=== PATIENT | female | born 1985 | race Caucasian/White ===

== ENCOUNTER → 2017-07-24 10:45 | Outpatient (CLI) | payer OTHER, SELFPAY ==
[2017-07-24 12:22] LABS: Absolute Lymphocyte Count 1.88 X10^3/ul (0.83-4.51); Absolute Neutrophil Count 4.5 X10^3/uL (2.0-7.7); Basophil# 0.02 X10^3/uL; Basophil% 0.3 % (0-1); Eosinophil# 0.14 X10^3/uL; Hematocrit 40.8 % (37-47); Hemoglobin 13.3 g/dl (12.0-15.0); Lymphocyte # 1.88 X10^3/ul (4.0); Lymphocyte % 27.4 % (19-41); Mean Corp Hgb Conc 32.6 g/gl (32-36); Mean Corpuscular Hgb 28.9 pg (27.0-32.0); Mean Corpuscular Volume 88.7 fL (81-99); Mean Platelet Vol. 9.5 fl (6.2-12.0); Monocyte# 0.36 X10^3/uL; Monocyte% 5.2 % (0-10); Neutrophil # 4.45 X10^3/uL (2.7-7.7); Neutrophil % 64.8 % (47-70); Platelet Count 301 K/mm3 (150-450); RBC Distribution Width CV 13.2 % (11.6-14.6); RBC Distribution Width SD 42.6 fl (35.1-43.9); White Blood Count 6.9 K/mm3 (4.4-11.0)
[2017-07-24 12:26] LABS: POSITIVE COUNT NO; POSITIVE DIFFERENTIAL NO; POSITIVE MORPHOLOGY NO
[2017-07-24 12:42] LABS: ALB/GLOB Ratio 1.1 RATIO (0.9-2.4); AST(SGOT) 12 U/L (15-37); Alanine Aminotransfer ALT/SGPT 19 U/L (13-56); Alkaline Phosphatase 84 U/L (45-117); Anion Gap 10 (5-15); BUN 11 mg/dL (7-18); BUN/Creat Ratio 11.2 RATIO (10-20); Calcium,Total 8.2 mg/dL (8.5-10.1); Chloride 106 mmol/L (98-107); Creatinine, Serum 0.98 mg/dL (0.55-1.02); EST Glomerular Filtration Rate 69 mL/min (>60); Est Glom Filt Rate - Afr Amer 84 mL/min (>60); Globulin 3.6 g/dL (2.2-4.2); Glucose 111 mg/dL (74-106); Potassium 3.9 mmol/L (3.5-5.1); Protein, Total 7.6 g/dL (6.4-8.2); Sodium Level 141 mmol/L (136-145); Thyroid Stim Hormone (TSH) 1.26 uIU/mL (0.358-3.74)
[2017-07-25 10:21] LABS: Vitamin B12 657 pg/mL (211-911); Vitamin D,25 Hydroxy 20.2 ng/mL (29.95-100.01)
== END ==
PROVIDERS: Family Provider Family Medicine; PCP Family Medicine
DX: F32.9 Major depressive disorder, single episode, unspecified (principal); R53.83 Other fatigue
CPT/HCPCS: 36415; 80053; 82306; 82607; 84443; 85025

== ENCOUNTER → 2018-07-28 15:10 | Outpatient (CLI) | payer OTHER, SELFPAY ==
[2016-09-25 19:28] VITALS: BMI 37.0
[2018-07-28 18:34] LABS: Chlamydia Trachomatis by PCR Negative (Negative); Neisserai gonorrhoeae by PCR Negative (Negative); Probe Check PASS; Sample Adequacy Control PASS; Specimen Processing Control PASS
== END ==
PROVIDERS: Visit Provider Obstetrics & Gynecology
DX: Z11.3 Encounter for screening for infections with a predominantly sexual mode of transmission (principal)
CPT/HCPCS: 87491; 87591

== ENCOUNTER → 2018-08-26 14:44 | Outpatient (CLI) | payer OTHER, SELFPAY ==
[2018-08-26 15:57] LABS: Amphetamine Urine VISTA NEGATIVE (<1000 ng/mL); Barbiturate Urine VISTA NEGATIVE (< 200 ng/mL); Benzodiazepine Urine VISTA NEGATIVE (< 200 ng/mL); Cocaine Urine VISTA NEGATIVE (< 300 ng/mL); Ecstacy Urine VISTA NEGATIVE (< 500 ng/mL); Methadone Urine VISTA NEGATIVE (< 300 ng/mL); PCP Urine VISTA NEGATIVE (< 25 ng/mL); THC Urine VISTA NEGATIVE (< 50 ng/mL); Vista UDS pH Range 6
[2018-08-26 16:40] LABS: Color, Urine Yellow (Yellow); Glucose, Dipstick Normal (Normal); Ketone-Dipstick Negative (Negative); Leukocyte Esterase-Dipstick 25 /ul (Negative); Nitrite-Dipstick Negative (Negative); Occult Blood-Urine Negative /ul (Negative); Protein-Dipstick Negative (Negative); Urine Bilirubin Dipstick Negative (Negative); Urine Clarity Clear (Clear); Urine Urobilinogen Normal (Normal)
[2018-08-26 17:39] LABS: Absolute Lymphocyte Count 2.65 X10^3/ul (0.83-4.51); Absolute Neutrophil Count 3.7 X10^3/uL (2.0-7.7); Basophil# 0.01 X10^3/uL; Basophil% 0.1 % (0-1); Eosinophil# 0.08 X10^3/uL; Eosinophils% 1.2 % (0-5); Hemoglobin 12.9 g/dl (12.0-15.0); Lymphocyte # 2.65 X10^3/ul (4.0); Lymphocyte % 38.6 % (19-41); Mean Corp Hgb Conc 33.1 g/gl (32-36); Mean Corpuscular Volume 84.8 fL (81-99); Mean Platelet Vol. 10.2 fl (6.2-12.0); Monocyte# 0.43 X10^3/uL; Monocyte% 6.3 % (0-10); Neutrophil # 3.69 X10^3/uL (2.7-7.7); Neutrophil % 53.7 % (47-70); Platelet Count 280 K/mm3 (150-450); RBC Distribution Width CV 13.5 % (11.6-14.6); White Blood Count 6.9 K/mm3 (4.4-11.0)
[2018-08-26 17:48] LABS: Thyroid Stim Hormone (TSH) 0.95 uIU/mL (0.358-3.74)
[2018-08-26 18:04] LABS: POSITIVE COUNT NO; POSITIVE DIFFERENTIAL NO; POSITIVE MORPHOLOGY NO
[2018-08-26 18:45] LABS: HIV - WCH Non-Reactive (Nonreactive); Rubella IgG > 500.0 IU/mL
[2018-08-28 01:44] LABS: Prenatal RPR NONREACTIVE (NONREACTIVE)
[2018-08-28 13:28] LABS: HEPATITIS B SURFACE AG Negative (Negative); Hep C Antibodies 0.1 s/co ratio (0.0-0.9)
== END ==
PROVIDERS: Visit Provider Obstetrics & Gynecology
DX: Z34.81 Encounter for supervision of other normal pregnancy, first trimester (principal)
CPT/HCPCS: 36415; 80307; 81002; 84443; 85025; 86703; 86762; 86803; 87340

== ENCOUNTER → 2018-10-21 16:43 | Outpatient (CLI) | payer OTHER, SELFPAY ==
[2016-09-25 19:28] VITALS: BMI 37.0
[2018-10-24 03:06] LABS: AFP MoM Value 1.61 (.); AFP Value-EIA 48.4 ng/mL (.); Comment Report (.); DIA MoM Value 0.68 (.); DIA Value-EIA 96.51 pg/mL (.); DSR (By Age) 273 (.); DSR (Second Trimester) 10000 (.); Gestat. Age Based On As provided (.); Gestational Age 16.9 WEEKS (.); Insulin Dep Diabetes No (.); Maternal Age At EDD 35.4 yr (.); hCG MoM 0.34 (.); hCG Value 9716 mIU/mL (.)
== END ==
PROVIDERS: Visit Provider Obstetrics & Gynecology
DX: Z34.82 Encounter for supervision of other normal pregnancy, second trimester (principal)
CPT/HCPCS: 36415; 82105; 82677; 84702

== ENCOUNTER 2018-12-14 22:15 | Outpatient (CLI) | payer OTHER, SELFPAY ==
[2018-11-02 14:13] VITALS: BMI 36.3
[2018-12-14 22:40] LABS: Mucous, Urine 0 SEEN /hpf (<or=2+); Red Blood Cells-Urine 0 SEEN /hpf (0-5); White Blood Cells 0 SEEN /hpf (0-5)
[2018-12-14 22:43] LABS: Color, Urine Yellow (Yellow); Glucose, Dipstick Normal (Normal); Ketone-Dipstick Negative (Negative); Leukocyte Esterase-Dipstick Negative /ul (Negative); Nitrite-Dipstick Negative (Negative); Occult Blood-Urine Negative /ul (Negative); Protein-Dipstick Negative (Negative); Specific Gravity, Urine 1.015 (1.002-1.030); Urine Bilirubin Dipstick Negative (Negative); Urine Clarity Clear (Clear); Urine Urobilinogen Normal (Normal)
[2018-12-14 22:44] VITALS: BMI 38.0
[2018-12-14 22:50] LABS: Bacteria 1+ /hpf (None Seen); Squamous Epithelial Cells - UA 0-5 SEEN /hpf (5-10)
[2018-12-14 23:02] LABS: ROM Internal Control Test YES-OK TO RESULT pt. (Internal QC); ROM Patient Test Negative (Negative)
--- NOTE | 2019-01-01 08:58 | OB.TRI.NOTE ---
History of Present Illness Date of Service: 12/14/18 Was patient seen by the physician?: No Reason For Visit: UTI Date of Service: 12/14/18 Final FRANKI: 04/01/19 Gestational age: 24 Weeks and 4 Days History of Present Illness: 24-week intrauterine presents with urinary tract infection symptoms and some vaginal discharge concerned about rupture of membranes. care has otherwise been uneventful. Allergies No Known Allergies Allergy (Verified 12/14/18 22:48) - Pertinent Past Medical History Medical History: Past Medical History (Last Updated 11/02/18 @ 14:18 by Melissa Thurston) Seasonal allergies (Chronic) Surgical History: Past Surgical History (Last Updated 11/02/18 @ 14:20 by Melissa Thurston) History of delivery (Resolved) History of D&C (Resolved) History of eyelid surgery (Resolved) Laboratory Studies: Laboratory Tests 12/14/18 12/14/18 Range/Units 22:34 22:34 Urine Color Yellow (Yellow) Urine Clarity Clear (Clear) Urine pH 6.0 (5.0 - 8.0) Ur Specific [place] 1.015 (1.002-1.030) Urine Protein Negative (Negative) mg/dl Urine Glucose (UA) Normal (Normal) mg/dl Urine Ketones Negative (Negative) mg/dl Urine Occult Blood Negative (Negative) /ul Urine Nitrite Negative (Negative) Urine Bilirubin Negative (Negative) mg/dL Urine Urobilinogen Normal (Normal) mg/dl Ur Leukocyte Esterase Negative (Negative) /ul Urine RBC 0 SEEN (0-5) /hpf Urine WBC 0 SEEN (0-5) /hpf Ur Squamous Epith Cells 0-5 SEEN (5-10) /hpf Urine Bacteria 1+ (None Seen) /hpf Urine Mucus 0 SEEN (<or=2+) /hpf Vag Amniotic Fld Detect Negative (Negative) NST - FHR Rate Baby A NST Reactive:: Yes, Appropriate for gestational age FHR Category:: Category I Uterine Activity:: No contractions noted. Impression/Plan 24-week intrauterine with some transient contractions. UA showed 1+ bacteria. Reactive heart tones. Cervix is nonthreatening and no contractions noted. Urine sent for culture and sensitivity and if positive will notify patient and begin antibiotic from the office.
== END 2018-12-14 23:26 | disposition home or self-care (01) ==
LOC: WPOUT 22:21 → WP 22:21
PROVIDERS: Family Provider Family Medicine; PCP Family Medicine; Referring Provider Obstetrics & Gynecology; Visit Provider Obstetrics & Gynecology
DX: O60.02 Preterm labor without delivery, second trimester (principal); O99.89 Other specified diseases and conditions complicating pregnancy, childbirth and the puerperium; R39.9 Unspecified symptoms and signs involving the genitourinary system; Z3A.24 24 weeks gestation of pregnancy
CPT/HCPCS: 59050; 81001; 84112; 87086; 87088; 99218; G0378

== ENCOUNTER → 2019-01-04 15:40 | Outpatient (CLI) | payer OTHER, SELFPAY ==
[2018-12-14 22:44] VITALS: BMI 38.0
[2019-01-04 17:41] LABS: Glucose Challenge Gest 1H 50g 131 mg/dL (70-140)
[2019-01-04 17:46] LABS: Hematocrit 31.1 % (37-47); Hemoglobin 9.9 g/dL (12.0-15.0); Mean Corp Hgb Conc 31.8 g/dL (32-36); Mean Corpuscular Hgb 26.5 pg (27.0-32.0); Mean Corpuscular Volume 83.2 fL (81-99); Mean Platelet Vol. 10.2 fl (6.2-12.0); Platelet Count 232 K/mm3 (150-450); RBC Distribution Width CV 13.5 % (11.6-14.6); RBC Distribution Width SD 41.1 fl (35.1-43.9); Red Blood Count 3.74 M/mm3 (4.2-5.4); White Blood Count 9.4 K/mm3 (4.4-11.0)
== END ==
PROVIDERS: Visit Provider Obstetrics & Gynecology
DX: Z34.82 Encounter for supervision of other normal pregnancy, second trimester (principal)
CPT/HCPCS: 36415; 82950; 85027

== ENCOUNTER 2019-03-25 10:21 | Inpatient (IN) | payer OTHER, SELFPAY ==
[2019-01-15 09:59] VITALS: BMI 38.0
[2019-03-25] VITALS (19 sets, daily range): BP systolic 100–138; BP diastolic 41–70; PULSE 85–120; RESP 11–20; TEMP 36.1–37.1; O2SAT 97–100; BMI 40.4
[2019-03-25] MEDS: Lactated Ringers 1,000 ML 999 ML IV (10:25)
[2019-03-25 10:53] LABS: Absolute Lymphocyte Count 2.89 X10^3/uL (0.83-4.51); Absolute Neutrophil Count 6.3 X10^3/uL (2.0-7.7); Basophil# 0.01 X10^3/uL; Basophil% 0.1 % (0-1); Eosinophil# 0.11 X10^3/uL; Eosinophils% 1.1 % (0-5); Hematocrit 40.4 % (37-47); Hemoglobin 13.3 g/dL (12.0-15.0); Lymphocyte # 2.89 X10^3/ul (4.0); Mean Corp Hgb Conc 32.9 g/dL (32-36); Mean Corpuscular Hgb 28.1 pg (27.0-32.0); Mean Corpuscular Volume 85.2 fL (81-99); Mean Platelet Vol. 10.7 fl (6.2-12.0); Monocyte# 0.64 X10^3/uL; Monocyte% 6.4 % (0-10); NRBC Flagged by Analyzer 0 % (0-5); Neutrophil # 6.26 X10^3/uL (2.7-7.7); Neutrophil % 62.7 % (47-70); Platelet Count 187 K/mm3 (150-450); RBC Distribution Width CV 15.9 % (11.6-14.6); RBC Distribution Width SD 50.1 fl (35.1-43.9); Red Blood Count 4.74 M/mm3 (4.2-5.4)
[2019-03-25] MEDS: Sodium Citrate/Citric Acid 30 ML UDC PO (11:22)
--- NOTE | 2019-03-25 11:22 | PCM.HP.OB ---
- Problem List (1) 39 weeks gestation of Status: Acute History Date of Admission: 03/25/19 Final FRANKI: 04/01/19 Final FRANKI Source: US <20 weeks Gestational age: 39 Weeks and 0 Days History of this : This is a 33 year-old, G [3], P [1011], at 39 weeks gestational age presents for scheduled repeat section. Medical History: Medical History (Last Updated 03/25/19 @ 11:25 by Esha Ryan MD) Seasonal allergies (Chronic) J30.2 Anxiety F41.9 Asthma J45.909 Lactose intolerance E73.9 Surgical History: Surgical History (Last Reviewed 01/15/19 @ 10:07 by Samira Redman NP-C) History of delivery (Resolved) Z98.891 History of D&C (Resolved) Z98.890 History of eyelid surgery (Resolved) Z98.890 Allergies No Known Allergies Allergy (Verified 01/15/19 09:52) Home Medications: Home Medications Pnv No.95/Ferrous Fum/Folic AC [ Vitamin Tablet] 1 ea PO DAILY 09/25/16 Smoking Status: Never smoker Alcohol: None Number of Fetus(es): 1 NST - FHR Rate Baby A Baseline: 147 bpm History Past Pregnancies: PAST SUMMARY: PARITY: 1. Total Pregnancies............ 3 2. Full Term Pregnancies........ 1 3. Premature.................... 0 4. Abortions - Induced.......... 0 5. Abortions - Spontaneous...... 1 6. Ectopics..................... 0 7. Multiple Births.............. 0 8. Living Children.............. 1 PAST #1: Date of :.................. 11/21/15 Gestation Weeks:................ 12 Length of labor(hours):......... 0 Sex:............................ UNKNOWN Weight-lbs:............... 0 Weight-oz:................ 0 Type of Delivery:............... Vag Type of Anesthesia:............. General Place of Delivery:.............. [place] Treatment of Labor?:.... No Comment: SAB PAST #2: Date of :.................. 09/27/16 Gestation Weeks:................ 39 Length of labor(hours):......... 55 Sex:............................ M Weight-lbs:............... 8 Weight-oz:................ 13 Type of Delivery:............... C-Sect Type of Anesthesia:............. Epidural Place of Delivery:.............. [place] Treatment of Labor?:.... No Comment: ARREST OF PROGRESS, IOL, TOMMY Labs: Mom's Labs & Results 03/25/19 03/25/19 10:25 10:25 WBC 10.0 RBC 4.74 Hgb 13.3 Hct 40.4 MCV 85.2 MCH 28.1 MCHC 32.9 RDW Std Deviation 50.1 H RDW Coeff of Tia 15.9 H Plt Count 187 MPV 10.7 Immature Gran % (Auto) 0.700 Neut % (Auto) 62.7 Lymph % (Auto) 29.0 [place] % (Auto) 6.4 Eos % (Auto) 1.1 Baso % (Auto) 0.1 Absolute Neuts (auto) 6.3 Absolute Lymphs (auto) 2.89 Nucleated RBC % 0 Blood Type Pending Antibody Screen Pending Course Did the patient receive Yes care? Labs Blood Type: O RH: POSITIVE RPR/VDRL/Syphilis Nonreactive Rubella status Immune HbSAg Negative Date Done: 08/26/18 Chlamydia Negative Gonorrhea Negative HIV/AIDS Non-Reactive Group B Strep: Not Done Current Obstetrical History Gestational Diabetes No Incompetent Cervix No Infertility No IUGR No Macrosomia No Hypertension/Pre-eclampsia No Placenta Previa/Abruption No PTL/PROM No Uterine anomaly No Oligohydramnios No Polyhydramnios No Multiple gestation No Past Medical History Asthma Yes Diabetes No Hypertension No Heart disease No Mitral valve prolapse No Neurologic/Seizure disorder/ No Migraines Kidney disease No Liver disease No Varicosities No Clotting disorders/Hx of DVT No Thyroid Dysfunction No Other medical diseases No Psychiatric disorders No Major trauma No Abnormal PAP smear No Sleep apnea No Mammogram in the last 2 years No Social History Marital Status: Alleged father Leander Hx Smoking No Smoking Status Never smoker Expected Infant Delivery Method: Scheduled Section Physical Exam Vitals: avss General: Alert, Oriented x3, Cooperative, No apparent distress HEENT: Atraumatic, Normocephalic Cardiovascular: Regular rate, Regular Rhythm, Normal S1, Normal S2 Lungs: Normal air movement Abdomen: Soft, Non Tender, Non-Distended Extremities:: No edema Neurological: Neuro grossly intact Assessment/Plan All Active Problems (Last Reviewed 01/15/19 @ 10:07 by Samira Redman NP-C) 39 weeks gestation of (Acute) History of delivery (Resolved) History of D&C (Resolved) History of eyelid surgery (Resolved) This is a 33 year-old, G [3], P [1011], at 39 weeks gestational age. Proceed with repeat section as planned.
[2019-03-25] MEDS: Lactated Ringers 1,000 ML 150 ML IV (11:31)
[2019-03-25] MEDS: Cefazolin 2 GM in 0.9% Normal Saline 100 ML IV (12:00)
--- NOTE | 2019-03-25 12:53 | PCM.OPRPT ---
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 She was suboptimal candidate for TOLAC. Consents were signed preoperatively and reviewed. Indications for : Repeat Elective Description of Procedure: The patient was taken to the operating room and spinal analgesia was administered. She is placed in a dorsal supine position with left lateral tilt. The perineum and abdomen were prepped and draped in sterile fashion. And the spinal was found to be adequate. A Pfannenstiel incision was made using a scalpel and brought down to incise the subcutaneous tissue and rectus fascia at the midline. Subcutaneous tissue was bluntly dissected off the fascia laterally. The fascial incision was dissected laterally and cephalad using curved Guevara scissors. The superior leaflet of the rectus fascia was grasped using Valentina clamps and bluntly dissected and sharply dissected from the underlying rectus muscle. In a similar fashion the inferior rectus fascia was dissected from the underlying muscle. The rectus muscles were bluntly at the midline. The peritoneum was identified and entered [sharply]. The bladder blade was placed into the abdomen and the vesicouterine peritoneal fold identified. The fold was incised and a bladder flap created. Bladder blade was then repositioned to the abdomen. A low transverse hysterotomy was made using the [Metzenbaum scissors] to level of the membranes. The hysterotomy was extended bluntly cephalad and caudad. The membranes were then ruptured revealing clear fluid. The head was elevated and brought to the level of the hysterotomy. A nuchal cord was reduced and the mouth and nares suctioned. The delivered revealing vigorous a [female] infant. The cord was doubly clamped and cut after approximately 60 seconds. The infant was passed to awaiting [nursery personnel]. The placenta was [expressed] from the uterus and appeared intact on inspection. The uterus was cleared of debris. The hysterotomy was then repaired using 0 Vicryl running lock suture with good hemostasis. The bladder blade was removed. The anterior cul-de-sac was cleared of debris. The peritoneum and rectus muscles were reapproximated using 2-0 Vicryl running suture. The rectus fascia was closed using 0 Vicryl running suture. The subcutaneous tissue was reapproximated using 2-0 Vicryl. The skin was closed using 4-0 Monocryl subcuticularly by the SUPERVISOR [employer]SEM[employer] under my supervision. A Mepilex occlusive dressing was placed over the incision. The fundus was firm. The patient was then transferred to the recovery room without complication. Sponge, instrument, and needle counts were correct ?2. I was present for the entire procedure. Amniotic Membrane Rupture Type: Artificial Amniotic Fluid Description: Clear Placenta Disposition: [facility] Drain: [place] to straight drain Fluids Replaced: 1000 ml Cord Entanglement: Around neck x 1, loose Nuchal Cord Compression: Without compression Cord Vessel Description: 3 Vessels Esitmated Blood Loss (ml): 975 Gender: Female (1 minute): 8 (5 minute): 9 Delayed cord clamping: Yes Antibiotic Given: Ancef 2 grams IV x1 Pt instructed on risks of surgery: Bleeding, Anesthesia Risks, Infection, Injury to surrounding structure(s) including bowel and bladder Complications: None - Admit VTE Documentation VTE Present on Admission: No VTE Mechan Device Prophylaxis: SCD's VTE Pharm Prophylaxis ordered?: No
[2019-03-25] MEDS: Oxytocin 30 units/NS 500 ml 30 UNITS/500 ML IV.SOLN 167 UNITS IV (13:10)
[2019-03-25] MEDS: Methylergonovine 0.2 MG/ML Ampul IM (13:35)
[2019-03-25] MEDS: Lactated Ringers 1,000 ML 100 ML IV (16:32)
--- NOTE | 2019-03-25 18:02 | CPS ---
mom is nursing baby. nurse will start
[2019-03-25] MEDS: Ketorolac 30 MG/ML Syringe IV (19:23)
[2019-03-25] MEDS: 0.9% Saline Lock 10 ML Syringe IV (23:45)
[2019-03-26] VITALS (12 sets, daily range): BP systolic 93–107; BP diastolic 37–42; PULSE 92–118; RESP 12–18; TEMP 36.6–37.2; O2SAT 97–100
[2019-03-26] MEDS: Ketorolac 30 MG/ML Syringe IV ×3 (00:33→13:12)
[2019-03-26] MEDS: 0.9% Saline Lock 10 ML Syringe IV ×3 (00:33→13:12)
[2019-03-26] MEDS: DiphenhydrAMINE 25 MG Capsule PO (01:47)
[2019-03-26] MEDS: Ondansetron ODT 4 MG Tablet PO (02:47)
[2019-03-26] MEDS: Acetaminophen 500 MG Tablet 1000 MG PO ×2 (05:12→17:33)
[2019-03-26 05:16] LABS: Hematocrit 27.1 % (37-47); Hemoglobin 8.8 g/dL (12.0-15.0); Mean Corp Hgb Conc 32.5 g/dL (32-36); Mean Corpuscular Hgb 28.2 pg (27.0-32.0); Mean Corpuscular Volume 86.9 fL (81-99); Mean Platelet Vol. 10.5 fl (6.2-12.0); Platelet Count 176 K/mm3 (150-450); RBC Distribution Width CV 16.1 % (11.6-14.6); RBC Distribution Width SD 51.1 fl (35.1-43.9); Red Blood Count 3.12 M/mm3 (4.2-5.4); White Blood Count 14.2 K/mm3 (4.4-11.0)
--- NOTE | 2019-03-26 08:54 | PN.OBGYN_ITS ---
Patient Problems: Active and Suspected Problems (Last Updated 03/25/19 @ 11:25 by Esha Seo MD) 39 weeks gestation of (Acute) Subjective: Bleeding improved from prior. No nausea or vomiting. Tolerates PO. Objective: AVSS - Physical Exam Vitals/I&O's: Vital Signs Temp Pulse Resp BP Pulse Ox 97.9 F 92 12 93/40 L 100 03/26/19 08:30 03/26/19 08:30 03/26/19 08:30 03/26/19 08:30 03/26/19 08:30 Oxygen Delivery Method Room Air Weight: 100.3 kg Body Mass Index (BMI) 40.4 Intake and Output for Last 24 Hours 03/24/19 03/25/19 03/26/19 23:59 23:59 23:59 Intake Total 7079.17 / 7079.17 1800 / 1800 Output Total 1300 / 1300 1250 / 1250 Balance 5779.17 / 5779.17 550 / 550 General: Alert, Oriented x3, Cooperative, No apparent distress HEENT: Atraumatic, Normocephalic Lungs: Clear to auscultation, Normal air movement Cardiovascular: Regular rate, Regular Rhythm, Normal S1, Normal S2 Abdomen: Soft, Non Tender, Non-Distended, - - incisional dressing c/d/i Extremities: No edema, No Calf Tenderness Neurological: Neuro grossly intact Psych/Mental Status: Normal Affect, Appropriate, Alert and oriented to time, place, person, mood and affect Laboratory Results 03/25/19 10:25: WBC 10.0, RBC 4.74, Hgb 13.3, Hct 40.4, MCV 85.2, MCH 28.1, MCHC 32.9, RDW Std Deviation 50.1 H, RDW Coeff of Tia 15.9 H, Plt Count 187, MPV 10.7, Immature Gran % (Auto) 0.700, Neut % (Auto) 62.7, Lymph % (Auto) 29.0, [place] % (Auto) 6.4, Eos % (Auto) 1.1, Baso % (Auto) 0.1, Absolute Neuts (auto) 6.3, Absolute Lymphs (auto) 2.89, Nucleated RBC % 0 03/25/19 10:25: Blood Type O POSITIVE, Antibody Screen NEGATIVE 03/26/19 05:05: WBC 14.2 H, RBC 3.12 L, Hgb 8.8 L, Hct 27.1 L, MCV 86.9, MCH 28.2, MCHC 32.5, RDW Std Deviation 51.1 H, RDW Coeff of Tia 16.1 H, Plt Count 176, MPV 10.5 Current Medications Acetaminophen (Tylenol) 1,000 mg PO Q8H PRN PRN Reason: Pain Score 1-3/10 Last Admin: 03/26/19 05:12 Dose: 1,000 mg Documented by: Bisacodyl (Dulcolax) 10 mg RECTAL UD PRN PRN Reason: If no BM Diphenhydramine HCl (Benadryl) 25 mg PO Q6H PRN PRN PRN Reason: ITCHING Stop: 03/26/19 13:35 Last Admin: 03/26/19 01:47 Dose: 25 mg Documented by: Enoxaparin Sodium (Lovenox) 40 mg SC X1 [facility] Last Admin: 03/25/19 19:23 Dose: Not Given Documented by: Hydrocortisone (Hytone) 1 applic TOPICAL TID PRN PRN; Protocol PRN Reason: Discomfort Lactated Ringer's () 1,000 mls @ 100 mls/hr IV .Q10H [facility] Last Infusion: 03/25/19 23:30 Dose: Infused Documented by: Naloxone HCl 4 mg/ Dextrose 504 mls @ 0 mls/hr IV .Q0M PRN; Protocol PRN Reason: Respiratory depression Ibuprofen (Motrin) 600 mg PO Q6H PRN PRN PRN Reason: Pain Score 1-3/10 Ketorolac Tromethamine (Toradol) 30 mg IV Q6H [facility] Stop: 03/27/19 13:01 Last Admin: 03/26/19 07:25 Dose: 30 mg Documented by: Methylergonovine Maleate (Methergine) 0.2 mg IM X1 PRN PRN Reason: Uterine Atony Last Admin: 03/25/19 13:35 Dose: 0.2 mg Documented by: Nalbuphine HCl (Nubain) 5 mg IV Q3H PRN PRN PRN Reason: ITCHING Stop: 03/26/19 13:35 Naloxone HCl (Narcan) 0.02 mg IV Q1M PRN PRN Reason: RR <10 and pt unresponsive Ondansetron HCl (Zofran) 4 mg IV Q4H PRN PRN PRN Reason: Nausea Ondansetron HCl (Zofran Odt) 4 mg PO Q4H PRN PRN PRN Reason: ITCHING Stop: 03/26/19 13:35 Last Admin: 03/26/19 02:47 Dose: 4 mg Documented by: Oxycodone HCl (Oxyir) 5 - 10 mg PO Q4H PRN PRN PRN Reason: Pain Score 4-10/10 Multivit/Folic Acid/Iron (Prenatabs Fa) 1 tablet PO DAILY@1200 VISHAL Prochlorperazine Edisylate (Compazine Iv) 10 mg IV Q6H PRN PRN PRN Reason: NAUSEA Senna/Docusate Sodium (Senokot-S, Sharmila-Colace) 0 tablet PO DAILY PRN PRN Reason: Constipation Simethicone (Mylicon) 80 mg PO PCHS PRN PRN Reason: Indigestion/stomach pain Sodium Chloride () 5 - 15 ml IV UD PRN PRN Reason: SALINE FLUSH Last Admin: 03/26/19 07:26 Dose: 10 ml Documented by: Medical Necessity - Tobacco Use Smoking Status: Never smoker Assessment/Plan All Active Problems (Last Reviewed 01/15/19 @ 10:07 by Samira Redman NP-C) 39 weeks gestation of (Acute) History of delivery (Resolved) History of D&C (Resolved) History of eyelid surgery (Resolved) This is a 33 year-old, G [3], P [2012 POD#1 s/p RLTCS with hemorrhage doing well. -Rh positive -Routine postop care
[2019-03-26] MEDS: Senna/Docusate Sodium 1 Tablet PO (09:21)
[2019-03-26] MEDS: Enoxaparin 40 MG/0.4 ML Syringe SC (09:22)
[2019-03-26] MEDS: Prenatal Vits Tablet 1 TABLET PO (13:12)
--- NOTE | 2019-03-26 18:42 | NURSING ---
IV noted to be pulled out and sticking to dressing. D/C
[2019-03-26] MEDS: Ibuprofen 600 MG Tablet PO (21:00)
[2019-03-27 01:26] VITALS: BP 100/47; PULSE 100; RESP 16; TEMP 37
[2019-03-27] MEDS: Ibuprofen 600 MG Tablet PO ×3 (02:59→18:20)
[2019-03-27] MEDS: Senna/Docusate Sodium 1 Tablet PO (04:04)
--- NOTE | 2019-03-27 04:17 | NURSING ---
0355 pt does not want oxyir states she felt it constipated her. states has not had bowel movement since the , given senna and discussed option of dulcolax later today if no results from senna.
[2019-03-27 07:25] VITALS: BP 98/50; PULSE 105; RESP 16; TEMP 36.9; O2SAT 98
[2019-03-27 08:23] LABS: Absolute Lymphocyte Count 2.68 X10^3/uL (0.83-4.51); Absolute Neutrophil Count 4.2 X10^3/uL (2.0-7.7); Basophil# 0.01 X10^3/uL; Basophil% 0.1 % (0-1); Eosinophil# 0.08 X10^3/uL; Eosinophils% 1.1 % (0-5); Hematocrit 23.4 % (37-47); Hemoglobin 7.5 g/dL (12.0-15.0); Lymphocyte # 2.68 X10^3/ul (4.0); Lymphocyte % 35.3 % (19-41); Mean Corp Hgb Conc 32.1 g/dL (32-36); Mean Corpuscular Hgb 28.2 pg (27.0-32.0); Mean Platelet Vol. 10.1 fl (6.2-12.0); Monocyte# 0.61 X10^3/uL; NRBC Flagged by Analyzer 0 % (0-5); Neutrophil # 4.16 X10^3/uL (2.7-7.7); Neutrophil % 54.8 % (47-70); Platelet Count 175 K/mm3 (150-450); RBC Distribution Width CV 16.5 % (11.6-14.6); Red Blood Count 2.66 M/mm3 (4.2-5.4); White Blood Count 7.6 K/mm3 (4.4-11.0)
--- NOTE | 2019-03-27 10:30 | DCINST_ITS ---
Discharge Diet: No Restrictions Discharge Activity: May not drive while taking narcotic pain medications., May Shower Return to work on:: 05/24/19 May resume sexual activity in: 4-6 weeks Lifting Restrictions: 20 pounds Additional Activity Instructions:: Nothing in the vagina for 4-6 weeks. You may return to work/school in 6 - 8 weeks. Change Dressing in (Days):: 7 Remove Dressing in (days):: 7 Cleanse incision/area with: Soap & Water, Keep Dressing Clean & Dry Additional Instructions: If you experience any of the following, contact your healthcare provider. * Bleeding that soaks a pad every hour for 2 hours * Fever 100.4 or higher * Unrelieved incision or abdominal pain * Swelling, redness, discharge or bleeding from your incision * Problems urinating (including inability to urinate or burning while urinating). * Visual changes * Severe headache * Flu-like symptoms * Pain or redness in one of both of your breasts * Pain, warmth, tenderness or swelling in your legs, especially the calf area * Frequent nausea and vomiting * Symptoms of depression or anxiety If you experience any of the following, call 911 or go to the nearest Emergency Room. * Chest pain * Problems breathing * Seizure activity * Partial or complete paralysis of a body part, slurred speech, weakness or drooping of the face, or a sudden inability to walk or hold your balance Allergies/Adverse Reactions: Allergies No Known Allergies Allergy (Verified 01/15/19 09:52) Medications to take at Discharge Docusate Sodium [Colace] 100 mg PO BID #30 cap 03/27/19 Ferrous Sulfate 325 mg PO BIDCM #60 tab 03/27/19 Oxycodone [Oxyir] 5 mg PO Q6H PRN PRN 3 Days #15 tab 03/27/19 Polyethylene Glycol 3350 [Miralax] 17 gm PO DAILY PRN #14 packet 03/27/19 Vits [Prenatabs FA ] 1 tablet PO DAILY@1200 tablet 03/27/19 The following prescriptions were given: Docusate Sodium [Colace] 100 mg PO BID #30 cap Transmission Status: Pending to [id number] Ferrous Sulfate 325 mg PO BIDCM #60 tab Transmission Status: Pending to [facility] Polyethylene Glycol 3350 [Miralax] 17 gm PO DAILY PRN #14 packet PRN Reason: Constipation Transmission Status: Pending to [facility] Oxycodone [Oxyir] 5 mg PO Q6H PRN PRN 3 Days #15 tab PRN Reason: Mod-Severe Pain (4-10) Prescription Printed Follow-Up: Call to make an appointment with your doctor for an incision check in 1-2 weeks. You will also need a 6 week post- follow up appointment. Test results from this visit will be discussed in further detail at your follow- up appointment, if applicable. Please Follow Up With: Esha Ryan MD - [phone] When: Call to make an appointment for an incision check in 2 weeks. Primary Care Physician: Jermaine Mayer DO [Primary Care Provider] -
--- NOTE | 2019-03-27 10:49 | PCM.PN.OB ---
Patient Problems: Active and Suspected Problems (Last Updated 03/25/19 @ 11:25 by Esha Ryan MD) 39 weeks gestation of (Acute) Subjective: POD#2 repeat C/S at 39 wks States uncomfortable abdomen. Neg stool, Neg flatus. has been drinking more, coffee tried. Fruit juice tried. Stool softener recommended. Breast feeding. Baby being checked again for bilirubin Active toddler and family members in room. Would like to stay another day. Declines dischg. - Physical Exam Vitals/I&O's: Vital Signs Temp Pulse Resp BP Pulse Ox 98.5 F 105 H 16 98/50 L 98 03/27/19 07:25 03/27/19 07:25 03/27/19 07:25 03/27/19 07:25 03/27/19 07:25 Oxygen Delivery Method Room Air Weight: 100.3 kg Body Mass Index (BMI) 40.4 Intake and Output for Last 24 Hours 03/25/19 03/26/19 03/27/19 23:59 23:59 23:59 Intake Total 7079.17 / 7079.17 1800 / 1800 Output Total 1300 / 1300 1250 / 1250 Balance 5779.17 / 5779.17 550 / 550 General: Alert, Oriented x3, Cooperative, No apparent distress HEENT: Atraumatic, EOMI Neck: Supple Abdomen: Soft - Fundus firm minimally tender c/w postop status, at approx 1-2 cm inferior to umbilicus. Skin: Incision - Mepilex dressing, CDI. Psych/Mental Status: Normal Affect Laboratory Results 03/27/19 08:15: WBC 7.6, RBC 2.66 L, Hgb 7.5 L, Hct 23.4 L, MCV 88.0, MCH 28.2, MCHC 32.1, RDW Std Deviation 52.0 H, RDW Coeff of Tia 16.5 H, Plt Count 175, MPV 10.1, Immature Gran % (Auto) 0.700, Neut % (Auto) 54.8, Lymph % (Auto) 35.3, [place] % (Auto) 8.0, Eos % (Auto) 1.1, Baso % (Auto) 0.1, Absolute Neuts (auto) 4.2, Absolute Lymphs (auto) 2.68, Nucleated RBC % 0 Current Medications Acetaminophen (Tylenol) 1,000 mg PO Q8H PRN PRN Reason: Pain Score 1-3/10 Last Admin: 03/26/19 17:33 Dose: 1,000 mg Documented by: Bisacodyl (Dulcolax) 10 mg RECTAL UD PRN PRN Reason: If no BM Enoxaparin Sodium (Lovenox) 40 mg SC X1 [facility] Last Admin: 03/26/19 09:22 Dose: 40 mg Documented by: Hydrocortisone (Hytone) 1 applic TOPICAL TID PRN PRN; Protocol PRN Reason: Discomfort Naloxone HCl 4 mg/ Dextrose 504 mls @ 0 mls/hr IV .Q0M PRN; Protocol PRN Reason: Respiratory depression Ibuprofen (Motrin) 600 mg PO Q6H PRN PRN PRN Reason: Pain Score 1-3/10 Last Admin: 03/27/19 02:59 Dose: 600 mg Documented by: Methylergonovine Maleate (Methergine) 0.2 mg IM X1 PRN PRN Reason: Uterine Atony Last Admin: 03/25/19 13:35 Dose: 0.2 mg Documented by: Naloxone HCl (Narcan) 0.02 mg IV Q1M PRN PRN Reason: RR <10 and pt unresponsive Ondansetron HCl (Zofran) 4 mg IV Q4H PRN PRN PRN Reason: Nausea Oxycodone HCl (Oxyir) 5 - 10 mg PO Q4H PRN PRN PRN Reason: Pain Score 4-10/10 Multivit/Folic Acid/Iron (Prenatabs Fa) 1 tablet PO DAILY@1200 [facility] Last Admin: 03/26/19 13:12 Dose: 1 tablet Documented by: Prochlorperazine Edisylate (Compazine Iv) 10 mg IV Q6H PRN PRN PRN Reason: NAUSEA Senna/Docusate Sodium (Senokot-S, Sharmila-Colace) 0 tablet PO DAILY PRN PRN Reason: Constipation Last Admin: 03/27/19 04:04 Dose: 2 tablet Documented by: Simethicone (Mylicon) 80 mg PO PCHS PRN PRN Reason: Indigestion/stomach pain Sodium Chloride () 5 - 15 ml IV UD PRN PRN Reason: SALINE FLUSH Last Admin: 03/26/19 13:12 Dose: 10 ml Documented by: Medical Necessity - Tobacco Use Smoking Status: Never smoker Assessment/Plan All Active Problems (Last Reviewed 01/15/19 @ 10:07 by Samira Redman NP-C) 39 weeks gestation of (Acute) History of delivery (Resolved) History of D&C (Resolved) History of eyelid surgery (Resolved) POD#2 Repeat C section Postop anemia, acute blood loss anemia -- clinically stable -- iron recommended -- repeat CBC AM POD#3 Constipation -- inc po fulids, fiber -- stool softener encourage ambulation, coffee/ caffeine Continue routine postop care.
[2019-03-27] MEDS: Prenatal Vits Tablet 1 TABLET PO (11:42)
[2019-03-27] MEDS: Polyethylene Glycol 3350 17 GM PACKET PO ×2 (11:48)
[2019-03-27 13:52] VITALS: BP 93/57; PULSE 107; RESP 16; TEMP 36.7; O2SAT 97
--- NOTE | 2019-03-27 16:18 | CASEMGMT ---
Social Work Brief Assessment - Labor and Delivery Unit Refer documentation below for further details. Date of Referral/Notification: 03/26/19 Time of Referral: 08:34 Reason for Referral: MOB WITH HISTORY OF ANXIETY AND DEPRESSION Date of Intervention: 03/27/19 Time of Intervention: 15:00 Informant: Medical record and mother of baby (MOB) Assessment: MET WITH MOB ALONE IN ROOM. 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 MOB REPORTS HAS 2 1/2 YEAR OLD SON, TOMMY AT HOME. MOB REPORTS GOOD SUPPORT FROM , CHELSEA AND FAMILY. MOB REPORTS HISTORY OF ANXIETY AND DEPRESSION THAT STARTED IN HER 20'S. MOB REPORTS WAS ON MEDICATION AT ONE TIME AND COMPLETED COUNSELING AT [facility]. MOB REPORTS IS NOT CURRENTLY ON MEDICATION. MOB DENIES ANY HISTORY OF SUBSTANCE ABUSE. DISCUSSED DEPRESSION SIGNS AND SYMPTOMS AND PROVIDED MOB WITH RESOURCE PACKET. MOB CALM AND APPROPRIATE THROUGHOUT ASSESSMENT. MOB DENIES ANY FURTHER QUESTIONS OR CONCERNS. UPDATED MOB'S NURSE, DOMINGA. ANTICIPATE D/C TOMORROW, 03/28/19. Plan: HOME WITH RESOURCES PROVIDED. No further needs requested or indicated. -Starr Marshall, YOUTH MANAGER, TRUCK LEASING MANAGER
[2019-03-27] MEDS: Enoxaparin 40 MG/0.4 ML Syringe SC (18:11)
[2019-03-27 20:04] VITALS: BP 101/43; PULSE 104; RESP 18; TEMP 37.1; O2SAT 98
[2019-03-27] MEDS: Acetaminophen 500 MG Tablet 1000 MG PO (20:20)
[2019-03-28 02:00] VITALS: BP 104/47; PULSE 94; RESP 16; TEMP 36.4
[2019-03-28 05:20] LABS: Hemoglobin 7.7 g/dL (12.0-15.0); Mean Corp Hgb Conc 32.1 g/dL (32-36); Mean Corpuscular Hgb 28.2 pg (27.0-32.0); Mean Corpuscular Volume 87.9 fL (81-99); Mean Platelet Vol. 9.8 fl (6.2-12.0); Platelet Count 184 K/mm3 (150-450); RBC Distribution Width CV 16.5 % (11.6-14.6); RBC Distribution Width SD 52.8 fl (35.1-43.9); Red Blood Count 2.73 M/mm3 (4.2-5.4); White Blood Count 7.2 K/mm3 (4.4-11.0)
[2019-03-28] MEDS: Ibuprofen 600 MG Tablet PO (07:08)
--- NOTE | 2019-03-28 07:18 | DS.PCM_ITS ---
Discharge Date and Diagnosis - Problem List Patient Problems: Active and Suspected Problems (Last Updated 03/25/19 @ 11:25 by Esha Seo MD) 39 weeks gestation of (Acute) Date of Admission: 03/25/19 Date of Discharge: 03/28/19 - Primary Discharge Diagnosis Active and Suspected Problems (Last Updated 03/25/19 @ 11:25 by Esha Seo MD) 39 weeks gestation of (Acute) - Secondary Discharge Diagnosis Chronic Problems (Last Updated 03/25/19 @ 11:25 by Esha Ryan MD) Shortness of breath (Chronic) Seasonal allergies (Chronic) Hospital Course and Treatment Operations: - - Repeat Low transverse section Summary of Care Provided: The patient is a 33 year old female with history of prior c section delivery who presents for repeat C section at 39 wk EGA Repeat C section performed on 03/25/19 Procedure uncomplicated with EBL of 975 cc. Delivered a naranjo viable female Ap 12/18. Postoperative course complicated by acute blood loss anemia. Preoperative Hgb 13.3 g/dl., decreased to 7.7 g/dl by POD#3 (stable from POD#2) Iron bid planned. Patient clinically stable, and Hgb stable at 7.7 g/dl by POD#3. No transfusion given. Patient also with c/o constipation after surgery. Stool softeners, inc fluids and fiber given with good result. Postoperative course otherwise uneventful. Breast feeding. Patient elected discharge to home on POD#3. Patient Problems: Active and Suspected Problems (Last Updated 03/25/19 @ 11:25 by Esha Seo MD) 39 weeks gestation of (Acute) - Physical Exam Vitals/I&O's: Vital Signs Temp Pulse Resp BP Pulse Ox 97.5 F L 94 16 104/47 L 98 03/28/19 02:00 03/28/19 02:00 03/28/19 02:00 03/28/19 02:00 03/27/19 20:04 Oxygen Delivery Method Room Air Weight: 100.3 kg Body Mass Index (BMI) 40.4 Intake and Output for Last 24 Hours 03/26/19 03/27/19 03/28/19 23:59 23:59 23:59 Intake Total 1800 / 1800 Output Total 1250 / 1250 Balance 550 / 550 Laboratory Results 03/27/19 08:15: WBC 7.6, RBC 2.66 L, Hgb 7.5 L, Hct 23.4 L, MCV 88.0, MCH 28.2, MCHC 32.1, RDW Std Deviation 52.0 H, RDW Coeff of Tia 16.5 H, Plt Count 175, MPV 10.1, Immature Gran % (Auto) 0.700, Neut % (Auto) 54.8, Lymph % (Auto) 35.3, Slope % (Auto) 8.0, Eos % (Auto) 1.1, Baso % (Auto) 0.1, Absolute Neuts (auto) 4.2, Absolute Lymphs (auto) 2.68, Nucleated RBC % 0 03/28/19 04:00: WBC Cancelled, Corrected WBC Cancelled, RBC Cancelled, Hgb Cancelled, Hct Cancelled, MCV Cancelled, MCH Cancelled, MCHC Cancelled, RDW Std Deviation Cancelled, RDW Coeff of Tia Cancelled, Plt Count Cancelled, MPV Cancelled, Diff Path Review Cancelled 03/28/19 05:10: WBC 7.2, RBC 2.73 L, Hgb 7.7 L, Hct 24.0 L, MCV 87.9, MCH 28.2, MCHC 32.1, RDW Std Deviation 52.8 H, RDW Coeff of Tia 16.5 H, Plt Count 184, MPV 9.8 Current Medications Acetaminophen (Tylenol) 1,000 mg PO Q8H PRN PRN Reason: Pain Score 1-310 Last Admin: 03/27/19 20:20 Dose: 1,000 mg Documented by: Bisacodyl (Dulcolax) 10 mg RECTAL UD PRN PRN Reason: If no BM Enoxaparin Sodium (Lovenox) 40 mg SC X1 [facility] Last Admin: 03/27/19 18:11 Dose: 40 mg Documented by: Hydrocortisone (Hytone) 1 applic TOPICAL TID PRN PRN; Protocol PRN Reason: Discomfort Naloxone HCl 4 mg/ Dextrose 504 mls @ 0 mls/hr IV .Q0M PRN; Protocol PRN Reason: Respiratory depression Ibuprofen (Motrin) 600 mg PO Q6H PRN PRN PRN Reason: Pain Score 1-3/10 Last Admin: 03/28/19 07:08 Dose: 600 mg Documented by: Magnesium Hydroxide (Milk Of Magnesia) 30 ml PO BID PRN PRN Reason: Constipation Methylergonovine Maleate (Methergine) 0.2 mg IM X1 PRN PRN Reason: Uterine Atony Last Admin: 03/25/19 13:35 Dose: 0.2 mg Documented by: Naloxone HCl (Narcan) 0.02 mg IV Q1M PRN PRN Reason: RR <10 and pt unresponsive Ondansetron HCl (Zofran) 4 mg IV Q4H PRN PRN PRN Reason: Nausea Oxycodone HCl (Oxyir) 5 - 10 mg PO Q4H PRN PRN PRN Reason: Pain Score 4-10/10 Polyethylene Glycol (Miralax) 17 gm PO DAILY [facility] Last Admin: 03/27/19 11:48 Dose: 17 gm Documented by: Multivit/Folic Acid/Iron (Prenatabs Fa) 1 tablet PO DAILY@1200 [facility] Last Admin: 03/27/19 11:42 Dose: 1 tablet Documented by: Prochlorperazine Edisylate (Compazine Iv) 10 mg IV Q6H PRN PRN PRN Reason: NAUSEA Senna/Docusate Sodium (Senokot-S, Sharmila-Colace) 0 tablet PO DAILY PRN PRN Reason: Constipation Last Admin: 03/27/19 04:04 Dose: 2 tablet Documented by: Simethicone (Mylicon) 80 mg PO PCHS PRN PRN Reason: Indigestion/stomach pain Last Admin: 03/27/19 18:20 Dose: 80 mg Documented by: Sodium Chloride () 5 - 15 ml IV UD PRN PRN Reason: SALINE FLUSH Last Admin: 03/26/19 13:12 Dose: 10 ml Documented by: Discharge Diet: No Restrictions Discharge Activity: May not drive while taking narcotic pain medications., May Shower Return to work on:: 05/24/19 May resume sexual activity in: 4-6 weeks Additional Activity Instructions:: Nothing in the vagina for 4-6 weeks. You may return to work/school in 6 - 8 weeks. Change Dressing in (Days):: 7 Remove Dressing in (days):: 7 Cleanse incision/area with: Soap & Water, Keep Dressing Clean & Dry Home Medications: Medications to take at Discharge Docusate Sodium [Colace] 100 mg PO BID #30 cap 03/27/19 Ferrous Sulfate 325 mg PO BIDCM #60 tab 03/27/19 Oxycodone [Oxyir] 5 mg PO Q6H PRN PRN 3 Days #15 tab 03/27/19 Polyethylene Glycol 3350 [Miralax] 17 gm PO DAILY PRN #14 packet 03/27/19 Vits [Prenatabs FA ] 1 tab PO DAILY@1200 tab 03/27/19 Following Prescrptions Were Given to Patient: Docusate Sodium [Colace] 100 mg PO BID #30 cap Transmission Status: Received by [email or web address] Ferrous Sulfate 325 mg PO BIDCM #60 tab Transmission Status: [email or web address] Polyethylene Glycol 3350 [Miralax] 17 gm PO DAILY PRN #14 packet PRN Reason: Constipation Transmission Status: [email or web address] Oxycodone [Oxyir] 5 mg PO Q6H PRN PRN 3 Days #15 tab PRN Reason: Mod-Severe Pain (4-02/18) Prescription Printed Primary Care Physician: Jermaine Mayer DO [Primary Care Provider] - Please Follow Up With: Esha Ryan MD - [phone] When: Call to make an appointment for an incision check in 2 weeks. Medical Necessity - Tobacco Use Smoking Status: Never smoker Meaningful Use Info Meaningful Use Diagnoses (Choose all that apply): None applicable
[2019-03-28 07:45] VITALS: BP 106/54; PULSE 93; RESP 16; TEMP 36.7; O2SAT 98
--- NOTE | 2019-03-28 08:21 | PCM.PN.OB ---
Patient Problems: Active and Suspected Problems (Last Updated 03/25/19 @ 11:25 by Esha Ryan MD) 39 weeks gestation of (Acute) Subjective: POD#3 Repeat C section at 39 wks. Acute blood loss anemia, stable. Doing well. + flatus and stool. Using miralax, pericolace bid. Pain control adequate. Does not plan to take narcotics. Plans Tylenol extra strength and ibuprofen or Aleve. plans to to home today. Breast feeding. - Physical Exam Vitals/I&O's: Vital Signs Temp Pulse Resp BP Pulse Ox 97.5 F L 94 16 104/47 L 98 03/28/19 02:00 03/28/19 02:00 03/28/19 02:00 03/28/19 02:00 03/27/19 20:04 Oxygen Delivery Method Room Air Weight: 100.3 kg Body Mass Index (BMI) 40.4 Intake and Output for Last 24 Hours 03/26/19 03/27/19 03/28/19 23:59 23:59 23:59 Intake Total 1800 / 1800 Output Total 1250 / 1250 Balance 550 / 550 General: Alert, Oriented x3, Cooperative, No apparent distress HEENT: Atraumatic, EOMI Neck: Supple Abdomen: Soft - Fundus firm NT at approx 3-4 cm inferior to umbilicus Skin: Incision - Mepilex removed. Incision CDI. Psych/Mental Status: Normal Affect Laboratory Results 03/27/19 08:15: WBC 7.6, RBC 2.66 L, Hgb 7.5 L, Hct 23.4 L, MCV 88.0, MCH 28.2, MCHC 32.1, RDW Std Deviation 52.0 H, RDW Coeff of Tia 16.5 H, Plt Count 175, MPV 10.1, Immature Gran % (Auto) 0.700, Neut % (Auto) 54.8, Lymph % (Auto) 35.3, [place] % (Auto) 8.0, Eos % (Auto) 1.1, Baso % (Auto) 0.1, Absolute Neuts (auto) 4.2, Absolute Lymphs (auto) 2.68, Nucleated RBC % 0 03/28/19 04:00: WBC Cancelled, Corrected WBC Cancelled, RBC Cancelled, Hgb Cancelled, Hct Cancelled, MCV Cancelled, MCH Cancelled, MCHC Cancelled, RDW Std Deviation Cancelled, RDW Coeff of Tia Cancelled, Plt Count Cancelled, MPV Cancelled, Diff Path Review Cancelled 03/28/19 05:10: WBC 7.2, RBC 2.73 L, Hgb 7.7 L, Hct 24.0 L, MCV 87.9, MCH 28.2, MCHC 32.1, RDW Std Deviation 52.8 H, RDW Coeff of Tia 16.5 H, Plt Count 184, MPV 9.8 Current Medications Acetaminophen (Tylenol) 1,000 mg PO Q8H PRN PRN Reason: Pain Score 1-3/10 Last Admin: 03/27/19 20:20 Dose: 1,000 mg Documented by: Bisacodyl (Dulcolax) 10 mg RECTAL UD PRN PRN Reason: If no BM Enoxaparin Sodium (Lovenox) 40 mg SC X1 [facility] Last Admin: 03/27/19 18:11 Dose: 40 mg Documented by: Hydrocortisone (Hytone) 1 applic TOPICAL TID PRN PRN; Protocol PRN Reason: Discomfort Naloxone HCl 4 mg/ Dextrose 504 mls @ 0 mls/hr IV .Q0M PRN; Protocol PRN Reason: Respiratory depression Ibuprofen (Motrin) 600 mg PO Q6H PRN PRN PRN Reason: Pain Score 1-3/10 Last Admin: 03/28/19 07:08 Dose: 600 mg Documented by: Magnesium Hydroxide (Milk Of Magnesia) 30 ml PO BID PRN PRN Reason: Constipation Methylergonovine Maleate (Methergine) 0.2 mg IM X1 PRN PRN Reason: Uterine Atony Last Admin: 03/25/19 13:35 Dose: 0.2 mg Documented by: Naloxone HCl (Narcan) 0.02 mg IV Q1M PRN PRN Reason: RR <10 and pt unresponsive Ondansetron HCl (Zofran) 4 mg IV Q4H PRN PRN PRN Reason: Nausea Oxycodone HCl (Oxyir) 5 - 10 mg PO Q4H PRN PRN PRN Reason: Pain Score 4-10/10 Polyethylene Glycol (Miralax) 17 gm PO DAILY [facility] Last Admin: 03/27/19 11:48 Dose: 17 gm Documented by: Multivit/Folic Acid/Iron (Prenatabs Fa) 1 tablet PO DAILY@1200 [facility] Last Admin: 03/27/19 11:42 Dose: 1 tablet Documented by: Prochlorperazine Edisylate (Compazine Iv) 10 mg IV Q6H PRN PRN PRN Reason: NAUSEA Senna/Docusate Sodium (Senokot-S, Sharmila-Colace) 0 tablet PO DAILY PRN PRN Reason: Constipation Last Admin: 03/27/19 04:04 Dose: 2 tablet Documented by: Simethicone (Mylicon) 80 mg PO PCHS PRN PRN Reason: Indigestion/stomach pain Last Admin: 03/27/19 18:20 Dose: 80 mg Documented by: Sodium Chloride () 5 - 15 ml IV UD PRN PRN Reason: SALINE FLUSH Last Admin: 03/26/19 13:12 Dose: 10 ml Documented by: Medical Necessity - Tobacco Use Smoking Status: Never smoker Assessment/Plan All Active Problems (Last Reviewed 01/15/19 @ 10:07 by Samira Redman NP-C) 39 weeks gestation of (Acute) History of delivery (Resolved) History of D&C (Resolved) History of eyelid surgery (Resolved) POD#3 Repeat C section Postop anemia, acute blood loss anemia -- clinically stable -- iron recommended -- repeat CBC AM POD#3 with slight increase Hgb to 7.7 g/dl Constipation -- improved. -- Continue inc po fluids, fiber -- Continue stool softener Dischg home today. RTO in 2 wk for postop check.
[2019-03-28 12:25] VITALS: BP 117/58; PULSE 64; RESP 16; TEMP 36.4; O2SAT 100
== END 2019-03-28 13:45 | disposition home or self-care (01) | DRG 787 ==
PROVIDERS: Advanced Practice Midwife; Admitting Provider Obstetrics & Gynecology; Family Provider Family Medicine; PCP Family Medicine; Referring Provider Obstetrics & Gynecology; Visit Provider Obstetrics & Gynecology
PROC: 10D00Z1 Extraction of Products of Conception, Low, Open Approach (ICD-10-PCS; CPT 59514; principal; 2019-03-25 11:45)
DX: O34.211 Maternal care for low transverse scar from previous cesarean delivery (principal); D62 Acute posthemorrhagic anemia; O69.81X0 Labor and delivery complicated by cord around neck, without compression, not applicable or unspecified; O43.893 Other placental disorders, third trimester; O99.02 Anemia complicating childbirth; O99.63 Diseases of the digestive system complicating the puerperium; K59.00 Constipation, unspecified; Z3A.39 39 weeks gestation of pregnancy; Z37.0 Single live birth
CPT/HCPCS: 85025; 85027; 86850; 86900; 86901; 99218; 99251; J7120; A4216; G0378; G0463; J2405

== ENCOUNTER → 2020-05-17 17:04 | Outpatient (CLI) | payer OTHER, SELFPAY ==
[2019-04-22 08:08] VITALS: BMI 36.0
--- NOTE | 2020-05-17 17:09 | RAD_ITS ---
HISTORY: left knee pain ADDITIONAL HISTORY: None provided. EXAMINATION/TECHNIQUE: XR Knee Complete 4 Views or More Left Number of images including paperwork: 4 COMPARISON: None FINDINGS: BONES: No acute fracture. JOINTS: No subluxation. SOFT TISSUES: No distinct foreign body. RAD/Knee 4 or More Views IMPRESSION: No significant abnormality. at 0553 Reported and signed by: Siri Justin MD Electronically Signed: Siri Justin MD at 5:53 EST Tel , Service support ,
== END ==
PROVIDERS: PCP Family Medicine; Referring Provider Family Medicine; Visit Provider Family Medicine
DX: M25.562 Pain in left knee (principal)
CPT/HCPCS: 73564

== ENCOUNTER → 2021-01-31 | Outpatient (CLI) | payer OTHER, SELFPAY ==
[2021-02-06 22:06] LABS: Chlamydia By Nucleic Acid AMP Negative (Negative)
[2021-02-07 09:28] LABS: HPV APTIMA, High Risk Negative (Negative)
[2021-02-07 09:31] LABS: Gonococcus By Nucleic Acid AMP Negative (Negative)
== END | disposition home or self-care (01) ==
LOC: LABSPEC 16:15
PROVIDERS: PCP Family Medicine; Visit Provider Obstetrics & Gynecology
DX: Z12.4 Encounter for screening for malignant neoplasm of cervix (principal); Z11.3 Encounter for screening for infections with a predominantly sexual mode of transmission
CPT/HCPCS: 87491; 87591; 87624; 88175; G0145

== ENCOUNTER → 2021-02-28 13:59 | Outpatient (CLI) | payer OTHER, SELFPAY ==
[2021-02-28 17:26] LABS: Absolute Neutrophil Count 6.4 X10^3/uL (2.0-7.7); Basophil# 0.02 X10^3/uL; Basophil% 0.2 % (0-1); Eosinophil# 0.08 X10^3/uL; Eosinophils% 0.8 % (0-5); Hematocrit 41.9 % (37-47); Hemoglobin 13.4 g/dL (12.0-15.0); Lymphocyte % 31.7 % (19-41); Mean Corpuscular Hgb 28.9 pg (27.0-32.0); Mean Corpuscular Volume 90.3 fL (81-99); Mean Platelet Vol. 9.8 fl (6.2-12.0); Monocyte# 0.54 X10^3/uL; Monocyte% 5.2 % (0-10); NRBC Flagged by Analyzer 0 % (0-5); Neutrophil # 6.43 X10^3/uL (2.7-7.7); Neutrophil % 61.7 % (47-70); Platelet Count 320 K/mm3 (150-450); RBC Distribution Width CV 12.3 % (11.6-14.6); RBC Distribution Width SD 40.5 fl (35.1-43.9); Red Blood Count 4.64 M/mm3 (4.2-5.4); White Blood Count 10.4 K/mm3 (4.4-11.0)
[2021-02-28 17:49] LABS: Thyroid Stim Hormone (TSH) 1.07 uIU/mL (0.358-3.74)
[2021-02-28 18:01] LABS: Glucose, Dipstick Normal (Normal); Ketone-Dipstick Negative (Negative); Leukocyte Esterase-Dipstick Negative /ul (Negative); Nitrite-Dipstick Negative (Negative); Occult Blood-Urine Negative /ul (Negative); Protein-Dipstick Negative (Negative); Urine Bilirubin Dipstick Negative (Negative); Urine Urobilinogen Normal (Normal); Urine pH 6.5 (5.0 - 8.0)
[2021-02-28 18:03] LABS: Color, Urine YELLOW (Yellow); Urine Clarity Clear (Clear)
[2021-02-28 18:04] LABS: Amphetamine Urine VISTA NEGATIVE (<1000 ng/mL); Barbiturate Urine VISTA NEGATIVE (< 200 ng/mL); Benzodiazepine Urine VISTA NEGATIVE (< 200 ng/mL); Cocaine Urine VISTA NEGATIVE (< 300 ng/mL); Ecstacy Urine VISTA NEGATIVE (< 500 ng/mL); Methadone Urine VISTA NEGATIVE (< 300 ng/mL); PCP Urine VISTA NEGATIVE (< 25 ng/mL); THC Urine VISTA NEGATIVE (< 50 ng/mL); Vista UDS pH Range 7
[2021-03-01 10:17] LABS: HIV - WCH Non-Reactive (Nonreactive); Hepatitis B Surface Antigen Non-Reactive (Nonreactive); Hepatitis C Antibody Non-Reactive (Nonreactive); Rubella IgG Reactive (Nonreactive); Syphilis Antibodies Non-reactive
== END ==
PROVIDERS: PCP Family Medicine; Visit Provider Obstetrics & Gynecology
DX: Z34.81 Encounter for supervision of other normal pregnancy, first trimester (principal)
CPT/HCPCS: 36415; 80307; 81002; 84443; 85025; 86703; 86762; 86780; 86803; 87077; 87086; 87088; 87340

== ENCOUNTER 2021-05-14 11:50 | Outpatient (CLI) | payer OTHER, SELFPAY | END 2021-05-14 23:59 | disposition home or self-care (01) | LOC: LABSPEC 11:51 | PROVIDERS: PCP Family Medicine; Referring Provider Physician Assistant; Visit Provider Physician Assistant | DX: U07.1 COVID-19 (principal) | CPT/HCPCS: 87635; U0003; U0005 ==

== ENCOUNTER 2021-06-22 09:17 | Outpatient (CLI) | payer OTHER, SELFPAY ==
[2021-06-22 10:32] LABS: Hematocrit 34.3 % (37-47); Hemoglobin 11.4 g/dL (12.0-15.0); Mean Corp Hgb Conc 33.2 g/dL (32-36); Mean Corpuscular Hgb 29.5 pg (27.0-32.0); Mean Corpuscular Volume 88.9 fL (81-99); Mean Platelet Vol. 10.1 fl (6.2-12.0); Platelet Count 218 K/mm3 (150-450); RBC Distribution Width CV 13.9 % (11.6-14.6); RBC Distribution Width SD 44.7 fl (35.1-43.9); Red Blood Count 3.86 M/mm3 (4.2-5.4); White Blood Count 7.6 K/mm3 (4.4-11.0)
[2021-06-22 10:39] LABS: Glucose Challenge Gest 1H 50g 135 mg/dL (70-140)
== END 2021-06-22 23:59 | disposition home or self-care (01) ==
LOC: WOBLAB 09:21
PROVIDERS: PCP Family Medicine; Referring Provider Obstetrics & Gynecology; Visit Provider Obstetrics & Gynecology
DX: Z34.82 Encounter for supervision of other normal pregnancy, second trimester (principal)
CPT/HCPCS: 36415; 82950; 85027

== ENCOUNTER 2021-08-20 13:39 | Outpatient (CLI) | payer OTHER, SELFPAY | END 2021-08-20 23:59 | disposition home or self-care (01) | LOC: LABSPEC 13:40 | PROVIDERS: PCP Family Medicine; Visit Provider Obstetrics & Gynecology | DX: Z34.83 Encounter for supervision of other normal pregnancy, third trimester (principal); Z36.85 Encounter for antenatal screening for Streptococcus B | CPT/HCPCS: 87081 ==

== ENCOUNTER 2021-09-12 05:15 | Inpatient (IN) | payer OTHER, SELFPAY ==
[2021-09-12] VITALS (17 sets, daily range): BP systolic 82–124; BP diastolic 33–66; PULSE 73–102; RESP 15–18; TEMP 36.2–36.8; O2SAT 98–100; BMI 38.1
[2021-09-12] MEDS: Lactated Ringers 1,000 ML 999 ML IV (05:40)
[2021-09-12 06:03] LABS: Absolute Lymphocyte Count 3.34 X10^3/uL (0.83-4.51); Absolute Neutrophil Count 4.9 X10^3/uL (2.0-7.7); Basophil# 0.01 X10^3/uL; Basophil% 0.1 % (0-1); Eosinophils% 1.1 % (0-5); Hematocrit 34.3 % (37-47); Hemoglobin 10.8 g/dL (12.0-15.0); Lymphocyte # 3.34 X10^3/ul (0.83-4.51); Lymphocyte % 37.3 % (19-41); Mean Corp Hgb Conc 31.5 g/dL (32-36); Mean Corpuscular Hgb 26.3 pg (27.0-32.0); Mean Corpuscular Volume 83.7 fL (81-99); Mean Platelet Vol. 10.8 fl (6.2-12.0); Monocyte# 0.58 X10^3/uL; Monocyte% 6.5 % (0-10); NRBC Flagged by Analyzer 0 % (0-5); Neutrophil # 4.88 X10^3/uL (2.7-7.7); Neutrophil % 54.4 % (47-70); Platelet Count 225 K/mm3 (150-450); RBC Distribution Width CV 14.9 % (11.6-14.6); RBC Distribution Width SD 45.2 fl (35.1-43.9)
[2021-09-12] MEDS: Lactated Ringers 1,000 ML 150 ML IV (06:13)
--- NOTE | 2021-09-12 06:19 | PCM.HP.OB ---
HPI - General General Date of Admission: 09/12/21 HPI Narrative INNA STEINBERG, is a 35 F who presents for scheduled repeat section at 39w3d by LMP c/w 11w US. OB PROBLEM LIST: 2 cousins with Down Syndrome AMA [id number] and Libby Gunterek drawn today. COVID positive 05/2021 Environmental allergies and exersize-induced asthma; PRN rescue inhaler GBS bactiuria H/O IBS hx 2 prior C/S - undecided TOLAC vs. repeat C/s Requests AFP and CF. Treatment for depression an danxiety in the past. EPDS = 3. Maternal Data Information FRANKI Calculator Estimated Delivery Date Method Current WG Current Estimate 09/18/21 LMP (Certain) 39w 1d PFSH PFSH Medical History (Updated 09/12/21 @ 06:[address] Esha Seo MD) Acute sinusitis, unspecified Anxiety Asthma Lactose intolerance depression hemorrhage Seasonal allergies Home Medications fluticasone propionate 50 mcg/actuation nasal spray,suspension 1 spray INTRANASAL DAILY 08/05/20 [History Last Taken 09/10/21] acetaminophen [Tylenol] 650 mg PO Q6H PRN 09/12/21 [History Last Taken 09/11/21] [id number] [] 1 tab PO DAILY 09/12/21 [History Last Taken Unknown] Allergy/AdvReac Type Severity Reaction Status Date / Time grass pollen Allergy unknown Verified 08/05/20 10:58 house dust Allergy unknown Verified 08/05/20 10:58 mold Allergy unknown Verified 08/05/20 10:58 Family History Sister Asthma Grandmother Diabetes Heart disease Cancer Grandfather A-fib Cancer Surgical History (Updated 09/12/21 @ 06:[address] Esha Seo MD) fatty tumor removed History of bladder surgery History of delivery History of colonoscopy History of D&C History of eyelid surgery Social History Smoking Status: Never smoker alcohol intake: never History 4 Elective abortions Hx Para 2 Spontaneous abortions 1 Hx # Term Pregnancies 2 Ectopic pregnancies Hx # Pregnancies Multiple births # of living children NST FHR Rate Baby A Baseline: 130 Variability:: Moderate Accelerations:: 15 x 15 Decelerations:: None NST Reactive:: Yes FHR Category:: Category I Uterine Activity:: 0/10 ROS Eyes Eyes: Denies change in vision Gastrointestinal Gastrointestinal: Reports cramping and nausea Neurologic Neurologic: Denies headache(s) Vital Signs Vital Signs Vital Signs: 09/12/21 05:58 Temperature 97.5 F L Temperature Source Temporal Pulse Rate 102 H Respiratory Rate 16 Blood Pressure 106/61 Blood Pressure Mean 76 Blood Pressure Source Monitor Blood Pressure Position Semi-Fowlers Blood Pressure Location Left Arm Oxygen Delivery Method Room Air Weight Weight: 97.692 kg Body Mass Index (BMI) 38.1 Physical Exam Const alert, oriented x3 and no apparent distress HEENT normocephalic Resp normal respiratory effort, normal air movement and clear to auscultation bilaterally Cardio regular rate and regular rhythm GI normal to inspection, nondistended, normoactive bowel sounds, soft to palpation, non-tender and non-distended Inspection: gravid Labs Labs Labs: Blood Type O POSITIVE Antibody Screen NEGATIVE Hct 34.3 % (37-47) L Hgb 10.8 g/dL (12.0-15.0) L Syphilis Total Ab Non-reactive Rubella IgG Antibody Reactive (Nonreactive) Hep Bs Antigen Non-Reactive (Nonreactive) Chlamydia DNA (JENNA) Negative (Negative) Neisseria gonorrhoeae DNA (JENNA) Negative (Negative) HIV 1&2 Antibody Non-Reactive (Nonreactive) Glucose 1 Hr 50 gm 135 mg/dL (70-140) Group B Strep DNA Negative (Negative) Rhogam given: No Miscellaneous Test Antepartum Flow Sheet Highlights: SHM September 09 39 216 110/60 - - 39 V SHM Aug 10 38 217 116/64 tr - 39 V SHM Aug 10 37 215 100/60 37 V 2 50 -3 SHM Aug 10 37 216 128/74 - - V Aug 10 36 213 126/64 - - 36 V 1 SHM Aug 11 34 214 120/70 tr - 34 V CM 15 Jul 2 32 210 122/62 - - 32 SHM Jul 11 30 208 125/65 - - 33 V SHM 11 Jun 2 27 203 130/78 tr - 28 ? SHM May 15 23 197 116/67 tr - 23 W Apr 14 19 193 108/70 tr - 20 SHM Mar 16 15 207 112/68 ne ne JMW Feb 4 11 208 102/68 - - SHORT ANTEPARTUM NOTE(S): 11 September PAT appt Aug BBP Today, Good FM, Feeling Well Aug see note 19 Aug 20 Aug 10Aug doing well 15 Mar no concerns Jul doing well Jun see note 14 May 1 hr GTT supplies given Apr Sono Today, Good FM,Fatigue Mar 31Feb Sono Today, labs drawn LONG ANTEPARTUM NOTES: 11 September Here for Pre-op for C/S. OB declines me doing Covid and will do rapid tomorrow am. Consents signed and PAT packet provided. LMT 11 September Pt plans repeat C/S this week due to possible wisdom teeth impaction and need for oral surgery evaluation. Consents signed and reviewed. Will consider TOLAC if labor occurs prior to rescheduled C/S. Aug Polyhydramnios today, MATT 30 with EFW 9lb2oz (4129g) - >90th%. Counseled on occult GDM. Will check sugar. No glucosuria today. Labor, FM precautions again reviewed. Csection scheduled for 40 weeks. Aug Susie is here for cervix ck. She relates she thinks her plan is if she goes into labor prior to 40 weeks will try . IF she does not go into labor by 40 weeks would like C/S. LMT Aug Cervix SOFT and ANTERIOR. Labor, ROM, FM precautions. Will request C/S date for 40wga. Aug Call to patient. US reviewed, AGA 14 Aug H&P taken to OB. tkg Aug Inna is 36w1d here for PNV Good FM no edema. State she thinks she is leaking fluid and having sebas zeng. GBS and LARC done today Aug 36 weeks, add-on visit for leakage of fluid. Clear fluid. Exam benign. Cervical exam closed. Nitrazine negative. Ferning negative. All reassuring. Follow-up with scheduled appointments. Discussed repeat section, discussed limited coverage with Tolak and risk with Tolak with 2 sections. Patient states understanding and is considering repeat . GBS collected today. JM Aug Inna is here for visit. Has had lots of colds/illnesses this winter. More uncomfortable. Good mvmt, mild edema. LMT Aug Counseled on office practice patterns for delivery. Pt considering scheduled repeat if no spontaneous labor. Reviewed antepartum monitoring given age for last month of , BMI 32 prepregnancy. Growth, MATT next visit. Plan NST weekly to delivery. 15 Jul Inna is here for a pnv at 32/2. Good FM. No edema present. Denies concerns/ questions at this time. MK 15 Jul 32/2w. Growth EFW 82%tile, MATT wnl. Done for size greater than dates. AMA. Plans for TOLAC with Dr. Zoya Seo, pt has had two sections. F/u 2w. CM 01 Jul Inna is 30w2d. Here for PNV. Good FM. No edema. She is doing well. She would like to know when she can find out if the baby is head down. She would also like to know if she will still be able to deliver naturally. She has no other questions/concerns at this time. MR 01 Jul PTL, ROM, FM precautions. US for S>D next visit. Discussed practice patterns for TOLA2C. Jun Labs done today for GCT, CBC. She is overall doing well. Had Covid and feeling recovered from this. Reviewed FM, PTL, PROM. LMT Jun No complaints. Discussed PPBC, optimal child spacing. Pt declines to schedule repeat section at this time. Planning TOLA2C, reviewed safety of spontaneous labor >> IOL. 14 May Inna is here for a pnv at 23/5. Good FM. No edema present. Pt mentioned her concerns regarding taking cold medicine. States last week when she took it she became tachycardic and called into the office. No further concerns expressed. Supplies and instructions given for 1 hr GTT at next visit. MK May Pt desires TOLAC. Plan additional childbearing after this . Discussed risk for uterine rupture approx 1%, catastrophic rupture with CP or approx 1/800. Vaginal delivery benefits vs. also reviewed. Pt considering further. PTL precautions. Mar Entry for 03/28/21: Reviewed NIPT results, low risk for T21/18/13. 46 XY. 17 Mar Inna is here for visit at 15.3w gest. Feeling well except for headaches re to nasal congestion. Feeling possible flutters of baby. [facility] 21 Feb TELEHEALTH NOB VISIT, 40 MINUTE DURATION. Inna is a 35 year old A1 with an FRANKI of 09/18/2021, current GA is 11 w 4 d. She resides with her , Geremias, and their son and daughter. Both of her children were delivered by . Past history updated. Delivery by repeat C/S at [facility] is planned, and she will breastfeed. Inna is an established patient with this practice and she states that she is familiar with office practice patterns, including emergencies/danger signs, how to contact the office during/after hours, and common OTC medications approved/not approved for use during . UTI s/s reviewed and she knows to call the office if a UTI is suspected. Round ligament pain reviewed. Inna states that she has been taking an OTC gummy vitamin and is tolerating this well. She reports that her fatigue remains, but is improving and she is noting that she has more energy. She feels intermittent nausea, but no emesis. Reviewed measures that may help minimize nausea, including small frequent meals with protein included, carb rich food when nauseous, adequate water hydration of at least one gallon per 24 hours, trying lemon water, and motion sickness bracelets. Inna has two cousins with Down Syndrome,. She wants AFP drawn and had MaterniT 21 and Sneak Peek drawn yesterday. She is a non-smoker and denies use of drugs or ETOH. EPDS yesterday = 3. She states a past h/o depression and anxiety, but feels that she is doing well now. She exercises regularly at the [facility], and plans to continue same. exercise guidelines and lifting restrictions discussed. dietary/caloric/water needs reviewed (she drinks about one gallon per 24 hours), including anticipated weight gain, limiting empty calories, limiting caffeine to one cup a day, and food safety. Jodi states that she understands all information provided during NOB viist, and she has no questions following same. AW New Feb Inna is here for NOB consents. Interested in Sneak Peek and [id number] today and labs drawn by [facility] lab. Genetic Screening form completed noting a cousin w Down's Syndrome. She requests AFP which will be drawn between 15-19 weeks. EPDS score is 3. Excited about the . DRC. 22 Sep Inna is here for missed menses appt. She relates LMP of 8/3, +UPT today in office, EDC 09/18/21. She is 7 weeks and 1 day. Notes mild fatigue and nausea but does not really need anything. Continues to breastfeed her daughter but feels this is mostly just for comfort. Hoping to stop soon. She is taking PNV only. Relates she did a keto diet and did really well but when she stopped it she gained a lot of weight back. Really frustrated by this. Discussed healthy carbs and exercise recommendations. Educational materials are provided and reviewed. Plans R C/S and considering 1 more after this one but not sure d/t her age and how tired she is. Reviewed AMA and options for testing. Plans cfDNA testing but declines further testing. Pap and cultures will be done today. LMT 22 Sep as above. Has mild breast tenderness and mild nausea, but it is manageable. She exercises off and on - enjoys working out at the [employer]. She had the COVID19 vaccine in August. No plans for overseas travel this . No concerns. m Assessment & Plan (1) 39 weeks gestation of : PLAN: Proceed as planned with repeat section. Cat I FHR
[2021-09-12] MEDS: Ondansetron 4 MG/2 ML Vial IV (06:40)
[2021-09-12] MEDS: Sodium Citrate/Citric Acid 30 ML UDC PO (07:00)
[2021-09-12] MEDS: Cefazolin 2 GM in 0.9% Normal Saline 100 ML IV (07:30)
--- NOTE | 2021-09-12 08:49 | OP.PCM_ITS ---
Assessment & Plan (1) delivery delivered: Maternal Data Information FRANKI Calculator Estimated Delivery Date Method Current WG Current Estimate 09/18/21 LMP (Certain) 39w 1d Details Operative Information Date of Procedure: 09/12/21 Pre-Operative Diagnosis: 1. 39 weeks 1 day 2. Prior section x 2 Post-Operative Diagnosis: 1. 39 weeks 1 day 2. Prior section x 2 Indications for : Repeat Elective Indications Narrative: 35-year-old 4 para 2-0-1-2 at 39-1/7 weeks gestational age presents for scheduled repeat section. She was counseled regarding procedural risks, benefits, indications and alternatives. She declined a trial of labor and opted to proceed. Classification: Scheduled Procedure Type: low transverse body rolling machine tender #1: Alyson Helms Type of Anesthesia: Spinal Anesthesiologist: Familia Perry Antibiotic Given: Ancef 2 grams IV x1 Drain: [place]rales to straight drain Estimated Blood Loss: 800 ml Fluids Replaced: 1300 ml Findings Description of Procedure: The patient was taken to the operating room and spinal analgesia was administered. She is placed in a dorsal supine position with left lateral tilt. The perineum and abdomen were prepped and draped in sterile fashion. And the spinal was found to be adequate. A Pfannenstiel incision was made using a scalpel and brought down to incise the subcutaneous tissue and rectus fascia at the midline. Subcutaneous tissue was bluntly dissected off the fascia laterally. The fascial incision was dissected laterally and cephalad us ing curved Guevara scissors. The superior leaflet of the rectus fascia was grasped using Valentina clamps and bluntly dissected and sharply dissected from the underlying rectus muscle. In a similar fashion the inferior rectus fascia was dissected from the underlying muscle. The rectus muscles were bluntly at the midline. The peritoneum was identified and entered [sharply]. The bladder blade was placed into the abdomen and the vesicouterine peritoneal fold identified. The fold was incised and a bladder flap created. Bladder blade was then repositioned to the abdomen. A low transverse hysterotomy was made using the [Metzenbaum scissors] to level of the membranes. The hysterotomy was extended bluntly cephalad and caudad. The membranes were then ruptured revealing clear fluid. The head was elevated and brought to the level of the hysterotomy and the delivered revealing vigorous [male] . The cord was doubly clamped and cut after 60 seconds. The infant was passed to awaiting [nursery personnel]. The placenta was [expressed] from the uterus and appeared intact on inspection. The uterus was cleared of debris. The hysterotomy was then repaired using 0 Vicryl running lock suture. A second imbricating layer was also placed for additional hemostasis. The bladder blade was removed. The anterior cul-de-sac was cleared of debris. The peritoneum and rectus muscles were reapproximated using 2-0 Vicryl running suture. The rectus fascia was closed using 0 strata fix running suture. The subcutaneous tissue was sponge irrigated and small capillary bleeding controlled using the Bovie device. The subcutaneous tissue was reapproximated using 2-0 Vicryl. The skin was closed using 4-0 Monocryl subcuticularly by the CARTON GLUING MACHINE OPERATOR under my supervision. Silver Mepilex occlusive dressing was placed over the incision. The fundus was firm. The patient was then transferred to the recovery room without complication. Sponge, instrument, and needle counts were correct ?2. 4335 g (9 pounds 9 ounces) Presentation: Positive for Vertex Amniotic Fluid Description: Clear Placental Delivery Description: Expressed Placenta Disposition: [facility] Cord Vessel Description: 3 Vessels Cord Entanglement: Around neck x 1, loose Nuchal Cord Compression: Without compression A Gender: Male (1 minute): 8 (5 minute): 9 Delayed Cord Clamping: Yes Complications Risks of Surgery Discussed w/Patient: Bleeding, Anesthesia Risks, Infection and Injury to surrounding structure(s) including bowel and bladder
[2021-09-12] MEDS: Oxytocin 30 units/NS 500 ml 30 UNITS/500 ML IV.SOLN 167 UNITS IV (09:00)
[2021-09-12] MEDS: Acetaminophen 500 MG Tablet 1000 MG PO ×3 (09:38→23:14)
[2021-09-12] MEDS: Ketorolac 30 MG/ML Syringe IV ×3 (09:39→23:13)
--- NOTE | 2021-09-12 10:15 | NURSING ---
requested kiwi. Opened. But then did not use.
[2021-09-12] MEDS: Lactated Ringers 1,000 ML 100 ML IV (12:17)
[2021-09-12] MEDS: Cefazolin 1 GM/50 ML BAG IV ×2 (15:36→19:17)
[2021-09-12] MEDS: Heparin Injection (Vial) 5,000 UNIT/ML VIAL 5000 UNIT SC (16:28)
[2021-09-12] MEDS: 0.9% Saline Lock 10 ML Syringe IV (23:12)
[2021-09-12] MEDS: DiphenhydrAMINE 25 MG Capsule PO (23:20)
[2021-09-13 00:50] VITALS: BP 98/56; PULSE 93; RESP 16; TEMP 37.1; O2SAT 100
[2021-09-13 04:55] VITALS: BP 90/44; PULSE 80; RESP 18; TEMP 36.2; O2SAT 99
[2021-09-13 05:16] LABS: Hematocrit 26.2 % (37-47); Hemoglobin 8.1 g/dL (12.0-15.0); Mean Corp Hgb Conc 30.9 g/dL (32-36); Mean Corpuscular Hgb 26.3 pg (27.0-32.0); Mean Corpuscular Volume 85.1 fL (81-99); Mean Platelet Vol. 10.4 fl (6.2-12.0); Platelet Count 204 K/mm3 (150-450); RBC Distribution Width CV 15.2 % (11.6-14.6); RBC Distribution Width SD 46.6 fl (35.1-43.9); Red Blood Count 3.08 M/mm3 (4.2-5.4); White Blood Count 10.7 K/mm3 (4.4-11.0)
[2021-09-13] MEDS: Acetaminophen 500 MG Tablet 1000 MG PO ×3 (05:16→18:27)
[2021-09-13] MEDS: Ketorolac 30 MG/ML Syringe IV (05:16)
--- NOTE | 2021-09-13 08:46 | PCM.PN.OB ---
Subjective Subjective Patient without complaints. Tolerating diet well. Pain well controlled. Positive flatus. Some issues breast-feeding. Wants to stay until tomorrow. Objective Data Objective Data Wound is clean, dry, intact. Good urine output. Hemoglobin okay. Vital Signs: Vital Signs Temp Pulse Resp BP Pulse Ox 97.1 F L 80 18 90/44 L 99 09/13/21 04:55 09/13/21 04:55 09/13/21 04:55 09/13/21 04:55 09/13/21 04:55 Oxygen Delivery Method Room Air Weight: 215 lb 6 oz Body Mass Index (BMI) 38.1 Intake & Output: Intake and Output for Last 24 Hours 09/11/21 09/12/21 09/13/21 23:59 23:59 23:59 Intake Total 3717.50 / 3717.50 0 / 0 Output Total 1100 / 1100 300 / 300 Balance 2617.50 / 2617.50 -300 / -300 Lab / Micro Data Result Diagrams: 09/13/21 05:05 Labs: Laboratory Results - last 24 hr 09/13/21 05:05: WBC 10.7, RBC 3.08 L, Hgb 8.1 L, Hct 26.2 L, MCV 85.1, MCH 26.3 L, MCHC 30.9 L, RDW Std Deviation 46.6 H, RDW Coeff of Tia 15.2 H, Plt Count 204, MPV 10.4 Micro: Microbiology 09/12/21 05:40 Nasal Secretion SARS-CoV-2 Antigen (Rapid) - Final Assessment & Plan (1) delivery delivered: PLAN: Doing well postoperative day #1 status post repeat . Continuing present care.
[2021-09-13 09:00] VITALS: BP 97/52; PULSE 96; RESP 16; TEMP 36.3; O2SAT 99
[2021-09-13] MEDS: Ibuprofen 600 MG Tablet PO ×3 (11:09→22:04)
[2021-09-13] MEDS: Fluticasone 0.05% 1 SPRAY NASAL.SRY NASAL (11:10)
[2021-09-13] MEDS: Heparin Injection (Vial) 5,000 UNIT/ML VIAL 5000 UNIT SC ×2 (11:11→22:04)
[2021-09-13] MEDS: Polyethylene Glycol 3350 17 GM PACKET PO (11:11)
[2021-09-13] MEDS: Prenatal Vits Tablet 1 TABLET PO (12:13)
[2021-09-13 14:14] VITALS: BP 112/44; PULSE 95; RESP 14; TEMP 36.5; O2SAT 97
[2021-09-13 20:55] VITALS: BP 106/58; PULSE 89; RESP 16; TEMP 36.4; O2SAT 97
[2021-09-14] MEDS: Acetaminophen 500 MG Tablet 1000 MG PO ×2 (00:10→06:35)
[2021-09-14 02:45] VITALS: BP 100/42; PULSE 86; RESP 16; TEMP 36.5; O2SAT 97
[2021-09-14] MEDS: Ibuprofen 600 MG Tablet PO (05:11)
[2021-09-14 08:20] VITALS: BP 103/44; PULSE 18; RESP 18; TEMP 37.1; O2SAT 100
--- NOTE | 2021-09-14 09:37 | PCM.PN.OB ---
Subjective Subjective Patient without complaints. Tolerating diet well. Positive flatus. Nursing going better. Wants to go home. Objective Data Objective Data Vital Signs: Vital Signs Temp Pulse Resp BP Pulse Ox 98.8 F 18 L 18 103/44 L 100 09/14/21 08:20 09/14/21 08:20 09/14/21 08:20 09/14/21 08:20 09/14/21 08:20 Oxygen Delivery Method Room Air Weight: 215 lb 6 oz Body Mass Index (BMI) 38.1 Intake & Output: Intake and Output for Last 24 Hours 09/12/21 09/13/21 09/14/21 23:59 23:59 23:59 Intake Total 3717.50 / 3717.50 0 / 0 Output Total 1100 / 1100 300 / 300 Balance 2617.50 / 2617.50 -300 / -300 Lab / Micro Data Result Diagrams: 09/13/21 05:05 Micro: Microbiology 09/12/21 05:40 Nasal Secretion SARS-CoV-2 Antigen (Rapid) - Final Assessment & Plan (1) delivery delivered: PLAN: Doing well postoperative day #2 status post repeat section. Does not tolerate narcotics well but NSAIDs working well to control pain. Will discharge to home with routine instructions.
--- NOTE | 2021-09-14 09:38 | PCM.DC ---
Discharge Instructions Diet Discharge Diet: No restrictions Activity May resume sexual activity in: 4-6 weeks Lifting Restrictions: 20 pounds Dressing / Incision Call your doctor if your incision/area has: Continuous Slow Oozing, Sudden Increased Bleeding, Increased Pain/ Swelling, Increased Redness and Foul Smelling Discharge Call your doctor if you observe: Fever of 101 or Higher, Inability to urinate, Inability to have a bowel movement and Using more than 1 pad per hour Follow Up Care Please Follow Up With: Esha Hinds MD When: Call [phone] for appointment to be seen in 2 weeks. Test Results: Test results from this visit will be discussed in further detail at your follow-up appointment, if applicable. Discharge Plan Admission Admit Date/Time: 09/12/21 05:15 Primary Reason for Your Visit: Repeat Attending Provider: Esha Hinds Primary Care Provider: Jermaine Mayer Discharge Orders/Prescriptions Prescriptions: New docusate sodium 100 mg tablet 100 mg PO BID PRN (Reason: constipation) Qty: 60 RF: 1 Continued fluticasone propionate 50 mcg/actuation spray,suspension 1 spray INTRANASAL DAILY RF: 0 lfsyzrda-nxy-Cm-FA 1 mg Tablet 1 tab PO DAILY RF: 0 acetaminophen [Tylenol] 325 mg Tablet 650 mg PO Q6H PRN (Reason: Pain (Scale Score 1-3)) RF: 0 Referrals / Follow Up: Jermaine Mayer DO [Primary Care Provider] - Disposition Disposition (needs filled in before D/C Order can be placed): Home, Self Care
[2021-09-14] MEDS: Fluticasone 0.05% 1 SPRAY NASAL.SRY NASAL (09:59)
[2021-09-14] MEDS: Polyethylene Glycol 3350 17 GM PACKET PO (10:01)
[2021-09-14] MEDS: Heparin Injection (Vial) 5,000 UNIT/ML VIAL 5000 UNIT SC (10:01)
== END 2021-09-14 11:05 | disposition home or self-care (01) | DRG 788 ==
PROVIDERS: Admitting Provider Obstetrics & Gynecology; PCP Family Medicine; Visit Provider Obstetrics & Gynecology
PROC: 10D00Z1 Extraction of Products of Conception, Low, Open Approach (ICD-10-PCS; CPT 59514; principal; 2021-09-12 07:15)
DX: O34.211 Maternal care for low transverse scar from previous cesarean delivery (principal); O69.81X0 Labor and delivery complicated by cord around neck, without compression, not applicable or unspecified; Z37.0 Single live birth; Z3A.39 39 weeks gestation of pregnancy; Z87.59 Personal history of other complications of pregnancy, childbirth and the puerperium
CPT/HCPCS: 59050; 85025; 85027; 86850; 86900; 86901; 87426; 99218; 99251; J7120; A4216; G0378; G0463; J2405

== ENCOUNTER 2021-11-16 06:07 | Day surgery (SDC) | payer OTHER, SELFPAY ==
[2021-11-16] VITALS (7 sets, daily range): BP systolic 93–104; BP diastolic 53–60; PULSE 49–73; RESP 16–18; TEMP 36.3–37; O2SAT 99–100; BMI 33.0
--- NOTE | 2021-11-16 | EMB_PTH ---
PATIENT: SUSAN STEINBERG [place] [facility] [place][id number] AGE/SX: 36/F ROOM: RE11/16/[address]: Dr. Esha Seo MD : 1985 BED: DIS: 11/16/2021 SPEC #: [id number] RECD: 11/16/21 11:57 STATUS: SIRI REPa #: [id number] JUDY: 11/16/21 00:[address]: Esha Hinds DEPT: SURGICAL PATHOLOGY RECD BY: Jose M Clinton ENTERED: 11/16/21 11:58 SP TYPE: ENDOM BX/C OTHR DR: Dr. Jermaine Mayer DO Tissues: Endometrium, NOS Procedures: Surgery Specimen Level IV HEADER OPERATION: Hysteroscopy, D & C Symphion PRE-OP DIAGNOSIS: Retained products of conception after delivery, abnormal uterine bleeding TISSUE SUBMITTED: Retained products of conception and endometrial curettings MICROSCOPIC DIAGNOSIS Endometrium, curettage: Autolyzed chorionic villi consistent with products of conception. AM:harika 11/19/2021 MICROSCOPIC DESCRIPTION Slides are reviewed. GROSS DESCRIPTION Received in fixative is one container labeled with the patient's name and designated retained products of conception and endometrial curettings. The specimen consists of multiple irregular fragments of colunga-light yellow soft tissue that in aggregate measure 7.5 x 3 x 0.3 cm. The specimen is totally submitted in three cassettes. / SJ:harika 11/16/2021 TC:5 CPT: 81217
--- NOTE | 2021-11-16 01:15 | HP.PCM.OB_ITS ---
History and Physical Date of Admission: 11/16/21 Surgical History and Physical Date: 11/14/2021 Name: INNA ACNO Age: 36 Date of : 1985 Inna Cano, a 36 year old female 3 0 1 0 3, presents for Hysteroscopy, dilation and curatteage, Symphion on 11/16/21 at 7:30. -- Inna is eight weeks s/p uncompliated repeat section on 09/12/21 with c/o persistent bleeding. A pelvic US on 11/14/21 showed retained products of conception. Denies abdominal pain, cramping, fever, chills. [facility] ULTRASOUND 11/14/21 UTERUS: 9.6 x 6.6 x 5.2cm.. ENDOMETRIAL ECHO: 8.7mm. RIGHT OVARY: 2.7 x 2.8 x 2.7cm. 5 subcentimeter follicles seen. LEFT OVARY: 2.7 x 2.8 x 2.7cm. 4 subcentimeter follicles seen. BLADDER: No bladder masses visualized. FREE FLUID: NONE. OTHER PERTINENT FINDINGS: Echogenic foci seen in endo measures 3.5mm. Missed menses which began with missed period. Inna claims it started in linda and has been present several weeks. It is located in the uterus. Inna characterizes it to be non-radiating. Severity is mild Associated signs and symptoms are nausea, fatigue. Additional comments are: + UPT in office. MEDICATIONS HISTORY: ALLERGIES: No Known Drug Allergies Infections - Chicken pox and UTIs Illnesses - IBS, environmental allergies, lactose intolerance. Accidents - None Hospitalizations - Childbirth past history anxiety/dpression. and Covid vaccine; Review of Systems: GENERAL - Denies fever, or chills SKIN - Denies skin changes EYES - Denies visual changes EARS - Denies difficulty hearing NOSE - Denies nasal congestion or bleeding MOUTH - Denies sore throat or difficulty swallowing NECK - Denies pain or swelling RESPIRATORY - Denies shortness of breath or wheezing CARDIOVASCULAR - Denies palpitations or chest pain GASTROINTESTINAL - Denies nausea, vomiting, diarrhea, constipation GENITOURINARY - Denies dysuria, frequency of urination, incontinence of urine MUSCULOSKELETAL - Denies joint or muscle pain NEUROLOGICAL - Denies localized numbness or weakness PSYCHIATRIC - Denies depression or anxiety ENDOCRINE - Denies heat or cold intolerance, weight loss or gain HEMATO-IMMUNOLOGIC - Denies excesive bleeding with cuts SOCIAL HISTORY: Alcohol Use - denies drinking Smoking - Never Diet - balanced Diet Lifestyle - low stress lifestyle and Exercise - regular and aerobics Seat Belt Use - always Employer - [employer] Illicit Drug Use - denies use of street drugs Sexual Activity - Residence - lives with Place of - [place], [place] Spouse-Sig Other Name - Geremias Black Spouse-Sig Other Occupation - Retail And Promotions Coordinator - [employer] Spouse-Sig Other Phone No - [phone] cell, work Children Name(s) - Richy '17, Mechelle '19, Dilip (22) Control - condoms FAMILY HISTORY: MENSTRUAL HISTORY: LMP Known?- DefiniteAmount/Duration - 3-7 days, Regularity - Regular, Frequency - monthly days, LMP - 12/12/20, Age Onset Menarche - 10 PAST PREGNANCIES: Total Pregnancies - 4; Full Term Pregnancies - 3; Premature - 0; Abortions, Induced - 0; Abortions, Spontaneous - 1; Ectopics - 0; Multiple Births - 0; Living Children - 3 SURGICAL HISTORY: 1. 09/12/2021 ; Esha Seo MD - 2. 03/25/2019 ; Esha Seo MD - 3. 09/27/2016 ; Antonio Meredith MD and Lorenzo Nagel M.D. - 4. 11/21/2015 [facility] ; Audrey Chaudhary M.D. - 5. 05/12/2013 L forearm - lipoma removal ; - 6. eye surgery ; - 7. T and A ; - 8. 03/12/2015 colonoscopy ; Dr Lima - 9. cystoscopy ; - PHYSICAL EXAM BP- 118/66 Sitting, Right arm, regular cuff Weight- 187.45836 lbs Height- 63.25 inch BMI:[id number] CONSTITUTIONAL - NAD, well nourished, and well developed SKIN - No rash, lesions, or ulcers HEENT - normocephalic, atraumatic, sclerae anicteric LUNGS - normal respiratory rate and rhythm NEUROLOGICAL - normal gait, normal balance, normal motor PSYCHIATRIC - A and O to time, place, person, mood and affect External Genitial Vagina - non-tender without lesions Urethra/Urethral Meatus - non-tender Bladder - non-tender Vagina - vaginal bhakta are pink and moist without loss of rugae and no evidence of atropy Cervix - without cervical motion tenderness and has normal size and features without evident lesions Uterus - uterus 6-7 cm non tender Adnexa - clear without massess or tenderness Pap - done and GC/Chlamydia cultures done ASSESSMENT/PLAN: 1. Excessive And Frequent Menstruation With Irregular Cycle and Retained Placenta Without Hemorrhage US reviewed - suspect retained POCs, polyp unlikely given exclusive Findings discussed with pt - no ongoing bleeding, however, anticipate continued irregular bleeding if no spontaneous expulsion Recommend hysteroscopy, Symphion, dilation and curettage as indicated Assessment & Plan Assessment/Plan (1) Retained products of conception after delivery without hemorrhage: (2) Abnormal uterine bleeding:
[2021-11-16 06:55] LABS: Internal QC Validated? YES +Cl - CLEAR BKGD
[2021-11-16 06:56] LABS: Pregnancy, Urine Negative Negative
[2021-11-16] MEDS: Lactated Ringers 1,000 ML 15 ML IV (07:00)
[2021-11-16] MEDS: Lidocaine 1% (20 ml mdv) 20 ML Vial (07:09)
[2021-11-16] MEDS: Doxycycline 100 MG CAPSULE 200 MG PO (07:30)
[2021-11-16 07:46] LABS: Hemoglobin 11.5 g/dL (12.0-15.0); Mean Corp Hgb Conc 31.9 g/dL (32-36); Mean Corpuscular Hgb 26.4 pg (27.0-32.0); Mean Corpuscular Volume 82.6 fL (81-99); Mean Platelet Vol. 9.2 fl (6.2-12.0); Platelet Count 251 K/mm3 (150-450); RBC Distribution Width SD 51.4 fl (35.1-43.9); Red Blood Count 4.36 M/mm3 (4.2-5.4); White Blood Count 6.4 K/mm3 (4.4-11.0)
--- NOTE | 2021-11-16 08:13 | PCM.OPRPT ---
Problems Associated Problem List Diagnoses (1) Abnormal uterine bleeding: (2) Retained products of conception after delivery without hemorrhage: Report of Operation Date of Procedure: 11/16/21 Pre-Operative Diagnosis: 1. Menorrhagia 2. Retained products of conception Post-Operative Diagnosis: 1. Menorrhagia 2. Retained products of conception Surgery/Procedure Performed:: 1. Hysteroscopy 2. Symphion endometrial resection 3. Dilation and curettage Description of Surgical Findings:: villous like intrauterine tissue Surgeon: Esha Hinds Type of Anesthesia: Local and MAC Anesthesiologist: Joel Zarate Specimen's removed: endometrial curettings Estimated Blood Loss (mL): 10 Fluids Replaced: 800 ml Description of Procedure: 36-year-old para 3 presents for hysteroscopy, D&C with Symphion for retained products of conception. She had an uncomplicated delivery on September 12, 2021. She reported persistent vaginal bleeding since the procedure without painfulness or evidence of infection. Pelvic ultrasound demonstrated calcified tissue within the endometrium. She is advised to proceed with hysteroscopy D&C. The risks, benefits, indications and alternatives were reviewed and informed consent was obtained. Procedure: The patient was brought to the operating room and sinus performed. She is placed in the dorsal supine position and induced under MAC. She was repositioned to dorsolithotomy and examination under anesthesia was performed. The perineum was prepped and draped in sterile fashion with straight catheterization of the bladder performed. The patient was placed into high lithotomy and a bivalve speculum placed vaginally the cervix was grasped grasped with a anterior cervical lip using a single-tooth tenaculum. A paracervical block was placed using a total of 20 cc of 1% lidocaine without epinephrine. The uterus sounded to 7 cm. The cervix was subsequently dilated and hysteroscopy was performed using the Symphion apparatus and scope. Hysteroscopy demonstrated villous like tissue within the endometrial cavity adhered to the posterior uterine wall. The Symphion resectoscope was introduced and the villous tissue was removed to the level of the endometrium. A single pass of sharp curettage was performed. And the procedure was complete. The tenaculum was removed from the cervix and following compression the tenaculum site was hemostatic. The speculum was removed. The patient was placed into the dorsal supine, awakened and transferred to the recovery room without complication. Sponge counts were correct x2. Complications None Admit VTE Documentation VTE Present on Admission: No VTE Mechan Device Prophylaxis: SCD's VTE Pharm Prophylaxis ordered?: No
--- NOTE | 2021-11-16 08:22 | DCINST_ITS ---
Discharge Instructions Diet Discharge Diet: No restrictions Activity Discharge Activity: Return to Normal Activity, May Not Drive (for 24-48 hours), May Shower and - (No tub bath for 1 weeks) May resume sexual activity in: - (2-4 weeks) Dressing / Incision Call your doctor if you observe: Fever of 101 or Higher, Using more than 1 pad per hour, Calf discomfort, Uncontrolled pain and - (Persistent vomiting) Follow Up Care Please Follow Up With: Esha Hinds MD When: 1-2 weeks Test Results: Test results from this visit will be discussed in further detail at your follow- up appointment, if applicable. Discharge Plan Admission Primary Reason for Your Visit: Hysteroscopy, dilation and curettage Attending Provider: Esha Hinds Primary Care Provider: Jermaine Mayer Discharge Orders/Prescriptions Prescriptions: New ibuprofen 600 mg tablet 600 mg PO TID PRN (Reason: pain) Qty: 30 0RF oxycodone 5 mg capsule 5 mg PO Q8H PRN (Reason: severe pain (scale score 7-10)) 3 Days Qty: 5 0RF Continued fluticasone propionate 50 mcg/actuation spray,suspension 1 spray INTRANASAL PRN PRN (Reason: ALLERGIES) Rx Instructions: administer into each nostril bnnirpwz-gok-Om-FA 1 mg Tablet 1 tab PO DAILY Discontinued docusate sodium 100 mg tablet 100 mg PO BID PRN (Reason: constipation) Qty: 60 1RF ferrous sulfate [iron] 325 mg (65 mg iron) Tablet 325 mg PO DAILY Referrals / Follow Up: Jermaine Mayer DO [Primary Care Provider] - Disposition Disposition (needs filled in before D/C Order can be placed): Home, Self Care
== END 2021-11-16 09:35 | disposition home or self-care (01) ==
LOC: SDC 06:08 → AC 06:10
PROVIDERS: Anesthesiology; PCP Family Medicine; Visit Provider Obstetrics & Gynecology
PROC: 0UB98ZZ Excision of Uterus, Via Natural or Artificial Opening Endoscopic (ICD-10-PCS; CPT 58558; principal; 2021-11-16 07:15)
DX: O03.1 Delayed or excessive hemorrhage following incomplete spontaneous abortion (principal); E61.1 Iron deficiency; J45.909 Unspecified asthma, uncomplicated; Z79.899 Other long term (current) drug therapy
CPT/HCPCS: 58558; 81025; 85027; 86850; 86900; 86901; 88305; J7120; J2405

== ENCOUNTER → 2022-08-19 | Outpatient (CLI) | payer OTHER, SELFPAY ==
[2022-08-19 14:43] LABS: Absolute Lymphocyte Count 2.99 X10^3/uL (0.83-4.51); Absolute Neutrophil Count 6.8 X10^3/uL (2.0-7.7); Basophil# 0.01 X10^3/uL; Basophil% 0.1 % (0-1); Eosinophil# 0.08 X10^3/uL; Eosinophils% 0.8 % (0-5); Hematocrit 38.1 % (37-47); Hemoglobin 12.9 g/dL (12.0-15.0); Lymphocyte # 2.99 X10^3/ul (0.83-4.51); Lymphocyte % 28.7 % (19-41); Mean Corp Hgb Conc 33.9 g/dL (32-36); Mean Corpuscular Hgb 29.3 pg (27.0-32.0); Mean Corpuscular Volume 86.4 fL (81-99); Mean Platelet Vol. 9.4 fl (6.2-12.0); Monocyte# 0.56 X10^3/uL; Monocyte% 5.4 % (0-10); NRBC Flagged by Analyzer 0 % (0-5); Neutrophil # 6.75 X10^3/uL (2.7-7.7); Neutrophil % 64.8 % (47-70); Platelet Count 278 K/mm3 (150-450); RBC Distribution Width CV 13.2 % (11.6-14.6); RBC Distribution Width SD 41.4 fl (35.1-43.9); Red Blood Count 4.41 M/mm3 (4.2-5.4); White Blood Count 10.4 K/mm3 (4.4-11.0)
[2022-08-19 15:35] LABS: NATERA MAILED SPECIMEN
[2022-08-19 16:58] LABS: HIV - WCH Non-Reactive (Nonreactive); Hepatitis B Surface Antigen Non-Reactive (Nonreactive); Hepatitis C Antibody Non-Reactive (Nonreactive); Rubella IgG Reactive (Nonreactive); Syphilis Antibodies Non-reactive
[2022-08-22 05:07] LABS: Chlamydia By Nucleic Acid AMP Negative (Negative)
[2022-08-22 13:05] LABS: Gonococcus By Nucleic Acid AMP Negative (Negative)
== END | disposition home or self-care (01) ==
PROVIDERS: PCP Family Medicine; Referring Provider Obstetrics & Gynecology; Visit Provider Obstetrics & Gynecology
DX: O09.521 Supervision of elderly multigravida, first trimester (principal); Z3A.00 Weeks of gestation of pregnancy not specified; Z31.430 Encounter of female for testing for genetic disease carrier status for procreative management
CPT/HCPCS: 36415; 85025; 86703; 86762; 86780; 86803; 86850; 86900; 86901; 87086; 87340; 87491; 87591

== ENCOUNTER → 2022-10-03 | Outpatient (CLI) | payer OTHER, SELFPAY ==
[2022-10-03 13:05] LABS: ALB/GLOB Ratio 0.7 RATIO (0.9-2.4); AST(SGOT) 14 U/L (15-37); Alanine Aminotransfer ALT/SGPT 16 U/L (13-56); Albumin, Serum 2.9 g/dL (3.2-5.0); Alkaline Phosphatase 65 U/L (45-117); Anion Gap 8 (5-15); BUN 7 mg/dL (7-18); BUN/Creat Ratio 10.8 RATIO (10-20); Calcium,Total 8.8 mg/dL (8.5-10.1); Chloride 108 mmol/L (98-107); Cholesterol 184 mg/dL (200); Creatinine, Serum 0.65 mg/dL (0.55-1.02); EST Glomerular Filtration Rate 108 mL/min (>60); Est Glom Filt Rate - Afr Amer 131 mL/min (>60); Globulin 4.2 g/dL (2.2-4.2); Glucose 91 mg/dL (74-106); High Density Lipoprotein 48 mg/dL; Potassium 3.7 mmol/L (3.5-5.1); Protein, Total 7.1 g/dL (6.4-8.2); Sodium Level 138 mmol/L (136-145); Triglycerides 210 mg/dL; Very Low Density Lipoprotein 42 mg/dL (5-40)
== END | disposition home or self-care (01) ==
LOC: BFHLAB 10:31
PROVIDERS: PCP Family Medicine; Referring Provider Family Medicine; Visit Provider Family Medicine
DX: Z00.00 Encounter for general adult medical examination without abnormal findings (principal)
CPT/HCPCS: 36415; 80053; 80061

== ENCOUNTER → 2022-10-22 | Outpatient (CLI) | payer OTHER, SELFPAY ==
--- NOTE | 2022-10-22 12:46 | US_ITS ---
EXAM: US SECOND OR THIRD TRIMESTER , TRANSABDOMINAL CLINICAL INDICATION: anatomy TECHNIQUE: Transabdominal obstetrical ultrasound of the maternal pelvis and a second or third trimester with image documentation. COMPARISON: No relevant prior studies available. FINDINGS: FETUS: Single intrauterine gestational sac. HEART RATE: heart rate is 155 bpm. PRESENTATION: Breech presentation. PLACENTA: Placenta is anterior and is not low-lying. No placenta previa. No abruption. AMNIOTIC FLUID: Amniotic fluid volume qualitatively appears normal. 4.3 cm maximum vertical pocket. ANATOMY: The lateral ventricles, choroid plexus, cerebellum, cisterna magna, facial structures, four-chamber heart, diaphragm, stomach, abdominal wall, cord insertion, three-vessel cord, bilateral kidneys, bladder, cervical spine, thoracic spine, lumbar spine, sacrum, and bilateral upper extremities were visualized. BIOMETRICS GESTATIONAL AGE: Composite gestational age is 19 weeks 4 days. FRANKI: 03/14/2023. EFW: Estimated weight is 307 g corresponding to the 67th percentile. BPD: 19 weeks 0 days. HC: 19 weeks 2 days. AC: 19 weeks 5 days. FL: 19 weeks 6 days. MATERNAL: UTERUS: Unremarkable. No myometrial mass. CERVIX: Cervical os is closed. Cervical length is 4.1 cm. ADNEXA: Unremarkable. No adnexal masses. FREE FLUID: None. OTHER FINDINGS: Cisterna magna measured 5 mm. IMPRESSION: Single live intrauterine at approximately 19 weeks 4 days. No specific abnormality. Electronically Signed: Antonio Palacios MD at 1:45 EDT , EXAM: US , TRANSVAGINAL CLINICAL INDICATION: anatomy TECHNIQUE: Real-time transvaginal obstetrical ultrasound of the maternal pelvis and a first trimester with image documentation. Transvaginal imaging was used for better evaluation of the cervix. COMPARISON: No relevant prior studies available. FINDINGS: CERVIX: Cervical length is 4.1 cm. Cervix is closed. US/OB Anatomy w/ Transvaginal IMPRESSION: Cervical length 4.1 cm with a closed cervix. Electronically Signed: Antonio Palacios MD at 1:47 EDT ,
== END | disposition home or self-care (01) ==
PROVIDERS: PCP Family Medicine; Visit Provider Obstetrics & Gynecology
DX: O09.90 Supervision of high risk pregnancy, unspecified, unspecified trimester (principal); Z3A.00 Weeks of gestation of pregnancy not specified
CPT/HCPCS: 76805; 76817

== ENCOUNTER → 2022-12-24 | Outpatient (CLI) | payer OTHER, SELFPAY ==
[2022-12-24 08:58] LABS: Absolute Lymphocyte Count 2.44 X10^3/uL (0.83-4.51); Absolute Neutrophil Count 5.3 X10^3/uL (2.0-7.7); Basophil# 0.03 X10^3/uL; Basophil% 0.4 % (0-1); Eosinophils% 1.2 % (0-5); Hematocrit 35.3 % (37-47); Hemoglobin 11.4 g/dL (12.0-15.0); Lymphocyte # 2.44 X10^3/ul (0.83-4.51); Lymphocyte % 28.8 % (19-41); Mean Corp Hgb Conc 32.3 g/dL (32-36); Mean Corpuscular Hgb 29.2 pg (27.0-32.0); Mean Corpuscular Volume 90.3 fL (81-99); Mean Platelet Vol. 9.8 fl (6.2-12.0); Monocyte# 0.48 X10^3/uL; Monocyte% 5.7 % (0-10); NRBC Flagged by Analyzer 0 % (0-5); Neutrophil # 5.33 X10^3/uL (2.7-7.7); Neutrophil % 62.8 % (47-70); Platelet Count 202 K/mm3 (150-450); RBC Distribution Width CV 13.7 % (11.6-14.6); RBC Distribution Width SD 44.6 fl (35.1-43.9); Red Blood Count 3.91 M/mm3 (4.2-5.4); White Blood Count 8.5 K/mm3 (4.4-11.0)
[2022-12-24 09:23] LABS: Glucose Challenge Gest 1H 50g 123 mg/dL (70-140)
[2022-12-24 09:53] LABS: HIV - WCH Non-Reactive (Nonreactive); Syphilis Antibodies Non-reactive
== END | disposition home or self-care (01) ==
LOC: LAB 08:02
PROVIDERS: PCP Family Medicine; Referring Provider Obstetrics & Gynecology; Visit Provider Obstetrics & Gynecology
DX: O09.90 Supervision of high risk pregnancy, unspecified, unspecified trimester (principal); Z3A.00 Weeks of gestation of pregnancy not specified; Z13.1 Encounter for screening for diabetes mellitus
CPT/HCPCS: 36415; 82950; 83036; 85025; 86703; 86780

== ENCOUNTER → 2023-02-18 | Outpatient (CLI) | payer OTHER, SELFPAY | END | disposition home or self-care (01) | LOC: LABSPEC 11:53 | PROVIDERS: Referring Provider Obstetrics & Gynecology; Visit Provider Obstetrics & Gynecology | DX: O09.90 Supervision of high risk pregnancy, unspecified, unspecified trimester (principal); Z3A.00 Weeks of gestation of pregnancy not specified | CPT/HCPCS: 87081 ==

== ENCOUNTER → 2023-02-26 | Outpatient (CLI) | payer OTHER, SELFPAY ==
--- NOTE | 2023-02-26 11:13 | US_ITS ---
INDICATION: wellbeing EXAMINATION: Ultrasound US Biophysical Profile W/O Nonst TECHNIQUE: Transabdominal pelvic ultrasound was performed. COMPARISON: Prior study dated: 10/22/2022. LMP: 06/09/2022. Beta-hCG: Unknown. Provided EGA: None. FINDINGS: INTRAUTERINE GESTATION(s): Single. HEART MOTION is 139 bpm. AMNIOTIC FLUID INDEX (MATT): 12.4 cm. Largest amniotic fluid pocket measures 6.5 cm. BIOPHYSICAL PROFILE (BPP): 12/17 -- Breathin/2. -- Movement: 2/2. -- Tone: 2/2. --MATT: 2/2. PRESENTATION: Cephalic PLACENTA: Anterior. There is no placenta previa or abruption. CERVIX: Not seen. MATERNAL OVARIES: No adnexal masses. FREE FLUID: None. US/Biophysical Prof W/O Non Stres IMPRESSION: Normal biophysical profile. Electronically Signed: Jose Raul Ramirez MD at 15:09 EDT ,
== END | disposition home or self-care (01) ==
PROVIDERS: PCP Family Medicine; Referring Provider Obstetrics & Gynecology; Visit Provider Obstetrics & Gynecology
DX: O09.523 Supervision of elderly multigravida, third trimester (principal); Z3A.37 37 weeks gestation of pregnancy
CPT/HCPCS: 76819

== ENCOUNTER 2023-03-08 13:48 | Outpatient (CLI) | payer OTHER, SELFPAY ==
[2023-03-08 14:05] VITALS: BMI 39.8
[2023-03-08 14:11] VITALS: TEMP 37.2
[2023-03-08 14:12] VITALS: BP 128/60; PULSE 101
--- NOTE | 2023-03-08 23:29 | OB.TRI.HP_ITS ---
HPI - General HPI Narrative SUSAN STEINBERG, is a 37 y/o @ 38 weeks 6 days who presents to L&D for decreased movement Maternal Data Information FRANKI Calculator Estimated Delivery Date Method Current WG Current Estimate 03/16/23 LMP (Certain) 39w 0d PFSH PFSH Medical History 39 weeks gestation of Abnormal uterine bleeding Acute maxillary sinusitis, unspecified Acute sinusitis, unspecified Anxiety Asthma Asthma Cellulitis of suprapubic region delivery delivered History of IBS Lactose intolerance Low iron Non-smoker Polyhydramnios depression hemorrhage Retained products of conception after delivery without hemorrhage Seasonal allergies Wears contact lenses Home Medications docosahexaenoic acid 200 mg capsule ( DHA) 2 mg PO DAILY 12/02/22 [History Last Taken 03/08/23] Allergy/AdvReac Type Severity Reaction Status Date / Time grass pollen Allergy unknown Verified 03/05/23 10:07 house dust Allergy unknown Verified 03/05/23 10:07 mold Allergy unknown Verified 03/05/23 10:07 Family History Sister Asthma Grandmother Diabetes Heart disease Cancer Grandfather A-fib Cancer Surgical History fatty tumor removed History of bladder surgery History of delivery History of colonoscopy History of D&C History of eyelid surgery Social History adopted: No household members: spouse and children number of children: 3 current occupational status: unemployed current occupation: [employer] pets and animals: No history of recent travel: No sexually active: Yes Smoking Status: Never smoker alcohol intake: current alcohol intake frequency: holidays/special occasions only substance use type: does not use caffeine: Yes Type: coffee Number of servings: 4 seatbelt use: always do you feel safe at home: Yes additional social history: [place] History 5 Elective abortions Hx Para 3 Spontaneous abortions 1 Hx # Term Pregnancies 3 Ectopic pregnancies Hx # Pregnancies Multiple births # of living children 3 Past Pregnancies Del. Date Name GA/Weeks Outcome Route Bth Weight Gen Labor Lgth Anesthesia Del Locatn Provider FOB 09/27/16 Richy 39 live - full term 8.13 Male 03/25/19 Mechelle 39 live - full term 9.2 Female 09/12/21 Sai 39 live - full term 9.4 Male Visit Details Expected Delivery Route/Plan RLTCS Plans Covid status: discussed Flu vaccine: discussed Tdap vaccine: considering Rhogam: NA LARC form signed: yes Problem list reviewed and updated with the most current plan of care details and appropriate orders placed. Relevant counseling for the gestational age provided. Continue routine care and follow up unless otherwise noted in visit notes/problem list details OB Flowsheet Initial Weight: Not Recorded Date -?-?-?-?-?-?-?-?-?-?-?-?- EGA Weight BP Urine Prot -?-?-?-?-?-?-?-?-?-?-?-?- Glucose FHR FuHt Pres Dilation -?-?-?-?-?-?-?-?-?-?-?-?- Effaced St Visit Note 08/19/22 -?-?--?-?-?-?-?-?-?-?-?-?- 10w 1d 194 lb 8 oz 91/60 -?-?-?-?-?-?-?-?-?-?-?-?- 168 -?-?-?-?-?-?-?-?-?-?-?-?- Sm- CRL cons wit h LMP Sm- CRL 2.5cm cons with LMP 09/19/22 -?-?-?-?-?-?-?-?-?-?-?-?- 14w 4d 195 lb 2 oz 103/57 Nega tive -?-?-?-?-?-?-?-?-?-?-?-?- Negative 156 -?-?-?-?-?-?-?-?-?-?--?-?- JV- CRL measurin g 14 weeks. no complaints. anatomy scan ordered. JV- CRL measuring 14 weeks. no complaints. will be traveling to [place] this month to see family. anatomy scan ordered. 10/28/22 -?-?-?-?-?-?-?-?-?-?-?-?- 20w 1d 200 lb 2 oz 128/70 Nega tive -?-?-?-?-?-?-?-?-?-?-?-?- Negative 154 20 -?-?-?-?-?-?-?-?--?-?-?-?- KW-+ Flutters. n o vb/cramping. no concerns 11/26/22 -?-?-?-?-?-?-?-?-?-?-?-?- 24w 2d 208 lb 6 oz 92/53 Nega tive -?-?-?-?-?-?-?-?-?-?-?-?- Negative 140 -?-?-?-?-?-?-?-?-?-?-?-?- SM- no vb lof go od fm no regular ctx 12/24/22 -?-?-?-?-?-?-?-?-?-?-?-?- 28w 2d 211 lb 6 oz 124/72 Nega tive -?-?-?-?-?-?-?-?-?-?-?-?- Negative 153 -?-?-?-?-?-?-?-?-?-?-?-?- MH-No VB, LOF. Marcy ocharlene FM. Larc. 28 wk labs 01/07/23 -?-?-?-?-?--?-?-?-?-?-?-?- 30w 2d 214 lb 6 oz 101/63 Nega tive -?-?-?-?-?-?-?-?-?-?-?-?- Negative 151 31 -?-?-?-?-?-?-?-?-?-?-?-?- MH-No VB, LOF. G ood FM. Denies concerns 01/23/23 -?-?-?-?-?-?-?-?-?-?-?-?- 32w 4d 217 lb 4 oz 124/62 Nega tive -?-?-?-?-?-?-?-?-?-?-?-?- Negative 146 32 -?-?-?-?-?-?-?-?-?-?-?-?- MH-No VB, LOF. G ood FM. Tdap. 02/04/23 -?-?-?-?-?-?-?-?-?-?-?-?- 34w 2d 219 lb 6 oz 102/64 -?-?-?-?-?-?-?-?-?-?-?-?- 137 34 -?-?-?-?-?-?-?-?-?-?-?-?- KW- no vb/lof. g ood fm. recommended compression hose and hydration for swelling in feet. no concerns today. KW- no vb/lof. good fm. dianna mmended compression hose and hydration for swelling in feet. no concerns today. Aware NSTs to start at 36 weeks for AMA-would like to defer NSTs 02/18/23 -?-?-?-?-?-?-?-?-?-?-?-?- 36w 2d 218 lb 102/60 Trace -?-?-?-?-?-?-?-?-?-?-?-?- Negative 140 38 -?-?-?-?-?-?-?-?-?-?-?-?- SM- no vb lof go od fm no regular ctx 02/26/23 -?-?-?-?-?-?-?-?-?-?-?-?- 37w 3d 221 lb 6 oz 107/46 -?-?-?-?-?-?-?-?-?-?-?-?- 143 39 -?-?-?-?-?-?-?-?-?-?-?-?- JV- bpp today. n o cramping, no lof, vag bleeding 03/05/23 -?-?-?-?-?-?-?-?-?-?-?-?- 38w 3d 225 lb 2 oz 91/60 Nega tive -?-?-?-?-?-?-?-?-?-?-?-?- Negative 190 39 -?-?-?-?-?-?-?-?-?-?-?-?- JV- nst today fo r tachycardia ROS Constitutional Constitutional: Reports systems reviewed and no addt'l complaints, except as documented Gastrointestinal Gastrointestinal: Denies bloating, constipation, cramping, diarrhea, nausea or vomiting Genitourinary Genitourinary: Reports other Details: Denies vaginal odor, vaginal bleeding, or vaginal discharge ; Denies difficulty urinating or flank pain NST FHR Rate Baby A Baseline: 140 Variability:: Moderate Accelerations:: 15 x 15 Decelerations:: None NST Reactive:: Yes FHR Category:: Category I Assessment & Plan (1) Decreased movement: Charges/Coding Multi Select Codes Urinary/Genital Urinary/Genital CPT Codes: 84022-10 non-stress test Interp
--- NOTE | 2023-03-08 23:29 | OB.TRI.NOTE ---
HPI - General HPI Narrative SUSAN STEINBERG, is a 37 y/o @ 38 weeks 6 days who presents to L&D for decreased movement Maternal Data Information FRANKI Calculator Estimated Delivery Date Method Current WG Current Estimate 03/16/23 LMP (Certain) 39w 0d PFSH PFSH Medical History 39 weeks gestation of Abnormal uterine bleeding Acute maxillary sinusitis, unspecified Acute sinusitis, unspecified Anxiety Asthma Asthma Cellulitis of suprapubic region delivery delivered History of IBS Lactose intolerance Low iron Non-smoker Polyhydramnios depression hemorrhage Retained products of conception after delivery without hemorrhage Seasonal allergies Wears contact lenses Home Medications docosahexaenoic acid 200 mg capsule ( DHA) 2 mg PO DAILY 12/02/22 [History Last Taken 03/08/23] Allergy/AdvReac Type Severity Reaction Status Date / Time grass pollen Allergy unknown Verified 03/05/23 10:07 house dust Allergy unknown Verified 03/05/23 10:07 mold Allergy unknown Verified 03/05/23 10:07 Family History Sister Asthma Grandmother Diabetes Heart disease Cancer Grandfather A-fib Cancer Surgical History fatty tumor removed History of bladder surgery History of delivery History of colonoscopy History of D&C History of eyelid surgery Social History adopted: No household members: spouse and children number of children: 3 current occupational status: unemployed current occupation: [employer] pets and animals: No history of recent travel: No sexually active: Yes Smoking Status: Never smoker alcohol intake: current alcohol intake frequency: holidays/special occasions only substance use type: does not use caffeine: Yes Type: coffee Number of servings: 4 seatbelt use: always do you feel safe at home: Yes additional social history: [place] History 5 Elective abortions Hx Para 3 Spontaneous abortions 1 Hx # Term Pregnancies 3 Ectopic pregnancies Hx # Pregnancies Multiple births # of living children 3 Past Pregnancies Del. Date Name GA/Weeks Outcome Route Bth Weight Gen Labor Lgth Anesthesia Del Locatn Provider FOB 09/27/16 Richy 39 live - full term 8.13 Male 03/25/19 Mechelle 39 live - full term 9.2 Female 09/12/21 Sai 39 live - full term 9.4 Male Visit Details Expected Delivery Route/Plan RLTCS Plans Covid status: discussed Flu vaccine: discussed Tdap vaccine: considering Rhogam: NA LARC form signed: yes Problem list reviewed and updated with the most current plan of care details and appropriate orders placed. Relevant counseling for the gestational age provided. Continue routine care and follow up unless otherwise noted in visit notes/problem list details OB Flowsheet Initial Weight: Not Recorded Date <del>?</del> EGA Weight BP Urine Prot <del>?</del> Glucose FHR FuHt Pres Dilation <del>?</del> Effaced St Visit Note 08/19/22 <del>?</del> 10w 1d 194 lb 8 oz 91/60 <del>?</del> 168 <del>?</del> Sm- CRL cons with LMP Sm- CRL 2.5cm cons with LMP 09/19/22 <del>?</del> 14w 4d 195 lb 2 oz 103/57 Negative <del>?</del> Negative 156 <del>?</del> JV- CRL measuring 14 weeks. no complaints. anatomy scan ordered. JV- CRL measuring 14 weeks. no complaints. will be traveling to [place] this month to see family. anatomy scan ordered. 10/28/22 <del>?</del> 20w 1d 200 lb 2 oz 128/70 Negative <del>?</del> Negative 154 20 <del>?</del> KW-+ Flutters. no vb/cramping. no concerns 11/26/22 <del>?</del> 24w 2d 208 lb 6 oz 92/53 Negative <del>?</del> Negative 140 <del>?</del> SM- no vb lof good fm no regular ctx 12/24/22 <del>?</del> 28w 2d 211 lb 6 oz 124/72 Negative <del>?</del> Negative 153 <del>?</del> MH-No VB, LOF. Good FM. Larc. 28 wk labs 01/07/23 <del>?</del> 30w 2d 214 lb 6 oz 101/63 Negative <del>?</del> Negative 151 31 <del>?</del> MH-No VB, LOF. Good FM. Denies concerns 01/23/23 <del>?</del> 32w 4d 217 lb 4 oz 124/62 Negative <del>?</del> Negative 146 32 <del>?</del> MH-No VB, LOF. Good FM. Tdap. 02/04/23 <del>?</del> 34w 2d 219 lb 6 oz 102/64 <del>?</del> 137 34 <del>?</del> KW- no vb/lof. good fm. recommended compression hose and hydration for swelling in feet. no concerns today. KW- no vb/lof. good fm. recommended compression hose and hydration for swelling in feet. no concerns today. Aware NSTs to start at 36 weeks for AMA-would like to defer NSTs 02/18/23 <del>?</del> 36w 2d 218 lb 102/60 Trace <del>?</del> Negative 140 38 <del>?</del> SM- no vb lof good fm no regular ctx 02/26/23 <del>?</del> 37w 3d 221 lb 6 oz 107/46 <del>?</del> 143 39 <del>?</del> JV- bpp today. no cramping, no lof, vag bleeding 03/05/23 <del>?</del> 38w 3d 225 lb 2 oz 91/60 Negative <del>?</del> Negative 190 39 <del>?</del> JV- nst today for tachycardia ROS Constitutional Constitutional: Reports systems reviewed and no addt'l complaints, except as documented Gastrointestinal Gastrointestinal: Denies bloating, constipation, cramping, diarrhea, nausea or vomiting Genitourinary Genitourinary: Reports other Details: Denies vaginal odor, vaginal bleeding, or vaginal discharge ; Denies difficulty urinating or flank pain NST FHR Rate Baby A Baseline: 140 Variability:: Moderate Accelerations:: 15 x 15 Decelerations:: None NST Reactive:: Yes FHR Category:: Category I Assessment & Plan (1) Decreased movement: Charges/Coding Multi Select Codes Urinary/Genital Urinary/Genital CPT Codes: 28443-88 non-stress test Interp
== END 2023-03-08 15:08 | disposition home or self-care (01) ==
LOC: WPOUT 13:53 → WP 13:54
PROVIDERS: PCP Family Medicine; Referring Provider Obstetrics & Gynecology; Visit Provider Obstetrics & Gynecology
DX: O36.8130 Decreased fetal movements, third trimester, not applicable or unspecified (principal); Z3A.38 38 weeks gestation of pregnancy
CPT/HCPCS: 59025; 59050; 99221; G0378

== ENCOUNTER 2023-03-12 05:40 | Inpatient (IN) | payer OTHER, SELFPAY ==
--- NOTE | 2023-03-11 | FALS_PTH ---
PATIENT: SUSAN STEINBERG LOC: [facility] U#:[id number] AGE/SX: 37/F ROOM: [facility] RE03/12/[address]: Dr. Cinthia Frances DO : 1985 BED: 1 DIS: 03/14/2023 SPEC #: [id number] RECD: 03/12/23 10:21 STATUS: SIRI NORAH #: [id number] JUDY: 03/11/23 00:[address]: Cinthia Frances DEPT: SURGICAL PATHOLOGY RECD BY: Jose M Clinton ENTERED: 03/12/23 10:21 SP TYPE: FALL TUBES OTHR DR: DO Dr. Marquita Azevedo MD Tissues: Fallopian tube Procedures: Surgery Specimen Level II HEADER OPERATION: Tubal ligation PRE-OP DIAGNOSIS: Sterilization TISSUE SUBMITTED: Fallopian tubes, suture in right MICROSCOPIC DIAGNOSIS Right fallopian tube, salpingectomy: Complete cross-sections of fallopian tube with no pathologic change. Left fallopian tube, salpingectomy: Complete cross-sections of fallopian tube with no pathologic change. AM:harika 03/13/2023 MICROSCOPIC DESCRIPTION Slides are reviewed. GROSS DESCRIPTION Received in fixative is one container labeled with the patient's name and designated bilateral fallopian tubes, right tube with suture. The specimen consists of bilateral fallopian tubes including fimbrial ends. The right fallopian tube measures 8.0 cm in length and 0.8 cm in diameter and the left fallopian tube measures 6.5 cm in length and 0.8 cm in diameter. Sections reveal unremarkable cut surfaces. Slug Press Operator sections are submitted in two cassettes as follows: 1 - right fallopian tube, 2 - left fallopian tube. / SJ:rg 03/12/2023 TC:4 CPT: 87625 x2
[2023-03-12] VITALS (17 sets, daily range): BP systolic 98–130; BP diastolic 44–94; PULSE 52–105; RESP 14–18; TEMP 36.2–38.2; O2SAT 94–100; BMI 39.6
[2023-03-12] MEDS: Lactated Ringers 1,000 ML 999 ML IV (06:05)
[2023-03-12 06:17] LABS: Absolute Lymphocyte Count 2.53 X10^3/uL (0.83-4.51); Absolute Neutrophil Count 5.6 X10^3/uL (2.0-7.7); Basophil# 0.02 X10^3/uL; Basophil% 0.2 % (0-1); Eosinophil# 0.08 X10^3/uL; Eosinophils% 0.9 % (0-5); Hematocrit 37.4 % (37-47); Hemoglobin 11.9 g/dL (12.0-15.0); Lymphocyte # 2.53 X10^3/ul (0.83-4.51); Mean Corp Hgb Conc 31.8 g/dL (32-36); Mean Corpuscular Hgb 27.8 pg (27.0-32.0); Mean Corpuscular Volume 87.4 fL (81-99); Mean Platelet Vol. 10.9 fl (6.2-12.0); Monocyte# 0.47 X10^3/uL; Monocyte% 5.4 % (0-10); NRBC Flagged by Analyzer 0 % (0-5); Neutrophil # 5.57 X10^3/uL (2.7-7.7); Neutrophil % 63.8 % (47-70); Platelet Count 162 K/mm3 (150-450); RBC Distribution Width CV 14.6 % (11.6-14.6); RBC Distribution Width SD 46.2 fl (35.1-43.9); Red Blood Count 4.28 M/mm3 (4.2-5.4); White Blood Count 8.7 K/mm3 (4.4-11.0)
[2023-03-12] MEDS: Acetaminophen 500 MG Tablet 1000 MG PO ×3 (07:02→19:33)
[2023-03-12] MEDS: Sodium Citrate/Citric Acid 30 ML UDC PO (07:03)
[2023-03-12] MEDS: Lactated Ringers 1,000 ML 150 ML IV (07:04)
[2023-03-12] MEDS: Cefazolin 2 GM in 0.9% Normal Saline (100mL Bag) 100 ML IV (07:30)
--- NOTE | 2023-03-12 07:37 | HP.PCM.OB_ITS ---
HPI - General General Date of Admission: 03/12/23 HPI Narrative SUSAN STEINBERG, is a 37 y/o @ 39 weeks 3 days who presents to L&D for a repeat section. She has a h/o 3 prior sections Maternal Data Information FRANKI Calculator Estimated Delivery Date Method Current WG Current Estimate 03/16/23 LMP (Certain) 39w 3d PFSH PFSH Medical History (Updated 03/12/23 @ 06:02 by Josefa Rosenthal) 39 weeks gestation of Abnormal uterine bleeding Acute maxillary sinusitis, unspecified Acute sinusitis, unspecified Anxiety Anxiety Asthma Asthma Cellulitis of suprapubic region delivery delivered Depression History of IBS Lactose intolerance Low iron Non-smoker Polyhydramnios depression hemorrhage Prolonged rupture of membranes, delivered Retained products of conception after delivery without hemorrhage Seasonal allergies Wears contact lenses Home Medications docosahexaenoic acid 200 mg capsule ( DHA) 2 mg PO DAILY 12/02/22 [History Last Taken 03/11/23 08:00 200 mg] Allergy/AdvReac Type Severity Reaction Status Date / Time grass pollen Allergy unknown Verified 03/05/23 10:07 house dust Allergy unknown Verified 03/05/23 10:07 mold Allergy unknown Verified 03/05/23 10:07 Family History Sister Asthma Grandmother Diabetes Heart disease Cancer Grandfather A-fib Cancer Surgical History fatty tumor removed History of bladder surgery History of delivery History of colonoscopy History of D&C History of eyelid surgery Social History adopted: No household members: spouse and children number of children: 3 current occupational status: unemployed current occupation: [employer] pets and animals: No history of recent travel: No sexually active: Yes Smoking Status: Never smoker alcohol intake: current alcohol intake frequency: holidays/special occasions only substance use type: does not use caffeine: Yes Type: coffee Number of servings: 4 seatbelt use: always do you feel safe at home: Yes additional social history: [place] History 5 Elective abortions Hx Para 3 Spontaneous abortions 1 Hx # Term Pregnancies 3 Ectopic pregnancies Hx # Pregnancies Multiple births # of living children 3 Past Pregnancies Del. Date Name GA/Weeks Outcome Route Bth Weight Infant Gen Labor Lgth Anesthesia Del Locatn Provider FOB 09/27/16 Richy 39 live - full term 8.13 Male 03/25/19 Mechelle 39 live - full term 9.2 Female 09/12/21 Sai 39 live - full term 9.4 Male Visit Details Expected Delivery Route/Plan RLTCS Plans Covid status: discussed Flu vaccine: discussed Tdap vaccine: considering Rhogam: NA LARC form signed: yes Problem list reviewed and updated with the most current plan of care details and appropriate orders placed. Relevant counseling for the gestational age provided. Continue routine care and follow up unless otherwise noted in visit notes/problem list details OB Flowsheet Initial Weight: Not Recorded Date -?-?-?-?-?-?-?-?-?-?-?-?- EGA Weight BP Urine Prot -?-?-?-?-?-?-?-?-?-?-?-?- Glucose FHR FuHt Pres Dilation -?-?-?-?-?-?-?-?-?-?-?-?- Effaced St Visit Note 08/19/22 -?-?-?-?-?-?-?-?-?-?-?--?- 10w 1d 194 lb 8 oz 91/60 -?-?-?-?-?-?-?-?-?-?-?-?- 168 -?-?-?-?-?-?-?-?-?-?-?-?- Sm- CRL cons wit h LMP Sm- CRL 2.5cm cons with LMP 09/19/22 -?-?-?-?-?-?-?-?-?-?-?-?- 14w 4d 195 lb 2 oz 103/57 Nega tive -?-?-?-?-?-?-?-?-?-?-?-?- Negative 156 -?-?-?-?-?-?-?-?-?-?-?-?- JV- CRL measurin g 14 weeks. no complaints. anatomy scan ordered. JV- CRL measuring 14 weeks. no complaints. will be traveling to [place] this month to see family. anatomy scan ordered. 10/28/22 -?-?-?-?-?-?-?-?-?-?-?-?- 20w 1d 200 lb 2 oz 128/70 Nega tive -?-?-?-?-?-?-?-?-?-?-?-?- Negative 154 20 -?-?-?-?-?-?-?-?-?-?-?-?- KW-+ Flutters. n o vb/cramping. no concerns 11/26/22 -?-?-?-?-?-?-?-?-?-?-?-?- 24w 2d 208 lb 6 oz 92/53 Nega tive -?-?-?-?-?-?-?-?-?-?-?-?- Negative 140 -?-?-?-?-?-?-?-?-?-?-?-?- - no vb lof go od fm no regular ctx 12/24/22 -?-?-?-?-?-?-?-?-?-?-?-?- 28w 2d 211 lb 6 oz 124/72 Nega tive -?-?-?-?-?-?-?-?-?-?-?-?- Negative 153 -?-?-?-?-?-?-?-?-?-?-?-?- -No VB, LOF. G ood FM. Larc. 28 wk labs 01/07/23 -?-?-?-?-?-?-?-?-?-?-?-?- 30w 2d 214 lb 6 oz 101/63 Nega tive -?-?-?-?-?-?-?-?-?-?-?-?- Negative 151 31 -?-?-?-?-?-?-?-?-?-?-?-?- -No VB, LOF. G ood FM. Denies concerns 01/23/23 -?-?-?-?-?-?-?-?-?-?-?-?- 32w 4d 217 lb 4 oz 124/62 Nega tive -?-?-?-?-?-?-?-?-?-?-?-?- Negative 146 32 -?-?-?-?-?-?-?-?-?--?-?-?- MH-No VB, LOF. G ood FM. Tdap. 02/04/23 -?-?-?-?-?-?-?-?-?-?-?-?- 34w 2d 219 lb 6 oz 102/64 -?-?-?-?-?-?-?-?-?-?-?-?- 137 34 -?-?-?-?-?-?-?-?-?-?-?-?- KW- no vb/lof. g ood fm. recommended compression hose and hydration for swelling in feet. no concerns today. KW- no vb/lof. good fm. dianna mmended compression hose and hydration for swelling in feet. no concerns today. Aware NSTs to start at 36 weeks for AMA-would like to defer NSTs 02/18/23 -?-?-?-?-?-?-?-?-?-?-?-?- 36w 2d 218 lb 102/60 Trace -?-?-?-?-?-?-?-?-?-?-?-?- Negative 140 38 -?-?-?-?-?-?-?-?-?-?-?-?- SM- no vb lof go od fm no regular ctx 02/26/23 -?-?-?-?-?-?-?-?-?-?-?-?- 37w 3d 221 lb 6 oz 107/46 -?-?-?-?-?-?-?-?-?-?-?-?- 143 39 -?-?-?-?-?-?-?-?-?-?-?-?- JV- bpp today. n o cramping, no lof, vag bleeding 03/05/23 -?-?-?-?-?-?-?-?-?-?-?-?- 38w 3d 225 lb 2 oz 91/60 Nega tive -?-?-?-?-?-?-?-?-?-?-?-?- Negative 190 39 -?-?-?-?-?-?-?-?-?-?-?-?- JV- nst today fo r tachycardia ROS Constitutional Constitutional: Denies change in weight, fatigue, fever(s), headache(s), poor appetite or weakness Eyes Eyes: Denies blurry vision, change in vision, seeing flashes or spots in vision ENT HEENT: Denies dizziness, headache(s), loss taste/smell or sore throat Cardiovascular Cardiovascular: Denies chest pain, dizziness, dyspnea, irregular heart rhythm, leg edema, palpitations, rapid heart rate or vomiting Respiratory/Chest Respiratory/Chest: Denies chest tightness, cough, dyspnea or breast pain Gastrointestinal Gastrointestinal: Denies abdominal pain, anorexia, constipation, cramping, diarrhea, hemorrhoids, vomiting or weight changes Genitourinary Genitourinary: Denies dysuria, flank pain, genital lesions, genital pain, urinar y frequency or urinary urgency Musculoskeletal Musculoskeletal: Denies back pain, difficulty walking, joint pain, limited range of motion, muscle cramps or numbness Integumentary Integumentary: Denies lesions or unusual bruising Neurologic Neurologic: Denies abnormal movements, abnormal speech, dizziness, numbness, seizure-like activity or syncope Psychiatric Psychiatric: Denies anxiety, behavioral changes, change in appetite, change in libido, cognitive impairment, confusion, depression, difficulty concentrating, hallucinations or suicidal thoughts Endocrine Endocrinology: Denies excessive sweating, polydipsia or polyuria Hematologic/Lymphatic Hematologic/Lymphatic: Denies easy bleeding, easy bruising or lymphadenopathy Allergic/Immunologic Allergic/Immunologic: Denies itchy eyes, lip swelling, seasonal rhinorrhea, rhinitis, throat swelling, tongue swelling, eczemia, wheezing or asthma Vital Signs Vital Signs Vital Signs: 03/12/23 06:33 Temperature 97.4 F L Temperature Source Temporal Pulse Rate 94 Respiratory Rate 16 Blood Pressure 127/68 H Blood Pressure Mean 87 Blood Pressure Source Monitor Blood Pressure Position Semi-Fowlers Blood Pressure Location Right Arm Pulse Ox 98 Oxygen Delivery Method Room Air Weight Weight: 223 lb 8.78 oz Body Mass Index (BMI) 39.6 Physical Exam Const alert, oriented x3, no apparent distress and healthy appearing General Appearance: cooperative; Negative for anxious HEENT normocephalic Face and Sinus: normal facial exam Eyes EOMs intact bilaterally and no scleral icterus General Eye: normal appearance of both eyes Neck full ROM and supple Lymph Lymphatic: no lymphadenopathy noted Chest Chest: abnormal inspection of the chest Resp normal respiratory effort Effort and Inspection: able to speak in complete sentences Cardio regular rate GI soft to palpation and non-tender Inspection: gravid Palpation: soft; Negative for tender Back/Spine no CVA tenderness Extremity normal to inspection, full ROM and no clubbing, cyanosis or edema General Extremity: Negative for calf tenderness or edema Skin Lesions: no lesions Rashes: no rashes Psych mental status grossly normal Labs Labs Labs: Blood Type O POSITIVE Antibody Screen NEGATIVE Hct 37.4 % (37-47) Hgb 11.9 g/dL (12.0-15.0) L Obstetrics Ultrasound Syphilis Total Ab Non-reactive Rubella IgG Antibody Reactive (Nonreactive) Hep Bs Antigen Non-Reactive (Nonreactive) Hepatitis C Antibody Non-Reactive (Nonreactive) Hepatitis C Ab (EIA) 0.1 s/co ratio (0.0-0.9) Chlamydia DNA (JENNA) Negative (Negative) N.gonorrhoeae DNA (JENNA) Negative (Negative) HIV 1&2 Antibody Non-Reactive (Nonreactive) Glucose 1 Hr 50 gm 123 mg/dL (70-140) Group B Strep DNA Negative (Negative) Rhogam given: No Miscellaneous Test Assessment & Plan (1) Decreased movement: (2) History of delivery affecting : COMMENT: x3, desires repeat C/S plan 03/12 with JV, RLTCS scheduled for 03/12 @ 7:30 with JV (3) Depression affecting : COMMENT: stable not on medication (4) AMA (advanced maternal age) multigravida 35+: QUALIFIERS: Trimester: second trimester Qualified Code(s): O09.522 - Supervision of elderly multigravida, second trimester COMMENT: NIPT low risk, growth us ordered 36 weeks (5) Supervision of high risk , antepartum: COMMENT: PRR FRANKI 03/16/23, girl, Radha Mechelle Rao, Sai Leander (6) : QUALIFIERS: Weeks of gestation: 38 weeks Qualified Code(s): Z3A.38 - 38 weeks gestation of COMMENT: GBS negative, NIPT low risk, carrier neg. , nl anatomy & consistent FRANKI (7) Cellulitis of suprapubic region: PLAN: Plan plan for ERAS repeat section today After discussing the patient's diagnosis and treatment plan options, patient wishes to proceed with surgical management. I have discussed with the patient the risks, benefits, and alternatives of the procedure which include but are not limited to risks of anesthesia, bleeding, infection, possible damage to bowel, bladder, or surrounding vasculature which could lead to additional surgery to evaluate any complications. Patient agrees to procedure and wishes to proceed. ACOG/uptodate references given for additional information regarding procedure.
--- NOTE | 2023-03-12 07:38 | DCINST_ITS ---
Discharge Instructions Diet Discharge Diet: No restrictions Activity Discharge Activity: May Not Drive (for 2 weeks or while taking narcotic pain medications.), May Shower and May Take a Tub Bath (in 7 days.) May resume sexual activity in: 4-6 weeks Weight Bearing Status: Full weight bearing Lifting Restrictions: 20 pounds Dressing / Incision Call your doctor if your incision/area has: Continuous Slow Oozing, Sudden Increased Bleeding, Increased Pain/ Swelling, Increased Redness and Foul Smelling Discharge Call your doctor if you observe: Fever of 101 or Higher and Using more than 1 pad per hour Suture Line Care: Avoid Pulling/Pushing and Avoid Pinching/Bending Cleanse incision/area with: Soap & Water and Keep Dressing Clean & Dry Follow Up Care Please Follow Up With: Cinthia Frances DO When: Call [phone] to make an appointment for an incision check in 1-2 weeks. Test Results: Test results from this visit will be discussed in further detail at your follow- up appointment, if applicable. Discharge Plan Admission Admit Date/Time: 03/12/23 05:40 Attending Provider: Marquita Mcclendon Primary Care Provider: Jermaine Mayer Discharge Orders/Prescriptions Prescriptions: No Action DHA 200 mg capsule 2 mg PO DAILY Referrals / Follow Up: Jermaine Mayer DO [Primary Care Provider] -
[2023-03-12] MEDS: Methylergonovine 0.2 MG/ML Ampul IM (08:05)
--- NOTE | 2023-03-12 08:29 | OP.PCM_ITS ---
Assessment & Plan (1) History of delivery affecting : COMMENT: x3, desires repeat C/S plan 03/12 with JV, RLTCS scheduled for 05/12 @ 7:30 with JV (2) Depression affecting : COMMENT: stable not on medication (3) AMA (advanced maternal age) multigravida 35+: QUALIFIERS: Trimester: second trimester Qualified Code(s): O09.522 - Supervision of elderly multigravida, second trimester COMMENT: NIPT low risk, growth us ordered 36 weeks (4) Supervision of high risk , antepartum: COMMENT: PRR FRANKI 03/16/23, girl, Radha PC Richy, Mechelle, Sai Leander (5) : QUALIFIERS: Weeks of gestation: 38 weeks Qualified Code(s): Z3A.38 - 38 weeks gestation of COMMENT: GBS negative, NIPT low risk, carrier neg. , nl anatomy & consistent FRANKI (6) Cellulitis of suprapubic region: Maternal Data Information FRANKI Calculator Estimated Delivery Date Method Current WG Current Estimate 03/16/23 LMP (Certain) 39w 3d Final FRANKI: 03/16/23 Final FRANKI Source: LMP Gestational age: 39 weeks 3 days Details Operative Information Date of Procedure: 03/12/23 Pre-Operative Diagnosis: @ 39 weeks 3 days, prior sections, desires repeat and sterilization Post-Operative Diagnosis: @ 39 weeks 3 days, prior sections, desires repeat and sterilization Indications for : Repeat Elective , Desires elective sterilization and - Classification: Scheduled Procedure Type: low transverse (with bilateral salpingectomy ) corporate legal assistant #1: Alyson Helms Antibiotic Given: Ancef 2 grams IV x1 Estimated Blood Loss: 1000cc Findings Description of Procedure: Procedure: The patient was brought to the operating room where spinal anesthesia was found to be adequate. She was prepped and draped in the normal sterile fashion and was placed in a dorsal supine position with a leftward tilt. Pfannenstiel skin incision was made with a scalpel and carried through to the underlying layers. The fascia was nicked in the midline and extended laterally using Guevara scissors. The anterior aspect of the fascia was grasped with Valentina clamps and the underlying rectus muscles dissected off using the Metzenbaum scissors. The inferior aspect the fascia was also grasped with Valentina clamps and the underlying rectus muscle dissected off with the Metzenbaum scissors. The rectus muscles were in the midline. Peritoneum was entered sharply. The uterus was identified and a bladder blade was inserted into the abdomen. Bladder flap was created off the uterus using Metzenbaum scissors. A transverse incision was made with a scalpel and extended laterally manually. The 's head was grasped with the help of my assistant front desk manager and fundal pressure the infant was delivered through the uterine incision without difficulty. The mouth and nares were bulb suctioned. After a 30 second delay the cord was clamped and cut. The was handed off to the awaiting grade foreman for routine assessment. Placenta was delivered manually without difficulty. The uterus was exteriorized and cleared of all clots and debris. The placental bed was noted to be bleeding. several figure of 8 1-0 vicryl sutures were placed. The Incision was closed with an 0 Vicryl suture in a running locked fashion. Second layer of 1-0 monocryl suture was used in imbricating manner to create excellent closure and hemostasis. The right tube was grasped with a Yareli clamp and the underlying mesosalpinx was cauterized and cut with the ligasure device removing the entire tube and fimbriated end. The same procedure was performed on the opposite side. Both fallopian tubes were passed off for pathology analysis. The uterus was returned to the abdomen. The gutters were cleared of all clots and debris. The peritoneum was closed in a pursestring pattern using a 3-0 Vicryl suture. This muscle was reapproximated with a 3-0 Vicryl. The fascia was closed with an 0 Vicryl suture. Subcutaneous tissue layer was closed using a plain gut suture. The skin was closed with a 4-0 Monocryl subcuticular stitch. The skin was also sealed with surgical glue. The patient tolerated the procedure well sponge lap and needle counts were correct at each tissue closure plane and the patient is now being brought to the recovery room in stable condition Presentation: Positive for Vertex Amniotic Fluid Description: Clear Placental Delivery Description: Manual Removal Placenta Disposition: [facility] Cord Vessel Description: 3 Vessels Cord Entanglement: None A Gender: Female (1 minute): 8 (5 minute): 10 Delayed Cord Clamping: Yes Complications Risks of Surgery Discussed w/Patient: Bleeding, Anesthesia Risks, Infection, Need for Future C-Sections, Permanency, Failure Rate of 1 to 2%, Injury to surrounding structure(s) including bowel and bladder and Availability of other non-permanent control options Multi Select Codes Urinary/Genital Urinary/Genital CPT Codes: 92772 Delivery [facility]
[2023-03-12] MEDS: miSOPROStol 200 MCG Tablet 1000 MCG RC (08:35)
[2023-03-12] MEDS: Oxytocin 15 Units/NS 250ml 15 UNITS/250 ML IV.SOLN 83 UNITS IV (08:45)
[2023-03-12] MEDS: Ketorolac 30 MG/ML Syringe IV ×3 (09:19→20:35)
[2023-03-12 09:25] LABS: Pathology Specimen OB SEE PATHOLOGY REPORT
[2023-03-12 09:50] LABS: Syphilis Antibodies Non-reactive
[2023-03-12] MEDS: Lactated Ringers 1,000 ML 500 ML IV (12:00)
--- NOTE | 2023-03-12 12:08 | NURSING ---
Called Dr. Bedolla at 1153 to give update on patient. Pt had an egg sized clot 2 times during recovery but then the bleeding was small after that. During first 1 hour recovery after PACU pt had another egg sized clot. All pads from PACU and the first 1 hour check were weighed before calling provider. Quantitative blood loss after delivery is 445 grams. Full set of VS were given- BP 126/54, P98, R16, SPO2 98, Temp 100.8 temporal. Pt's temporal temp has been slowly increasing since 1 hour into recovery but was not sure if it was related to the cytotec that was placed rectally. Dr. Bedolla stated that it could be related but will order a CBC to see what her Hgb and WBC are. Order received for IM hemabate x1 now and a 500cc fluid bolus of LR. Dr. Bedolla states that she will be on the unit shortly and will check in at that time. Reported off to Ok Naranjo RN at 1200 and is aware of new orders and POC.
[2023-03-12 12:19] LABS: Absolute Lymphocyte Count 0.97 X10^3/uL (0.83-4.51); Absolute Neutrophil Count 14.1 X10^3/uL (2.0-7.7); Basophil# 0.01 X10^3/uL; Basophil% 0.1 % (0-1); Eosinophil# 0.01 X10^3/uL; Eosinophils% 0.1 % (0-5); Hematocrit 33.5 % (37-47); Hemoglobin 10.9 g/dL (12.0-15.0); Lymphocyte # 0.97 X10^3/ul (0.83-4.51); Lymphocyte % 6.2 % (19-41); Mean Corp Hgb Conc 32.5 g/dL (32-36); Mean Corpuscular Hgb 27.9 pg (27.0-32.0); Mean Corpuscular Volume 85.9 fL (81-99); Mean Platelet Vol. 10.5 fl (6.2-12.0); Monocyte# 0.44 X10^3/uL; Monocyte% 2.8 % (0-10); NRBC Flagged by Analyzer 0 % (0-5); Neutrophil # 14.09 X10^3/uL (2.7-7.7); Neutrophil % 90.4 % (47-70); Platelet Count 159 K/mm3 (150-450); RBC Distribution Width CV 14.6 % (11.6-14.6); RBC Distribution Width SD 45.4 fl (35.1-43.9); White Blood Count 15.6 K/mm3 (4.4-11.0)
[2023-03-12] MEDS: Carboprost Tromethamine 250 MCG/ML Ampul IM (12:36)
[2023-03-12] MEDS: 0.9% Saline Lock 10 ML Syringe IV ×3 (15:02→22:21)
[2023-03-12] MEDS: Enoxaparin 40 MG/0.4 ML Syringe SC (20:36)
[2023-03-12] MEDS: Nalbuphine 10 MG/ML Ampul 5 MG IV (22:20)
[2023-03-13] VITALS (12 sets, daily range): BP systolic 91–112; BP diastolic 32–62; PULSE 77–96; RESP 16–18; TEMP 36.2–37; O2SAT 97–98
[2023-03-13] MEDS: Acetaminophen 500 MG Tablet 1000 MG PO ×4 (01:25→19:59)
[2023-03-13] MEDS: DiphenhydrAMINE 25 MG Capsule PO (02:50)
[2023-03-13] MEDS: Naproxen 500 MG Tablet PO ×3 (02:50→18:48)
[2023-03-13 04:49] LABS: Hematocrit 26.8 % (37-47); Hemoglobin 8.4 g/dL (12.0-15.0); Mean Corp Hgb Conc 31.3 g/dL (32-36); Mean Corpuscular Hgb 27.5 pg (27.0-32.0); Mean Corpuscular Volume 87.6 fL (81-99); Mean Platelet Vol. 10.5 fl (6.2-12.0); Platelet Count 141 K/mm3 (150-450); RBC Distribution Width CV 14.7 % (11.6-14.6); RBC Distribution Width SD 46.6 fl (35.1-43.9); Red Blood Count 3.06 M/mm3 (4.2-5.4); White Blood Count 10.3 K/mm3 (4.4-11.0)
[2023-03-13] MEDS: Senna/Docusate Sodium 1 Tablet PO ×2 (09:53→14:07)
[2023-03-13] MEDS: Enoxaparin 40 MG/0.4 ML Syringe SC (09:53)
--- NOTE | 2023-03-13 13:13 | CASEMGMT ---
Social Work Assessment Labor and Delivery Unit Patient Address:[address] [place] [address] Phone number:[phone] Date of Referral: 03/12/23 Time of Referral:? [phone] Referred By: Charge Nurse/ nursing staff Date of Intervention: ??03/13/23 Time of Intervention:?1200 Reason for Referral:? Maternal mental health history, anxiety, depression, depression Sw completed chart review and notes maternal mental health history positive for anxiety, depression and depression. Sw presented to bedside and introduced self to mother of baby (NUVIA- Inna) and father of baby (NIESHA- Leander). Sw explained reason for sw involvement and completed psychosocial assessment. History obtained from: medical records and mother of baby (NUVIA) and FOB. ??? Household composition: Currently residing in the family home is NIESHA PEDERSEN, their three older children (Richy: 09/27/16, Mechelle: 03/25/19, and Sai: 09/12/21) and now baby. Parents report their housing is safe and secure. Currently there is a leak in the roof that they are working on getting fixed. Patient's parent/guardian status:? Parents report that they started dating each other while they were in high school. They broke up for ten years, and then reconnected and have now been together for almost 14 years. No concerns of domestic violence or intimate partner violence. ? Medical History: NUVIA is 37 year old female who is 5, para 3- now 4 following delivery of . NUVIA received routine care during with [place]. NUVIA delivered baby girl on 03/12/23 via repeat at 39 weeks gestation. Baby girl, named Radha Soriano, was born weighing 9lb 5oz and her apgars were 8 and 10 at one and five minutes of life. .NUVIA states that she is breast feeding and it is going well. Baby will be followed by Dr. Mayer for pediatrics. Educational Status:?Both parents completed high school and obtained college degrees. NIESHA has a degree in [employer] and urban planning. NUVIA has a degree in Public Administration. Parents deny concerns with reading, learning and comprehension. Financial Status: NIESHA is gainfully employed outside of the home. 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 NIESHA is able to take three weeks off of work for paternity leave. NUVIA is a stay at home mom. Supplies: Parents have obtained all necessary baby supplies for baby including: car seat, safe sleep space, clothes, diapers, wipes and a breast pump. Childcare/Caregiver(s):? MOB is primary caregiver to baby, along with FOB when not at work and other family members and friends when help is necessary. Transportation:?? Both parents have their drivers license and reliable means of transportation. No transportation barriers at this time. Programs/Agencies Involved: ?Parents are not connected to any community resources at this time. ?? Children Services/Legal Issues:?No history of Children Services involvement, no issues or concerns warranting referral at this time. ?? Behavioral Health Issues: ??Mental Health History: NIESHA denies mental health history. MOB states that she has been diagnosed with anxiety, depression and did experience depression following the of her first baby. MOB states that the labor and delivery of her first baby was extremely exhausting, it lasted over 50 hours, and she ultimately required a . MOB states that her symptoms of depression looked like extreme anxiety. ? Substance Use History:??MOB denies substance use prior to and during . Family History:?Parents state that there is some history of addiction on both sides of their families. Those family members will not be caregivers to baby or other children. ? Drug Screens: ?No drug screen observed in chart review. ? Family/Social Stressors:? Parents state that they recently had some unexpected expenses happen, such as new vehicle and leaking roof. Parents state that although those are expenses they did not anticipate, they are ok and will be able to make things work. Support Systems: Parents state that maternal grandparents are their biggest supports along with maternal sister and a mom group that NUVIA is connected to. Depression/Shaken Baby/Safe Sleeping:? Sw educated parents on signs and symptoms of baby blues and depression. MOB expressed understanding and stated that she is familiar with symptoms to be on the lookout for. FOB stated that he would be able to recognize if MOB was struggling with her mental health, and he knows how to help her cope. Sw educated parents on shaken baby prevention and ABCs of safe sleep. Parents expressed understanding. ASSESSMENT:? Parents were extremely open and talkative during assessment. Parents have obtained all necessary baby supplies and have adequate supports in place. MOB has mental health history and is familiar of signs and symptoms to be on the look out for. Parents were open and receptive to sw involvement and support. PLAN:? MOB and baby to be discharged when medically ready. ?No other services requested or indicated. Blu Gerard, PROGRAMMING DEVELOPMENT PROJECT MANAGER, BOX BLANK MACHINE FEEDER
--- NOTE | 2023-03-13 14:58 | PN.OBGYN_ITS ---
Subjective Subjective Patient doing well without complaints. Tolerating PO. Ambulating and voiding without difficulty. feeding well. Denies chest pain, shortness of breath, calf pain/swelling, fevers, chills, lightheadedness. Objective Data Objective Data Vital Signs: Vital Signs Temp Pulse Resp BP Pulse Ox O2 Del Method 97.8 F 96 18 106/37 L 97 Room Air 03/13/23 13:09 03/13/23 13:09 03/13/23 13:09 03/13/23 13:09 03/13/23 09:00 03/13/23 04:52 Oxygen Delivery Method Room Air Weight: 223 lb 8.78 oz Body Mass Index (BMI) 39.6 Intake & Output: Intake and Output for Last 24 Hours 03/11/23 03/12/23 03/13/23 23:59 23:59 23:59 Intake Total 4715.68 / 4715.68 Output Total 2845 / 2845 Balance 1870.68 / 1870.68 Lab / Micro Data 03/13/23 04:45 Labs: Laboratory Results - last 24 hr 03/13/23 04:45: WBC 10.3, RBC 3.06 L, Hgb 8.4 L, Hct 26.8 L, MCV 87.6, MCH 27.5, MCHC 31.3 L, RDW Std Deviation 46.6 H, RDW Coeff of Tia 14.7 H, Plt Count 141 L, MPV 10.5 ROS Constitutional Constitutional: Reports systems reviewed and no addt'l complaints, except as documented Cardiovascular Cardiovascular: Reports systems reviewed and no addt'l complaints, except as documented Respiratory/Chest Respiratory/Chest: Reports systems reviewed and no addt'l complaints, except as documented Gastrointestinal Gastrointestinal: Reports systems reviewed and no addt'l complaints, except as documented Physical Exam Const alert, oriented x3 and no apparent distress HEENT Head and Scalp: atraumatic Resp normal respiratory effort GI soft to palpation and non-tender Inspection: incision intact, healing well and drainage (none) Bimanual Exam - Vag & Uterus: uterus non-tender Uterus Palpation: uterus fundus firm (below Umbilicus) Assessment & Plan (1) delivery delivered: PLAN: Plan .ppap
[2023-03-13 20:47] LABS: Hematocrit 25.4 % (37-47); Hemoglobin 7.8 g/dL (12.0-15.0); Mean Corp Hgb Conc 30.7 g/dL (32-36); Mean Corpuscular Hgb 27.4 pg (27.0-32.0); Mean Corpuscular Volume 89.1 fL (81-99); Mean Platelet Vol. 10.4 fl (6.2-12.0); Platelet Count 160 K/mm3 (150-450); RBC Distribution Width CV 14.8 % (11.6-14.6); Red Blood Count 2.85 M/mm3 (4.2-5.4); White Blood Count 8.7 K/mm3 (4.4-11.0)
--- NOTE | 2023-03-13 21:37 | PCM.PN.BLA ---
Progress Note reviewed low bps, repeat Hg 7.8. bleeding WNL. patient asymptomatic but hasn't been ambulating much. recommend IVFs and IV venofer. orthostatics to be done after IVFs.
[2023-03-13] MEDS: Lactated Ringers 1,000 ML 999 ML IV (21:49)
[2023-03-13] MEDS: Polyethylene Glycol 3350 17 GM PACKET PO (22:43)
[2023-03-13] MEDS: Iron Sucrose Complex 200 MG in 0.9% Normal Saline (100mL Bag) 100 ML 220 MG IV (22:54)
[2023-03-13] MEDS: 0.9% Saline Lock 10 ML Syringe IV (23:28)
[2023-03-14] MEDS: Naproxen 500 MG Tablet PO ×2 (02:36→10:22)
[2023-03-14] MEDS: Acetaminophen 500 MG Tablet 1000 MG PO ×2 (02:36→08:55)
[2023-03-14 02:37] VITALS: BP 98/46; PULSE 72; RESP 16; TEMP 36.5; O2SAT 100
[2023-03-14 06:26] LABS: Hematocrit 25.9 % (37-47); Mean Corp Hgb Conc 30.9 g/dL (32-36); Mean Corpuscular Hgb 27.5 pg (27.0-32.0); Platelet Count 150 K/mm3 (150-450); RBC Distribution Width CV 14.8 % (11.6-14.6); RBC Distribution Width SD 48.1 fl (35.1-43.9); Red Blood Count 2.91 M/mm3 (4.2-5.4); White Blood Count 7.5 K/mm3 (4.4-11.0)
[2023-03-14] MEDS: Lactated Ringers 1,000 ML 999 ML IV (06:49)
--- NOTE | 2023-03-14 06:55 | PN.OBGYN_ITS ---
Subjective Subjective Patient doing well without complaints. Tolerating PO. Ambulating and voiding without difficulty. feeding well. Denies chest pain, shortness of breath, calf pain/swelling, fevers, chills, lightheadedness. Objective Data Objective Data Vital Signs: Vital Signs Temp Pulse Resp BP Pulse Ox O2 Del Method 97.7 F L 72 16 98/46 L 100 Room Air 03/14/23 02:37 03/14/23 02:37 03/14/23 02:37 03/14/23 02:37 03/14/23 02:37 03/14/23 02:37 Oxygen Delivery Method Room Air Weight: 223 lb 8.78 oz Body Mass Index (BMI) 39.6 Intake & Output: Intake and Output for Last 24 Hours 03/12/23 03/13/23 03/14/23 23:59 23:59 23:59 Intake Total 4715.68 / 4715.68 1110 / 1110 Output Total 2845 / 2845 Balance 1870.68 / 1870.68 1110 / 1110 Lab / Micro Data 03/14/23 06:20 Labs: Laboratory Results - last 24 hr 03/13/23 20:36: WBC 8.7, RBC 2.85 L, Hgb 7.8 L, Hct 25.4 L, MCV 89.1, MCH 27.4, MCHC 30.7 L, RDW Std Deviation 47.0 H, RDW Coeff of Tia 14.8 H, Plt Count 160, MPV 10.4 03/14/23 06:20: WBC 7.5, RBC 2.91 L, Hgb 8.0 L, Hct 25.9 L, MCV 89.0, MCH 27.5, MCHC 30.9 L, RDW Std Deviation 48.1 H, RDW Coeff of Tia 14.8 H, Plt Count 150, MPV 10.0 ROS Constitutional Constitutional: Reports systems reviewed and no addt'l complaints, except as documented Cardiovascular Cardiovascular: Reports systems reviewed and no addt'l complaints, except as d ocumented Respiratory/Chest Respiratory/Chest: Reports systems reviewed and no addt'l complaints, except as documented Gastrointestinal Gastrointestinal: Reports systems reviewed and no addt'l complaints, except as documented Physical Exam Const alert, oriented x3 and no apparent distress HEENT Head and Scalp: atraumatic Resp normal respiratory effort GI soft to palpation and non-tender Inspection: incision intact, healing well and drainage (none) Bimanual Exam - Vag & Uterus: uterus non-tender Uterus Palpation: uterus fundus firm (below Umbilicus) Assessment & Plan (1) Acute on chronic blood loss anemia: COMMENT: iv iron x 1 given, continue oral iron . orthostatics negative. lower bp but asymptomatic and blood counts stable (2) delivery delivered: (3) Depression affecting : COMMENT: stable not on medication PLAN: Plan s/p LTCS PPD #2 1. routine post care 2. breast feeding- support given 3. rh positive 4. rubella immune additional IVFs given, IV venofer. orthostatics negative. blood counts and bleedings table. continue to ambulate this am and stable to discharge if asy mptomatic, reviewed precautions
[2023-03-14 07:41] VITALS: BP 100/47; PULSE 85; RESP 16; TEMP 36.6; O2SAT 98
[2023-03-14] MEDS: Senna/Docusate Sodium 1 Tablet PO (10:21)
[2023-03-14] MEDS: Enoxaparin 40 MG/0.4 ML Syringe SC (10:22)
[2023-03-14] MEDS: Polyethylene Glycol 3350 17 GM PACKET PO (10:22)
[2023-03-14 10:31] VITALS: RESP 16
== END 2023-03-14 11:31 | disposition home or self-care (01) | DRG 784 ==
PROVIDERS: Admitting Provider Obstetrics & Gynecology; PCP Family Medicine; Referring Provider Obstetrics & Gynecology; Visit Provider Obstetrics & Gynecology
DX: O34.211 Maternal care for low transverse scar from previous cesarean delivery (principal); L03.314 Cellulitis of groin; D62 Acute posthemorrhagic anemia; O90.81 Anemia of the puerperium; O36.8130 Decreased fetal movements, third trimester, not applicable or unspecified; Z3A.39 39 weeks gestation of pregnancy; O99.72 Diseases of the skin and subcutaneous tissue complicating childbirth; Z37.0 Single live birth; Z30.2 Encounter for sterilization; Z87.59 Personal history of other complications of pregnancy, childbirth and the puerperium; O99.893 Other specified diseases and conditions complicating puerperium; R03.1 Nonspecific low blood-pressure reading
CPT/HCPCS: 59025; 59050; 85025; 85027; 86780; 86850; 86900; 86901; 88302; 99221; J1756; J7120; A4216; G0378; J2405

== ENCOUNTER → 2023-03-19 | Outpatient (CLI) | payer OTHER, SELFPAY ==
[2023-03-19 14:02] LABS: Absolute Neutrophil Count 4.1 X10^3/uL (2.0-7.7); Basophil# 0.02 X10^3/uL; Basophil% 0.3 % (0-1); Eosinophil# 0.14 X10^3/uL; Eosinophils% 1.9 % (0-5); Hematocrit 28.9 % (37-47); Lymphocyte % 31.9 % (19-41); Mean Corp Hgb Conc 31.1 g/dL (32-36); Mean Corpuscular Volume 89.8 fL (81-99); Mean Platelet Vol. 9.6 fl (6.2-12.0); Monocyte# 0.51 X10^3/uL; Monocyte% 7.1 % (0-10); NRBC Flagged by Analyzer 0 % (0-5); Neutrophil # 4.13 X10^3/uL (2.7-7.7); Neutrophil % 57.1 % (47-70); Platelet Count 245 K/mm3 (150-450); RBC Distribution Width CV 15.4 % (11.6-14.6); RBC Distribution Width SD 49.5 fl (35.1-43.9); Red Blood Count 3.22 M/mm3 (4.2-5.4); White Blood Count 7.2 K/mm3 (4.4-11.0)
[2023-03-19 14:20] LABS: ALB/GLOB Ratio 0.9 RATIO (0.9-2.4); AST(SGOT) 27 U/L (15-37); Alanine Aminotransfer ALT/SGPT 49 U/L (13-56); Albumin, Serum 2.9 g/dL (3.2-5.0); Alkaline Phosphatase 79 U/L (45-117); Anion Gap 3 (5-15); BUN 15 mg/dL (7-18); BUN/Creat Ratio 20.5 RATIO (10-20); Calcium,Total 7.9 mg/dL (8.5-10.1); Chloride 111 mmol/L (98-107); Creatinine, Serum 0.73 mg/dL (0.55-1.02); EST Glomerular Filtration Rate 94 mL/min (>60); Est Glom Filt Rate - Afr Amer 114 mL/min (>60); Globulin 3.3 g/dL (2.2-4.2); Glucose 90 mg/dL (74-106); Potassium 3.8 mmol/L (3.5-5.1); Protein, Total 6.2 g/dL (6.4-8.2); Sodium Level 140 mmol/L (136-145)
== END | disposition home or self-care (01) ==
LOC: PAVLAB 13:45
PROVIDERS: PCP Family Medicine; Referring Provider Nurse Practitioner Women's Health; Visit Provider Nurse Practitioner Women's Health
DX: D62 Acute posthemorrhagic anemia (principal)
CPT/HCPCS: 36415; 80053; 85025

== ENCOUNTER → 2023-07-23 | Outpatient (CLI) | payer OTHER, SELFPAY ==
[2023-07-23 10:37] LABS: T4 Free Direct 0.77 ng/dL (0.76-1.46); Thyroid Stim Hormone (TSH) 0.74 uIU/mL (0.358-3.74)
--- OUTSIDE RECORDS SUMMARY | 2023-07-23 11:12 | XMS RPT_ITS | CCD ---
Author Name Unknown Address [address] [place] [address] Organization [facility] Care Team Providers Care Balancer Scale Name Role Phone Dustin BOLTON MD, Tad Love Primary Care Provider Jermaine Mayer DO Primary Care Provider Allergies Allergy Classification Reported Allergen(s) Allergy Type Date of Onset Reaction(s) Facility (1 source) Seasonal allergy Allergy to substance 5 Other: See Comments [facility] Problems Problem Classification Problem Date Documented Da te Episodic/Chronic Anxiety disorders (1 source) Anxiety; Translations: [Anxiety disorder, unspecified] Onset: 08-08-2014 08-08-2014 Chronic Asthma (1 source) Asthma; Translations: [Unspecified asthma, uncomplicated] Onset: 03-27-2015 03-27-2015 Chronic Attention-deficit, conduct, and disruptive behavior disorders (1 source) Attention deficit hyperactivity disorder; Translations: [Attention-deficit hyperactivity disorder, unspecified type] Onset: 08-08-2014 08-08-2014 Chronic Mood disorders (1 source) Depressive disorder; Translations: [Depression] Onset: 08-08-2014 08-08-2014 Chronic Other gastrointestinal disorders (1 source) Irritable bowel syndrome; Translations: [Irritable bowel syndrome without diarrhea] Onset: 03-27-2015 03-27-2015 Chronic Other nutritional; endocrine; and metabolic disorders (1 source) Obesity; Translations: [Obesity, unspecified] Onset: 03-27-2015 03-27-2015 Chronic Results Test Name Value Interpretation Reference Range Facil ity Encounters Encounter Date Encounter Type Care Provider Facility Start: 03-07-2014 Documentation procedure Tad Benavidez MD Work Phone: [facility] Start: 03-07-2014 Historic EMR Tad hu MD Work Phone: [facility] Procedures Date Procedure Procedure Detail Performing Clinician Start: 03-04-2014 SURGICAL PATHOLOGY, CONVERTED Tad Benavidez MD Work Phone: Plan of Treatment Date Care Activity Detail Author Start: 01-10-2023 Influenza vaccination Influenza Vacc ine (#1) [facility] Start: 05-12-2022 Depression Assessment Depression Ass essment [facility] Start: 10-15-2013 HPV Testing HPV Testing [facility] Start: 10-15-2004 Pap Testing Pap Testing [facility] Start: 10-15-2002 Urine microalbumin profile DTa P,Tdap,Td Vaccine (1 - Tdap) [facility] Start: 10-15-2001 Hepatitis C Screening Hepatitis C Sc reening [facility] Start: 10-15-2001 HIV Screening HIV Screening [facility] Start: 04-16-1984 Covid-19 Vaccine (#1) Covid-19 Vacci ne (#1) [facility] Start: 1985 Hepatitis B Vaccine (1 of 3 - 3-dose series) Hepatitis B Vaccine (1 of 3 - 3-dose series) [facility] Immunizations Immunization Date Immunization Notes Care Provider Fa cility 02-09-2019 influenza virus vacc ine, unspecified formulation Tad Benavidez MD Work Phone: [facility] Social History Date Type Detail [facility] consumption unknown [facility] Start: 04-19-2020 End: 12-28-2021 History of Social function [facility] Start: 04-19-2020 End: 12-28-2021 Tobacco use panel [facility] National Score (1-10 0), lower number is lower risk Not on file [facility] Start: 1985 Sex Assigned At Not on file [facility] History of Past illness Narrative 03-30-2015 Note Date & Type Note Facility documented as of this encounter (statuses as of 01/31/2023) [facility] Summary Purpose Family History No Family History Records Found Advance Directives No Advanced Directives Records Found Additional Source Comments INFORMATION SOURCE (unrecogn ized section and content) Source Comments (unrecognize d section and content) In the event this informatio n is protected by the Federal Confidentiality of Alcohol and Drug Abuse Patient Records regulations: The Federal rules restrict any use of the information to criminally investigate or prosecute any alcohol or drug abuse patient.[facility] Teams (unrecognized sec tion and content) FOR RECORDS PERTAINING TO PATIENTS WHO ARE OR HAVE BEEN ENROLLED IN A CHEMICAL DEPENDENCY/SUBSTANCEABUSE PROGRAM, SOME INFORMATION MAY BE OMITTED. This clinical summary was aggregated from multiple sources. Caution should be exercised in using it in the provision of clinical care. This summary normalizes information from multiple sources, and as a consequence, information in this document may materially change the coding, format and clinical context of patient data. In addition, data may be omitted in some cases. CLINICAL DECISIONS SHOULD BE BASED ON THE PRIMARY CLINICAL RECORDS. [facility] provides no warranty or guarantee of the accuracy or completeness of information in this document.
== END | disposition home or self-care (01) ==
PROVIDERS: PCP Family Medicine; Referring Provider Obstetrics & Gynecology; Visit Provider Obstetrics & Gynecology
DX: N93.9 Abnormal uterine and vaginal bleeding, unspecified (principal)
CPT/HCPCS: 36415; 84439; 84443

== ENCOUNTER → 2023-08-06 | Outpatient (CLI) | payer OTHER, SELFPAY ==
--- NOTE | 2023-08-06 08:02 | US_ITS ---
STUDY: ULTRASOUND OF THE FEMALE PELVIS - COMPLETE REASON FOR EXAM: Female, 37 years old. AUB LMP: July 06, 2023. TECHNIQUE: Transabdominal and Transvaginal TECHNICAL QUALITY: Adequate. COMPARISON: None. FINDINGS: The uterus is anteverted and is in a midline position. The uterus measures 9.3 cm x 7 cm x 4.1 cm. Normal uterine cervix. The endometrium measures 5 mm in thickness, and is . There is no demonstrated endometrial mass. There is no demonstrated myometrial mass. I.U.D. - The patient does not have an I.U.D. The right ovary is visualized. The right ovary measures 3.9 cm x 2.3 cm x 1.8 cm. There is no right ovarian cyst or ovarian mass. There is no visualized right adnexal mass or complex lesion. There is normal arterial and normal venous vascularity. The left ovary is visualized. The left ovary measures 2.7 cm x 2 cm x 1.8 cm. There is no left ovarian cyst or ovarian mass. There is no visualized left adnexal mass or complex lesion. There is normal arterial and normal venous vascularity. There is no fluid in the cul-de-sac. The pre void volume of the bladder was 65 ml. US/Pelvic (Non ) IMPRESSION: Normal female pelvis. Electronically Signed: Jg Siddiqi MD at 15:17 EDT ,
== END | disposition home or self-care (01) ==
PROVIDERS: PCP Family Medicine; Referring Provider Obstetrics & Gynecology; Visit Provider Obstetrics & Gynecology
DX: N93.9 Abnormal uterine and vaginal bleeding, unspecified (principal)
CPT/HCPCS: 76830; 76856

== ENCOUNTER → 2023-10-13 | Outpatient (CLI) | payer OTHER, SELFPAY ==
[2023-10-13 17:39] LABS: Absolute Lymphocyte Count 3.87 X10^3/uL (0.83-4.51); Absolute Neutrophil Count 4.9 X10^3/uL (2.0-7.7); Basophil# 0.03 X10^3/uL; Basophil% 0.3 % (0-1); Eosinophil# 0.16 X10^3/uL; Eosinophils% 1.7 % (0-5); Hematocrit 38.5 % (37-47); Hemoglobin 12.3 g/dL (12.0-15.0); Lymphocyte # 3.87 X10^3/ul (0.83-4.51); Lymphocyte % 40.3 % (19-41); Mean Corp Hgb Conc 31.9 g/dL (32-36); Mean Corpuscular Hgb 28.5 pg (27.0-32.0); Mean Corpuscular Volume 89.3 fL (81-99); Mean Platelet Vol. 9.6 fl (6.2-12.0); Monocyte# 0.59 X10^3/uL; Monocyte% 6.1 % (0-10); NRBC Flagged by Analyzer 0 % (0-5); Neutrophil # 4.93 X10^3/uL (2.7-7.7); Neutrophil % 51.4 % (47-70); Platelet Count 380 K/mm3 (150-450); RBC Distribution Width CV 12.6 % (11.6-14.6); RBC Distribution Width SD 41.5 fl (35.1-43.9); Red Blood Count 4.31 M/mm3 (4.2-5.4); White Blood Count 9.6 K/mm3 (4.4-11.0)
[2023-10-13 18:11] LABS: ALB/GLOB Ratio 0.9 RATIO (0.9-2.4); AST(SGOT) 19 U/L (15-37); Alanine Aminotransfer ALT/SGPT 22 U/L (13-56); Albumin, Serum 3.8 g/dL (3.2-5.0); Alkaline Phosphatase 92 U/L (45-117); Anion Gap 7 (5-15); BUN 20 mg/dL (7-18); BUN/Creat Ratio 23.7 RATIO (10-20); Calcium,Total 8.8 mg/dL (8.5-10.1); Chloride 107 mmol/L (98-107); Cholesterol 209 mg/dL (200); Creatinine, Serum 0.84 mg/dL (0.55-1.02); EST Glomerular Filtration Rate 79 mL/min (>60); Est Glom Filt Rate - Afr Amer 96 mL/min (>60); Ferritin 22 ng/mL (8-252); Globulin 4.2 g/dL (2.2-4.2); Glucose 84 mg/dL (74-106); High Density Lipoprotein 47 mg/dL; Iron 46 ug/dL (50-170); Potassium 3.6 mmol/L (3.5-5.1); Sodium Level 139 mmol/L (136-145); Thyroid Stim Hormone (TSH) 0.96 uIU/mL (0.358-3.74); Triglycerides 121 mg/dL; Very Low Density Lipoprotein 24 mg/dL (5-40)
== END | disposition home or self-care (01) ==
LOC: BFHLAB 16:08
PROVIDERS: PCP Family Medicine; Visit Provider Family Medicine
DX: Z00.00 Encounter for general adult medical examination without abnormal findings (principal); D64.9 Anemia, unspecified; R79.89 Other specified abnormal findings of blood chemistry
CPT/HCPCS: 36415; 80053; 80061; 82728; 83540; 84443; 85025

== ENCOUNTER 2024-07-09 10:33 | Day surgery (SDC) | payer OTHER, SELFPAY ==
[2024-07-09] VITALS (8 sets, daily range): BP systolic 95–111; BP diastolic 48–76; PULSE 57–71; RESP 14–16; TEMP 36.1–36.2; O2SAT 97–100; BMI 35.4
--- NOTE | 2024-07-09 11:21 | PRE.ANES_ITS ---
ASA Classification* ASA Classification ASA Classification: 2 Assessment & Plan Anesthesia* Anesthesia Assessment Anesthesia Assessment: Discussed sedation and/or anesthesia options, risks, benefits, and alternatives with patient/parents/legal guardian/POA. Questions invited. The patient/parents/legal guardian/POA seems to understand and agrees to proceed with anesthesia plan. Reviewed the physical assessment, medical history, allergy history and patient home medications list prior to surgery/procedure/anesthetic and documented any changes. Performed airway and anesthesia risk assessments. Anesthesia Type Anesthesia Type: MAC History Source History Obtained from:: Patient and Chart Anesthesia Focused Assessment* Temperature: 97 F Pulse Rate: 71 Blood Pressure: 111/76 Respiratory Rate: 16 Pulse Ox: 99 Oxygen Delivery Method: Room Air Airway Assessment Mouth opens: 2 cm Mallampati Score: IV Teeth Condition: Intact Neck Range of motion (ROM): Full ROM Focused Labs Anesthesia Preop lab: CBC WBC 9.6 K/mm3 (4.4-11.0) 10/13/23 16:08 10/13/23 RBC 4.31 M/mm3 (4.2-5.4) 10/13/23 16:08 10/13/23 Hgb 12.3 g/dL (12.0-15.0) 10/13/23 16:08 10/13/23 Hct 38.5 % (37-47) 10/13/23 16:08 10/13/23 Plt Count 380 K/mm3 (150-450) 10/13/23 16:08 10/13/23 CHEMISTRY Potassium 3.6 mmol/L (3.5-5.1) 10/13/23 16:10/13/23 Sodium 139 mmol/L (136-145) 10/13/23 16:10/13/23 BUN 20 mg/dL (7-18) H 10/13/23 16:08 10/13/23 Creatinine 0.84 mg/dL (0.55-1.02) 10/13/23 16:08 10/13/23 Glucose 84 mg/dL (74-106) 10/13/23 16:08 10/13/23 TSH 0.96 uIU/mL (0.358-3.74) 10/13/23 16: COAG Urine Test Negative Negative 11/16/21 06:38 11/16/21 Pre-Assessment Diagnosis/Proposed Procedure Planned Operative Procedure(s): COLONOSCOPY Anesthesia History Anesthesia History - appeals reviewer veteran: Anesthesia History - appeals reviewer veteran Hx Hospitalization No 07/06/24 11:48 Any Problems With Anesthesia No 07/06/24 11:48 Cholinesterase deficiency No 07/06/24 11:48 You/Your Family Experience No 07/06/24 11:48 fever (hyperthermia) with Relationship Recent Exposure to Contagious No 07/09/24 10:54 Disease Does patient have nerve No 07/06/24 11:48 stimulator Patient instructed to have device shut off --Does patient have Pacemaker No 07/09/24 10:54 or ICD? When Was Last Pacemaker Check QUESTION #4 FULL TEXT: You/Your Family Experience fever (hyperthermia) with Anesthesia Last Oral Intake Last Oral intake: Last Oral Intake NPO since 10:30 07/09/24 10:54 Meds taken in AM with sips of water? Meds patient instructed to take am of surgery Any additional information?: Yes NPO since: 09:30 (Patient had black coffee and water at 9:30 AM.) PONV PONV - appeals reviewer veteran: PONV - appeals reviewer veteran Female Yes 07/06/24 11:48 HX of Motion Sickness No 07/06/24 11:48 HX of N/V After Surgery No 07/06/24 11:48 Non-Smoker Yes 07/06/24 11:48 Duration of Surgery greater No 07/06/24 11:48 than 60 minutes Number of Risk Factors 2 07/06/24 11:48 PONV Score Moderate Risk 07/06/24 11:48 Height & Weight Height & Weight: Anesthesia: Height & Weight Height 5 ft 3 in 07/09/24 10:54 Weight: 90.9 kg 07/09/24 10:54 Body Mass Index (BMI) 35.4 07/09/24 10:54 Respiratory Assessment Respiratory Assessment - appeals reviewer veteran: Respiratory Tract Infection Hx - appeals reviewer veteran Hx Respiratory Tract Infection No 07/06/24 11:48 STOP Sleep Apnea STOP Sleep Apnea - appeals reviewer veteran: STOP Sleep Apnea - appeals reviewer veteran Hx Hypertension No 07/06/24 11:48 Hx Sleep Apnea No 07/06/24 11:48 CPAP No 11/26/22 10:28 BIPAP Do you snore loudly (louder No 07/06/24 11:48 than talking or can be heard Do you often feel tired/ No 07/06/24 11:48 fatigued/ sleepy during daytime? Has anyone observed you stop No 07/06/24 11:48 breathing during sleep? STOP Results Negative 07/06/24 11:48 QUESTION #5 FULL TEXT : Do you snore loudly (louder than talking or can be heard through closed doors)? 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 Specify any problems Hx of Preganancy in last 3 No 07/06/24 11:48 Months Nurse Filling Out Transfusion [email or web address] 07/06/24 11:48 & Questions: Date: 07/06/24 07/06/24 11:48 Time: 11:50 07/06/24 11:48 Patient unable to answer at this time (ie. confused, unrespo /Reproduction History /Reproductive History - appeals reviewer veteran: /Reproductive Hx- appeals reviewer veteran Hx Now No 07/06/24 11:48 Gestational Age (in weeks): EDC: Hx Hx Para Hx Section SAB Yes 07/06/24 11:48 PFSH Medical History Colonoscopy planned Vitamin D deficiency Prolonged rupture of membranes, delivered Depression Anxiety Cellulitis of suprapubic region Acute maxillary sinusitis, unspecified Abnormal uterine bleeding Retained products of conception after delivery without hemorrhage Wears contact lenses Low iron History of IBS Asthma Non-smoker delivery delivered Polyhydramnios hemorrhage depression Acute sinusitis, unspecified Anxiety Lactose intolerance Asthma 39 weeks gestation of Seasonal allergies Home Medications ?Medication ?Instructions ?Recorded ?Last Taken ?Type NK 07/06/24 Unknown History Allergy/AdvReac Type Severity Reaction Status Date / Time COVID-19 vacc, bv (Orig, Allergy Intermediate Hives Verified 07/09/24 10:53 Omicron BA.4/5) (Moderna) (From Moderna COVID Bival(6m up)(PF)) grass pollen Allergy unknown Verified 07/09/24 10:53 house dust Allergy unknown Verified 07/09/24 10:53 mold Allergy unknown Verified 07/09/24 10:53 Family History Sister Asthma Grandmother Diabetes Heart disease Cancer Grandfather A-fib Cancer Surgical History H/O hand surgery H/O eye surgery [place] teeth removed H/O bilateral salpingectomy History of colonoscopy fatty tumor removed History of bladder surgery History of delivery History of D&C History of eyelid surgery Social History adopted: No household members: spouse and children number of children: 4 current occupational status: unemployed current occupation: [employer] pets and animals: No history of recent travel: No sexually active: Yes Smoking Status: Never smoker alcohol intake: current alcohol intake frequency: holidays/special occasions only substance use type: does not use caffeine: Yes Type: coffee Number of servings: 4 seatbelt use: always do you feel safe at home: Yes additional social history: Le[place] Review of Systems (Anesthesia) ROS Narrative System reviewed and no additional complaints, except as documented.
--- NOTE | 2024-07-09 11:30 | COLBX_PTH ---
PATIENT: SUSAN STEINBERG LOC: EN U#:[id number] AGE/SX: 38/F ROOM: RE07/09/[address]: Dr. Byron Ren DO : 1985 BED: DIS: 07/09/2024 SPEC #: [id number] RECD: 07/11/24 15:25 STATUS: SIRI NORAH #: [id number] JUDY: 07/09/24 11:[address]: Byron Ren DEPT: SURGICAL PATHOLOGY RECD BY: Percy Cui ENTERED: 07/12/24 08:40 SP TYPE: COLON BX OTHR DR: Dr. Jermaine Mayer DO Tissues: SPLENIC FLEXURE Procedures: Surgery Specimen Level IV HEADER OPERATION: Colonoscopy with biopsy PRE-OP DIAGNOSIS: Mixed irritable bowel syndrome TISSUE SUBMITTED: Splenic flexure polyp biopsy MICROSCOPIC DIAGNOSIS Colon, splenic flexure, polyp, biopsy: * Sessile serrated lesion. MICROSCOPIC DESCRIPTION Slides are reviewed. GROSS DESCRIPTION Received in fixative is one container labeled with the patient's name and designated Splenic flexure polyp biopsy. The specimen consists of one irregular fragment of light colunga soft tissue that measures 0.3 x 0.2 x 0.1 cm. The specimen is totally submitted in one cassette. MOSES/ 07/12/2024 TC: CPT:10657
--- NOTE | 2024-07-09 11:56 | PCM.HP.STD ---
HPI - General General Date of Admission: 07/09/24 Date of Service: 07/09/24 Chief Complaint: change in bowels HPI Narrative SUSAN STEINBERG, is a 38 F with abdominal pain and constipation CBC, transaminases and TSH were unremarkable October 2023. She complains of a long history of constipation with occasional diarrhea. She has a BM 1-2x a day with c/o incomplete evacuation. She reports her dietary habits and water intake are poor. Colonoscopy 10 years ago because stools were dark - does not recall the findings - mostly constipated, occasional diarrhea - states she was diagnosed with IBS in her 20's - c/o incomplete evacuation - she reports fiber supplements in the past have worsened constipation - reports water intake is poor - dicyclomine did help in the past - discontinuing lactose did help with abdominal cramping - 4-6 cups a diet - denies any weight loss - denies any bleeding - she does experience occasional bloating and cramping - improvement with a BM - she will take a stool softener on occasion - she is seen in the office today with her three children under the age of 5 - [facility] Medical History Colonoscopy planned Vitamin D deficiency Prolonged rupture of membranes, delivered Depression Anxiety Cellulitis of suprapubic region Acute maxillary sinusitis, unspecified Abnormal uterine bleeding Retained products of conception after delivery without hemorrhage Wears contact lenses Low iron History of IBS Asthma Non-smoker delivery delivered Polyhydramnios hemorrhage depression Acute sinusitis, unspecified Anxiety Lactose intolerance Asthma 39 weeks gestation of Seasonal allergies Home Medications ?Medication ?Instructions ?Recorded ?Last Taken ?Type NK 07/06/24 Unknown History Allergy/AdvReac Type Severity Reaction Status Date / Time COVID-19 vacc, bv (Orig, Allergy Intermediate Hives Verified 07/09/24 10:53 Omicron BA.4/5) (Moderna) (From Moderna COVID Bival(6m up)()) grass pollen Allergy unknown Verified 07/09/24 10:53 house dust Allergy unknown Verified 07/09/24 10:53 mold Allergy unknown Verified 07/09/24 10:53 Family History Sister Asthma Grandmother Diabetes Heart disease Cancer Grandfather A-fib Cancer Surgical History H/O hand surgery H/O eye surgery [place] teeth removed H/O bilateral salpingectomy History of colonoscopy fatty tumor removed History of bladder surgery History of delivery History of D&C History of eyelid surgery Social History adopted: No household members: spouse and children number of children: 4 current occupational status: unemployed current occupation: [employer] pets and animals: No history of recent travel: No sexually active: Yes Smoking Status: Never smoker alcohol intake: current alcohol intake frequency: holidays/special occasions only substance use type: does not use caffeine: Yes Type: coffee Number of servings: 4 seatbelt use: always do you feel safe at home: Yes additional social history: Leander MARSH Constitutional Constitutional: Denies fatigue, fever(s), poor appetite, weight gain or weight loss Gastrointestinal Gastrointestinal: Denies belching, bloating, change in bowel habits, change in stool character, chewing difficulty, coffee ground emesis, constipation, cramping, diarrhea, dyspepsia, dysphagia, early satiety, excessive flatus, fecal incontinence, heartburn, hematemesis, hematochezia, hemorrhoids, loose stools, melena, nausea, odynophagia, rectal bleeding, tenesmus, vomiting or weight changes Vital Signs Vital Signs Vital Signs: 07/09/24 10:54 07/09/24 10:54 07/09/24 11:29 Temperature 97 F L 97 F L Temperature Source Temporal Pulse Rate 71 71 Respiratory Rate 16 16 Respiratory Pattern Normal Blood Pressure 111/76 111/76 Blood Pressure Mean 87 Blood Pressure Source Monitor Blood Pressure Position Semi-Fowlers Blood Pressure Location Left Arm Pulse Ox 99 99 Oxygen Delivery Method Room Air Room Air Weight Weight: 200 lb 6.403 oz Body Mass Index (BMI) 35.4 Physical Exam Const alert, oriented x3, no apparent distress and healthy appearing General Appearance: cooperative GI normal to inspection, nondistended, normoactive bowel sounds, soft to palpation, non-tender and non-distended Percussion: normal to percussion Rectal Exam: deferred Assessment & Plan Assessment/Plan (1) Mixed irritable bowel syndrome: (2) Acute on chronic blood loss anemia: PLAN: Assessment and Plan Assessment and Plan (1) Mixed irritable bowel syndrome: Status: Acute Plan 38y/o female presents for consultation. CBC, transaminases and TSH were unremarkable October 2023. She complains of a long history of constipation with occasional diarrhea. She has a BM 1-2x a day with c/o incomplete evacuation. She reports her dietary habits and water intake are poor. I have encouraged a high fiber diet with increased fluid intake and daily probiotic. She will schedule a colonoscopy and follow-up post procedure. Patient Instructions: Start Benefiber 2tsp once a day in 8 ounces of water or coffee Start daily Probiotic (Align, Culturelle or Parents R People) Increase daily water intake It may take up to 3 weeks before you start to notice a benefit for symptoms Adding 2 Kiwi fruit daily have also shown an improvement in bowel habits
--- NOTE | 2024-07-09 12:32 | OP.CCLET_ITS ---
07/09/2024 Jermaine Mayer [address] [place] [address] Re : Colonoscopy procedure for Inna Cano Dear Dr. Mayer This procedure was performed on Tuesday, July 09, 2024. My impressions and recommendations are as follows: Impressions : - One 4 mm polyp at the splenic flexure, removed with a cold biopsy forceps. Resected and retrieved. - Tortuous colon. - The examined portion of the ileum was normal. - The examination was otherwise normal on direct and retroflexion views. Recommendations : - Discharge patient to home. - Resume previous diet. - Continue present medications. - Await pathology results. - Repeat colonoscopy in 5 years for surveillance. My findings are described in the full procedure note, which is enclosed. If I can be of further assistance, please feel free to contact me at . Sincerely, Byron Friend, 07/09/2024 12:32:18 PM This report has been signed electronically.
--- NOTE | 2024-07-09 12:32 | OP.COLON_ITS ---
Patient Name: Inna Cano Procedure Date: 07/09/2024 11:27 AM Date of : 1985 Age: 38 Procedure: Colonoscopy Indications: Generalized abdominal pain, Suspected irritable bowel syndrome, Change in bowel habits, Change in stool caliber, Constipation Providers: Byron Ren DO Referring MD: Jermaine Mayer Medicines: Monitored Anesthesia Care Patient Profile: This is a 38 year old female. Refer to note in patient chart for documentation of history and physical. Last Colonoscopy: none. The patient's first colonoscopy is today. Complications: No immediate complications. Procedure: Pre-Anesthesia Assessment: - Prior to the procedure, a History and Physical was performed, and patient medications and allergies were reviewed. The patient is competent. The risks and benefits of the procedure and the sedation options and risks were discussed with the patient. All questions were answered and informed consent was obtained. Patient identification and proposed procedure were verified by the physician in the pre-procedure area. Mental Status Examination: alert and oriented. Airway Examination: normal oropharyngeal airway and neck mobility. Respiratory Examination: clear to auscultation. CV Examination: normal. Prophylactic Antibiotics: The patient does not require prophylactic antibiotics. Prior Anticoagulants: The patient has taken no anticoagulant or antiplatelet agents except for NSAID medication. ASA Grade Assessment: II - A patient with mild systemic disease. After reviewing the risks and benefits, the patient was deemed in satisfactory condition to undergo the procedure. The anesthesia plan was to use monitored anesthesia care (MAC). Immediately prior to administration of medications, the patient was re-assessed for adequacy to receive sedatives. The heart rate, respiratory rate, oxygen saturations, blood pressure, adequacy of pulmonary ventilation, and response to care were monitored throughout the procedure. The physical status of the patient was re-assessed after the procedure. After I obtained informed consent, the scope was passed under direct vision. Throughout the procedure, the patient's blood pressure, pulse, and oxygen saturations were monitored continuously. The pediatric colonoscope was introduced through the anus and advanced to the cecum, identified by appendiceal orifice and ileocecal valve. The colonoscopy was performed without difficulty. The patient tolerated the procedure well. The quality of the bowel preparation was adequate. The ileocecal valve, appendiceal orifice, and rectum were photographed. Scope In: 12:11:49 PM Scope Withdrawal Time 0 hours 7 minutes 14 seconds Scope Out: 12:28:11 PM Total Procedure Duration Time 0 hours 16 minutes 22 seconds Findings: The perianal and digital rectal examinations were normal. A 4 mm polyp was found in the splenic flexure. The polyp was sessile. The polyp was removed with a cold biopsy forceps. Resection and retrieval were complete. Verification of patient identification for the specimen was done. Estimated blood loss was minimal. The colon (entire examined portion) was moderately tortuous. The terminal ileum appeared normal. The exam was otherwise without abnormality on direct and retroflexion views. Impression: - One 4 mm polyp at the splenic flexure, removed with a cold biopsy forceps. Resected and retrieved. - Tortuous colon. - The examined portion of the ileum was normal. - The examination was otherwise normal on direct and retroflexion views. Recommendation: - Discharge patient to home. - Resume previous diet. - Continue present medications. - Await pathology results. - Repeat colonoscopy in 5 years for surveillance. Procedure Code(s): --- Professional --- 88897, Colonoscopy, flexible; with biopsy, single or multiple CPT copyright 2021 [employer]. All rights reserved. The codes documented in this report are preliminary and upon health information coder review may be revised to meet current compliance requirements. Byron Ren DO 07/09/2024 12:32:18 PM This report has been signed electronically. Number of Addenda: 0 Note Initiated On: 07/09/2024 11:27 AM
--- NOTE | 2024-07-09 12:37 | PCM.POST.ANE ---
Anesthesia: Postop Eval I Current Vital Signs Temperature: 97 F Pulse Rate: 60 Blood Pressure: 97/48 Respiratory Rate: 16 Pulse Ox: 100 Oxygen Delivery Method: Room Air Assessment Airway patent: Yes Spontaneous unlabored respirations: Yes Mental status: Asleep nausea: No Vomiting: No Anesthesia Complication: No Fluid Hydration Crystalloid volume administer (ml): 50 Total IV fluid infused: 50 Progress Note Anesthesia document: Postop Eval 1 completed: Yes
--- NOTE | 2024-07-09 16:16 | PCM.POSTANE2 ---
Anesthesia Postop Eval I Sum Postop Eval Completion status Anesthesia document: Postop Eval 1 completed: Yes Anesthesia Postop Eval I Summary Anesthesia Postop Eval I Summary: Anesthesia Postop Eval I: Assessment Summary Airway patent Yes 07/09/24 12:38 [email or web address] Spontaneous unlabored Yes 07/09/24 12:38 [email or web address] respirations Mental status Asleep 07/09/24 12:38 [email or web address] nausea No 07/09/24 12:38 [email or web address] Vomiting No 07/09/24 12:38 [email or web address] Anesthesia Postop Eval I: Fluid Summary Crystalloid volume administer 50 07/09/24 12:38 [email or web address] (ml) Colloids volume administered ( ml) Blood Product volume administered (ml) Total IV fluid infused 50 07/09/24 12:38 [email or web address] Anesthesia Postop Eval I: Summary Notes Anesthesia Complication No 07/09/24 12:38 [email or web address] Anesthesia Complication Comment: Post-operative progress note Anesthesia: Postop Eval II Evaluation Mental status: Awake and Calm Pain Level: 0 nausea: No Vomiting: No Complications Anesthesia Complication: No
== END 2024-07-09 15:20 | disposition home or self-care (01) ==
LOC: EN 10:33 → AC 10:34
PROVIDERS: PCP Family Medicine; Referring Provider Family Medicine; Visit Provider Internal Medicine Gastroenterology
PROC: 0DJD8ZZ Inspection of Lower Intestinal Tract, Via Natural or Artificial Opening Endoscopic (ICD-10-PCS; CPT 45378; principal; 2024-07-09 11:25)
DX: K58.2 Mixed irritable bowel syndrome (principal); K63.5 Polyp of colon; Q43.8 Other specified congenital malformations of intestine
CPT/HCPCS: 45380; 88305; A4216; J2405

== ENCOUNTER → 2024-07-21 | Outpatient (CLI) | payer OTHER, SELFPAY ==
--- NOTE | 2024-07-21 14:32 | EMB_PTH ---
PATIENT: SUSAN STEINBERG LOC: [facility] U#:[id number] AGE/SX: 38/F ROOM: RE07/21/[address]: FLORIN Echols : 1985 BED: DIS: 07/21/2024 SPEC #: [id number] RECD: 07/22/24 11:15 STATUS: SIRI NORAH #: [id number] JUDY: 07/21/24 14:[address]: Lissette Lim NP DEPT: SURGICAL PATHOLOGY RECD BY: Kareem Kim Tissues: Endometrium, NOS Procedures: Surgery Specimen Level IV HEADER OPERATION: Endometrial biopsy PRE-OP DIAGNOSIS: Abnormal uterine bleeding TISSUE SUBMITTED: A- Endometrial lining MICROSCOPIC DIAGNOSIS A. ENDOMETRIUM, BIOPSY: * Proliferative endometrium. * No hyperplasia or malignancy seen. MICROSCOPIC DESCRIPTION Slides are reviewed. GROSS DESCRIPTION Received is one container labeled with the patient's name and not further designated. The specimen consists of multiple fragments of brown-colunga soft tissue measuring in aggregate 3.5 x 3 x 0.5 cm. TE2 eh 07/23/24 CPT:03267
== END | disposition home or self-care (01) ==
LOC: LABSPEC 15:53
PROVIDERS: Referring Provider Nurse Practitioner Women's Health; Visit Provider Nurse Practitioner Women's Health
DX: N93.9 Abnormal uterine and vaginal bleeding, unspecified (principal)
CPT/HCPCS: 88305

== ENCOUNTER → 2024-09-21 | Outpatient (CLI) | payer OTHER, SELFPAY ==
[2024-09-21 15:27] LABS: Absolute Lymphocyte Count 3.37 X10^3/uL (0.83-4.51); Absolute Neutrophil Count 3.1 X10^3/uL (2.0-7.7); Basophil# 0.02 X10^3/uL; Basophil% 0.3 % (0-1); Eosinophil# 0.13 X10^3/uL; Eosinophils% 1.8 % (0-5); Lymphocyte # 3.37 X10^3/ul (0.83-4.51); Lymphocyte % 47.1 % (19-41); Mean Corp Hgb Conc 32.5 g/dL (32-36); Mean Corpuscular Hgb 29.1 pg (27.0-32.0); Mean Corpuscular Volume 89.5 fL (81-99); Mean Platelet Vol. 10.3 fl (6.2-12.0); Monocyte# 0.54 X10^3/uL; Monocyte% 7.5 % (0-10); NRBC Flagged by Analyzer 0 % (0-5); Neutrophil # 3.08 X10^3/uL (2.7-7.7); Platelet Count 290 K/mm3 (150-450); RBC Distribution Width CV 13.5 % (11.6-14.6); RBC Distribution Width SD 44.4 fl (35.1-43.9); Red Blood Count 4.47 M/mm3 (4.2-5.4); White Blood Count 7.2 K/mm3 (4.4-11.0)
[2024-09-21 15:59] LABS: ALB/GLOB Ratio 1.7 RATIO (0.9-2.4); AST(SGOT) 22 U/L (<=31); Alanine Aminotransfer ALT/SGPT 18 U/L (<=34); Albumin, Serum 4.4 g/dL (3.5-5.0); Alkaline Phosphatase 58 U/L (35-104); Anion Gap 11 (5-15); BUN 12 mg/dL (4-19); BUN/Creat Ratio 15.7 RATIO (10-20); Calcium,Total 9.5 mg/dL (7.6-11.0); Carbon Dioxide 24.2 mmol/L (21.0-32.0); Chloride 103 mmol/L (98-108); Cholesterol 173 mg/dL (<=200); Creatinine, Serum 0.76 mg/dL (0.70-1.20); EST Glomerular Filtration Rate 101 (>60); Globulin 2.6 g/dL (2.2-4.2); Glucose 89 mg/dL (70-99); High Density Lipoprotein 43 mg/dL; Low Density Lipoprotein Calc. 118 mg/dL; Protein, Total 6.9 g/dL (5.9-8.4); Sodium Level 138 mmol/L (133-145); Total Bilirubin 0.35 mg/dL (0.00-1.30); Triglycerides 60 mg/dL; Very Low Density Lipoprotein 12 mg/dL (5-40); cholesterol:hdl ratio screen 4.04
== END | disposition home or self-care (01) ==
PROVIDERS: PCP Family Medicine; Referring Provider Family Medicine; Visit Provider Family Medicine
DX: Z00.00 Encounter for general adult medical examination without abnormal findings (principal); N92.1 Excessive and frequent menstruation with irregular cycle
CPT/HCPCS: 36415; 80053; 80061; 84443; 85025

== ENCOUNTER → 2024-11-03 | Outpatient (CLI) | payer OTHER, SELFPAY ==
--- NOTE | 2024-11-03 14:40 | US_ITS ---
PROCEDURE: PELVIC W/ TRANSVAGINAL 11/03/2024 REASON FOR EXAM: CHECK IUD PLACEMENT TECHNIQUE: PELVIC W/ TRANSVAGINAL COMPARISON: Prior study dated August 06, 2023. FINDINGS: LMP: October 10, 2024. Measurements: Uterus: 8.9 cm x 5.5 cm x 3.5 cm with a volume of 90.44 mL Endometrial Thickness: 7 mm hyperechoic. Fluid is seen within the endometrium. No IUD seen. Right Ovary: 4.6 cm x 2.9 cm x 2.8 cm with a volume of 9.41 mL. Left Ovary: 3.8 cm x 2.5 cm x 1.9 cm with a volume of 10.2 mL. Uterus: Normal size, myometrial echotexture, and contour. Endometrium: Unremarkable. Right ovary: Normal size and echotexture. Left ovary: Normal size and echotexture. Other: No large pelvic mass identified. US/Pelvic w/ Transvaginal IMPRESSION: IUD is not seen within the endometrium. Reading Location: [id number]
== END | disposition home or self-care (01) ==
LOC: US 14:38
PROVIDERS: PCP Family Medicine; Referring Provider Obstetrics & Gynecology; Visit Provider Obstetrics & Gynecology
DX: Z30.9 Encounter for contraceptive management, unspecified (principal); Z97.5 Presence of (intrauterine) contraceptive device
CPT/HCPCS: 76830; 76856

== ENCOUNTER → 2024-11-15 | Outpatient (CLI) | payer OTHER, SELFPAY | END | disposition home or self-care (01) | LOC: RAD 17:00 | PROVIDERS: PCP Family Medicine; Referring Provider Obstetrics & Gynecology; Visit Provider Obstetrics & Gynecology | DX: T83.32XA Displacement of intrauterine contraceptive device, initial encounter (principal) | CPT/HCPCS: 74018 ==

== ENCOUNTER → 2024-11-24 | Outpatient (CLI) | payer OTHER, SELFPAY | END | disposition home or self-care (01) | LOC: LABSPEC 11:59 | PROVIDERS: PCP Family Medicine; Referring Provider Obstetrics & Gynecology; Visit Provider Obstetrics & Gynecology | DX: R39.15 Urgency of urination (principal) | CPT/HCPCS: 87086 ==

== ENCOUNTER → 2024-12-03 | Outpatient (CLI) | payer OTHER, SELFPAY ==
--- NOTE | 2024-12-03 15:35 | MRI_ITS ---
PROCEDURE: LOWER EXT JOINT ONLY (ROUTINE) 12/03/2024 REASON FOR EXAM: PERSISTENT LEFT KNEE PAIN TECHNIQUE: LOWER EXT JOINT ONLY (ROUTINE) MRI of the left knee without contrast Multiplanar and multisequence images were obtained without IV contrast administration. COMPARISON: COMPARISON : None provided. FINDINGS: Bone Marrow: No abnormal osseous signal is noted. Effusion: No left knee joint effusion is seen. No Jones's or popliteal cyst is seen. Soft Tissues: No soft tissue mass is seen. No free or loculated fluid collection is noted. Ligaments and Tendons: Attenuation of the anterior cruciate ligament is seen. This, combined with mild anterior subluxation of the tibia with respect to the femur, suggest partial prior tear. The posterior cruciate ligament appears intact. Collateral ligaments appear intact. The visualized extensor tendons appear intact. No meniscal tear is identified. MRI/Lower Ext Joint Only (Routine) IMPRESSION: 1. Attenuation of the anterior cruciate ligament is seen. This, combined with m ild anterior subluxation of the tibia with respect to the femur, suggest partial prior tear. 2. The posterior cruciate ligament appears intact. 3. 4. No meniscal tear is seen. Reading Location: [place] [address]
== END | disposition home or self-care (01) ==
LOC: MRI 15:32
PROVIDERS: PCP Family Medicine; Referring Provider Family Medicine; Visit Provider Family Medicine
DX: M25.562 Pain in left knee (principal)
CPT/HCPCS: 73721

== ENCOUNTER 2024-12-07 09:43 | Day surgery (SDC) | payer OTHER, SELFPAY ==
[2024-12-07] VITALS (10 sets, daily range): BP systolic 103–129; BP diastolic 53–72; PULSE 63–94; RESP 16–20; TEMP 36.4–37.2; O2SAT 98–100
--- NOTE | 2024-12-07 09:55 | HP.PCM_ITS ---
History and Physical Date of Admission: 12/07/24 Intake Vital Signs 11/01/2508:44 11/25/2507:36 11/25/2507:38 Height 5 ft 3 in 5 ft 3 in 5 ft 3 in Weight: 174 lb 2 oz 174 lb 2 oz BMI 30.8 30.8 BP 104/70 Intake Visit Reasons: Displaced IUD *$10 COPAY Home Health Cna Required: No Is patient in pain?: Yes (lower back pain and pelvic cramping) Allergies COVID-19 vacc, bv (Orig, Omicron BA.4/5) (Moderna) (From Moderna COVID Bival(6m up)(PF)) Allergy (Intermediate, Verified 11/24/24 08:37) Hivesgrass pollen Allergy (Verified 11/24/24 08:37) unknownhouse dust Allergy (Verified 11/24/24 08:37) unknown mold Allergy (Verified 11/24/24 08:37) unknown Medications ?Medication ?Instructions ?Recorded ?Confirmed ?Type levonorgestrel 20.4 mcg/24 hr (up 1 device intrauterine ONCE 11/01/24 0711/03 History to 8 yrs) 52 mg intrauterine device (Liletta) levonorgestrel-ethinyl estradiol 1 tab PO QDAY #28 tabs 11/24/24 11/24/24 Rx 0.1 mg-20 mcg tablet (Aviane) Post menopausal: No Patient : No : No [facility] Medical History (Updated 11/24/24 @ 09:[address] Marquita Mcclendon MD) Contraceptive management Colonoscopy planned Vitamin D deficiency Prolonged rupture of membranes, delivered Depression Anxiety Cellulitis of suprapubic region Acute maxillary sinusitis, unspecified Abnormal uterine bleeding Retained products of conception after delivery without hemorrhage Wears contact lenses Low iron History of IBS Asthma Non-smoker delivery delivered Polyhydramnios hemorrhage depression Acute sinusitis, unspecified Anxiety Lactose intolerance Asthma 39 weeks gestation of Seasonal allergies Surgical History H/O hand surgery H/O eye surgery [place] teeth removed H/O bilateral salpingectomy History of colonoscopy fatty tumor removed History of bladder surgery History of delivery History of D&C History of eyelid surgery Family History Sister AsthmaGrandmother Diabetes Heart disease CancerGrandfather A-fib Cancer Social History adopted: No household members: spouse and children number of children: 4 current occupational status: unemployed current occupation: [employer] pets and animals: No history of recent travel: No sexually active: Yes Smoking Status: Never smoker alcohol intake: current alcohol intake frequency: holidays/special occasions only substance use type: does not use caffeine: Yes Type: coffee Number of servings: 4 seatbelt use: always do you feel safe at home: Yes additional social history: Leander GALVAN Displaced IUD *$10 COPAY Details: SUSAN STEINBERG is a 39 year old who presents for follow up of iud displacement. she is having lower pelvic pain and pressure, dysuria. she has still had some irreuglar bleeding also on and off. she is still some but is ready to wean. Female Reproductive History Menopausal Symptoms: No night sweats History 5 Elective abortions Hx Para 4 Spontaneous abortions 1 Hx # Term Pregnancies 4 Ectopic pregnancies Hx # Pregnancies Multiple births # of living children 4 Past Pregnancies Del. Date Name GA/Weeks Outcome Route Bth Weight Gen Labor Lgth Anesthesia Del Locatn Provider FOB 09/27/16 Richy 39 live - full term 8.13 Male 03/25/19 Mechelle 39 live - full term 9.2 Female 09/12/21 Sai 39 live - full term 9.4 Male 03/12/23 Radha 39 live - full term 9lbs 5oz Female spinal [facility] Geremias MARSH Const Constitutional: Denies fatigue, night sweats, weight gain or weight loss ENT ENT: Reports system reviewed and no additional complaints, except as documented Cardio Card: Denies chest pain Resp Resp: Denies cough or dyspnea GI GI: Reports as per HPI; Denies abdominal pain, constipation, nausea or vomiting Musc Musc: Denies arthralgias, back pain or muscle weakness Skin Skin/Breast: Denies alopecia, change in hair, dry skin, breast mass, breast pain or breast skin changes Neuro Neuro: Reports system reviewed and no additional complaints, except as doc umented Psych Psych: Reports system reviewed and no additional complaints, except as documented Endo Endo: Denies cold intolerance, excessive sweating, heat intolerance or polydipsia Mohsen/Lymph Hematologic/Lymphatic: Denies easy bleeding, Denies easy bruising and Denies lymphadenopathy Exam Const General: cooperative, healthy appearing, comfortable and no acute distress Orientation: alert [facility] Head: normal to inspection and normocephalic Ears: hearing grossly normal bilaterally and external ears normal Nose: external nose normal and nares normal Face and sinus: normal facial exam Neck Neck: normal visual inspection and no lymphadenopathy Thyroid: thyroid normal Chest Chest palpation & inspection: normal inspection of the chest Resp Effort & Inspection: normal respiratory effort Auscultation: clear to auscultation bilaterally Cardio Rate: regular rate Rhythm: regular rhythm Heart Sounds: S1 normal and S2 normal GI Inspection: normal to inspection and non-distended Palpation: soft and no hepatosplenomegaly Musc Other: gross motor intact no deficits, full bilateral strength Skin General: no rashes or lesions noted Neuro General: patient alert, patient awake, moves all extremities and no focal motor deficits Motor: muscle tone normal throughout Extrem General: normal to inspection and no pedal edema Psych Appearance: grossly normal Mental Status: mental status grossly normal Affect: normal affect Speech and Movement: speech and movement normal Results POC Urinalysis Dip (Clinic) Office Urine Color Yellow Last Edit by Lissette Tavares on 11/24/24 08:46 Office Urine Clarity Clear Last Edit by Lissette Tavares on 11/24/24 08:46 Office Urine Glucose Negative Last Edit by Lissette Tavares on 11/24/24 08:46 Office Urine Ketones Negative Last Edit by Lissette Tavares on 11/24/24 08:46 Off Ur Spec Burton ? Last Edit by Lissette Tavares on 11/24/24 08:46 Office Urine pH 6.0 Last Edit by Lissette Tavares on 11/24/24 08:46 Office Urine Bilirubin Negative Last Edit by Lissette Tavares on 11/24/24 08:46 Office Urine Urobilinogen 0.2 mg/dL Last Edit by Lissette Tavares on 11/24/24 08:46 Office Urine Blood Negative Last Edit by Lissette Tavares on 11/24/24 08:46 Office Urine Blood Hemolyzed NA Last Edit by Lissette Tavares on 11/24/24 08:46 Office Urine Protein Negative Last Edit by Lissette Tavares on 11/24/24 08:46 Office Urine Nitrate Negative Last Edit by Lissette Tavares on 11/24/24 08:46 Off Ur Leukocytes Negatve Last Edit by Lissette Tavares on 11/24/24 08:46 Coding Level of Care Code Off vis,est,level 4 Diagnoses Malpositioned IUD T83.32XA Abnormal uterine bleeding N93.9 Assessment and Plan Assessment and Plan (1) Malpositioned IUD: Status: Acute (2) Abnormal uterine bleeding: Status: Acute Comment: plan d and c hysteroscopy laparoscopic IUD removal then plan exp management possible aviane Orders: Orders POC Urinalysis Dip (Clinic) Today R39.15 - Urgency of urination Culture, Urine Today R39.15 - Urgency of urination Medications: New levonorgestrel-ethinyl estrad 0.1-20 mg-mcg (Aviane) 1 TAB PO QDAY 28 tabs 12RF Plan After discussing the patient's diagnosis and treatment plan options, patient wishes to proceed with surgical management. I have discussed with the patient the risks, benefits, and alternatives of the procedure which include but are not limited to risks of anesthesia, bleeding, infection, possible damage to bowel, bladder, or surrounding vasculature which could lead to additional surgery to evaluate any complications. Patient agrees to procedure and wishes to proceed. ACOG/uptodate references given for additional information regarding procedure. UPDATE- I have seen the patient and performed any clinically relevant updates to the history and physical exam. Marquita Mcclendon MD
--- NOTE | 2024-12-07 10:31 | PRE.ANES_ITS ---
ASA Classification* ASA Classification ASA Classification: 2 Assessment & Plan Anesthesia* Anesthesia Assessment Anesthesia Assessment: Discussed sedation and/or anesthesia options, risks, benefits, and alternatives with patient/parents/legal guardian/POA. Questions invited. The patient/parents/legal guardian/POA seems to understand and agrees to proceed with anesthesia plan. Reviewed the physical assessment, medical history, allergy history and patient home medications list prior to surgery/procedure/anesthetic and documented any changes. Performed airway and anesthesia risk assessments. Anesthesia Type Anesthesia Type: MAC History Source History Obtained from:: Patient and Chart Anesthesia Focused Assessment* Temperature: 98.9 F Pulse Rate: 72 Blood Pressure: 103/55 Respiratory Rate: 16 Pulse Ox: 100 Oxygen Delivery Method: Room Air Airway Assessment Mouth opens: >3 cm Mallampati Score: I Teeth Condition: Intact Neck Range of motion (ROM): Full ROM Labs Anesthesia Preop lab: CBC WBC 7.2 K/mm3 (4.4-11.0) 09/21/24 13:09/21/24 RBC 4.47 M/mm3 (4.2-5.4) 09/21/24 13:09/21/24 Hgb 13.0 g/dL (12.0-15.0) 09/21/24 13:09/21/24 Hct 40.0 % (37-47) 09/21/24 13:09/21/24 Plt Count 290 K/mm3 (150-450) 09/21/24 13:09/21/24 CHEMISTRY Potassium 4.0 mmol/L (3.3-5.1) 09/21/24 13:09/21/24 Sodium 138 mmol/L (133-145) 09/21/24 13:09/21/24 BUN 12 mg/dL (4-19) 09/21/24 13:09/21/24 Creatinine 0.76 mg/dL (0.70-1.20) 09/21/24 13:09/21/24 Glucose 89 mg/dL (70-99) 09/21/24 13:09/21/24 TSH 1.160 uIU/mL (0.300-4.200) 09/21/24:09/09 COAG Urine Test Negative Negative 11/16/21 06:38 11/16/21 Tst Clinic Negative 09/09/24 09:33 09/09/24 Pre-Assessment Diagnosis/Proposed Procedure Planned Operative Procedure(s): HYSTEROSCOPY D&C LAP IUD DEVICE REMOVAL Anesthesia History 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 When Was Last Pacemaker Check QUESTION #4 FULL TEXT: You/Your Family Experience fever (hyperthermia) with Anesthesia Last Oral Intake Last Oral intake: Last Oral Intake NPO since 09:00 12/07/24 10:07 Meds taken in AM with sips of No 12/07/24 10:07 water? 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 - compressor service technician: PONV - compressor service technician Female Yes 11/25/24 14:44 HX of Motion Sickness No 11/25/24 14:44 HX of N/V After Surgery No 11/25/24 14:44 Non-Smoker Yes 11/25/24 14:44 Duration of Surgery greater No 11/25/24 14:44 than 60 minutes Number of Risk Factors 2 11/25/24 14:44 PONV Score Moderate Risk 11/25/24 14:44 Height & Weight Height & Weight: Anesthesia: Height & Weight Height 5 ft 3 in 12/07/24 10:07 Weight: 77 kg 12/07/24 10:07 Body Mass Index (BMI) 30.0 12/07/24 10:07 Respiratory Assessment Respiratory Assessment - compressor service technician: Respiratory Tract Infection Hx - compressor service technician Hx Respiratory Tract Infection No 11/25/24 14:44 STOP Sleep Apnea STOP Sleep Apnea - compressor service technician: STOP Sleep Apnea - compressor service technician Hx Hypertension No 11/25/24 14:44 Hx Sleep Apnea No 11/25/24 14:44 CPAP No 11/25/24 14:44 BIPAP Do you snore loudly (louder No 11/25/24 14:44 than talking or can be heard Do you often feel tired/ Yes 11/25/24 14:44 fatigued/ sleepy during daytime? Has anyone observed you stop No 11/25/24 14:44 breathing during sleep? STOP Results Negative 11/25/24 14:44 QUESTION #5 FULL TEXT : Do you snore loudly (louder than talking or can be heard through closed doors)? 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 Specify any problems Hx of Preganancy in last 3 No 11/25/24 14:44 Months Nurse Filling Out Transfusion DSCHRIBER 11/25/24 14:44 & Questions: Date: 11/25/24 11/25/24 14:44 Time: 14:44 11/25/24 14:44 Patient unable to answer at this time (ie. confused, unrespo /Reproduction History /Reproductive History - compressor service technician: /Reproductive Hx- compressor service technician Hx Now No 11/25/24 14:44 Gestational Age (in weeks): EDC: Hx Hx Para Hx Section SAB No 11/25/24 14:44 Active Medications Active Medications: Current Medications Generic Name Dose Route Start Last Admin Trade Name Freq PRN Reason Stop Dose Admin Cefotetan Disodium 2 gm/ 100 mls @ 200 mls/hr 12/07/24 14:30 Sodium Chloride IV 12/07/24 14:59 INTRAOP ONE Lactated Ringer's 1,000 mls @ 15 mls/hr 12/07/24 10:00 IV .Q48H VISHAL PFSH Medical History (Updated 11/25/24 @ 14:47 by Vero Tirado) Contraceptive management Vitamin D deficiency Prolonged rupture of membranes, delivered Depression Anxiety Cellulitis of suprapubic region Acute maxillary sinusitis, unspecified Abnormal uterine bleeding Retained products of conception after delivery without hemorrhage Wears contact lenses Low iron History of IBS Asthma Non-smoker delivery delivered Polyhydramnios hemorrhage Acute sinusitis, unspecified Anxiety Lactose intolerance Asthma Seasonal allergies Home Medications ?Medication ?Instructions ?Recorded ?Last Taken ?Type levonorgestrel 20.4 mcg/24 hr (up 1 device intrauterin e ONCE 11/01/24 Unknown History to 8 yrs) 52 mg intrauterine device (Liletta) Allergy/AdvReac Type Severity Reaction Status Date / Time COVID-19 vacc, bv (Orig, Allergy Intermediate Hives Verified 11/25/24 14:42 Omicron BA.4/5) (Moderna) (From Moderna COVID Bival(6m up)(PF)) grass pollen Allergy unknown Verified 11/25/24 14:42 house dust Allergy unknown Verified 11/25/24 14:42 mold Allergy unknown Verified 11/25/24 14:42 Family History Sister Asthma Grandmother Diabetes Heart disease Cancer Grandfather A-fib Cancer Surgical History (Updated 11/25/24 @ 14:47 by Vero Tirado) Hx of colonoscopy with polypectomy H/O hand surgery H/O eye surgery [place] teeth removed H/O bilateral salpingectomy History of colonoscopy fatty tumor removed History of bladder surgery History of delivery History of D&C History of eyelid surgery Social History adopted: No household members: spouse and children number of children: 4 current occupational status: unemployed current occupation: [employer] pets and animals: No history of recent travel: No sexually active: Yes Smoking Status: Never smoker alcohol intake: current alcohol intake frequency: holidays/special occasions only substance use type: does not use caffeine: Yes Type: coffee Number of servings: 4 seatbelt use: always do you feel safe at home: Yes additional social history: Leander Review of Systems (Anesthesia) ROS Narrative System reviewed and no additional complaints, except as documented.
[2024-12-07] MEDS: Lactated Ringers 1,000 ML 15 ML IV (10:36)
[2024-12-07 10:59] LABS: Hematocrit 40.8 % (37-47); Hemoglobin 13.6 g/dL (12.0-15.0); Mean Corp Hgb Conc 33.3 g/dL (32-36); Mean Corpuscular Volume 87.9 fL (81-99); Mean Platelet Vol. 9.3 fl (6.2-12.0); Platelet Count 296 K/mm3 (150-450); RBC Distribution Width CV 13.2 % (11.6-14.6); RBC Distribution Width SD 42.3 fl (35.1-43.9); Red Blood Count 4.64 M/mm3 (4.2-5.4); White Blood Count 5.8 K/mm3 (4.4-11.0)
--- NOTE | 2024-12-07 11:15 | EMB_PTH ---
PATIENT: SUSAN STEINBERG LOC: [facility] [place] U#:[id number] AGE/SX: 39/F ROOM: RE12/07/[address]: Dr. Marquita Mcclendon MD : 1985 BED: DIS: 12/07/2024 SPEC #: [id number] RECD: 12/07/24 15:52 STATUS: SIRI ALMAZAN #: [id number] JUDY: 12/07/24 11:[address]: Marquita Mcclendon DEPT: SURGICAL PATHOLOGY RECD BY: Kareem Kim ENTERED: 12/08/24 09:22 SP TYPE: ENDOM BX/C FATEMEH DR: Dr. Jermaine Mayer, DO Tissues: A - Endometrium, NOS B - FOREIGN BODY Procedures: Surgery Specimen Level I Surgery Specimen Level IV HEADER OPERATION: Hysteroscopy, dilation and curettage, laparoscopic IUD insertion PRE-OP DIAGNOSIS: Malpositioned IUD, abnormal uterine bleeding TISSUE SUBMITTED: A- Endometrial curettings, B- IUD MICROSCOPIC DIAGNOSIS A. Endometrium, malpositioned IUD, abnormal uterine bleeding, dilation and curettage: - Fragments of secretory endometrium with focal shedding stroma. - Fragments of benign squamous and columnar cervical tissue. B. Medicak device, IUD, removal: - drum sprayer consistent with IUD confirmed (gross examination only). MICROSCOPIC DESCRIPTION Slides are reviewed. GROSS DESCRIPTION A. Received in formalin labeled with the patient's name and date of . Designated as endometrial curettings is a 2.6 x 2.3 x 0.3 cm aggregate of dark red tissue fragments. Entirely submitted in 1 cassette. B. Received fresh labeled the patient's name and date of . Designated as IUD is a 3.1 x 3.1 cm colunga-white T-shaped portion of hardware, consistent with an intrauterine device with attached, blue strings. No sections are submitted. The specimen is for gross examination only. [place] 12/08/2024 CPT:07699,58911
--- NOTE | 2024-12-07 12:01 | OP.PCM_ITS ---
Problems Associated Problem List Diagnoses (1) Malpositioned IUD: (2) Abnormal uterine bleeding: Multi Select Codes Urinary/Genital Urinary/Genital CPT Codes: 53398 Hysteroscopy,EMC, Polypectomy and Other Procedure See Report (40327) Operative Report (Standard) Operative Information Date of Procedure: 12/07/24 Pre-Operative Diagnosis: malpositioned iud, AUB Post-Operative Diagnosis: same Surgery/Procedure Performed: laparoscopic iud removal, d and c hysteroscopy clothing examiner: No Type of Anesthesia: General RN Documented Start/Stop Times: Operation Date: 12/07/24 11:15 Case Time Into Pre-Op 12/07/24 09:50 Out of Pre-Op 12/07/24 11:45 Anesthesia Start 12/07/24 11:49 Into Room 12/07/24 11:49 Procedure Start 12/07/24 12:15 Procedure End 12/07/24 13:06 Anesthesia End 12/07/24 13:18 Out of Room 12/07/24 13:18 Into Recovery 12/07/24 13:20 Into Phase II Recovery 12/07/24 14:10 Out of Recovery 12/07/24 14:10 Out of Phase II 12/07/24 15:10 Procedure Start Time: 12:15 Procedure Stop Time: 13:06 Select all DRAINS/GRAFTS/IMPLANTS that apply: None Estimated Blood Loss: 50 Specimen collected: Yes Description of specimen(s) removed: Endometrial curettings and IUD Description of surgery: Patient was taken in the operating room and was placed under general anesthesia was prepped and draped in normal sterile fashion in the dorsal lithotomy position. Bladder was drained of clear urine and SCDs were on preoperatively. sponge stick placed in the vagina. Attention was then paid to the abdominal portion of the procedure and the umbilicus was elevated with towel clamps and injected with Marcaine and after a 5 mm incision was made and the Veress needle was entered into the abdomen but unable to be confirmed to be intra-abdominal so therefore this entry method was aborted and using the Aquino technique a 15 mm incision made intraumbilical carried through to the underlying layer of the fascia the fascia was incised and stay sutures placed on bilateral sides of fascia and trocar inserted without complication. Abdomen was insufflated with CO2 gas and a left and suprapubic 5 mm ports were placed under direct visualization. Uterus was well visualized and upon inspection of the pelvis and cul-de-sac the IUD was at first not visualized but further inspection of the upper abdomen the IUD was visualized to be in the lower part of the omentum. It was grasped and elevated and teased out and a small portion of the omentum cauterized to easily remove the IUD from it without complication. Excellent hemostasis noted.. Liver and upper abdomen were visualized notably within normal limits and no other gross abnormalities were seen in the abdomen. All instruments removed from the abdomen after gas was desufflated. Umbilical port site was closed with a running suture of 0 Vicryl. Port sites were closed with 3-0 Monocryl Steri's and op sites were applied. Attention then paid to the vaginal portion of the procedure. weighted speculum was placed in the vagina and the anterior lip of the cervix was grasped with a single-tooth tenaculum. A paracervical block was placed with 1% lidocaine. Cervix was progressively dilated to allow passage of a 5 mm hysteroscope. The lining was fully visualized and noted to have a thickened appearance but no gross abnormalities. Uterine sounded to 8 cm. Curettage was performed and tissue removed, sent to pathology. All instruments were removed from the vagina and excellent hemostasis was noted. Patient was awoken and taken to recovery in stable condition. Surgical Findings: Boggy appearing uterus limited vaginal axis significant vesicouterine scarring from previous sections Complications Complications: No
--- NOTE | 2024-12-07 12:09 | PCM.DC ---
Discharge Instructions DC O2, CPAP, BIPAP needs Home O2 Discharge instructions: No Dressing / Incision Discharge Activity: Return to Normal Activity, May Not Drive ( while taking narcotic pain meds, when pain free), May Shower and May Take a Tub Bath (in 7 days) May resume sexual activity in: 1 week Weight Bearing Status: Full weight bearing Dressing / Incision Call your doctor if your incision/area has: Continuous Slow Oozing, Sudden Increased Bleeding, Increased Pain/ Swelling, Increased Redness and Foul Smelling Discharge Call your doctor if you observe: Fever of 101 or Higher, Using more than 1 pad per hour, Shortness of breath, Chest pain and Uncontrolled pain Suture Line Care: Avoid Pulling/Pushing and Avoid Pinching/Bending Remove Dressing in: 1 week (if present) Cleanse incision/area with: Soap & Water and Keep Dressing Clean & Dry Follow Up Care When: Call to make an appointment with your doctor for a fu/incision check in 1-2 weeks. Test Results: Test results from this visit will be discussed in further detail at your follow-up appointment, if applicable. Discharge Plan Admission Attending Provider: Marquita Mcclendon Primary Care Provider: Jermaine Mayer Instructions Print Language: Montenegrin Discharge Orders/Prescriptions Prescriptions: New oxycodone-acetaminophen [Percocet] 5-325 mg tablet 1 tab PO Q4H PRN (Reason: pain) 7 Days Qty: 10 0RF naproxen 500 mg tablet 500 mg PO BID PRN PRN (Reason: Pain) Qty: 30 1RF Discontinued Liletta 20.4 mcg/24 hr (8 yrs) 52 mg intrauterine device 1 device intrauterine ONCE Rx Instructions: as a single dose Referrals / Follow Up: Jermaine Mayer DO [Primary Care Provider] - Disposition Disposition (needs filled in before D/C Order can be placed): Home, Self Care
[2024-12-07] MEDS: Lidocaine 1% (30 ml sdv) 30 ML Vial OPERA.SITE (12:55)
--- NOTE | 2024-12-07 13:23 | PCM.POST.ANE ---
Anesthesia: Postop Eval I Current Vital Signs Temperature: 97.6 F Pulse Rate: 94 Blood Pressure: 129/64 Respiratory Rate: 16 Pulse Ox: 98 Oxygen Delivery Method: Room Air Assessment Airway patent: Yes Spontaneous unlabored respirations: Yes Mental status: Awake and Calm nausea: No Vomiting: No Anesthesia Complication: No Fluid Hydration Crystalloid volume administer (ml): 500 Total IV fluid infused: 500 Progress Note Anesthesia document: Postop Eval 1 completed: Yes
--- OUTSIDE RECORDS SUMMARY | 2024-12-07 20:57 | XMS RPT_ITS | CCD ---
Author Organization [facility] CliniSymi Care Team Providers Care Computer Network Specialist Name Role Phone Dr. Jermaine Mayer Primary Care Provider [phone] Dr. Jermaine Mayre Referring Provider Dr. Caroline Hernandez Attending Provider MICHAEL Silverio Attending Provider MICHAEL Roberts Attending Provider Dr. Jermaine Mayer Primary Care Provider [phone] Dr. Jermaine Mayer Referring Provider [phone] Chan GENERAL MAINTENANCE TECHNICIAN, GENERAL MAINTENANCE TECHNICIAN-Chacorta Nieto Attending Provider Dr. Jermaine Mayer Primary Care Provider [phone] Dr. Jermaine Mayer Referring Provider [phone] Marquita Mcclendon Attending Provider [phone] Dr. Cinthia Frances Attending Provider MICHAEL Roberts Attending Provider Dr. Jermaine Mayer Primary Care Provider [phone] Dr. Jermaine Mayer Referring Provider [phone] CONSUELO Vargas Attending Provider [phone] Marquita Mcclendon Attending Provider Raphael ROSS NP-Chacorta Mclaughlin Attending Provider [phone] Dustin BOLTON MD, Tad Love Primary Care Provider Jermaine Mayer DO Primary Care Provider Dr. Jermaine Mayer Primary Care Provider [phone] Dr. Jermaine Mayer Referring Provider MICHAEL Roberts Attending Provider Dr. Jermaine Mayer Primary Care Provider [phone] Dr. Jermaine Mayer Referring Provider MICHAEL Roberts Attending Provider CONSUELO Vargas Attending Provider [phone] Dr. Cinthia Frances Attending Provider [phone] Dr. Cinthia Frances Referring Provider [phone] Dr. Cinthia Frances Other Provider Dr. Marquita Mcclendon Admit Provider [phone] Dr. Marquita Mcclendon Referring Provider [phone] Dr. Marquita Mcclendon Other Provider [phone] Dr. Cinthia Frances Admit Provider Dr. Jermaine Mayer Primary Care Provider [phone] Dr. Jermaine Mayer Referring Provider Dr. Marquita Mcclendon Attending Provider [phone] MICHAEL Roberts Attending Provider [place] GENERAL MAINTENANCE TECHNICIAN, GENERAL MAINTENANCE TECHNICIAN-C Lissette Attending Provider [phone] CONSUELO Vargas Attending Provider [phone] Dr. Cinthia Frances Attending Provider [phone] Dr. Cinthia Frances Referring Provider 1(3 [phone] Dr. Cinthia Frances Other Provider Dr. Marquita Mcclendon Admit Provider Dr. Marquita Mcclendon Referring Provider [phone] Dr. Marquita cMclendon Other Provider [phone] Dr. Cinthia Frances Admit Provider Dr. Jermaine Mayer Primary Care Provider Dr. Jermaine Mayer Referring Provider Sammy Abdullahi, Dr. Vicente Attending Provider Moreno PIERCE, Dr. Dean Primary Care Provider Moreno PIERCE, Dr. Dean Referring Provider Raphael GENERAL MAINTENANCE TECHNICIAN-C, Lissette Attending Provider Rob GENERAL MAINTENANCE TECHNICIAN-C, Cinthia Attending Provider Friend DO, Dr. Matthews Attending Provider Friend DO, Dr. Matthews Other Provider Raphael GENERAL MAINTENANCE TECHNICIAN-C, Lissette Referring Provider Moreno PIERCE, Dr. Dean Primary Care Provider Moreno PIERCE, Dr. Dean Referring Provider [phone] Raphael GENERAL MAINTENANCE TECHNICIAN-C, Lissette Attending Provider [phone] Danelle RIVAS, Dr. Juárez Attending Provider Moreno PIERCE, Dr. Dean Attending Provider [phone] Moreno PIERCE, Dr. Dean Referring Provider [phone] Moreno PIERCE, Dr. Dean Primary Care Provider Dr. Marquita Mcclendon MD Referring Provider [phone] Moreno PIERCE, Dr. Dean Referring Provider [phone] Moreno, Jermaine Primary Care Unavailable Moreno, Jermaine Referring Unavailable Marquita Mcclendon Attending Unavailable Moreno, Jermaine Primary Care Unavailable Moreno, Jermaine Referring Unavailable Marquita Mcclendon Attending Unavailable Moreno, Jermaine Referring Unavailable RaphaelLissette Attending Unavailable FriendByron Consulting Unavailable Moreno, Jermaine Primary Care Unavailable Moreno, Jermaine Referring Unavailable FriendByron Attending Unavailable Moreno, Jermaine Primary Care Unavailable Moreno, Jermaine Referring Unavailable Cinthia Rivas Attending Unavailable Moreno, Jermaine Referring Unavailable Moreno, Jermaine Primary Care Unavailable Marcanthony, Marquita Attending Unavailable Moreno, Jermaine Primary Care Unavailable Moreno, Jermaine Referring Unavailable Marcanthony, Marquita Attending Unavailable Moreno, Jermaine Primary Care Unavailable Moreno, Jermaine Referring Unavailable Raphael, Lissette Attending Unavailable Moreno, Jermaine Primary Care Unavailable Moreno, Jermaine Referring Unavailable Sil Méndez Attending Unavailable Moreno, Jermaine Referring Unavailable Moreno, Jermaine Primary Care Unavailable Moreno, Jermaine Attending Unavailable Moreno, Jermaine Primary Care Unavailable Marcanthony, Marquita Referring Unavailable Marcanthony, Marquita Attending Unavailable Moreno, Jermaine Primary Care Unavailable Marcanthony, Marquita Referring Unavailable Marcanthony, Marquita Attending Unavailable Moreno, Jermaine Primary Care Unavailable Marcanthony, Marquita Referring Unavailable Marcanthony, Marquita Attending Unavailable Moreno, Jermaine Primary Care Unavailable Moreno, Jermaine Referring Unavailable Moreno, Jermaine Attending Unavailable Moreno, Jermaine Referring Unavailable Moreno, Jermaine Primary Care Unavailable Gela, Byron Attending Unavailable Raphael, Lissette Referring Unavailable [place], Lissette Attending Unavailable Marcanthony, Marquita Referring Unavailable Moreno, Jermaine Primary Care Unavailable Marcanthony, Marquita Attending Unavailable Moreno, Jermaine Primary Care Unavailable Moreon, Jermaine Attending Unavailable Marcanthony , Dr. Juárez Other Provider Allergies Allergy Classification Reported Allergen(s) Allergy Type Date of Onset Reaction(s) Facility (20 sources) Grass pollen; Translations: [grass pollen] Allergy to substance 1 unknown [facility] (20 sources) house dust allergenic extract Drug Allergy 1 [facility] (20 sources) Mold Extract Drug Allergy 1 [facility] (1 source) Seasonal allergy Allergy to substance 5 Other: See Comments [facility] (9 sources) COVID-19 vacc, bv (Orig, Omicron BA.4/5) (Moderna); Translations: [COVID-19 vacc, bv (Orig, Omicron BA.4/5) (Moderna)] Allergy to substance 5 Hives [facility] (1 source) house dust allergenic extract Drug Allergy 5 [facility] Repository (1 source) Mold Extract Drug Allergy [facility] Repository Medications Current Medications Medication Drug Class(es) Dates Sig (Normalized) Sig (Original) acetaminophen 325 mg / oxyCODONE hydrochloride 5 mg oral tablet (13 sources) Opioid Agonist Start: 12-07-2024 take 1 tablet by mouth every four hours as needed for pain Oxycodone-Acetaminop hen (Percocet) 5-325 mg tablet Active 1 {tbl} PO Q4H as needed for pain 10 7 0 December 07, 2024 Status post laparoscopy Other specified postprocedural states Start: 03-14-2023 End: 03-19-2023 Oxycodone-Acetaminophen (Per cocet) 5-325 mg tablet Discontinued 1 {tbl} PO EVERY 6 HOURS as needed for pain 10 7 0 March 14, 2023 March 19, 2023 2:32pm delivery delivered Encounter for delivery without indication cetirizine hydrochloride 10 mg oral capsule (1 source) Histamine-1 Receptor Antagonist Start: 08-05-2020 take 1 capsule by mouth once daily Cetirizine (Zyrtec) 10 mg capsule Active 10 MG PO DAILY August 05, 2020 10:59am fluticasone propionate 0.05 mg/actuat metered dose nasal spray (20 sources) Corticosteroid Start: 08-05-2020 take 1 spray(s) nasal route once daily Fluticasone Propionate Active 1 SPRAY INTRANASAL DAILY August 05, 2020 10:59am administer into each nostril Start: 08-05-2020 End: 08-08-2022 Fluticasone Propionate 50 mc g/actuation spray,suspension Discontinued 1 NMA INTRANASAL NEEDED as needed for ALLERGIES August 05, 2020 12:00am August 08, 2022 1:39pm administer into each nostril Start: 08-05-2020 End: 08-08-2022 Fluticasone Propionate Disco ntinued 1 SPRAY INTRANASAL NEEDED August 05, 2020 12:00am August 08, 2022 1:39pm administer into each nostril naproxen 500 mg oral tablet (13 sources) Nonsteroidal Anti-inflammatory Drug Start: 12-07-2024 take 1 tablet by mouth twice daily as needed for pain Naproxen 500 mg tablet Active 500 mg PO TWICE DAILY NEEDED as needed for Pain 30 1 December 07, 2024 12:00am Start: 03-12-2023 End: 04-23-2023 take 1 tablet by mouth twice daily as needed for pain Naproxen 500 mg tablet Discontinued 500 mg PO TWICE A DAY as needed for pain 30 March 12, 2023 12:00am April 23, 2023 2:21pm pseudoephedrine hydrochloride 30 mg oral tablet (1 source) alpha-Adrenergic Agonist Start: 08-05-2020 take 1 tablet by mouth once Pseudoephedrine Hcl (Sudafed) 30 mg tablet Active 30 MG PO ONCE August 05, 2020 11:00am Completed/Discontinued Medications Medication Drug Class(es) Dates Sig (Normalized) Sig (Original) acetaminophen 300 mg / codeine phosphate 30 mg oral tablet (20 sources) Opioid Agonist Start: 11-21-2015 End: 09-27-2016 Acetaminophen-Codei ne 1 TABLET tablet Discontinued 1 - 2 {tbl} PO EVERY 4 HOURS NEEDED as needed for Moderate Pain (4-5/10) 10 November 21, 2015 12:00am September 27, 2016 10:43pm Start: 11-21-2015 End: 09-27-2016 take 1 tablet by mouth every four hours as needed Acetaminophen-Codeine Discontinued 1 - 2 TABLET PO EVERY 4 HOURS NEEDED November 21, 2015 12:00am September 27, 2016 10:43pm amoxicillin 500 mg oral capsule (20 sources) Penicillin-class Antibacterial Start: 07-30-2021 End: 08-09-2021 take 1 capsule by mouth three times daily Amoxicillin 500 mg capsule Discontinued 500 mg PO THREE TIMES A DAY 30 10 July 30, 2021 12:00am August 08, 2021 12:00am August 09, 2021 12:03am amoxicillin 875 mg / clavulanate 125 mg oral tablet (19 sources) Penicillin-class Antibacterial Start: 09-25-2022 End: 11-26-2022 Amoxicillin-Pot Clavulanate 875-125 mg tablet Discontinued 1 {tbl} PO TWICE A DAY September 25, 2022 12:00am November 26, 2022 10:25am Start: 09-25-2022 End: 11-26-2022 take 1 tablet by mouth twice daily Amoxicillin-Pot Clavulanate Discontinued 1 TABLET PO TWICE A DAY September 25, 2022 12:00am November 26, 2022 10:25am Start: 05-28-2021 take 1 tablet by jerad th every twelve hours Amoxicillin-Pot Clavulanate Active 1 TABLET PO Q12H May 28, 2021 1:08pm cephalexin 500 mg oral capsule (16 sources) Cephalosporin Antibacterial Start: 12-02-2022 End: 12-24-2022 take 1 capsule by mouth three times daily Cephalexin 500 mg capsule Discontinued 500 mg PO THREE TIMES A DAY 30 0 December 02, 2022 12:00am December 24, 2022 8:26am docosahexaenoic acid 200 mg oral capsule (16 sources) Start: 12-02-2022 End: 07-06-2024 take 2 mg by mouth once daily Docosahexaenoic Acid ( Dha) 200 mg capsule Discontinued 2 mg PO DAILY December 02, 2022 12:00am July 06, 2024 12:47pm Start: 12-02-2022 Docosahexaenoi c Acid ( Dha) 200 mg capsule Active MG PO December 02, 2022 12:00am docusate sodium 100 mg oral capsule (20 sources) Start: 03-14-2023 End: 05-25-2024 take 1 capsule by mouth twice daily Docusate Sodium (Colace) 100 mg capsule Discontinued 100 mg PO TWICE A DAY 60 March 14, 2023 12:00am May 25, 2024 12:18pm Start: 09-14-2021 End: 11-16-2021 take 1 tablet by mouth twice daily as needed for constipation Docusate Sodium 100 mg tablet Discontinued 100 mg PO TWICE A DAY as needed for constipation 60 September 14, 2021 12:00am November 16, 2021 8:25am Start: 03-27-2019 End: 08-05-2020 take 1 capsule by mouth twice daily Docusate Sodium 100 MG capsule Discontinued 100 mg PO TWICE A DAY 30 0 March 27, 2019 1:00am August 05, 2020 10:59am 1 po bid to prevent constipation. estradiol 1 mg oral tablet (8 sources) Estrogen Start: 04-27-2024 End: 07-06-2024 take 1 tablet by mouth once daily Estradiol (Estrace) 1 mg tablet Discontinued 1 mg PO daily 30 0 April 27, 2024 1:00am July 06, 2024 12:47pm Levonorgestrel-Et hinyl Estrad (3 sources) Progestin, Estrogen, Progestin-containin g Intrauterine Device Start: 11-24-2024 End: 11-25-2024 take 1 tablet by mouth once daily Levonorgestrel-Ethi nyl Estrad (Aviane) 0.1-20 mg-mcg tablet Discontinued 1 {tbl} PO daily 08 05November 24, 2024 12:00am November 25, 2024 2:42pm Start: 11-24-2024 take 1 tablet by jerad th once daily Levonorgestrel-Ethinyl Estrad (Aviane) 0.1-20 mg-mcg tablet Active 1 {tbl} PO daily 08 05November 24, 2024 12:00am ferrous sulfate 325 mg oral tablet (20 sources) Start: 07-23-2023 End: 05-25-2024 take 1 tablet by mouth once daily Ferrous Sulfate 325 mg (65 mg iron) tablet Discontinued 325 mg PO DAILY July 23, 2023 12:00am May 25, 2024 12:18pm Start: 11-15-2021 End: 11-16-2021 take 1 tablet by mouth once daily Ferrous Sulfate (Iron) 325 mg (65 mg iron) Tablet Discontinued 325 mg PO DAILY November 15, 2021 12:00am November 16, 2021 8:25am Start: 03-27-2019 End: 08-05-2020 take 1 tablet by mouth twice daily at mealtime Ferrous Sulfate 325 MG tablet Discontinued 325 mg PO TWICE DAILY WITH MEALS 60 0 March 27, 2019 1:00am August 05, 2020 10:59am take iron twice daily for one month ibuprofen 600 mg oral tablet (20 sources) Nonsteroidal Anti-inflammatory Drug Start: 11-16-2021 End: 08-08-2022 take 1 tablet by mouth three times daily as needed for pain Ibuprofen 600 mg tablet Discontinued 600 mg PO THREE TIMES A DAY as needed for pain 30 0 November 16, 2021 12:00am August 08, 2022 1:39pm levonorgestrel 0.283010 mg/hr intrauterine system (6 sources) Progestin, Progestin-containing Intrauterine Device Start: 11-01-2024 End: 12-07-2024 Levonorgestrel (Liletta) 20.4 mcg/24 hr (8 yrs) 52 mg intrauterine device Discontinued 1 NMA INTRA-UTER ONCE November 01, 2024 12:00am December 07, 2024 12:10pm as a single dose norethindrone acetate 5 mg oral tablet (8 sources) Start: 07-21-2024 End: 11-01-2024 Norethindrone Acetate 5 mg tablet Discontinued 5 mg PO .COMPLEX 45 0 July 21, 2024 12:00am November 01, 2024 9:42am 5 mg PO tid until bleeding stops X 24 hr then bid to finish Rx oxyCODONE hydrochloride 5 mg oral capsule (20 sources) Opioid Agonist Start: 11-16-2021 End: 08-08-2022 take 1 capsule by mouth every eight hours as needed for pain Oxycodone 5 mg capsule Discontinued 5 mg PO Q8H as needed for severe pain (scale score 7-10) 5 3 0 November 16, 2021 August 08, 2022 1:39pm Abnormal uterine bleeding Retained products of conception after delivery without hemorrhage Abnormal uterine and vaginal bleeding, unspecified Retained portions of placenta and membranes, without hemorrhage Start: 03-27-2019 End: 03-31-2019 take 1 tablet by mouth every six hours as needed for pain Oxycodone 5 MG tablet Discontinued 5 mg PO EVERY 6 HOURS NEEDED as needed for Mod-Severe Pain (4-10/10) 15 3 0 March 27, 2019 March 29, 2019 1:00am March 31, 2019 1:07am Postoperative abdominal pain delivery delivered Unspecified abdominal pain Encounter for delivery without indication Pnv Cmb#95-Ferrous Fumarate- Fa (13 sources) Start: 09-25-2016 End: 03-27-2019 Pnv Cmb#95-Ferrous Fumarate- Fa Discontinued 1 EACH PO DAILY September 25, 2016 8:45pm March 27, 2019 11:33am Start: 09-25-2016 End: 03-27-2019 Pnv Cmb#95-Ferrous Fumarate- Fa Discontinued 1 EACH PO DAILY September 24, 2016 11:00pm March 27, 2019 10:33am Start: 09-25-2016 End: 03-27-2019 Pnv Cmb#95-Ferrous Fumarate- Fa Discontinued 1 EACH PO DAILY September 25, 2016 12:00am March 27, 2019 11:33am Pnv Cmb#95-Ferrous Fumarate- Fa 1 EACH tablet (8 sources) Start: 09-25-2016 End: 03-27-2019 Pnv Cmb#95-Ferrous Fumarate- Fa 1 EACH tablet Discontinued 1 NMA PO DAILY September 25, 2016 12:00am March 27, 2019 11:33am Start: 09-25-2016 End: 03-27-2019 Pnv Cmb#95-Ferrous Fumarate- Fa 1 EACH tablet Discontinued 1 NMA PO DAILY September 25, 2016 12:00am March 27, 2019 11:33am polyethylene glycol 3350 48029 mg powder for oral solution (20 sources) Osmotic Laxative Start: 03-27-2019 End: 08-05-2020 take 17 g by mouth once daily as needed for constipation Polyethylene Glycol 3350 17 GM packet Discontinued 17 g PO DAILY as needed for Constipation 14 0 March 27, 2019 1:00am August 05, 2020 10:59am Hytwimxa-Mlm-Ag-Fa (12 sources) Start: 09-12-2021 End: 09-25-2022 take 1 tablet by mouth once daily Vvuaotme-Jwe-Zi-Fa Discontinued 1 TABLET PO DAILY September 11, 2021 11:00pm September 25, 2022 9:34am Start: 09-12-2021 End: 09-25-2022 take 1 tablet by mouth once daily Xhgbjszo-Vvn-Ry-Fa Discontinued 1 TABLET PO DAILY September 12, 2021 12:00am September 25, 2022 10:34am Start: 09-12-2021 take 1 tablet by jerad th once daily Pmkydcdo-Jha-Bf-Fa Active 1 TABLET PO DAILY September 12, 2021 12:00am Boyiqrlo-Jry-Co-Fa 1 mg Tablet (8 sources) Start: 09-12-2021 End: 09-25-2022 take 1 tablet by mouth once daily Extpxymm-Cla-Ea-Fa 1 mg Tablet Discontinued 1 {tbl} PO DAILY September 12, 2021 12:00am September 25, 2022 10:34am Start: 09-12-2021 End: 09-25-2022 take 1 tablet by mouth once daily Vnlheery-Mpc-Mv-Fa 1 mg Tablet Discontinued 1 {tbl} PO DAILY September 12, 2021 12:00am September 25, 2022 10:34am Vit,Kamv97-Stsu-Uzcss (13 sources) Start: 03-27-2019 End: 08-05-2020 take 1 tablet by mouth once daily Vit,Jdcx54-Jcsi-Gmhbx Discontinued 1 TABLET PO DAILY@1200 March 27, 2019 11:32am August 05, 2020 10:59am Start: 03-27-2019 End: 08-05-2020 take 1 tablet by mouth once daily Vit,Kysj72-Ixzc-Kqrvt Discontinued 1 TABLET PO DAILY@1200 March 27, 2019 12:00am August 05, 2020 9:59am Start: 03-27-2019 End: 08-05-2020 take 1 tablet by mouth once daily Vit,Yrvm10-Utgs-Daltj Discontinued 1 TABLET PO DAILY@1200 March 27, 2019 1:00am August 05, 2020 10:59am Vit,Rlom55-Cner-Apiiy 1 TABLET tablet (8 sources) Start: 03-27-2019 End: 08-05-2020 take 1 tablet by mouth once daily Vit,Qlwz85-Kxuq-Zfeio 1 TABLET tablet Discontinued 1 {tbl} PO DAILY@1200 0 March 27, 2019 1:00am August 05, 2020 10:59am Start: 03-27-2019 End: 08-05-2020 take 1 tablet by mouth once daily Vit,Cpaq23-Stme-Jpwza 1 TABLET tablet Discontinued 1 {tbl} PO DAILY@1200 March 27, 2019 1:00am August 05, 2020 10:59am Problems Active Problems Problem Classification Problem Date Documented Da te Episodic/Chronic Acute posthemorrhagic anemia (20 sources) Anemia due to blood loss; Translations: [Acute posthemorrhagic anemia] Onset: 07-19-2024 03-14-2023 Episodic Comment on above: iv iron x 1 given, c ontinue oral iron . orthostatics negative. lower bp but asymptomatic and blood counts stable Anxiety disorders (20 sources) Anxiety; Translations: [Anxiety disorder, unspecified] Onset: 08-08-2014 09-12-2021 Chronic Comment on above: not currently medica antonina Asthma (20 sources) Asthma; Translations: [Unspecified asthma, uncomplicated] Onset: 03-27-2015 09-12-2021 Chronic Attention-deficit, conduct, and disruptive behavior disorders (1 source) Attention deficit hyperactivity disorder; Translations: [Attention-deficit hyperactivity disorder, unspecified type] Onset: 08-08-2014 08-08-2014 Chronic Complication of device; implant or graft (16 sources) IUD threads lost; Translations: [Displacement of intrauterine contraceptive device, initial encounter] Onset: 11-25-2024 11-01-2024 Episodic Contraceptive and procreative management (10 sources) Patient encounter status; Translations: [Encounter for contraceptive management, unspecified] Onset: 09-09-2024 09-10-2024 Episodic Comment on above: No PA needed per ins urance CPT listing on line. 09/10/24 Genitourinary symptoms and ill-defined conditions (1 source) Urgency of urination; Translations: [Urgency of urination] Onset: 11-29-2024 Episodic Mood disorders (1 source) Depressive disorder; Translations: [Depression] Onset: 08-08-2014 08-08-2014 Chronic Other aftercare (1 source) Encounter for follow-up examination after completed treatment for conditions other than malignant neoplasm; Translations: [Follow-up examination, following surgery, unspecified] 03-19-2023 Episodic Other complications of ; puerperium affecting management of mother (20 sources) Retained portions of placenta and membranes, without hemorrhage; Translations: [Retained products of conception after delivery without hemorrhage] Episodic Other complications of ; puerperium affecting management of mother (1 source) Other disorders of breast associated with and the puerperium; Translations: [Other and unspecified disorder of breast associated with childbirth, condition or complication] Episodic Other complications of ; puerperium affecting management of mother (1 source) Other disorders of ; Translations: [Engorgement of breasts associated with childbirth, condition or complication] Episodic Other complications of ; puerperium affecting management of mother (12 sources) Deliveries by ; Translations: [Encounter for delivery without indication] 03-13-2023 Episodic Other complications of ; puerperium affecting management of mother (5 sources) Encounter for delivery without indication; Translations: [ delivery, without mention of indication, delivered, with or without mention of antepartum condition] 03-14-2023 Episodic Other complications of (19 sources) Multigravida of advanced maternal age; Translations: [Supervision of elderly multigravida, unspecified trimester] 08-19-2022 Episodic Comment on above: NIPT low risk, growt h us ordered 36 weeks Other complications of (19 sources) High risk ; Translations: [Supervision of high risk , unspecified, unspecified trimester] 08-08-2022 Episodic Comment on above: PRR FRANKI 03/16/23 , girl, [facility] Mechelle Lockhart Maximillian Leander Other complications of (20 sources) Depressive disorder in mother complicating ; Translations: [Other mental disorders complicating , unspecified trimester] 08-08-2022 Episodic Comment on above: stable not on medica tion; declines need for Rx Other complications of (20 sources) Supervision of elderly multigravida, unspecified trimester; Translations: [Elderly multigravida, unspecified as to episode of care or not applicable] 08-19-2022 Episodic Other complications of (20 sources) Other mental disorders complicating , unspecified trimester; Translations: [Mental disorders of mother, unspecified as to episode of care or not applicable] 08-19-2022 Episodic Other complications of (20 sources) Supervision of high risk , unspecified, unspecified trimester; Translations: [Supervision of unspecified high-risk ] 08-19-2022 Episodic Other complications of (12 sources) Reduced movement; Translations: [Decreased movements, unspecified trimester, not applicable or unspecified] 03-13-2023 Episodic Other complications of (4 sources) Decreased movements, unspecified trimester, not applicable or unspecified; Translations: [Decreased movements, affecting management of mother, unspecified as to episode of care] 03-08-2023 Episodic Other female genital disorders (20 sources) Abnormal uterine bleeding; Translations: [Abnormal uterine and vaginal bleeding, unspecified] 08-08-2022 Chronic Comment on above: 10/2023:nl labs, US. 04/2024:failed 30 d add back estrogen. Declines contraception. EMB pending. US nl 10/2023:nl labs, US. 04/2024:failed 30 d add back estrogen. Declines contraception. EMB nl. US nl, discussed options s/p IUD plaement plan d and c hystero scopy laparoscopic IUD removal then plan exp management possible aviane Other female genital disorders (4 sources) Abnormal uterine and vaginal bleeding, unspecified; Translations: [Unspecified disorders of menstruation and other abnormal bleeding from female genital tract] Onset: 11-25-2024 Chronic Other gastrointestinal disorders (1 source) Irritable bowel syndrome; Translations: [Irritable bowel syndrome without diarrhea] Onset: 03-27-2015 03-27-2015 Chronic Other gastrointestinal disorders (12 sources) Irritable bowel syndrome characterized by alternating bowel habit; Translations: [Mixed irritable bowel syndrome] 05-25-2024 Chronic Other gastrointestinal disorders (2 sources) Mixed irritable bowel syndrome; Translations: [Mixed irritable bowel syndrome] Onset: 07-19-2024 Chronic Other gastrointestinal disorders (2 sources) Irritable bowel syndrome without diarrhea; Translations: [Irritable bowel syndrome, unspecified] Onset: 12-11-2023 Chronic Other lower respiratory disease (20 sources) Dyspnea; Translations: [Shortness of breath] 09-12-2021 Episodic Other non-traumatic joint disorders (1 source) Pain in left knee; Translations: [Pain in left knee] Onset: 12-03-2024 Episodic Other nutritional; endocrine; and metabolic disorders (20 sources) Intolerance to lactose; Translations: [Lactose intolerance, unspecified] 09-12-2021 Chronic Other nutritional; endocrine; and metabolic disorders (1 source) Obesity; Translations: [Obesity, unspecified] Onset: 03-27-2015 03-27-2015 Chronic Other and delivery including normal (20 sources) Encounter for care and examination of lactating mother; Translations: [ care and examination of lactating mother] Episodic Comment on above: GBS negative, NIPT l ow risk, carrier neg. , nl anatomy & consistent FRANKI Other upper respiratory disease (20 sources) Seasonal allergy; Translations: [Other seasonal allergic rhinitis] 09-12-2021 Chronic Other upper respiratory infections (20 sources) Sinusitis; Translations: [Chronic sinusitis, unspecified] Chronic Other upper respiratory infections (20 sources) Acute sinusitis; Translations: [Acute sinusitis, unspecified] Episodic Polyhydramnios and other problems of amniotic cavity (20 sources) Polyhydramnios; Translations: [Polyhydramnios, unspecified trimester, not applicable or unspecified] 09-12-2021 Episodic Previous (20 sources) Maternal care for unspecified type scar from previous delivery; Translations: [Previous delivery, unspecified as to episode of care or not applicable] 08-19-2022 Episodic Residual codes; unclassified (1 source) Gestation period, 39 weeks; Translations: [39 weeks gestation of ] Episodic Residual codes; unclassified (20 sources) History of eyelid surgery; Translations: [Other specified postprocedural states] 11-15-2021 Episodic Comment on above: X3 Residual codes; unclassified (1 source) History of laparoscopy; Translations: [Other specified postprocedural states] 12-07-2024 Episodic Skin and subcutaneous tissue infections (20 sources) Abscess of abdominal wall; Translations: [Cellulitis of trunk, unspecified] 12-02-2022 Episodic Past or Other Problems Problem Classification Problem Date Documented Da te Episodic/Chronic Unclassified (19 sources) fatty tumor removed 12-10-2021 Results Test Name Value Interpretation Reference Range Facility Erythrocyte distribution wid th ratioOrdered By: Marquita Mcclendon on 12-07-2024 Erythrocyte distribution width (RBC) [Ratio] 13.2 % 11.6-14.6 [facility] Erythrocyte distribution wid th standard deviationOrdered By: Marquita Mcclendon on 12-07-2024 Erythrocyte distribution width (RBC) [Ratio] 42.3 fl 35.1-43.9 [facility] Hematocrit Auto (Bld) [Volum e fraction]Ordered By: Marquita Mcclendon on 12-07-2024 Hematocrit (Bld) [Volume fraction] 40.8 % 37-47 [facility] Hemoglobin measurementOrdere d By: Marquita Mcclendon on 12-07-2024 Hemoglobin (Bld) [Mass/Vol] 13.6 g/dL 12.0-15.0 [facility] MCV (mean corpuscular volume ) determinationOrdered By: Marquita Mcclendon on 12-07-2024 MCV (RBC) [Entitic vol] 87.9 fL 81-99 [facility] Mean corpuscular hemoglobin (MCH) determinationOrdered By: Marquita Mcclendon on 12-07-2024 MCH (RBC) [Entitic mass] 29.3 pg 27.0-32.0 [facility] Mean corpuscular hemoglobin concentration (MCHC) determinationOrdered By: Marquita Mcclendon on 12-07-2024 MCHC (RBC) [Mass/Vol] 33.3 g/dL 32-36 [facility] Mean platelet volume determi nationOrdered By: Marquita Mcclendon on 12-07-2024 Platelet mean volume (Bld) [Entitic vol] 9.3 fL 6.2-12.0 [facility] Platelet countOrdered By: Amberly Mcclendon on 12-07-2024 Platelets (Bld) [#/Vol] 296 10*3/uL 150-450 [facility] RBC Auto (Bld) [#/Vol]Ordere d By: Marquita Mcclendon on 12-07-2024 RBC (Bld) [#/Vol] 4.64 10*6/uL 4.2-5.4 [facility] White blood cell (WBC) count Ordered By: Marquita Mcclendon on 12-07-2024 WBC (Bld) [#/Vol] 5.8 10*3/uL 4.4-11.0 [facility] Lower Ext Joint Only (Routin e)on 12-03-2024 Lower Ext Joint Only (Routine) [facility] Imaging Services [address] [place] [address] Lower Ext Joint Only (Routine) MR#: [id number] Acct: [id number] Name: INNA CAON Rep #: [id number] : 1985 F 39 From: Romaine Narayanan PCP: Dr. Jermaine Mayer DO Status: REG CLI Study: Lower Ext Joint Only (Routine) Date of Exam: 0 12/03/24 Exam# [id number] Ordering Dr: Jermaine Mayer DO PROCEDURE: LOWER EXT JOINT ONLY (ROUTINE) 12/03/2024 REASON FOR EXAM: PERSISTENT LEFT KNEE PAIN TECHNIQUE: LOWER EXT JOINT ONLY (ROUTINE) MRI of the left knee without contrast Multiplanar and multisequence images were obtained without IV contrast administration. COMPARISON: COMPARISON : None provided. FINDINGS: Bone Marrow: No abnormal osseous signal is noted. Effusion: No left knee joint effusion is seen. No Jones's or popliteal cyst is seen. Soft Tissues: No soft tissue mass is seen. No free or loculated fluid collection is noted. Ligaments and Tendons: Attenuation of the anterior cruciate ligament is seen. This, combined with mild anterior subluxation of the tibia with respect to the femur, suggest partial prior tear. The posterior cruciate ligament appears intact. Collateral ligaments appear intact. The visualized extensor tendons appear intact. No meniscal tear is identified. MRI/Lower Ext Joint Only (Routine) IMPRESSION: 1. Attenuation of the anterior cruciate ligament is seen. This, combined with mild anterior subluxation of the tibia with respect to the femur, suggest partial prior tear. 2. The posterior cruciate ligament appears intact. 3. 4. No meniscal tear is seen. Reading Location: [place] [address] CC: Dr. Jermaine Mayer DO Report Programmer: Signed Normal [facility] Inital Evaluation (1) - PTon 11-25-2024 Inital Evaluation (1) - PT [facility] Physical Therapy [facility] [address] [place] [address]. [address] [place] [address] / REHABILITATION SERVICES INITIAL EVALUATION MR#: [id number] Acct: [id number] Name: INNA CANO Rep #: [id number] : 1985 39 From: Janee Tafoya DPT Referring Dr.: Dr. Jermaine Mayer DO Status: RE [facility] Insurance: [employer] Patient's Visit Information Visit Information Visit Information: INNA CANO is a 39 year old F referred to Physical Therapy by Dr. Jermaine Mayer DO with a diagnosis of Left Knee Pain. Date of Evaluation: 11/24/24 Physical Therapist: Janee Tafoya DPT Visit Plan Frequency: 2x /Week Duration: 4 Weeks Subjective Subjective: Patient reports knee and ankle pain for months that resolved with stretching- she has been a quasi regular at the [facility]- wearing not so great shoes. July she started doing beach body at home 21 day- and she was making progress and the pain went from persistent dull annoyance to sharp and painful. The pain is aggravated by going down the stairs and stepping wrong. Worst: 3-4/10 Its the worst if she does a workout at home. Best: 2-3. Its a dull and achy pain. The pain is located on the top of the knee and will move over onto the lateral side of the knee. She has an MRI which is set for Dec 15. She did have hip and ankle pain but that has subsided since she has subsided. She has had an injection in her knee which made it feel better. PMHx/Meds: see list in chart Objective Objective: Posture: forward head, rounded shoulders- can correct with verbal cues but does not maintain Gait: no deviation noted HR/TR: able without pain SLS: 15 sec with mild increase in sway with mild hip drop Squat: mild increase in weight shift ROM: 0-135 degrees with pain at end range Strength: Core: fair minus, Hip: 4/5 throughout, Knee: Flexion: 38 Extn: 65 Ankle: 5/5 Flex: HS: moderate, Gastroc: moderate Palpation: mild tenderness along medial and lateral joint line Special Tests L Knee Aleksandr - Meniscus: Negative L Knee Valgus - MCL: Positive L Knee Varus - LCL: Positive Balance/Special Test Scores Lower Extremity Functional Score: 55 Goals Goal 1:: Patient will be I with HEP and progression Goal Time Frame: 4-6 Weeks Goal 2:: Patient will squat with normal mechanics Goal Time Frame: 4-6 Weeks Goal 3:: Patient will report 80% improvement Goal Time Frame: 4-6 Weeks Rehabilitation Potential Physical Therapy Diagnosis: Patient presents with decreased LE and core strength/stabilizati on, flex and muscular endurance leading to increased pain with ADL's Rehabilitation Potential: Good Anticipated Interventions Patient/Client Instruction: Educate patient on: Benefits of Fitness Program Therapeutic Exercise to Include: Strength training, Endurance training, Balance training, Coordination, Agility training, Body mechanics, Postural training, Flexibilty training, Gait and locomotor training, Neuromotor development, Dynamic Lumbar Stabilization and Scapular Strength/Stabilizati on TENS: Yes Cryotherapy (ice pack, ice massage): Yes Thermo therapy (hot pack): Yes Ultrasound (thermal/non thermal): Yes Text: Thank you for the opportunity to evaluate your patient. For Medicare and Medicare HMO plans, please review the plan of care and approve it. It will need to be FAXED BACK to us at [phone] for Medicare purposes. For Medicare only, by signing this I certify the plan of care. Please let me know if there are questions or concerns regarding this plan of care. Physician Signature: D ate: 11/25/24 0856 CC: Dr. Jermaine Mayer, DO ELR Signed Normal [facility] Urine Cultureon 11-25-2024 URC Culture exhibits no growth. Normal [facility] Comment on above: Performed By: #### M 100.2200 ####[facility] [id number] [place], [address] Laboratory - Chemistry and C hemistry - challengeOrdered By: Marquita Mcclendon on 11-24-2024 Bilirubin Ql (U) Negative [facility] Glucose Ql (U) Negative [facility] Ketones Ql (U) Negative [facility] pH (U) 6.0 [pH] [facility] Urobilinogen (U) [Mass/Vol] 0.1774448 mg/dL [facility] Laboratory - Hematology and Cell countsOrdered By: Marquita Mcclendon on 11-24-2024 Hemoglobin Ql (U) Negative [facility] Laboratory - Specimen inform ationOrdered By: Marquita Mcclendon on 11-24-2024 Clarity (U) Clear [facility] Color (U) Yellow [facility] Laboratory - UrinalysisOrder ed By: Marquita Mcclendon on 11-24-2024 Nitrite Ql (U) Negative [facility] Protein Ql (U) Negative [facility] No Panel InformationOrdered By: Marquita Mcclendon on 11-24-2024 Urine Leukocytes Negatve [facility] Urine Non-Hemolyzed Blood [facility] Bad Work Gatherer Office Visit Reporton 11-24-2024 Bad Work Gatherer Office Visit Report [facility] [address], [address] [place] [id number] OFFICE VISIT Date of Service: 11/24/24 MR#: [id number] Acct: [id number] Name: INNA CANO Rep #: [id number] : 1985 Provider: Dr. Marquita kirkpatrick MD Age/Sex: 39/F Location: [facility] Status: Signed Intake Vital Signs 11/01/24 09:44 11/24/24 08:36 11/24/24 08:38 Height 5 ft 3 in 5 ft 3 in 5 ft 3 in Weight: 174 lb 2 oz 174 lb 2 oz BMI 30.8 30.8 BP 104/70 Intake Visit Reasons: Displaced IUD *$10 COPAY Research And Development Technician Required: No Is patient in pain?: Yes (lower back pain and pelvic cramping) Allergies COVID-19 vacc, bv (Orig, Omicron BA.4/5) (Moderna) (From Moderna COVID Bival(6m up)(PF)) Allergy (Intermediate, Verified 11/24/24 08:37) Hives grass pollen Allergy (Verified 11/24/24 08:37) unknown house dust Allergy (Verified 11/24/24 08:37) unknown mold Allergy (Verified 11/24/24 08:37) unknown Medications ???Medication ???Instructions ???Recorded ???Confirmed ???Type levonorgestrel 20.4 mcg/24 hr (up 1 device intrauterine ONCE 11/24/24 History to 8 yrs) 52 mg intrauterine device (Liletta) levonorgestrel-ethin yl estradiol 1 tab PO QDAY #28 tabs 11/24/24 Rx 0.1 mg-20 mcg tablet (Aviane) Post menopausal: No Patient : No : No PFS Medical History (Updated 11/24/24 @ 09:[address] Marquita Mcclendon MD) Contraceptive management Colonoscopy planned Vitamin D deficiency Prolonged rupture of membranes, delivered Depression Anxiety Cellulitis of suprapubic region Acute maxillary sinusitis, unspecified Abnormal uterine bleeding Retained products of conception after delivery without hemorrhage Wears contact lenses Low iron History of IBS Asthma Non-smoker delivery delivered Polyhydramnios hemorrhage depression Acute sinusitis, unspecified Anxiety Lactose intolerance Asthma 39 weeks gestation of Seasonal allergies Surgical History H/O hand surgery H/O eye surgery [place] teeth removed H/O bilateral salpingectomy History of colonoscopy fatty tumor removed History of bladder surgery History of delivery History of D C History of eyelid surgery Family History Sister Asthma Grandmother Diabetes Heart disease Cancer Grandfather A-fib Cancer Social History adopted: No household members: spouse and children number of children: 4 current occupational status: unemployed current occupation: [employer] pets and animals: No history of recent travel: No sexually active: Yes Smoking Status: Never smoker alcohol intake: current alcohol intake frequency: holidays/special occasions only substance use type: does not use caffeine: Yes Type: coffee Number of servings: 4 seatbelt use: always do you feel safe at home: Yes additional social history: Leander GALVAN Displaced IUD *$10 COPAY Details: INNA CANO is a 39 year old who presents for follow up of iud displacement. she is having lower pelvic pain and pressure, dysuria. she has still had some irreuglar bleeding also on and off. she is still some but is ready to wean. Female Reproductive History Menopausal Symptoms: No night sweats History 5 Elective abortions Hx Para 4 Spontaneous abortions 1 Hx # Term Pregnancies 4 Ectopic pregnancies Hx # Pregnancies Multiple births # of living children 4 Past Pregnancies Del. Date Name GA/Weeks Outcome Route Bth Weight Gen Labor Lgth Anesthesia Del Locatn Provider FOB 09/27/16 Richy 39 live - full term 8.13 Male 03/25/19 Mechelle 39 live - full term 9.2 Female 09/12/21 Sai 39 live - full term 9.4 Male 03/12/23 Radha 39 live - full term 9lbs 5oz Female spinal [facility] Segal Constitutional: Denies fatigue, night sweats, weight gain or weight loss ENT ENT: Reports system reviewed and no additional complaints, except as documented Cardio Card: Denies chest pain Resp Resp: Denies cough or dyspnea GI GI: Reports as per HPI; Denies abdominal pain, constipation, nausea or vomiting Musc Musc: Denies arthralgias, back pain or muscle weakness Skin Skin/Breast: Denies alopecia, change in hair, dry skin, breast mass, breast pain or breast skin changes Neuro Neuro: Reports system reviewed and no additional complaints, except as documented Psych Psych: Reports system reviewed and no additional complaints, except as documented Endo Endo: Denies cold into (more content not included)... Normal [facility] Urine cultureOrdered By: Leonides Mcclendon on 11-24-2024 Bacteria identified Cx Nom (U) Culture exhibits no growth. [facility] Abdomen Single Viewon 2024 Abdomen Single View [facility] Imaging Services [address] [place] [address] Abdomen Single View MR#: [id number] Acct: [id number] Name: INNA CANO Rep #: [id number] : 1985 F 39 From: Lionel abraham MD PCP: Dr. Jermaine Mayer DO Status: REG CLI Study: Abdomen Single View Date of Exam: 11/15/24 Exam# [id number] Ordering Dr: Marquita Mcclendon PROCEDURE: ABDOMEN SINGLE VIEW 11/15/2024 REASON FOR EXAM: IUD NOT FOUND ON US TECHNIQUE: ABDOMEN SINGLE VIEW COMPARISON: None FINDINGS: Normal gastrointestinal gas pattern seen. Mild stool noted in large bowel loops. No pneumoperitoneum. Visualized bones appear unremarkable. No pathological abdominal calcifications noted. IUD is seen within the pelvic cavity projected over the sacrum. RAD/Abdomen Single View IMPRESSION: Mild constipation. IUD is seen within the pelvic cavity projected over the sacrum. Reading [facility] CC: Dr. Jermaine Mayer DO; Dr. Marquita Mcclendon MD Report Programmer: Signed Normal [facility] Pelvic w/ Transvaginalon Pelvic w/ Transvaginal [facility] [address] [place], [place] [id number] Pelvic w/ Transvaginal MR#: [id number] Acct: [id number] Name: INNA CANO Rep #: [id number] : 1985 F 39 From: Jg brown MD PCP: Dr. Jermaine Mayer DO Status: REG CLI Study: Pelvic w/ Transvaginal Date of Exam: 11/03/24 Exam# [id number] Ordering Dr: Marquita Mcclendon PROCEDURE: PELVIC W/ TRANSVAGINAL 11/03/2024 REASON FOR EXAM: CHECK IUD PLACEMENT TECHNIQUE: PELVIC W/ TRANSVAGINAL COMPARISON: Prior study dated August 06, 2023. FINDINGS: LMP: October 10, 2024. Measurements: Uterus: 8.9 cm x 5.5 cm x 3.5 cm with a volume of 90.44 mL Endometrial Thickness: 7 mm hyperechoic. Fluid is seen within the endometrium. No IUD seen. Right Ovary: 4.6 cm x 2.9 cm x 2.8 cm with a volume of 9.41 mL. Left Ovary: 3.8 cm x 2.5 cm x 1.9 cm with a volume of 10.2 mL. Uterus: Normal size, myometrial echotexture, and contour. Endometrium: Unremarkable. Right ovary: Normal size and echotexture. Left ovary: Normal size and echotexture. Other: No large pelvic mass identified. US/Pelvic w/ Transvaginal IMPRESSION: IUD is not seen within the endometrium. Reading Location: [facility] CC: Dr. Jermaine Mayer DO; Dr. Marquita Mcclendon MD Report Programmer: Signed Normal [facility] Bad Work Gatherer Office Visit Reporton 11-01-2024 Bad Work Gatherer Office Visit Report [facility] [address], [address] [place] [address] OFFICE VISIT Date of Service: 11/01/24 MR#: [id number] Acct: [id number] Name: INNA CANO Rep #: [id number] : 1985 Provider: Dr. Marquita kirkpatrick MD Age/Sex: 39/F Location: [facility] Status: Signed Intake Vital Signs 09/09/24 09:16 11/01/24 09:44 Height 5 ft 3 in 5 ft 3 in Weight: 186 lb 2 oz 176 lb 2 oz BMI 32.9 31.1 BP 114/68 118/50 L Intake Visit Reasons: 8 wk FU AUD/IUD *$Copay 10 Research And Development Technician Required: No Is patient in pain?: No Allergies COVID-19 vacc, bv (Orig, Omicron BA.4/5) (Moderna) (From Moderna COVID Bival(6m up)(PF)) Allergy (Intermediate, Verified 11/01/24 09:43) Hives grass pollen Allergy (Verified 11/01/24 09:43) unknown house dust Allergy (Verified 11/01/24 09:43) unknown mold Allergy (Verified 11/01/24 09:43) unknown Medications ???Medication ???Instructions ???Recorded ???Confirmed ???Type levonorgestrel 20.4 mcg/24 hr (up 1 device intrauterine ONCE 11/01/24 History to 8 yrs) 52 mg intrauterine device (Liletta) Post menopausal: No Patient : No : Yes PFSH Medical History Contraceptive management Colonoscopy planned Vitamin D deficiency Prolonged rupture of membranes, delivered Depression Anxiety Cellulitis of suprapubic region Acute maxillary sinusitis, unspecified Abnormal uterine bleeding Retained products of conception after delivery without hemorrhage Wears contact lenses Low iron History of IBS Asthma Non-smoker delivery delivered Polyhydramnios hemorrhage depression Acute sinusitis, unspecified Anxiety Lactose intolerance Asthma 39 weeks gestation of Seasonal allergies Surgical History H/O hand surgery H/O eye surgery [place] teeth removed H/O bilateral salpingectomy History of colonoscopy fatty tumor removed History of bladder surgery History of delivery History of D C History of eyelid surgery Family History Sister Asthma Grandmother Diabetes Heart disease Cancer Grandfather A-fib Cancer Social History adopted: No household members: spouse and children number of children: 4 current occupational status: unemployed current occupation: [employer] pets and animals: No history of recent travel: No sexually active: Yes Smoking Status: Never smoker alcohol intake: current alcohol intake frequency: holidays/special occasions only substance use type: does not use caffeine: Yes Type: coffee Number of servings: 4 seatbelt use: always do you feel safe at home: Yes additional social history: Leander HPI 8 wk FU AUD/IUD *$Copay 10 Details: INNA CANO is a 39 year old who presents for iud check she is still having bleeding lasting 2 weeks 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 History 5 Elective abortions Hx Para 4 Spontaneous abortions 1 Hx # Term Pregnancies 4 Ectopic pregnancies Hx # Pregnancies Multiple births # of living children 4 Past Pregnancies Del. Date Name GA/Weeks Outcome Route Bth Weight Infant Gen Labor Lgth Anesthesia Del Locatn Provider FOB 09/27/16 Richy 39 live - full term 8.13 Male 03/25/19 Mechelle 39 live - full term 9.2 Female 09/12/21 Sai 39 live - full term 9.4 Male 03/12/23 Radha 39 live - full term 9lbs 5oz Female spinal [facility] MARSH Const Constitutional: Reports system reviewed and no additional complaints, except as documented : Reports system reviewed and no additional complaints, except as documented and as per HPI Exam Const General: cooperative, healthy appearing, comfortable and no acute distress External Female Exam: normal external appearance and normal appearance of the urethra Urethra: normal appearance of the urethra Speculum Exam - Vagina: normal appearance of the vagina and normal vaginal discharge Bimanual Exam- Vagina Uterus: normal bimanual exam Bimanual Exam- Adnexa, other: normal adnexae, adnexae mobile and no masses Coding Level of Care Code Off vis,est,level 2 Diagnoses IUD strings lost T83.32XA Abnormal uterine bleeding N93.9 Assessment and Plan Assessment and Plan (1) IUD strings lost: Status: Acute (2) Abnormal uterine bleeding: Status: Acute Comment: 10/2023:nl labs, US. 04/2024:failed 30 d add back estrogen. Declines contraception. EMB nl. US nl, discussed options s/p IUD plaement Plan recommend US and possible AXR du (more content not included)... Normal [facility] Absolute lymphocyte countOrd ered By: Jermaine Mayer on 09-21-2024 Lymphocytes Auto (Unsp spec) [#/Vol] 3.37 10*3/uL 0.83-4.51 [facility] Absolute neutrophil countOrd ered By: Jermaine Mayer on 09-21-2024 Neutrophils (Bld) [#/Vol] 3.1 10*3/uL 2.0-7.7 [facility] Anion gap in Serum or Plasma Ordered By: Jermaine Mayer on 09-21-2024 Anion gap [Moles/Vol] 11 mmol/L [facility] Automated lymphocyte count a s percentage of total leukocytesOrdered By: Jermaine Mayer on 09-21-2024 Lymphocytes/100 WBC Auto (Unsp spec) 47.1 % High 19- [facility] BUN/creatinine ratioOrdered By: Jermaine Mayer on 09-21-2024 Urea nitrogen/Creatinine [Mass ratio] 15.7 mg/mg 10- [facility] Basophil percentageOrdered B y: Jermaine Mayer on 09-21-2024 Basophils/100 WBC (Bld) 0.3 % 0-1 [facility] Bilirubin, totalOrdered By: Jermaine Mayer on 09-21-2024 Bilirubin [Mass/Vol] 0.35 mg/dL 0.00-1.30 [facility] CBC W/Diff, Automatedon 09-09 Absolute Lymph 3.37 X10 3/uL Normal 0.83-4.51 [facility] Comment on above: Performed By: #### L 100.0100, L501.9520, L500.4050, L500.4100 ####[facility] [facility] [address] [place], [address] Absolute Neut 3.1 X10 3/uL Normal 2.0-7.7 [facility] Comment on above: Performed By: #### L 100.0100, L501.9520, L500.4050, L500.4100 ####[facility] [address] [place], [address] Basophils/100 WBC (Bld) 0.3 % Normal 0-1 [facility] Comment on above: Performed By: #### L 100.0100, L501.9520, L500.4050, L500.4100 ####[facility] [address] [place], [address] Eosinophils/100 WBC (Bld) 1.8 % Normal 0-5 [facility] Comment on above: Performed By: #### L 100.0100, L501.9520, L500.4050, L500.4100 ####[facility] [address] [place], [address] Erythrocyte distribution width (RBC) [Ratio] 13.5 % Normal 11.6-14.6 [facility] Comment on above: Performed By: #### L 100.0100, L501.9520, L500.4050, L500.4100 ####[facility] [address] [place], [address] Hematocrit (Bld) [Volume fraction] 40.0 % Normal 37-47 [facility] Comment on above: Performed By: #### L 100.0100, L501.9520, L500.4050, L500.4100 ####[facility] [address] [place], [address] Hemoglobin (Bld) [Mass/Vol] 13.0 g/dL Normal 12.0-15.0 [facility] Comment on above: Performed By: #### L 100.0100, L501.9520, L500.4050, L500.4100 ####[facility] [address] [place], [address] IG% 0.300 Normal 0.0-0.9 [facility] Comment on above: Result Comment: IG% - Immature Granulocytes (promyelocytes, myelocytes and metamyelocytes) > 1% indicates that a LEFT SHIFT is Present. Performed By: #### L 100.0100, L501.9520, L500.4050, L500.4100 ####[facility] [address] [place], [address] Lymphocytes/100 WBC (Bld) 47.1 % High 19-41 [facility] Comment on above: Performed By: #### L 100.0100, L501.9520, L500.4050, L500.4100 ####[facility] [address] [place], [address] MCH (RBC) [Entitic mass] 29.1 pg Normal 27.0-32.0 [facility] Comment on above: Performed By: #### L 100.0100, L501.9520, L500.4050, L500.4100 ####[facility] [address] [place], [address] MCHC (RBC) [Mass/Vol] 32.5 g/dL Normal 32-36 [facility] Comment on above: Performed By: #### L 100.0100, L501.9520, L500.4050, L500.4100 ####[facility] [address] [place], [address] MCV (RBC) [Entitic vol] 89.5 fL Normal 81-99 [facility] Comment on above: Performed By: #### L 100.0100, L501.9520, L500.4050, L500.4100 ####[facility] [address] [place], [address] Monocytes/100 WBC (Bld) 7.5 % Normal 0-10 [facility] Comment on above: Performed By: #### L 100.0100, L501.9520, L500.4050, L500.4100 ####[facility] [address] [place], [address] Neutrophils/100 WBC (Bld) 43.0 % Low 47-70 [facility] Comment on above: Performed By: #### L 100.0100, L501.9520, L500.4050, L500.4100 ####[facility] [address] [place], [address] Nucleated RBC (Bld) [#/Vol] 0 10*3/uL Normal 0-5 [facility] Comment on above: Performed By: #### L 100.0100, L501.9520, L500.4050, L500.4100 ####[facility] [address] [place], [address] Platelet mean volume (Bld) [Entitic vol] 10.3 fL Normal 6.2-12.0 [facility] Comment on above: Performed By: #### L 100.0100, L501.9520, L500.4050, L500.4100 ####[facility] [address] [place], [address] Platelets (Bld) [#/Vol] 290 10*3/uL Normal 150-450 [facility] Comment on above: Performed By: #### L 100.0100, L501.9520, L500.4050, L500.4100 ####[facility] [address] [place], [address] RBC (Bld) [#/Vol] 4.47 10*6/uL Normal 4.2-5.4 [facility] Comment on above: Performed By: #### L 100.0100, L501.9520, L500.4050, L500.4100 ####[facility] [address] [place], [address] RDW SD 44.4 fl High 35.1-43.9 [facility] Comment on above: Performed By: #### L 100.0100, L501.9520, L500.4050, L500.4100 ####[facility] [address] [place], [address] WBC (Bld) [#/Vol] 7.2 10*3/uL Normal 4.4-11.0 [facility] Comment on above: Performed By: #### L 100.0100, L501.9520, L500.4050, L500.4100 ####[facility] [address] [place], [address] Calculated very low density lipoprotein (VLDL) cholesterol measurementOrdered By: Jermaine Mayer on 09-21-2024 Calculated very low density lipoprotein (VLDL) cholesterol measurement 12 mg/dL 5-40 [facility] Carbon dioxide, total [Moles /volume] in Central venous bloodOrdered By: Jermaine Mayer on 09-21-2024 CO2 [Moles/Vol] 24.2 mmol/L 21.0-32.0 [facility] Chloride assayOrdered By: Minh Mayer on 09-21-2024 Chloride [Moles/Vol] 103 mmol/L 98-108 [facility] Comprehensive Metabolic Prof ilon 09-21-2024 Albumin [Mass/Vol] 4.4 g/dL Normal 3.5-5.0 [facility] Comment on above: Performed By: #### L 100.0100, L501.9520, L500.4050, L500.4100 ####[facility] [address] [place], [address] Albumin/Globulin [Mass ratio] 1.7 {ratio} Normal 0.9-2.4 [facility] Comment on above: Performed By: #### L 100.0100, L501.9520, L500.4050, L500.4100 ####[facility] [address] [place], [address] ALK PHOS 58 U/L Normal 35-104 [facility] Comment on above: Performed By: #### L 100.0100, L501.9520, L500.4050, L500.4100 ####[facility] [address] [place], [address] ALT [Catalytic activity/Vol] 18 U/L Normal <=34 [facility] Comment on above: Performed By: #### L 100.0100, L501.9520, L500.4050, L500.4100 ####[facility] [address] [place], [address] AST [Catalytic activity/Vol] 22 U/L Normal <=31 [facility] Comment on above: Performed By: #### L 100.0100, L501.9520, L500.4050, L500.4100 ####[facility] [address] [place], [address] Bilirubin [Mass/Vol] 0.35 mg/dL Normal 0.00-1.30 [facility] Comment on above: Performed By: #### L 100.0100, L501.9520, L500.4050, L500.4100 ####[facility] [address] [place], [address] BUN/CRE 15.7 RATIO Normal 10-20 [facility] Comment on above: Performed By: #### L 100.0100, L501.9520, L500.4050, L500.4100 ####[facility] [address] [place], [address] Calcium [Mass/Vol] 9.5 mg/dL Normal 7.6-11.0 [facility] Comment on above: Performed By: #### L 100.0100, L501.9520, L500.4050, L500.4100 ####[facility] [address] [place], [address] Chloride [Moles/Vol] 103 mmol/L Normal 98-108 [facility] Comment on above: Performed By: #### L 100.0100, L501.9520, L500.4050, L500.4100 ####[facility] [address] [place], [address] CO2 [Moles/Vol] 24.2 mmol/L Normal 21.0-32.0 [facility] Comment on above: Performed By: #### L 100.0100, L501.9520, L500.4050, L500.4100 ####[facility] [address] [place], [address] Creatinine [Mass/Vol] 0.76 mg/dL Normal 0.70-1.20 [facility] Comment on above: Performed By: #### L 100.0100, L501.9520, L500.4050, L500.4100 ####[facility] [address] [place], [address] GAP 11 Normal 5-15 [facility] Comment on above: Performed By: #### L 100.0100, L501.9520, L500.4050, L500.4100 ####[facility] [address] [place], [address] GFR/1.73 sq M.predicted among non-blacks MDRD (S/P/Bld) [Vol rate/Area] 101 mL/min/{1.73_m2} Normal >60 [facility] Comment on above: Result Comment: mL/m in/1.73m2 CKD-EPI Creatinine Equation (2020) Performed By: #### L 100.0100, L501.9520, L500.4050, L500.4100 ####[facility] [address] [place], [address] Globulin (S) [Mass/Vol] 2.6 g/dL Normal 2.2-4.2 [facility] Comment on above: Performed By: #### L 100.0100, L501.9520, L500.4050, L500.4100 ####[facility] [address] [place], [address] Glucose [Mass/Vol] 89 mg/dL Normal 70-99 [facility] Comment on above: Performed By: #### L 100.0100, L501.9520, L500.4050, L500.4100 ####[facility] [address] [place], [address] Potassium [Moles/Vol] 4.0 mmol/L Normal 3.3-5.1 [facility] Comment on above: Performed By: #### L 100.0100, L501.9520, L500.4050, L500.4100 ####[facility] [address] [place], [address] Sodium [Moles/Vol] 138 mmol/L Normal 133-145 [facility] Comment on above: Performed By: #### L 100.0100, L501.9520, L500.4050, L500.4100 ####[facility] [address] [place], [address] T PROT 6.9 g/dL Normal 5.9-8.4 [facility] Comment on above: Performed By: #### L 100.0100, L501.9520, L500.4050, L500.4100 ####[facility] [address] [place], [address] Urea nitrogen [Mass/Vol] 12 mg/dL Normal 4-19 [facility] Comment on above: Performed By: #### L 100.0100, L501.9520, L500.4050, L500.4100 ####[facility] [address] [place], [address] Eosinophil percentageOrdered By: Jermaine Mayer on 09-21-2024 Eosinophils/100 WBC (Bld) 1.8 % 0-5 [facility] Erythrocyte distribution wid th ratioOrdered By: Jermaine Mayer on 09-21-2024 Erythrocyte distribution width (RBC) [Ratio] 13.5 % 11.6-14.6 [facility] Erythrocyte distribution wid th standard deviationOrdered By: Jermaine Mayer on 09-21-2024 Erythrocyte distribution width (RBC) [Ratio] 44.4 fl High 35.1-43.9 [facility] Glomerular filtration rate ( GFR) estimation/1.73 sq m using serum, plasma, or whole bOrdered By: Jermaine Mayer on 09-21-2024 GFR/1.73 sq M.predicted among non-blacks MDRD (S/P/Bld) [Vol rate/Area] 101 mL/min/{1.73_m2} >60 [facility] Comment on above: mL/min/1.73m2 CKD-EP I Creatinine Equation (2020) Hematocrit Auto (Bld) [Volum e fraction]Ordered By: Jermaine Mayer on 09-21-2024 Hematocrit (Bld) [Volume fraction] 40.0 % 37-47 [facility] Hemoglobin measurementOrdere d By: Jermaine Mayer on 09-21-2024 Hemoglobin (Bld) [Mass/Vol] 13.0 g/dL 12.0-15.0 [facility] Immature granulocytes/100 WB C Auto (Bld)Ordered By: Jermaine Mayer on 09-21-2024 Immature granulocytes/100 WBC (Bld) 0.300 % 0.0-0.9 [facility] Comment on above: IG% - Immature Granu locytes (promyelocytes, myelocytes and metamyelocytes) > 1% indicates that a LEFT SHIFT is Present. LDL calc ser/plasOrdered By: Jermaine Mayer on 09-21-2024 Cholesterol in LDL [Mass/Vol] 118 mg/dL [facility] Comment on above: Avthophdqs=875-042 m g/dL & Higher Zyoc=908 mg/dL or greater Laboratory - Chemistry and C hemistry - challengeOrdered By: Jermaine Mayer on 09-21-2024 AST [Catalytic activity/Vol] 22 U/L <32 [facility] Lipid Profileon 09-21-2024 CHOL:HDL 4.04 Normal [facility] Comment on above: Performed By: #### L 100.0100, L501.9520, L500.4050, L500.4100 ####[facility] [address] [place], [address] Cholesterol [Mass/Vol] 173 mg/dL Normal <=200 [facility] Comment on above: Result Comment: Chol esterol level, Desirable <200 mg/dL Borderline high cholesterol 200-239 mg/dL High cholesterol >=240 mg/dL Recommendations of the NCEP Adult Treatment Panel for the following risk-cutoff thresholds for the [place] population. Performed By: #### L 100.0100, L501.9520, L500.4050, L500.4100 ####[facility] [address] [place], [address] Cholesterol in HDL [Mass/Vol] 43 mg/dL Normal [facility] Comment on above: Result Comment: Christine onal Cholesterol Education Program (NCEP) guidelines: <40 mg/dL: Low HDL-cholesterol (major risk factor for CHD) >= 60 mg/dL: High HDL-cholesterol (negative risk factor for CHD) HDL-cholesterol is affected by a number of factors, e.g. smoking, exercise, hormones, sex and age. Performed By: #### L 100.0100, L501.9520, L500.4050, L500.4100 ####[facility] [address] [place], [address] Cholesterol in LDL [Mass/Vol] 118 mg/dL Normal [facility] Comment on above: Result Comment: Bord fzdtvj=799-190 mg/dL Higher Taqr=314 mg/dL or greater Performed By: #### L 100.0100, L501.9520, L500.4050, L500.4100 ####[facility] [address] [place], [address] Cholesterol in VLDL [Mass/Vol] 12 mg/dL Normal 5-40 [facility] Comment on above: Performed By: #### L 100.0100, L501.9520, L500.4050, L500.4100 ####[facility] [address] [place], [address] Triglyceride [Mass/Vol] 60 mg/dL Normal [facility] Comment on above: Result Comment: The drugs N-Acetylcysteine and Metamizole may falsely depress this assay. Normal range: <150 mg/dL Borderline High: 150-199 mg/dL High: 200-499 mg/dL Very High: >500 mg/dL Performed By: #### L 100.0100, L501.9520, L500.4050, L500.4100 ####[facility] [address] [facility] [place], [address] MCV (mean corpuscular volume ) determinationOrdered By: Jermaine Mayer on 09-21-2024 MCV (RBC) [Entitic vol] 89.5 fL 81-99 [facility] Mean corpuscular hemoglobin (MCH) determinationOrdered By: Jermaine Mayer on 09-21-2024 MCH (RBC) [Entitic mass] 29.1 pg 27.0-32.0 [facility] Mean corpuscular hemoglobin concentration (MCHC) determinationOrdered By: Jermaine Mayer on 09-21-2024 MCHC (RBC) [Mass/Vol] 32.5 g/dL 32-36 [facility] Mean platelet volume determi nationOrdered By: Jermaine Mayer on 09-21-2024 Platelet mean volume (Bld) [Entitic vol] 10.3 fL 6.2-12.0 [facility] Monocyte percentageOrdered B y: Jermaine Mayer on 09-21-2024 Monocytes/100 WBC (Bld) 7.5 % 0-10 [facility] Neutrophil percentageOrdered By: Jermaine Mayer on 09-21-2024 Neutrophils/100 WBC (Bld) 43.0 % Low 47-70 [facility] Nucleated red blood cell per centageOrdered By: Jermaine Mayer on 09-21-2024 Nucleated RBC/100 WBC (Bld) [Ratio] 0 % 0-5 [facility] Platelet countOrdered By: Minh Mayer on 09-21-2024 Platelets (Bld) [#/Vol] 290 10*3/uL 150-450 [facility] Potassium measurement (mass/ volume)Ordered By: Jermaine Mayer on 09-21-2024 Potassium (Unsp spec) [Mass/Vol] 4.0 mmol/L 3.3-5.1 [facility] RBC Auto (Bld) [#/Vol]Ordere d By: Jermaine Mayer on 09-21-2024 RBC (Bld) [#/Vol] 4.47 10*6/uL 4.2-5.4 [facility] Screening total cholesterol/ high density lipoprotein (HDL) cholesterol ratioOrdered By: Jermaine Mayer on 09-21-2024 Cholesterol.total/Choles terol in HDL [Mass ratio] 4.04 {ratio} [facility] Serum creatinine measurement (mass/volume)Ordered By: Jermaine Mayer on 09-21-2024 Creatinine [Mass/Vol] 0.76 mg/dL 0.70-1.20 [facility] Serum globulin measurementOr dered By: Jermaine Mayer on 09-21-2024 Globulin (S) [Mass/Vol] 2.6 g/dL 2.2-4.2 [facility] Serum glucose measurement (m ass/volume)Ordered By: Jermaine Mayer on 09-21-2024 Glucose [Mass/Vol] 89 mg/dL 70-99 [facility] Serum or plasma alanine bay otransferase (ALT) measurementOrdered By: Jermaine Mayer on 09-21-2024 ALT [Catalytic activity/Vol] 18 U/L <35 [facility] Serum or plasma albumin tal urement (mass/volume)Ordered By: Jermaine Mayer on 09-21-2024 Albumin [Mass/Vol] 4.4 g/dL 3.5-5.0 [facility] Serum or plasma albumin/glob ulin mass ratioOrdered By: Jermaine Mayer on 09-21-2024 Albumin/Globulin [Mass ratio] 1.7 {ratio} 0.9-2.4 [facility] Serum or plasma alkaline emanuel sphatase measurementOrdered By: Jermaine Mayer on 05-13-2025 ALP [Catalytic activity/Vol] 58 U/L 35-104 [facility] Serum or plasma calcium tal urement (mass/volume)Ordered By: Jermaine Mayer on 09-21-2024 Calcium [Mass/Vol] 9.5 mg/dL 7.6-11.0 [facility] Serum or plasma cholesterol in HDL measurement (mass/volume)Ordered By: Jermaine Mayer on 09-21-2024 Cholesterol in HDL [Mass/Vol] 43 mg/dL >40 [facility] Comment on above: National Cholesterol Education Program (NCEP) guidelines:<40 mg/dL: Low HDL-cholesterol (major risk factor for CHD)>= 60 mg/dL: High HDL-cholesterol (negative risk factor for CHD)HDL-cholesterol is affected by a number of factors, e.g. smoking, exercise, hormones, sex and age. Serum or plasma cholesterol measurement (mass/volume)Ordered By: Jermaine Mayer on 09-21-2024 Cholesterol [Mass/Vol] 173 mg/dL <201 [facility] Comment on above: Cholesterol level, D esirable <200 mg/dLBorderline high cholesterol 200-239 mg/dLHigh cholesterol >=240 mg/dLRecommendations of the NCEP Adult Treatment Panel for the following risk-cutoff thresholds for the [place] population. Serum or plasma urea nitroge n measurement (mass/volume)Ordered By: Jermaine Mayer on 09-21-2024 Urea nitrogen [Mass/Vol] 12 mg/dL 4-19 [facility] Sodium levelOrdered By: Jermaine Mayer on 09-21-2024 Sodium [Moles/Vol] 138 mmol/L 133-145 [facility] TSH DL <= 0.005 mIU/L QnOrde red By: Jermaine Mayer on 09-21-2024 TSH Qn 1.160 uIU/mL 0.300-4.200 [facility] Thyroid Stim Hormone (TSH)on 09-21-2024 TSH 1.160 uIU/mL Normal 0.300-4.200 [facility] Comment on above: Performed By: #### L 100.0100, L501.9520, L500.4050, L500.4100 ####[facility] [address] [place], [address] Total proteinOrdered By: Socorro Mayer on 09-21-2024 Protein [Mass/Vol] 6.9 g/dL 5.9-8.4 [facility] Triglycerides measurementOrd ered By: Jermaine Moreno on 09-21-2024 Triglyceride [Mass/Vol] 60 mg/dL <199 [facility] Comment on above: The drugs N-Acetylcy steine and Metamizole may falsely depress this assay. Normal range: <150 mg/dLBorderline High: 150-199 mg/dLHigh: 200-499 mg/dLVery High: >500 mg/dL White blood cell (WBC) count Ordered By: Jermaine Mayer on 09-21-2024 WBC (Bld) [#/Vol] 7.2 10*3/uL 4.4-11.0 [facility] Laboratory - Chemistry and C hemistry - challengeOrdered By: Marquita Mcclendon on 09-09-2024 HCG ( test) Ql (U) Negative [facility] Bad Work Gatherer Office Visit Reporton 09-09-2024 Bad Work Gatherer Office Visit Report [facility] [address], [address] [place] [address] OFFICE VISIT Date of Service: 09/09/24 MR#: [id number] Acct: [id number] Name: INNA CANO Rep #: [id number] 3 : 1985 Provider: Dr. Marquita kirkpatrick MD Age/Sex: 38/F Location: [facility] Status: Signed Intake Vital Signs 09/02/24 09:30 09/09/24 09:16 Height 5 ft 3 in 5 ft 3 in Weight: 186 lb 4 oz 186 lb 2 oz BMI 33.0 32.9 BP 100/66 114/68 Intake Visit Reasons: Liletta Insertion *Copay $10 Research And Development Technician Required: No Is patient in pain?: No Allergies COVID-19 vacc, bv (Orig, Omicron BA.4/5) (Moderna) (From Moderna COVID Bival(6m up)(PF)) Allergy (Intermediate, Verified 09/09/24 09:28) Hives grass pollen Allergy (Verified 09/09/24 09:28) unknown house dust Allergy (Verified 09/09/24 09:28) unknown mold Allergy (Verified 09/09/24 09:28) unknown Medications ???Medication ???Instructions ???Recorded ???Confirmed ???Type norethindrone acetate 5 mg tablet 5 mg PO .COMPLEX #45 tabs 5 09/09/24 Rx Is last menstrual period known: Yes Last Menstrual Period: 08/31/24 Post menopausal: No Patient : No : No PFSH PFSH Medical History (Updated 09/09/24 @ 17:[address] Marquita Mcclendon MD) Colonoscopy planned Vitamin D deficiency Prolonged rupture of membranes, delivered Depression Anxiety Cellulitis of suprapubic region Acute maxillary sinusitis, unspecified Abnormal uterine bleeding Retained products of conception after delivery without hemorrhage Wears contact lenses Low iron History of IBS Asthma Non-smoker delivery delivered Polyhydramnios hemorrhage depression Acute sinusitis, unspecified Anxiety Lactose intolerance Asthma 39 weeks gestation of Seasonal allergies Surgical History H/O hand surgery H/O eye surgery [place] teeth removed H/O bilateral salpingectomy History of colonoscopy fatty tumor removed History of bladder surgery History of delivery History of D C History of eyelid surgery Family History Sister Asthma Grandmother Diabetes Heart disease Cancer Grandfather A-fib Cancer Social History adopted: No household members: spouse and children number of children: 4 current occupational status: unemployed current occupation: [employer] pets and animals: No history of recent travel: No sexually active: Yes Smoking Status: Never smoker alcohol intake: current alcohol intake frequency: holidays/special occasions only substance use type: does not use caffeine: Yes Type: coffee Number of servings: 4 seatbelt use: always do you feel safe at home: Yes additional social history: [place] History 5 Elective abortions Hx Para 4 Spontaneous abortions 1 Hx # Term Pregnancies 4 Ectopic pregnancies Hx # Pregnancies Multiple births # of living children 4 Past Pregnancies Del. Date Name GA/Weeks Outcome Route Bth Weight Infant Gen Labor Lgth Anesthesia Del Locatn Provider FOB 09/27/16 Richy 39 live - full term 8.13 Male 03/25/19 Mechelle 39 live - full term 9.2 Female 09/12/21 Sai 39 live - full term 9.4 Male 03/12/23 Radha 39 live - full term 9lbs 5oz Female spinal [facility] [place] HPI Liletta Insertion *Copay $10 Details: INNA CANO is a 38 year old who presents for iud insertion. Female Reproductive History Last Menstrual Period: 08/31/24 ROS Const Constitutional: Reports system reviewed and no additional complaints, except as documented : Reports system reviewed and no additional complaints, except as documented and as per HPI Exam Const General: cooperative, healthy appearing, comfortable and no acute distress External Female Exam: normal external appearance and normal appearance of the urethra Urethra: normal appearance of the urethra Speculum Exam - Vagina: normal appearance of the vagina and normal vaginal discharge Speculum Exam - Cervix: normal appearance of the cervix (strings seen 3-4 cm in length) Bimanual Exam- Vagina Uterus: normal bimanual exam Bimanual Exam- Adnexa, other: normal adnexae, adnexae mobile and no masses Office Procedures IUD Insertion IUD GC/Chlamydia:: not done Test: Yes Negative Consent Signed: Yes Time out checklist: patient, procedure, site marked/identified, positioning of patient, supplies available, allergies confirmed and team agrees on procedure Details: Sign in Communication: Completed Sign out documentation: Co (more content not included)... Normal [facility] Bad Work Gatherer Office Visit Reporton 09-02-2024 Bad Work Gatherer Office Visit Report [facility] Women's [address], [address] [place] [address] OFFICE VISIT Date of Service: 09/02/24 MR#: [id number] Acct: [id number] Name: INNA CANO Rep #: [id number] : 1985 Provider: Dr. Marquita kirkpatrick MD Age/Sex: 38/F Location: [facility] Status: Signed Intake Vital Signs 07/21/24 14:15 09/02/24 09:30 Height 5 ft 3 in 5 ft 3 in Weight: 199 lb 2 oz 186 lb 4 oz BMI 35.2 33.0 BP 110/70 100/66 Intake Visit Reasons: abnormal bleeding Research And Development Technician Required: No Is patient in pain?: No Allergies COVID-19 vacc, bv (Orig, Omicron BA.4/5) (Moderna) (From Moderna COVID Bival(6m up)(PF)) Allergy (Intermediate, Verified 07/21/24 14:32) Hives grass pollen Allergy (Verified 07/21/24 14:32) unknown house dust Allergy (Verified 07/21/24 14:32) unknown mold Allergy (Verified 07/21/24 14:32) unknown Medications ???Medication ???Instructions ???Recorded ???Confirmed ???Type norethindrone acetate 5 mg tablet 5 mg PO .COMPLEX #45 tabs 5 09/02/24 Rx Post menopausal: No Patient : No : No PFSH Medical History (Updated 09/02/24 @ 10:[address] Marquita Mcclendon MD) Colonoscopy planned Vitamin D deficiency Prolonged rupture of membranes, delivered Depression Anxiety Cellulitis of suprapubic region Acute maxillary sinusitis, unspecified Abnormal uterine bleeding Retained products of conception after delivery without hemorrhage Wears contact lenses Low iron History of IBS Asthma Non-smoker delivery delivered Polyhydramnios hemorrhage depression Acute sinusitis, unspecified Anxiety Lactose intolerance Asthma 39 weeks gestation of Seasonal allergies Surgical History H/O hand surgery H/O eye surgery [place] teeth removed H/O bilateral salpingectomy History of colonoscopy fatty tumor removed History of bladder surgery History of delivery History of D C History of eyelid surgery Family History Sister Asthma Grandmother Diabetes Heart disease Cancer Grandfather A-fib Cancer Social History adopted: No household members: spouse and children number of children: 4 current occupational status: unemployed current occupation: [employer] pets and animals: No history of recent travel: No sexually active: Yes Smoking Status: Never smoker alcohol intake: current alcohol intake frequency: holidays/special occasions only substance use type: does not use caffeine: Yes Type: coffee Number of servings: 4 seatbelt use: always do you feel safe at home: Yes additional social history: Leander COLE abnormal bleeding Details: INNA CANO is a 38 year old who presents for persistent irregular prolonged heavy bleeding. she is having dysmenorrhea, bleeding lasts two weeks at times, not heavy the whole time but prolonged, she has failed cyclic progesterone, she has tried estrogen, she has tried OCPs in the past and she has significant mood side effects. she has had sterilization so she is done with child bearing. History 5 Elective abortions Hx Para 4 Spontaneous abortions 1 Hx # Term Pregnancies 4 Ectopic pregnancies Hx # Pregnancies Multiple births # of living children 4 Past Pregnancies Del. Date Name GA/Weeks Outcome Route Bth Weight Infant Gen Labor Lgth Anesthesia Del Locatn Provider FOB 09/27/16 Richy 39 live - full term 8.13 Male 03/25/19 Mechelle 39 live - full term 9.2 Female 09/12/21 Sai 39 live - full term 9.4 Male 03/12/23 Radha 39 live - full term 9lbs 5oz Female spinal [facility] ROS Const Constitutional: Reports weight loss; Denies fatigue, fever(s), headache(s), increased appetite, poor appetite or weight gain GI GI: Reports as per HPI; Denies abdominal pain, constipation, nausea or vomiting : Reports as per HPI; Denies difficulty voiding, dysuria, hematuria, pelvic pain, urinary frequency, urinary incontinence, urinary hesitancy, urinary urgency, vaginal discharge, vaginal dryness, vaginal odor, vaginal pruritus or other Exam Const General: cooperative, healthy appearing, comfortable, no acute distress and well developed Orientation: alert HENMT Head: normal to inspection and normocephalic Ears: hearing grossly normal bilaterally and external ears normal Nose: external nose normal and nares normal Face and sinus: normal facial exam Neck Neck: normal visual inspection, no lymphadenopathy and trachea midline Thyroid: thyroid normal Resp E (more content not included)... Normal [facility] Surgical pathology reportOrd ered By: Jazmin Easton on 07-30-2024 Surgical pathology study [facility] Laboratory - Chemistry and C hemistry - challengeOrdered By: Lissette Lim on 07-21-2024 HCG ( test) Ql (U) Negative [facility] Bad Work Gatherer Office Visit Reporton 07-21-2024 Bad Work Gatherer Office Visit Report [facility] [address], [address] [place] [address] OFFICE VISIT Date of Service: 07/21/24 MR#: [id number] Acct: [id number] Name: INNA CANO Rep #: [id number] : 1985 Provider: FLORIN matta Age/Sex: 38/F Location: [facility] Status: Signed Intake Vital Signs 05/25/24 11:20 07/09/24 10:54 07/21/24 14:15 Height 5 ft 3 in 5 ft 3 in 5 ft 3 in Weight: 199 lb 2 oz BMI 35.2 BP 110/70 Intake Visit Reasons: EMB Chief Complaint: EMB Research And Development Technician Required: No Is patient in pain?: No Allergies COVID-19 vacc, bv (Orig, Omicron BA.4/5) (Moderna) (From Moderna COVID Bival(6m up)(PF)) Allergy (Intermediate, Verified 07/21/24 14:32) Hives grass pollen Allergy (Verified 07/21/24 14:32) unknown house dust Allergy (Verified 07/21/24 14:32) unknown mold Allergy (Verified 07/21/24 14:32) unknown Medications ???Medication ???Instructions ???Recorded ???Confirmed ???Type norethindrone acetate 5 mg tablet 5 mg PO .COMPLEX #45 tabs 5 07/21/24 Rx Is last menstrual period known: Yes Last Menstrual Period: 07/04/24 Post menopausal: No Patient : No : No PFSH PFSH Medical History (Updated 07/21/24 @ 14:45 by Lissette Lim NP, VANDANA-C) Colonoscopy planned Vitamin D deficiency Prolonged rupture of membranes, delivered Depression Anxiety Cellulitis of suprapubic region Acute maxillary sinusitis, unspecified Abnormal uterine bleeding Retained products of conception after delivery without hemorrhage Wears contact lenses Low iron History of IBS Asthma Non-smoker delivery delivered Polyhydramnios hemorrhage depression Acute sinusitis, unspecified Anxiety Lactose intolerance Asthma 39 weeks gestation of Seasonal allergies Surgical History H/O hand surgery H/O eye surgery [place] teeth removed H/O bilateral salpingectomy History of colonoscopy fatty tumor removed History of bladder surgery History of delivery History of D C History of eyelid surgery Family History Sister Asthma Grandmother Diabetes Heart disease Cancer Grandfather A-fib Cancer Social History adopted: No household members: spouse and children number of children: 4 current occupational status: unemployed current occupation: [employer] pets and animals: No history of recent travel: No sexually active: Yes Smoking Status: Never smoker alcohol intake: current alcohol intake frequency: holidays/special occasions only substance use type: does not use caffeine: Yes Type: coffee Number of servings: 4 seatbelt use: always do you feel safe at home: Yes additional social history: Leander History 5 Elective abortions Hx Para 4 Spontaneous abortions 1 Hx # Term Pregnancies 4 Ectopic pregnancies Hx # Pregnancies Multiple births # of living children 4 Past Pregnancies Del. Date Name GA/Weeks Outcome Route Bth Weight Infant Gen Labor Lgth Anesthesia Del Locatn Provider FOB 09/27/16 Richy 39 live - full term 8.13 Male 03/25/19 Mechelle 39 live - full term 9.2 Female 09/12/21 Sai 39 live - full term 9.4 Male 03/12/23 Radha 39 live - full term 9lbs 5oz Female spinal [facility] [place] HPI EMB Details: INNA CANO is a 38 year old who presents for endometrial biopsy. Since delivery 16 mo ago has had irregular and prolonged bleeding. She is still breast feeding once a day. She has had bilat salpingectomy. We tried 30 days of add back estrogen. She had repeated prolonged bleeding X 2 weeks after that. Normal recent pelvic US Female Reproductive History Last Menstrual Period: 07/04/24 ROS Const Constitutional: Reports system reviewed and no additional complaints, except as documented Eyes Eyes: Reports system reviewed and no additional complaints, except as documented GI GI: Denies abdominal pain or change in bowel habits : Reports as per HPI Exam Const General: cooperative and no acute distress Orientation: oriented x3 General: bladder normal to palpation External Female Exam: normal external appearance and normal appearance of the urethra Urethra: normal appearance of the urethra Speculum Exam - Vagina: normal appearance of the vagina, normal vaginal discharge, no lesions and nontender Speculum Exam - Cervix: normal appearance of the cervix Bimanual Exam- Vagina Uterus: normal bimanual exam, uterine size normal, bladder normal to palpation, uterine shape normal, uterine mo (more content not included)... Normal [facility] Surgery Specimen Level Barbara 07-21-2024 Surgery Specimen Level IV Patient Age/Sex Location Account Attending Physician INNA CANO 38/F LABSABRIL [id number] FLORIN Echols Specimen: [id number] Received: 07/22/24 Status: SIRI Verma Num: [id number] Spec Type: CHAD BX/C Subm Dr: FLORIN Echols HEADER OPERATION: Endometrial biopsy PRE-OP DIAGNOSIS: Abnormal uterine bleeding TISSUE SUBMITTED: A- Endometrial lining MICROSCOPIC DIAGNOSIS A. ENDOMETRIUM, BIOPSY: * Proliferative endometrium. * No hyperplasia or malignancy seen. MICROSCOPIC DESCRIPTION Slides are reviewed. GROSS DESCRIPTION Received is one container labeled with the patient's name and not further designated. The specimen consists of multiple fragments of brown-colunga soft tissue measuring in aggregate 3.5 x 3 x 0.5 cm. TE2 07/23/24 CPT:12552 Patient Age/Sex Location Account Attending Physician INNA CANO 38/F LABSPEC [id number] FLORIN Echols Signed (signature on file) Dr. Jazmin Easton MD 07/30/24 1705 Normal [facility] Comment on above: Performed By: #### P SUIV ####[facility] [id number] [facility] [place], [address] Colonoscopy Reporton 025 Colonoscopy Report [facility] Medical Records Department [address] [place] [address] Colonoscopy Report MR#: [id number] Acct: [id number] Name: INNA CANO Rep #: [id number] : 1985 38 From: Byron Ren DO PCP: Dr. Jermaine Mayer DO Status:REG [facility] Patient Name: Inna Cano Procedure Date: 07/09/2024 11:27 AM Date of : 1985 Age: 38 Procedure: Colonoscopy Indications: Generalized abdominal pain, Suspected irritable bowel syndrome, Change in bowel habits, Change in stool caliber, Constipation Providers: Byron Ren DO Referring MD: Jermaine Mayer Medicines: Monitored Anesthesia Care Patient Profile: This is a 38 year old female. Refer to note in patient chart for documentation of history and physical. Last Colonoscopy: none. The patient's first colonoscopy is today. Complications: No immediate complications. Procedure: Pre-Anesthesia Assessment: - Prior to the procedure, a History and Physical was performed, and patient medications and allergies were reviewed. The patient is competent. The risks and benefits of the procedure and the sedation options and risks were discussed with the patient. All questions were answered and informed consent was obtained. Patient identification and proposed procedure were verified by the physician in the pre-procedure area. Mental Status Examination: alert and oriented. Airway Examination: normal oropharyngeal airway and neck mobility. Respiratory Examination: clear to auscultation. CV Examination: normal. Prophylactic Antibiotics: The patient does not require prophylactic antibiotics. Prior Anticoagulants: The patient has taken no anticoagulant or antiplatelet agents except for NSAID medication. ASA Grade Assessment: II - A patient with mild systemic disease. After reviewing the risks and benefits, the patient was deemed in satisfactory condition to undergo the procedure. The anesthesia plan was to use monitored anesthesia care (MAC). Immediately prior to administration of medications, the patient was re-assessed for adequacy to receive sedatives. The heart rate, respiratory rate, oxygen saturations, blood pressure, adequacy of pulmonary ventilation, and response to care were monitored throughout the procedure. The physical status of the patient was re-assessed after the procedure. After I obtained informed consent, the scope was passed under direct vision. Throughout the procedure, the patient's blood pressure, pulse, and oxygen saturations were monitored continuously. The pediatric colonoscope was introduced through the anus and advanced to the cecum, identified by appendiceal orifice and ileocecal valve. The colonoscopy was performed without difficulty. The patient tolerated the procedure well. The quality of the bowel preparation was adequate. The ileocecal valve, appendiceal orifice, and rectum were photographed. Scope In: 12:11:49 PM Scope Withdrawal Time 0 hours 7 minutes 14 seconds Scope Out: 12:28:11 PM Total Procedure Duration Time 0 hours 16 minutes 22 seconds Findings: The perianal and digital rectal examinations were normal. A 4 mm polyp was found in the splenic flexure. The polyp was sessile. The polyp was removed with a cold biopsy forceps. Resection and retrieval were complete. Verification of patient identification for the specimen was done. Estimated blood loss was minimal. The colon (entire examined portion) was moderately tortuous. The terminal ileum appeared normal. The exam was otherwise without abnormality on direct and retroflexion views. Impression: - One 4 mm polyp at the splenic flexure, removed with a cold biopsy forceps. Resected and retrieved. - Tortuous colon. - The examined portion of the ileum was normal. - The examination was otherwise normal on direct and retroflexion views. Recommendation: - Discharge patient to home. - Resume previous diet. - Continue present medications. - Await pathology results. - Repeat colonoscopy in 5 years for surveillance. Procedure Code(s): --- Professional --- 13502, Colonoscopy, flexible; with biopsy, single or multiple CPT copyright 2021 [employer]. All rights reserved. The codes documented in this report are preliminary and upon dairy inspector review may be revised to meet current compliance requirements. Byron Ren DO 07/09/2024 12:32:18 PM This report has been signed electronically. Number of Addenda: 0 Note Initiated On: 07/09/2024 11:27 AM 07/09/24 1232 Date Byron Yooignche Signature: Date (if indicated) CC: Dr. Jermaine Mayer DO; Byron Ren DO Date Dictated: 07/09/24 1127 Date Transcribed: Report Programmer: SUBHA Signed [facility] MR/POSTOP.[facility] 07-09-2024 MR/POSTOP.[facility] Medical Records Department [address] [place] [address] Anesthesia Postop Eval I 07/09/24 1237 MR#: [id number] Acct: [id number] Name: INNA CANO Rep #: [id number] : 1985 38 From: [place]ito Godoy PCP: Dr. Jermaine Mayer DO Status:REG SDC Y Race: C Location: [place] [address] Anesthesia: Postop Eval I Current Vital Signs Temperature: 97 F Pulse Rate: 60 Blood Pressure: 97/48 Respiratory Rate: 16 Pulse Ox: 100 Oxygen Delivery Method: Room Air Assessment Airway patent: Yes Spontaneous unlabored respirations: Yes Mental status: Asleep nausea: No Vomiting: No Anesthesia Complication: No Fluid Hydration Crystalloid volume administer (ml): 50 Total IV fluid infused: 50 Progress Note Anesthesia document: Postop Eval 1 completed: Yes 07/09/24 1238 Date [place] Signature: Date CC: Signed Normal [facility] [id number] 07-09-2024 MR/POSTOPAN2 [facility] Medical Records Department [address] [place] [address] Anesthesia Postop Eval II 07/09/24 1616 MR#: [id number] Acct: [id number] Name: INNA CANO Rep #: [id number] : 1985 38 From: Art Brandt CRNA PCP: Dr. Jermaine Mayer, DO [facility] Y Race: C Location: EN Anesthesia Postop Eval I Sum Postop Eval Completion status Anesthesia document: Postop Eval 1 completed: Yes Anesthesia Postop Eval I Summary Anesthesia Postop Eval I Summary: Anesthesia Postop Eval I: Assessment Summary Airway patent Yes 07/09/24 12:38 [email or web address] Spontaneous unlabored Yes 07/09/24 12:38 [email or web address] respirations Mental status Asleep 07/09/24 12:38 [email or web address] nausea No 07/09/24 12:38 [email or web address] Vomiting No 07/09/24 12:38 [email or web address] Anesthesia Postop Eval I: Fluid Summary Crystalloid volume administer 50 07/09/24 12:38 [email or web address] (ml) Colloids volume administered ( ml) Blood Product volume administered (ml) Total IV fluid infused 50 07/09/24 12:38 [email or web address] Anesthesia Postop Eval I: Summary Notes Anesthesia Complication No 07/09/24 12:38 [email or web address] Anesthesia Complication Comment: Post-operative progress note Anesthesia: Postop Eval II Evaluation Mental status: Awake and Calm Pain Level: 0 nausea: No Vomiting: No Complications Anesthesia Complication: No 07/09/24 161 Date Atr [place] Signature: Date CC: Signed Normal [facility] Surgery Specimen Level Barbara 07-09-2024 Surgery Specimen Level IV Patient Age/Sex Location Account Attending Physician INNA CANO 38/F EN [id number] Byron Ren DO Specimen: [id number] Received: 07/11/24 Status: SIRI Verma Num: [id number] Spec Type: COLON BX Subm Dr: Byron Friend, DO HEADER OPERATION: Colonoscopy with biopsy PRE-OP DIAGNOSIS: Mixed irritable bowel syndrome TISSUE SUBMITTED: Splenic flexure polyp biopsy MICROSCOPIC DIAGNOSIS Colon, splenic flexure, polyp, biopsy: * Sessile serrated lesion. MICROSCOPIC DESCRIPTION Slides are reviewed. GROSS DESCRIPTION Received in fixative is one container labeled with the patient's name and designated Splenic flexure polyp biopsy. The specimen consists of one irregular fragment of light colunga soft tissue that measures 0.3 x 0.2 x 0.1 cm. The specimen is totally submitted in one cassette. Day 07/12/2024 TC: CPT:02219 Patient Age/Sex Location Account Attending Physician INNA CANO 38/F EN [id number] Byron Ren DO Signed (signature on file) Dr. Jazmin Easton MD 07/13/24 1605 Normal [facility] Comment on above: Performed By: #### P SUIV #### [facility] Laboratory [address] [place], [address] Gastroenterology Visit Repor ton 05-25-2024 Gastroenterology Visit Report [facility] Gastroenterology [address] [place] [address] OFFICE VISIT Date of Service: 05/25/24 MR#: [id number] Acct: [id number] Name: INNA CANO Rep #: [id number] : 1985 Provider: FLORIN kirkpatrick Age/Sex: 38/F Location: [facility] Status: Signed Intake Vital Signs 04/27/24 13:35 05/25/24 11:20 Height 5 ft 3 in 5 ft 3 in Weight: 208 lb BMI 36.8 BP 95/54 L Respiration 18 Pulse 71 Pulse Oximetry (%) 96 Oxygen Delivery Method room air Intake Visit Reasons: Irritable bowel syndrome Chief Complaint: IBS Research And Development Technician Required: No Accompanied by: Friend Is patient in pain?: No Allergies COVID-19 vacc, bv (Orig, Omicron BA.4/5) (Moderna) (From Moderna COVID Bival(6m up)(PF)) Allergy (Intermediate, Verified 05/25/24 11:16) Hives grass pollen Allergy (Verified 05/25/24 11:16) unknown house dust Allergy (Verified 05/25/24 11:16) unknown mold Allergy (Verified 05/25/24 11:16) unknown Medications ???Medication ???Instructions ???Recorded ???Confirmed ???Type docosahexaenoic acid 200 mg 2 mg PO DAILY 12/02/22 05/25/24 History capsule ( DHA) estradiol 1 mg tablet (Estrace) 1 mg PO QDAY #30 tabs 04/27/24 05/25/24 Rx Nurse's Note: Mostly constipation but sometimes diarrhea. Often feels like she isn't emptied all of the way after she goes. [facility] Medical History (Updated 05/25/24 @ 11:50 by Cinthia Rivas NP-C) Vitamin D deficiency Prolonged rupture of membranes, delivered Depression Anxiety Cellulitis of suprapubic region Acute maxillary sinusitis, unspecified Abnormal uterine bleeding Retained products of conception after delivery without hemorrhage Wears contact lenses Low iron History of IBS Asthma Non-smoker delivery delivered Polyhydramnios hemorrhage depression Acute sinusitis, unspecified Anxiety Lactose intolerance Asthma 39 weeks gestation of Seasonal allergies Surgical History History of colonoscopy fatty tumor removed History of bladder surgery History of delivery History of D C History of eyelid surgery Family History Sister Asthma Grandmother Diabetes Heart disease Cancer Grandfather A-fib Cancer Social History adopted: No household members: spouse and children number of children: 4 current occupational status: unemployed current occupation: [employer] pets and animals: No history of recent travel: No sexually active: Yes Smoking Status: Never smoker alcohol intake: current alcohol intake frequency: holidays/special occasions only substance use type: does not use caffeine: Yes Type: coffee Number of servings: 4 seatbelt use: always do you feel safe at home: Yes additional social history: Leander Female Reproductive History Menstrual Ab spontaneous: 1 HPI HPI Chief Complaint: IBS Details: INNA CANO, is a 38 F who presents to the office today for 38y/o female presents for consultation. CBC, transaminases and TSH were unremarkable October 2023. She complains of a long history of constipation with occasional diarrhea. She has a BM 1-2x a day with c/o incomplete evacuation. She reports her dietary habits and water intake are poor. Colonoscopy 10 years ago because stools were dark - does not recall the findings - mostly constipated, occasional diarrhea - states she was diagnosed with IBS in her 20's - c/o incomplete evacuation - she reports fiber supplements in the past have worsened constipation - reports water intake is poor - dicyclomine did help in the past - discontinuing lactose did help with abdominal cramping - 4-6 cups a diet - denies any weight loss - denies any bleeding - she does experience occasional bloating and cramping - improvement with a BM - she will take a stool softener on occasion - she is seen in the office today with her three children under the age of 5 - ROS Const Constitutional: Positive for fatigue; No fever(s) or weight change ENT ENT: No difficulty swallowing Gastro GI: Positive for bloating, constipation and diarrhea; No abdominal pain, belching, change in bowel habits, change in stool character, coffee ground emesis, cramping, heartburn, difficulty swallowing, feeling full early, excessive flatus, incontinent of stools, Vomiting blood/hematemesis, Blood in stool, loose stools, Black,tarry stools, nausea/dyspepsia, pain with swallowing, vomiting or other Musc Musculoskeletal: No joint pain Skin Skin: Positive for dry skin; No yellowing of the eye or itchy eyes Psych Psychiatric: No an (more content not included)... 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) Chief Complaint: Annual Research And Development Technician Required: No Is patient in pain?: No Allergies COVID-19 vacc, bv (Orig, Omicron BA.4/5) (Moderna) (From Moderna COVID Bival(6m up)(PF)) Allergy (Intermediate, Verified 04/27/24 13:28) Hives grass pollen Allergy (Verified 04/27/24 13:28) unknown house dust Allergy (Verified 04/27/24 13:28) unknown mold Allergy (Verified 04/27/24 13:28) unknown Medications ???Medication ???Instructions ???Recorded ???Confirmed ???Type docosahexaenoic acid 200 mg 2 mg PO DAILY 12/02/22 04/27/24 History capsule ( DHA) docusate sodium 100 mg capsule 100 mg PO BID #60 caps 03/14/23 04/27/24 Rx (Colace) ferrous sulfate 325 mg (65 mg 325 mg PO DAILY 07/23/23 04/27/24 History iron) tablet estradiol 1 mg tablet (Estrace) 1 mg PO QDAY #30 tabs 04/27/24 04/27/24 Rx Is last menstrual period known: Yes Last Menstrual Period: 04/01/24 Post menopausal: No Patient : No : Yes [facility] Medical History (Updated 04/27/24 @ 14:07 by Lissette Lim GENERAL MAINTENANCE TECHNICIAN, GENERAL MAINTENANCE TECHNICIAN-C) Vitamin D deficiency Prolonged rupture of membranes, delivered Depression Anxiety Cellulitis of suprapubic region Acute maxillary sinusitis, unspecified Abnormal uterine bleeding Retained products of conception after delivery without hemorrhage Wears contact lenses Low iron History of IBS Asthma Non-smoker delivery delivered Polyhydramnios hemorrhage depression Acute sinusitis, unspecified Anxiety Lactose intolerance Asthma 39 weeks gestation of Seasonal allergies Surgical History History of colonoscopy fatty tumor removed History of bladder surgery History of delivery History of D C History of eyelid surgery Family History Sister Asthma Grandmother Diabetes Heart disease Cancer Grandfather A-fib Cancer Social History adopted: No household members: spouse and children number of children: 4 current occupational status: unemployed current occupation: [employer] pets and animals: No history of recent travel: No sexually active: Yes Smoking Status: Never smoker alcohol intake: current alcohol intake frequency: holidays/special occasions only substance use type: does not use caffeine: Yes Type: coffee Number of servings: 4 seatbelt use: always do you feel safe at home: Yes additional social history: [place] History 5 Elective abortions Hx Para 4 Spontaneous abortions 1 Hx # Term Pregnancies 4 Ectopic pregnancies Hx # Pregnancies Multiple births # of living children 4 Past Pregnancies Del. Date Name GA/Weeks Outcome Route Bth Weight Infant Gen Labor Lgth Anesthesia Del Locatn Provider FOB 09/27/16 Richy 39 live - full term 8.13 Male 03/25/19 Mechelle 39 live - full term 9.2 Female 09/12/21 Sai 39 live - full term 9.4 Male 03/12/23 Radha 39 live - full term 9lbs 5oz Female spinal [facility] Encounter for routine gynecological examination Details: INNA CANO is a 38 year old who presents for annual exam. Baby delivered in Mar 2023. Still . Menses came back in May 2023. They are now occurring monthly but lasting at least 2 weeks. Usually very light in amount. Had work up for this in October 2023 with normal labs and US. She has had bilat salpingectomy Last PAP: 2020 History of abnormal PAP: no Last mammogram: Other preventative health care screenings: [facility] Female Reproductive History Last Menstrual Period: 04/01/24 ROS Const Constitutional: Denies fatigue, weight gain or weight loss Cardio Card: Denies chest pain Resp Resp: Denies cough or dyspnea on exertion GI GI: Denies abdominal pain, bloating, change in stool character, constipation or vomiting : Reports as per HPI; Denies difficulty voiding, pelvic pain, urinary frequency, urinary incontinence, urinary urgency, vaginal discharge or vaginal pruritus Exam Const General: cooperative, healthy appearing, no acute distress and well developed (more content not included)... Normal [facility] Serum or plasma thyroid stim ulating hormone (TSH) measurement (units/volume)Ordered By: Cinthia Abdullahi on 07-23-2023 TSH Qn 0.74 uIU/mL 0.358-3.74 [facility] Thin prep Papanicolaou smear with manual screeningOrdered By: Cinthia Abdullahi on 07-23-2023 Thin prep Papanicolaou smear with manual screening 0.77 ng/dL 0.76-1.46 [facility] Absolute lymphocyte countOrd ered By: Lissette Lim on 03-19-2023 Lymphocytes Auto (Unsp spec) [#/Vol] 2.30 10*3/uL 0.83-4.51 [facility] Basophil percentageOrdered B y: Lissette Lim on 03-19-2023 Basophils/100 WBC (Bld) 0.3 % 0-1 [facility] Bilirubin [Mass/Vol] 0.30 mg/dL 0.20-1.00 [facility] Comment on above: For patients on eltr ombopag therapy, use of Dimension [place] TBIL is not recommended. Chloride [Moles/Vol] 111 mmol/L 98-107 [facility] Eosinophils/100 WBC (Bld) 1.9 % 0-5 [facility] Glucose [Mass/Vol] 90 mg/dL 74-106 [facility] Neutrophils (Bld) [#/Vol] 4.1 10*3/uL 2.0-7.7 [facility] Neutrophils/100 WBC (Bld) 57.1 % 47-70 [facility] Potassium [Moles/Vol] 3.8 mmol/L 3.5-5.1 [facility] Protein [Mass/Vol] 6.2 g/dL 6.4-8.2 [facility] Sodium [Moles/Vol] 140 mmol/L 136-145 [facility] WBC (Bld) [#/Vol] 7.2 10*3/uL 4.4-11.0 [facility] Blood erythrocytes count (nu mber/volume)Ordered By: Lissette Lim on 03-19-2023 RBC (Bld) [#/Vol] 3.22 10*6/uL 4.2-5.4 [facility] Blood hemoglobin measurement (mass/volume)Ordered By: Lissette Lim on 03-19-2023 Hemoglobin (Bld) [Mass/Vol] 9.0 g/dL 12.0-15.0 [facility] Blood lymphocytes/100 leukoc ytesOrdered By: Lissette Lim on 03-19-2023 Lymphocytes/100 WBC (Bld) 31.9 % 19-41 [facility] Blood monocytes/100 leukocyt esOrdered By: Lissette Lim on 03-19-2023 Monocytes/100 WBC (Bld) 7.1 % 0-10 [facility] Blood platelet mean volumeOr dered By: Lissette Lim on 03-19-2023 Platelet mean volume (Bld) [Entitic vol] 9.6 fL 6.2-12.0 [facility] Determination of erythrocyte mean corpuscular volume (MCV)Ordered By: Lissette Lim on 03-19-2023 MCV (RBC) [Entitic vol] 89.8 fL 81-99 [facility] Hematocrit Auto (Bld) [Volum e fraction]Ordered By: Lissette iLm on 03-19-2023 Hematocrit (Bld) [Volume fraction] 28.9 % 37-47 [facility] Laboratory - Chemistry and C hemistry - challengeOrdered By: Lissettecarlos Lim on 03-19-2023 ALP [Catalytic activity/Vol] 79 U/L 45-117 [facility] ALT [Catalytic activity/Vol] 49 U/L 13-56 [facility] CO2 [Moles/Vol] 26.0 mmol/L 21.0-32.0 [facility] Globulin (S) [Mass/Vol] 3.3 g/dL 2.2-4.2 [facility] Urea nitrogen/Creatinine [Mass ratio] 20.5 mg/mg 10-20 [facility] Laboratory - Hematology and Cell countsOrdered By: Lissette Lim on 03-19-2023 Erythrocyte distribution width (RBC) [Entitic vol] 49.5 fL 35.1-43.9 [facility] Erythrocyte distribution width (RBC) [Ratio] 15.4 % 11.6-14.6 [facility] Immature granulocytes/100 WBC (Bld) 1.700 % 0.0-0.9 [facility] Comment on above: IG% - Immature Granu locytes (promyelocytes, myelocytes and metamyelocytes) > 1% indicates that a LEFT SHIFT is Present. MCH (RBC) [Entitic mass] 28.0 pg 27.0-32.0 [facility] Nucleated RBC/100 WBC (Bld) [Ratio] 0 % 0-5 [facility] Auto (RBC) [Mass/Vol]Or dered By: Lissette Lim on 03-19-2023 MCHC (RBC) [Mass/Vol] 31.1 g/dL 32-36 [facility] No Panel InformationOrdered By: Lissette Lim on 03-19-2023 Estimated GFR (MDRD) Amer 114 mL/min >60 [facility] Comment on above: GFR Calc Estimated GFR (MDRD) Non-Af Amer 94 mL/min >60 [facility] Comment on above: Non- GFR Calc Platelets bldOrdered By: Helena richardson Raphael on 03-19-2023 Platelets (Bld) [#/Vol] 245 10*3/uL 150-450 [facility] Serum or plasma albumin tal urement (mass/volume)Ordered By: Lissette Lim on 03-19-2023 Albumin [Mass/Vol] 2.9 g/dL 3.2-5.0 [facility] Serum or plasma albumin/glob ulin mass ratioOrdered By: Lissette Lim on 03-19-2023 Albumin/Globulin [Mass ratio] 0.9 {ratio} 0.9-2.4 [facility] Serum or plasma calcium tal urement (mass/volume)Ordered By: Lissette Lim on 03-19-2023 Calcium [Mass/Vol] 7.9 mg/dL 8.5-10.1 [facility] Serum or plasma creatinine m easurement (mass/volume)Ordered By: Lissette Lim on 03-19-2023 Creatinine [Mass/Vol] 0.73 mg/dL 0.55-1.02 [facility] Comment on above: The validity of the calculated GFR & GFRAA in patients over 70 years has not been determined. Clinical correlation is essential. Serum or plasma urea nitroge n measurement (mass/volume)Ordered By: Lissette Lim on 03-19-2023 Urea nitrogen [Mass/Vol] 15 mg/dL 7-18 [facility] Thin prep Papanicolaou smear with manual screeningOrdered By: Lissette Lim on 03-19-2023 Thin prep Papanicolaou smear with manual screening 27 U/L 15-37 [facility] Thin prep Papanicolaou smear with manual screening 3 5-15 [facility] Basophil percentageOrdered B y: Marquita Mcclendon on 03-14-2023 WBC (Bld) [#/Vol] 7.5 10*3/uL 4.4-11.0 [facility] Blood erythrocytes count (nu mber/volume)Ordered By: Marquita Mcclendon on 03-14-2023 RBC (Bld) [#/Vol] 2.91 10*6/uL 4.2-5.4 [facility] Blood hemoglobin measurement (mass/volume)Ordered By: Marquita Mcclendon on 03-14-2023 Hemoglobin (Bld) [Mass/Vol] 8.0 g/dL 12.0-15.0 [facility] Blood platelet mean volumeOr dered By: Marquita Mcclendon on 03-14-2023 Platelet mean volume (Bld) [Entitic vol] 10.0 fL 6.2-12.0 [facility] Determination of erythrocyte mean corpuscular volume (MCV)Ordered By: Marquita Mcclendon on 03-14-2023 MCV (RBC) [Entitic vol] 89.0 fL 81-99 [facility] Hematocrit Auto (Bld) [Volum e fraction]Ordered By: Marquita Mcclendon on 03-14-2023 Hematocrit (Bld) [Volume fraction] 25.9 % 37-47 [facility] Laboratory - Hematology and Cell countsOrdered By: Marquita Mcclendon on 03-14-2023 Erythrocyte distribution width (RBC) [Entitic vol] 48.1 fL 35.1-43.9 [facility] Erythrocyte distribution width (RBC) [Ratio] 14.8 % 11.6-14.6 [facility] MCH (RBC) [Entitic mass] 27.5 pg 27.0-32.0 [facility] MCHC Auto (RBC) [Mass/Vol]Or dered By: Marquita Mcclendon on 03-14-2023 MCHC (RBC) [Mass/Vol] 30.9 g/dL 32-36 [facility] Platelets bldOrdered By: Leonides Mcclendon on 03-14-2023 Platelets (Bld) [#/Vol] 150 10*3/uL 150-450 [facility] Absolute lymphocyte countOrd ered By: Cinthia Abdullahi on 03-12-2023 Lymphocytes Auto (Unsp spec) [#/Vol] 0.97 10*3/uL 0.83-4.51 [facility] Basophil percentageOrdered B y: Cinthia Abdullahi on 03-12-2023 Basophils/100 WBC (Bld) 0.1 % 0-1 [facility] Eosinophils/100 WBC (Bld) 0.1 % 0-5 [facility] Neutrophils (Bld) [#/Vol] 14.1 10*3/uL 2.0-7.7 [facility] Neutrophils/100 WBC (Bld) 90.4 % 47-70 [facility] Blood lymphocytes/100 leukoc ytesOrdered By: Cinthia Abdullahi on 03-12-2023 Lymphocytes/100 WBC (Bld) 6.2 % 19-41 [facility] Blood monocytes/100 leukocyt esOrdered By: Cinthia Abdullahi on 03-12-2023 Monocytes/100 WBC (Bld) 2.8 % 0-10 [facility] Laboratory - Hematology and Cell countsOrdered By: Cinthia Abdullahi on 03-12-2023 Immature granulocytes/100 WBC (Bld) 0.400 % 0.0-0.9 [facility] Comment on above: IG% - Immature Granu locytes (promyelocytes, myelocytes and metamyelocytes) > 1% indicates that a LEFT SHIFT is Present. Nucleated RBC/100 WBC (Bld) [Ratio] 0 % 0-5 [facility] Serum Treponema species anti body detectionOrdered By: Cinthia Abdullahi on 03-12-2023 Treponema sp Ab Ql (S) Non-Reactive [facility] Laboratory - Chemistry and C hemistry - challengeon 03-05-2023 Glucose Ql (U) Negative [facility] Laboratory - Urinalysison Protein Ql (U) Negative [facility] Laboratory - Chemistry and C hemistry - challengeon 02-18-2023 Glucose Ql (U) Negative [facility] Laboratory - Urinalysison Protein Ql (U) Trace [facility] No Panel InformationOrdered By: Marquita Mcclendon on 02-18-2023 Group B Streptococcus Culture Group B Beta Streptococcus is not isolated. [facility] Group B Streptococcus Culture Group B Beta Streptococcus is not isolated. [facility] Laboratory - Chemistry and C hemistry - challengeon 01-23-2023 Glucose Ql (U) Negative [facility] Laboratory - Urinalysison Protein Ql (U) Negative [facility] Laboratory - Chemistry and C hemistry - challengeon 01-07-2023 Glucose Ql (U) Negative [facility] Laboratory - Urinalysison Protein Ql (U) Negative [facility] Absolute lymphocyte countOrd ered By: Marquita Mcclendon on 12-24-2022 Lymphocytes Auto (Unsp spec) [#/Vol] 2.44 10*3/uL 0.83-4.51 [facility] Basophil percentageOrdered B y: Marquita Mcclendon on 12-24-2022 Basophils/100 WBC (Bld) 0.4 % 0-1 [facility] Eosinophils/100 WBC (Bld) 1.2 % 0-5 [facility] Neutrophils (Bld) [#/Vol] 5.3 10*3/uL 2.0-7.7 [facility] Neutrophils/100 WBC (Bld) 62.8 % 47-70 [facility] WBC (Bld) [#/Vol] 8.5 10*3/uL 4.4-11.0 [facility] Blood erythrocytes count (nu mber/volume)Ordered By: Marquita Mcclendon on 12-24-2022 RBC (Bld) [#/Vol] 3.91 10*6/uL 4.2-5.4 [facility] Blood hemoglobin measurement (mass/volume)Ordered By: Marquita Mcclendon on 12-24-2022 Hemoglobin (Bld) [Mass/Vol] 11.4 g/dL 12.0-15.0 [facility] Blood lymphocytes/100 leukoc ytesOrdered By: Marquita Mcclendon on 12-24-2022 Lymphocytes/100 WBC (Bld) 28.8 % 19-41 [facility] Blood monocytes/100 leukocyt esOrdered By: Marquita Mcclendon on 12-24-2022 Monocytes/100 WBC (Bld) 5.7 % 0-10 [facility] Blood platelet mean volumeOr dered By: Marquita Mcclendon on 12-24-2022 Platelet mean volume (Bld) [Entitic vol] 9.8 fL 6.2-12.0 [facility] Determination of erythrocyte mean corpuscular volume (MCV)Ordered By: Marquita Mcclendon on 12-24-2022 MCV (RBC) [Entitic vol] 90.3 fL 81-99 [facility] Gestational diabetes screen 1-hour screen with 50g oral glucose loadOrdered By: Marquita Mcclendon on 12-24-2022 Glucose 1 Hr post 50 g glucose PO [Mass/Vol] 123 mg/dL 70-140 [facility] HIV 1 and HIV-2 antibody ass ay with HIV-1 p24 antigen detectionOrdered By: Marquita Mcclendon on 12-24-2022 HIV 1+2 Ab+HIV1 p24 Ag IA Ql Non-Reactive Nonreactive [facility] Hematocrit Auto (Bld) [Volum e fraction]Ordered By: Marquita Mcclendon on 12-24-2022 Hematocrit (Bld) [Volume fraction] 35.3 % 37-47 [facility] Laboratory - Chemistry and C hemistry - challengeon 12-24-2022 Glucose Ql (U) Negative [facility] Laboratory - Hematology and Cell countsOrdered By: Marquita Mcclendon on 12-24-2022 Erythrocyte distribution width (RBC) [Entitic vol] 44.6 fL 35.1-43.9 [facility] Erythrocyte distribution width (RBC) [Ratio] 13.7 % 11.6-14.6 [facility] Immature granulocytes/100 WBC (Bld) 1.100 % 0.0-0.9 [facility] Comment on above: IG% - Immature Granu locytes (promyelocytes, myelocytes and metamyelocytes) > 1% indicates that a LEFT SHIFT is Present. MCH (RBC) [Entitic mass] 29.2 pg 27.0-32.0 [facility] Nucleated RBC/100 WBC (Bld) [Ratio] 0 % 0-5 [facility] Laboratory - Urinalysison Protein Ql (U) Negative [facility] MCHC Auto (RBC) [Mass/Vol]Or dered By: Marquita Mcclendon on 12-24-2022 MCHC (RBC) [Mass/Vol] 32.3 g/dL 32-36 [facility] Platelets bldOrdered By: Leonides Mcclendon on 12-24-2022 Platelets (Bld) [#/Vol] 202 10*3/uL 150-450 [facility] Serum Treponema species anti body detectionOrdered By: Marquita Mcclendon on 12-24-2022 Treponema sp Ab Ql (S) Non-Reactive [facility] Whole blood hemoglobin A1c/t otal hemoglobin ratio (mass fraction)Ordered By: Marquita Mcclendon on 12-24-2022 HbA1c (Bld) [Mass fraction] 5.0 % 3.8-5.6 [facility] Comment on above: Normal < 5.7 % Predi abetic 5.7 - 6.4 % Diabetic >or= 6.5 % Please note range changes. Laboratory - Chemistry and C hemistry - challengeon 11-26-2022 Glucose Ql (U) Negative [facility] Laboratory - Urinalysison Protein Ql (U) Negative [facility] Laboratory - Chemistry and C hemistry - challengeon 10-28-2022 Glucose Ql (U) Negative [facility] Laboratory - Urinalysison Protein Ql (U) Negative [facility] Basophil percentageOrdered B y: Dr. Mayer on 10-03-2022 Bilirubin [Mass/Vol] 0.30 mg/dL 0.20-1.00 [facility] Comment on above: For patients on eltr ombopag therapy, use of Dimension [place] TBIL is not recommended. Chloride [Moles/Vol] 108 mmol/L 98-107 [facility] Cholesterol [Mass/Vol] 184 mg/dL <200 [facility] Comment on above: <200 mg/dL Desirable 200-240 mg/dL Borderline >240 mg/dL High Risk Glucose [Mass/Vol] 91 mg/dL 74-106 [facility] Potassium [Moles/Vol] 3.7 mmol/L 3.5-5.1 [facility] Protein [Mass/Vol] 7.1 g/dL 6.4-8.2 [facility] Sodium [Moles/Vol] 138 mmol/L 136-145 [facility] Triglyceride [Mass/Vol] 210 mg/dL <199 [facility] Comment on above: The drugs N-Acetylcy steine and Metamizole may falsely depress this assay.Serum Triglycerides Reference Interval Normal <150 mg/dL Borderline high 150 - 199 mg/dL High 200 - 499 mg/dL Very High > or = 500 mg/dL Laboratory - Chemistry and C hemistry - challengeOrdered By: Dr. Mayer on 10-03-2022 ALP [Catalytic activity/Vol] 65 U/L 45-117 [facility] ALT [Catalytic activity/Vol] 16 U/L 13-56 [facility] CO2 [Moles/Vol] 22.0 mmol/L 21.0-32.0 [facility] Globulin (S) [Mass/Vol] 4.2 g/dL 2.2-4.2 [facility] Urea nitrogen/Creatinine [Mass ratio] 10.8 mg/mg 10-20 [facility] No Panel InformationOrdered By: Dr. Mayer on 10-03-2022 Estimated GFR (MDRD) Amer 131 mL/min >60 [facility] Comment on above: GFR Calc Estimated GFR (MDRD) Non-Af Amer 108 mL/min >60 [facility] Comment on above: Non- GFR Calc Serum or plasma albumin tal urement (mass/volume)Ordered By: Dr. Mayer on 10-03-2022 Albumin [Mass/Vol] 2.9 g/dL 3.2-5.0 [facility] Serum or plasma albumin/glob ulin mass ratioOrdered By: Dr. Mayer on 10-03-2022 Albumin/Globulin [Mass ratio] 0.7 {ratio} 0.9-2.4 [facility] Serum or plasma calcium tal urement (mass/volume)Ordered By: Dr. Mayer on 10-03-2022 Calcium [Mass/Vol] 8.8 mg/dL 8.5-10.1 [facility] Serum or plasma cholesterol in HDL measurement (mass/volume)Ordered By: Dr. Mayer on 10-03-2022 Cholesterol in HDL [Mass/Vol] 48 mg/dL >40 [facility] Comment on above: The drugs N-Acetylcy steine and Metamizole may falsely depress this assay. Reference Range HDL <40 mg/dL Low HDL Cholesterol HDL >or= 60 mg/dL High HDL Cholesterol Serum or plasma cholesterol in VLDL measurement (mass/volume)Ordered By: Dr. Mayer on 10-03-2022 Cholesterol in VLDL [Mass/Vol] 42 mg/dL 5-40 [facility] Serum or plasma creatinine m easurement (mass/volume)Ordered By: Dr. Mayer on 10-03-2022 Creatinine [Mass/Vol] 0.65 mg/dL 0.55-1.02 [facility] Comment on above: The validity of the calculated GFR & GFRAA in patients over 70 years has not been determined. Clinical correlation is essential. Serum or plasma low density lipoprotein (LDL) cholesterol measurement (mass/volume)Ordered By: Dr. Mayer on 10-03-2022 Cholesterol in LDL [Mass/Vol] 94 mg/dL 0-130 [facility] Serum or plasma urea nitroge n measurement (mass/volume)Ordered By: Dr. Mayer on 10-03-2022 Urea nitrogen [Mass/Vol] 7 mg/dL 7-18 [facility] Thin prep Papanicolaou smear with manual screeningOrdered By: Dr. Mayer on 10-03-2022 Thin prep Papanicolaou smear with manual screening 14 U/L 15-37 [facility] Thin prep Papanicolaou smear with manual screening 8 5-15 [facility] Laboratory - Chemistry and C hemistry - challengeon 09-19-2022 Glucose Ql (U) Negative [facility] Laboratory - Urinalysison Protein Ql (U) Negative [facility] Culture, urineOrdered By: Dr Carlos Mcclendon on 08-21-2022 Bacteria identified Cx Nom (U) Culture exhibits no growth. [facility] Absolute lymphocyte countOrd ered By: Dr. Mcclendon on 08-19-2022 Lymphocytes Auto (Unsp spec) [#/Vol] 2.99 10*3/uL 0.83-4.51 [facility] Basophil percentageOrdered B y: Dr. Mcclendon on 08-19-2022 Basophils/100 WBC (Bld) 0.1 % 0-1 [facility] Eosinophils/100 WBC (Bld) 0.8 % 0-5 [facility] Neutrophils (Bld) [#/Vol] 6.8 10*3/uL 2.0-7.7 [facility] Neutrophils/100 WBC (Bld) 64.8 % 47-70 [facility] WBC (Bld) [#/Vol] 10.4 10*3/uL 4.4-11.0 [facility] Blood erythrocytes count (nu mber/volume)Ordered By: Dr. Mcclendon on 08-19-2022 RBC (Bld) [#/Vol] 4.41 10*6/uL 4.2-5.4 [facility] Blood hemoglobin measurement (mass/volume)Ordered By: Dr. Mcclendon on 08-19-2022 Hemoglobin (Bld) [Mass/Vol] 12.9 g/dL 12.0-15.0 [facility] Blood lymphocytes/100 leukoc ytesOrdered By: Dr. Mcclendon on 08-19-2022 Lymphocytes/100 WBC (Bld) 28.7 % 19-41 [facility] Blood monocytes/100 leukocyt esOrdered By: Dr. Mcclendon on 08-19-2022 Monocytes/100 WBC (Bld) 5.4 % 0-10 [facility] Blood platelet mean volumeOr dered By: Dr. Mcclendon on 08-19-2022 Platelet mean volume (Bld) [Entitic vol] 9.4 fL 6.2-12.0 [facility] Chlamydia trachomatis rRNA d etection by probe and target amplification methodOrdered By: Dr. Mcclendon on 08-19-2022 C. trachomatis rRNA JENNA+probe Ql (Unsp spec) Negative Negative [facility] Determination of erythrocyte mean corpuscular volume (MCV)Ordered By: Dr. Mcclendon on 08-19-2022 MCV (RBC) [Entitic vol] 86.4 fL 81-99 [facility] HIV 1 and HIV-2 antibody ass ay with HIV-1 p24 antigen detectionOrdered By: Dr. Mcclendon on 08-19-2022 HIV 1+2 Ab+HIV1 p24 Ag IA Ql Non-Reactive Nonreactive [facility] Hematocrit Auto (Bld) [Volum e fraction]Ordered By: Dr. Mcclendon on 08-19-2022 Hematocrit (Bld) [Volume fraction] 38.1 % 37-47 [facility] Laboratory - Hematology and Cell countsOrdered By: Dr. Mcclendon on 08-19-2022 Erythrocyte distribution width (RBC) [Entitic vol] 41.4 fL 35.1-43.9 [facility] Erythrocyte distribution width (RBC) [Ratio] 13.2 % 11.6-14.6 [facility] Immature granulocytes/100 WBC (Bld) 0.200 % 0.0-0.9 [facility] Comment on above: IG% - Immature Granu locytes (promyelocytes, myelocytes and metamyelocytes) > 1% indicates that a LEFT SHIFT is Present. MCH (RBC) [Entitic mass] 29.3 pg 27.0-32.0 [facility] Nucleated RBC/100 WBC (Bld) [Ratio] 0 % 0-5 [facility] Laboratory - Microbiology an d Antimicrobial susceptibilityOrdered By: Dr. Mcclendon on 08-19-2022 N. gonorrhoeae DNA JENNA+probe Ql (Unsp spec) Negative Negative [facility] Comment on above: Performed at: =[address] [id number] Director: Arminda Loving MD, Phone: [phone] MCHC Auto (RBC) [Mass/Vol]Or dered By: Dr. Mcclendon on 08-19-2022 MCHC (RBC) [Mass/Vol] 33.9 g/dL 32-36 [facility] No Panel InformationOrdered By: Dr. Mcclendon on 08-19-2022 Hepatitis B Surface Antigen Non-Reactive Nonreactive [facility] Hepatitis C Antibody Non-Reactive Nonreactive [facility] Comment on above: Non Reactive: < 0.8 Equivocal: >/= 0.8 to < 1.0 Reactive: >/= 1.0The CDC recommends that a reactive/equivocal HCV antibody result be followed up by the HCV Nucleic Acid Amplificationtest (375715) Miscellaneous Test Comment MAILED SPECIMEN [facility] Rubella IgG Antibody Reactive Nonreactive [facility] Comment on above: Antibody Results Int erpretation of Immune Status Non Reactive Presumed Non-Immune Equivocal Equivocal Reactive Presumed Immune Platelets bldOrdered By: Dr. Mcclendon on 08-19-2022 Platelets (Bld) [#/Vol] 278 10*3/uL 150-450 [facility] Serum Treponema species anti body detectionOrdered By: Dr. Mcclendon on 08-19-2022 Treponema sp Ab Ql (S) Non-Reactive [facility] Basophil percentageon 2021 WBC (Bld) [#/Vol] 6.4 10*3/uL 4.4-11.0 [facility] Work Phone: Blood erythrocytes count (nu mber/volume)on 11-16-2021 RBC (Bld) [#/Vol] 4.36 10*6/uL 4.2-5.4 [facility] Work Phone: Blood hemoglobin measurement (mass/volume)on 11-16-2021 Hemoglobin (Bld) [Mass/Vol] 11.5 g/dL 12.0-15.0 [facility] Work Phone: [phone] Blood platelet mean volumeon 11-16-2021 Platelet mean volume (Bld) [Entitic vol] 9.2 fL 6.2-12.0 [facility] Work Phone: [phone] Determination of erythrocyte mean corpuscular volume (MCV)on 11-16-2021 MCV (RBC) [Entitic vol] 82.6 fL 81-99 [facility] Work Phone: [phone] Hematocrit Auto (Bld) [Volum e fraction]on 11-16-2021 Hematocrit (Bld) [Volume fraction] 36.0 % 37-47 [facility] Work Phone: Laboratory - Chemistry and C hemistry - challengeon 11-16-2021 HCG ( test) Ql (U) Negative [facility] Work Phone: Comment on above: Very dilute urine sp ecimens, as indicated by a low specificgravity, may not contain patient support representative levels of hCG. If is still suspected, a first morning urinespecimen should be collected 48 hours later and tested. Laboratory - Hematology and Cell countson 11-16-2021 Erythrocyte distribution width (RBC) [Entitic vol] 51.4 fL 35.1-43.9 [facility] Work Phone: Erythrocyte distribution width (RBC) [Ratio] 17.0 % 11.6-14.6 [facility] Work Phone: MCH (RBC) [Entitic mass] 26.4 pg 27.0-32.0 [facility] Work Phone: MCHC Auto (RBC) [Mass/Vol]on 11-16-2021 MCHC (RBC) [Mass/Vol] 31.9 g/dL 32-36 [facility] Work [facility]: Platelets bldon 11-16-2021 Platelets (Bld) [#/Vol] 251 10*3/uL 150-450 [facility] Work Phone: Basophil percentageon 2021 WBC (Bld) [#/Vol] 10.7 10*3/uL 4.4-11.0 [facility] Work Phone: Blood erythrocytes count (nu mber/volume)on 09-13-2021 RBC (Bld) [#/Vol] 3.08 10*6/uL 4.2-5.4 [facility] Work Phone: Blood hemoglobin measurement (mass/volume)on 09-13-2021 Hemoglobin (Bld) [Mass/Vol] 8.1 g/dL 12.0-15.0 [facility] Work Phone: Blood platelet mean volumeon 09-13-2021 Platelet mean volume (Bld) [Entitic vol] 10.4 fL 6.2-12.0 [facility] Work Phone: Determination of erythrocyte mean corpuscular volume (MCV)on 09-13-2021 MCV (RBC) [Entitic vol] 85.1 fL 81-99 [facility] Work Phone: Hematocrit Auto (Bld) [Volum e fraction]on 09-13-2021 Hematocrit (Bld) [Volume fraction] 26.2 % 37-47 [facility] Work Phone: Laboratory - Hematology and Cell countson 09-13-2021 Erythrocyte distribution width (RBC) [Entitic vol] 46.6 fL 35.1-43.9 [facility] Work Phone: Erythrocyte distribution width (RBC) [Ratio] 15.2 % 11.6-14.6 [facility] Work Phone: MCH (RBC) [Entitic mass] 26.3 pg 27.0-32.0 [facility] Work Phone: MCHC Auto (RBC) [Mass/Vol]on 09-13-2021 MCHC (RBC) [Mass/Vol] 30.9 g/dL 32-36 [facility] Work Phone: Platelets bldon 09-13-2021 Platelets (Bld) [#/Vol] 204 10*3/uL 150-450 [facility] Work Phone: Absolute lymphocyte counton 09-12-2021 Lymphocytes Auto (Unsp spec) [#/Vol] 3.34 10*3/uL 0.83-4.51 [facility] Work Phone: Basophil percentageon 2021 Basophils/100 WBC (Bld) 0.1 % 0-1 [facility] Work Phone: Eosinophils/100 WBC (Bld) 1.1 % 0-5 [facility] Work Phone: Neutrophils (Bld) [#/Vol] 4.9 10*3/uL 2.0-7.7 [facility] Work Phone: Neutrophils/100 WBC (Bld) 54.4 % 47-70 [facility] Work Phone: Blood lymphocytes/100 leukoc yteson 09-12-2021 Lymphocytes/100 WBC (Bld) 37.3 % 19-41 [facility] Work Phone: Blood monocytes/100 leukocyt eson 09-12-2021 Monocytes/100 WBC (Bld) 6.5 % 0-10 [facility] Work Phone: Laboratory - Hematology and Cell countson 09-12-2021 Immature granulocytes/100 WBC (Bld) 0.600 % 0.0-0.9 [facility] Work Phone: Comment on above: IG% - Immature Granu locytes (promyelocytes, myelocytes and metamyelocytes) > 1% indicates that a LEFT SHIFT is Present. Nucleated RBC/100 WBC (Bld) [Ratio] 0 % 0-5 [facility] Work Phone: No Panel Informationon 08-20 Group B Streptococcus Culture Group B Beta Streptococcus is not isolated. [facility] Work Phone: No Panel Informationon 07-30 POC SARS CoV-2 Antigen Negative [facility] Work Phone: [phone] Basophil percentageon 2021 WBC (Bld) [#/Vol] 7.6 10*3/uL 4.4-11.0 [facility] Work Phone: [phone] Blood erythrocytes count (nu mber/volume)on 06-22-2021 RBC (Bld) [#/Vol] 3.86 10*6/uL 4.2-5.4 [facility] Work Phone: Blood hemoglobin measurement (mass/volume)on 06-22-2021 Hemoglobin (Bld) [Mass/Vol] 11.4 g/dL 12.0-15.0 [facility] Work Phone: [phone] Blood platelet mean volumeon 06-22-2021 Platelet mean volume (Bld) [Entitic vol] 10.1 fL 6.2-12.0 [facility] Work Phone: [phone] Determination of erythrocyte mean corpuscular volume (MCV)on 06-22-2021 MCV (RBC) [Entitic vol] 88.9 fL 81-99 [facility] Work Phone: [phone] Gestational diabetes screen 1-hour screen with 50g oral glucose loadon 06-22-2021 Glucose 1 Hr post 50 g glucose PO [Mass/Vol] 135 mg/dL 70-140 [facility] Work Phone: Hematocrit Auto (Bld) [Volum e fraction]on 06-22-2021 Hematocrit (Bld) [Volume fraction] 34.3 % 37-47 [facility] Work Phone: Laboratory - Hematology and Cell countson 06-22-2021 Erythrocyte distribution width (RBC) [Entitic vol] 44.7 fL 35.1-43.9 [facility] Work Phone: Erythrocyte distribution width (RBC) [Ratio] 13.9 % 11.6-14.6 [facility] Work Phone: MCH (RBC) [Entitic mass] 29.5 pg 27.0-32.0 [facility] Work Phone: MCHC Auto (RBC) [Mass/Vol]on 06-22-2021 MCHC (RBC) [Mass/Vol] 33.2 g/dL 32-36 [facility] Work Phone: Platelets bldon 06-22-2021 Platelets (Bld) [#/Vol] 218 10*3/uL 150-450 [facility] Work Phone: CNOVon 07-05-2019 CNOV Office Visit (WSTR) INNA CANO ([id number]) 1985 F Date Time Provider Department 07/05/19 7:45 PM CHELSEA JEAN (MITCHEL) [facility] During your visit today, we recorded the following information about you: Temperature Pulse Respiration Blood pressure 97.3 degrees 74/minute 16/minute 122/74 Weight 93.4 kg Chelsea Jean APRN.CNP 07/06/2019 9:29 AM Signed Subjective HPI HPI Inna Cano is a 33 year old female who presents today for CC of sinus pressure, sore throat, ear pain. Sore throat 1 week, sinus pressure for 1 month. Has tried otc medication. Risk factors hx of sinusitis. 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 - TONSILLECTOMY AND ADENOIDECTOMY HX 1986 ALLERGIES Seasonal Allergies -This section reviewed with patient, no changes MEDICATIONS MULTI-VITAMIN ORAL Take by mouth once daily. sertraline HCl (ZOLOFT ORAL) Take by mouth. fluticasone (FLONASE) 50 mcg/actuation nasal spray Use 2 Sprays in each nostril once daily. Rinse mouth after use. lfkxxsjjn-quemia-tyg opine-scop () 16.2-0.1037 -0.0194 mg per tablet Take 1 tablet by mouth every 6 hours as needed. venlafaxine (EFFEXOR) 75 mg tablet Take 75 mg by mouth twice daily. DICYCLOMINE HCL (DICYCLOMINE ORAL) Take by mouth as needed. FEXOFENADINE HCL (JEROME ORAL) Take by mouth as needed. FAMILY HISTORY Problem Relation Age of Onset - other (Diverticulitus [Other]) Father Social History Tobacco Use - Smoking status: Never Smoker - Smokeless tobacco: Never Used Substance Use Topics - Alcohol use: Yes Comment: Occassional - Drug use: No Review of Systems Constitutional: Negative for fever. HENT: Positive for congestion, ear pain, sinus pain and sore throat. Negative for ear discharge and nosebleeds. Respiratory: Positive for cough. Negative for shortness of breath and wheezing. Musculoskeletal: Negative for neck pain. Skin: Negative for itching and rash. Objective Blood pressure 122/74, pulse 74, temperature 36.3 ?C (97.3 ?F), temperature source Tympanic, resp. rate 16, weight 93.4 kg (206 lb), SpO2 97 %. Physical Exam Constitutional: She is oriented to person, place, and time and well-developed, well-nourished, and in no distress. Non-toxic appearance. She does not have a sickly appearance. No distress. HENT: Head: Normocephalic and atraumatic. Right Ear: Hearing, tympanic membrane, external ear and ear canal normal. Left Ear: Hearing, tympanic membrane, external ear and ear canal normal. Nose: Right sinus exhibits maxillary sinus tenderness. Left sinus exhibits maxillary sinus tenderness. Mouth/Throat: Uvula is midline, oropharynx is clear and moist and mucous membranes are normal. Eyes: Pupils are equal, round, and reactive to light. Conjunctivae and lids are normal. Right eye exhibits no discharge. Left eye exhibits no discharge. No scleral icterus. Neck: Trachea normal and normal range of motion. Neck supple. Cardiovascular: Normal rate, regular rhythm and normal heart sounds. Pulmonary/Chest: Effort normal and breath sounds normal. Lymphadenopathy: She has no cervical adenopathy. Neurological: She is alert and oriented to person, place, and time. Skin: No rash noted. She is not diaphoretic. ASSESSMENT/PLAN: 1. Bacterial sinusitis - ICD9: 473.9, 041.9, ICD10: J32.9, B96.89 (primary diagnosis) - Will begin treatment with Augmentin 875 mg PO BID for 10 days - Supportive care with plenty of fluids, rest, and analgesia prn. - Follow up in 3-5 days if symptoms persist or worsen. - AMOXICILLIN 875 MG-POTASSIUM CLAVULANATE 125 MG TABLET - FLUTICASONE PROPIONATE 50 MCG/ACTUATION NASAL SPRAY,SUSPENSION 2. Sore throat - ICD9: 462, ICD10: J02.9 Sore throat new onset, sinus symptoms have been occurring for much longer - Rapid Strep negative in the office today and Throat culture pending - Discussed supportive care treatment with fluids, rest and analgesia. - The patient should follow up in 3-5 days if symptoms persist or worsen - Call back if drooling, increased temperature, symptoms of dehydration and/or still sick in one week - GROUP A STREPTOCOCCUS BY PCR - RAPID STREP TEST B/O Prescription instructions reviewed with patient as applicable. Patient advised if symptoms do not improve or if symptoms worsen sooner, to contact the office for further evaluation by their primary care physician. Potential red flag symptoms discussed with the patient. Reviewed appropriate action plan to take if red flag symptoms occur. Patient agreeable to treatment plan. Chelsea Jean APRN.MEASUREMENT OPERATOR Referring Provider: SELF [[id number]] Allergies As of Date: 07/05/2019 Noted Allergy Reaction SEASONAL ALLERGIES 03/14/2015 14 - Other: See Comments Comments: Sinus issues Date Reviewed: 07/05/2019 Reviewed by: Paige Johnston Ma - Fully Assessed Reason for Visit: Sinus Problem [99] Cmt: sinus pressure, drainage, right ear and gland pain with sore throat x couple weeks Primary Visit Diagnosis:Bacterial sinusitis [J32.9, B96.89] Other Visit Diagnosis:Sore throat [J02.9] Order(s):GROUP A STREPTOCOCCUS BY PCR [SQGASPCR] Order #: [id number] RAPID STREP TEST B/O [[id number]] Order #: [id number] amoxicillin-clavulan ic acid (AUGMENTIN) 875-125 mg per tabletTake 1 tablet by mouth twice daily for 10 days.Disp: 20 tabletRfl: 0 fluticasone (FLONASE) 50 mcg/actuation nasal sprayUse 2 Sprays in each nostril once daily. Rinse mouth after use.Disp: 1 BottleRfl: 1 Prescriptions as of 07/05/2019 Sig: MULTI-VITAMIN ORAL Take by mouth once daily. AMOXICILLIN 875 MG-POTASSIUM * Take 1 tablet by mouth twice * FLUTICASONE PROPIONATE 50 MCG* Use 2 Sprays in each nostril * ZOLOFT ORAL Take by mouth. FLUTICASONE PROPIONATE 50 MCG* Use 2 Sprays in each nostril * Patient not taking: Reported on 07/05/2019 PHENOBARB-HYOSCYAMN- ATROPINE-* Take 1 tablet by mouth every * Patient not taking: Reported on 11/11/2017 VENLAFAXINE 75 MG TABLET Take 75 mg by mouth twice rosa* DICYCLOMINE ORAL Take by mouth as needed. JEROME ORAL Take by mouth as needed. Problem List As Of Date 07/05/2019 Noted Resolved Depression [F32.9] 08/08/2014 ADHD (attention deficit hyperactivity disorder)*08/08/2014 Anxiety [F41.9] 08/08/2014 IBS (irritable bowel syndrome) [K58.9] 03/27/2015 Asthma [J45.909] 03/27/2015 Obesity [E66.9] 03/27/2015 Irritable bowel syndrome with diarrhea [K58.0] 03/30/2015 03/30/2015 Prescriptions ordered this encounter Disp Refills Start End AMOXICILLIN 875 MG-POTASSIUM CLAVULA* 20 t* 0 07/05/2019 07/15/2019 Route: ORAL Sig: Take 1 tablet by mouth twice daily for 10 days. FLUTICASONE PROPIONATE 50 MCG/ACTUAT* 1 Richie* 1 07/05/2019 Route: EACH NOSTRIL Sig: Use 2 Sprays in each nostril once daily. Rinse mouth after use. Encounter Status:Closed by CHELSEA JEAN CNP on 07/06/19 Normal [facility] Group A Strep by PCRon 07-05 GAS Specimen Source Throat Swab Normal [facility] Comment on above: Performed By: #### G ASPCR #### [id number] [place] [address] Group A Strep PCR Negative Normal [facility] Comment on above: Result Comment: This test was developed and its performance characteristics determined by [facility] [place] ( [facility]). It has not been cleared or approved by the FDA. [facility] is regulated under CLIA as qualified to perform high complexity testing. This test is used for clinical purposes. It should not be regarded as investigational or for research. Performed By: #### G ASPCR #### [facility] [address] [id number] PROGRESSon 07-05-2019 PROGRESS HNO ID: [id number] Author: Chelsea (Mitchel) Service: ? Author Type: Nurse Practitioner Type: Progress Notes Filed: 07/06/2019 9:29 AM Note Text: Subjective HPI HPI Inna Cano is a 33 year old female who presents today for CC of sinus pressure, sore throat, ear pain. Sore throat 1 week, sinus pressure for 1 month. Has tried otc medication. Risk factors hx of sinusitis. 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 - TONSILLECTOMY AND ADENOIDECTOMY HX 1986 ALLERGIES Seasonal Allergies -This section reviewed with patient, no changes MEDICATIONS MULTI-VITAMIN ORAL Take by mouth once daily. sertraline HCl (ZOLOFT ORAL) Take by mouth. fluticasone (FLONASE) 50 mcg/actuation nasal spray Use 2 Sprays in each nostril once daily. Rinse mouth after use. pjwrizhhs-xjikbw-oza opine-scop () 16.2-0.1037 -0.0194 mg per tablet Take 1 tablet by mouth every 6 hours as needed. venlafaxine (EFFEXOR) 75 mg tablet Take 75 mg by mouth twice daily. DICYCLOMINE HCL (DICYCLOMINE ORAL) Take by mouth as needed. FEXOFENADINE HCL (JEROME ORAL) Take by mouth as needed. FAMILY HISTORY Problem Relation Age of Onset - other (Diverticulitus [Other]) Father Social History Tobacco Use - Smoking status: Never Smoker - Smokeless tobacco: Never Used Substance Use Topics - Alcohol use: Yes Comment: Occassional - Drug use: No Review of Systems Constitutional: Negative for fever. HENT: Positive for congestion, ear pain, sinus pain and sore throat. Negative for ear discharge and nosebleeds. Respiratory: Positive for cough. Negative for shortness of breath and wheezing. Musculoskeletal: Negative for neck pain. Skin: Negative for itching and rash. Objective Blood pressure 122/74, pulse 74, temperature 36.3 ?C (97.3 ?F), temperature source Tympanic, resp. rate 16, weight 93.4 kg (206 lb), SpO2 97 %. Physical Exam Constitutional: She is oriented to person, place, and time and well-developed, well-nourished, and in no distress. Non-toxic appearance. She does not have a sickly appearance. No distress. HENT: Head: Normocephalic and atraumatic. Right Ear: Hearing, tympanic membrane, external ear and ear canal normal. Left Ear: Hearing, tympanic membrane, external ear and ear canal normal. Nose: Right sinus exhibits maxillary sinus tenderness. Left sinus exhibits maxillary sinus tenderness. Mouth/Throat: Uvula is midline, oropharynx is clear and moist and mucous membranes are normal. Eyes: Pupils are equal, round, and reactive to light. Conjunctivae and lids are normal. Right eye exhibits no discharge. Left eye exhibits no discharge. No scleral icterus. Neck: Trachea normal and normal range of motion. Neck supple. Cardiovascular: Normal rate, regular rhythm and normal heart sounds. Pulmonary/Chest: Effort normal and breath sounds normal. Lymphadenopathy: She has no cervical adenopathy. Neurological: She is alert and oriented to person, place, and time. Skin: No rash noted. She is not diaphoretic. ASSESSMENT/PLAN: 1. Bacterial sinusitis - ICD9: 473.9, 041.9, ICD10: J32.9, B96.89 (primary diagnosis) - Will begin treatment with Augmentin 875 mg PO BID for 10 days - Supportive care with plenty of fluids, rest, and analgesia prn. - Follow up in 3-5 days if symptoms persist or worsen. - AMOXICILLIN 875 MG-POTASSIUM CLAVULANATE 125 MG TABLET - FLUTICASONE PROPIONATE 50 MCG/ACTUATION NASAL SPRAY,SUSPENSION 2. Sore throat - ICD9: 462, ICD10: J02.9 Sore throat new onset, sinus symptoms have been occurring for much longer - Rapid Strep negative in the office today and Throat culture pending - Discussed supportive care treatment with fluids, rest and analgesia. - The patient should follow up in 3-5 days if symptoms persist or worsen - Call back if drooling, increased temperature, symptoms of dehydration and/or still sick in one week - GROUP A STREPTOCOCCUS BY PCR - RAPID STREP TEST B/O Prescription instructions reviewed with patient as applicable. Patient advised if symptoms do not improve or if symptoms worsen sooner, to contact the office for further evaluation by their primary care physician. Potential red flag symptoms discussed with the patient. Reviewed appropriate action plan to take if red flag symptoms occur. Patient agreeable to treatment plan. Chelsea Jean APRN.MEASUREMENT OPERATOR [facility] CNOVon 10-15-2018 CNOV Office Visit ([facility]) INNA CANO ([id number]) 1985 F Date Time Provider Department 10/15/18 9:45 AM SELENA GUZMAN ([employer] [facility]) [facility] During your visit today, we recorded the following information about you: Temperature Pulse Respiration Blood pressure 98.7 degrees 85/minute 16/minute 100/62 Weight 91.2 kg Selena Guzman APRN.CNP 10/15/2018 11:12 AM Signed Subjective HPI Inna Cano is a 33 year old female who presents with 10 days of congestion, cough, sinus pressure. She has taken sudafed without relief. PMH significant for exercise induced asthma. She is currently 4 months . Her son was diagnosed with strep throat today. Review of Systems Constitutional: Negative. Negative for fever. HENT: Positive for congestion and sinus pain. Respiratory: Positive for cough. Negative for shortness of breath. Cardiovascular: Negative. Gastrointestinal: Positive for nausea (due to sinus drainage). Negative for diarrhea and vomiting. Neurological: Positive for headaches (sinus). BP 100/62 Pulse 85 Temp 37.1 ?C (98.7 ?F) (Tympanic) Resp 16 Wt 91.2 kg (201 lb) LMP 11/09/2017 SpO2 96% BMI 35.61 kg/m? PAST MEDICAL HISTORY Diagnosis Date - Anxiety - Asthma - Depression - IBS (irritable bowel syndrome) 2008 PAST SURGICAL HISTORY Procedure Laterality Date - COLONOSCOP W/ OR W/O [facility] SPEC 03/30/15 Colonoscopy - CYSTOSCOPY 2011 - EYE SURGERY PROCEDURE Right 95,, x3 (lazy eye) - PAST SURGICAL HISTORY OF 2013 lipoma removal left forearm. - TONSILLECTOMY AND ADENOIDECTOMY HX 1986 ALLERGIES Seasonal Allergies MEDICATIONS fluticasone (FLONASE) 50 mcg/actuation nasal spray Use 2 Sprays in each nostril once daily. Rinse mouth after use. MULTI-VITAMIN ORAL Take by mouth once daily. sertraline HCl (ZOLOFT ORAL) Take by mouth. qjufvojsd-maguny-mnh opine-scop () 16.2-0.1037 -0.0194 mg per tablet Take 1 tablet by mouth every 6 hours as needed. venlafaxine (EFFEXOR) 75 mg tablet Take 75 mg by mouth twice daily. DICYCLOMINE HCL (DICYCLOMINE ORAL) Take by mouth as needed. FEXOFENADINE HCL (JEROME ORAL) Take by mouth as needed. FAMILY HISTORY Problem Relation Age of Onset - other (Diverticulitus [Other]) Father Social History Tobacco Use - Smoking status: Never Smoker - Smokeless tobacco: Never Used Substance Use Topics - Alcohol use: Yes Comment: Occassional - Drug use: No Objective Physical Exam Constitutional: She is well-developed, well-nourished, and in no distress. HENT: Right Ear: Tympanic membrane, external ear and ear canal normal. Left Ear: Tympanic membrane, external ear and ear canal normal. Nose: Mucosal edema, rhinorrhea and sinus tenderness present. Mouth/Throat: Uvula is midline, oropharynx is clear and moist and mucous membranes are normal. No posterior oropharyngeal edema or posterior oropharyngeal erythema. Neck: Neck supple. Cardiovascular: Normal rate and regular rhythm. Pulmonary/Chest: Effort normal and breath sounds normal. No respiratory distress. She has no wheezes. She has no rales. Lymphadenopathy: She has no cervical adenopathy. Neurological: She is alert. Skin: Skin is warm and dry. No rash noted. Nursing note and vitals reviewed. ASSESSMENT/PLAN: 1. Bacterial sinusitis - ICD9: 473.9, 041.9, ICD10: J32.9, B96.89 - Will begin treatment with Augmentin 875 mg PO BID for 10 days - Supportive care with plenty of fluids, rest, and analgesia prn. - AMOXICILLIN 875 MG-POTASSIUM CLAVULANATE 125 MG TABLET 2. Streptococcus group A exposure - ICD9: V01.89, ICD10: Z20.818 - RAPID STREP TEST B/O- Negative and throat culture pending. - GROUP A STREPTOCOCCUS BY PCR - Follow-up with your PCP in 3-5 days if symptoms have not improved or sooner if symptoms worsen - Discussed red flags and need for immediate medical evaluation if any occur. - Discussed supportive care treatment with fluids, rest and analgesia. - Discussed expected course of illness Selena Guzman APRN.MITCHEL Guzman APRN.MITCHEL 10/15/2018 10:28 AM Signed ASSESSMENT/PLAN: 1. Bacterial sinusitis - ICD9: 473.9, 041.9, ICD10: J32.9, B96.89 - Will begin treatment with Augmentin 875 mg PO BID for 10 days - Supportive care with plenty of fluids, rest, and analgesia prn. - AMOXICILLIN 875 MG-POTASSIUM CLAVULANATE 125 MG TABLET - Follow-up with your PCP in 3-5 days if symptoms have not improved or sooner if symptoms worsen - Discussed red flags and need for immediate medical evaluation if any occur. - Discussed supportive care treatment with fluids, rest and analgesia. - Discussed expected course of illness Selena Garcias-APRN. SeanMEASUREMENT OPERATOR Acute Sinusitis Each of us has four paired cavities (spaces) in our head that are connected to the nose by narrow channels. These cavities, known as sinuses, produce thin mucus that drains out of the channels of the nose. This drainage helps keep the nose clean and free of particles and bacteria. Normally, sinuses are filled with air. But when sinuses become blocked and filled with fluid, bacteria can grow and cause an infection (bacterial sinusitis). Conditions that cause sinus blockage include: ? the common cold ? allergic rhinitis (swelling of the lining of the nose due to allergies) ? nasal polyps (small growths in the lining of the nose), or ? a deviated septum (the wall between the left and right nostril is crooked). Allergies, such as hay fever, can also cause swelling and poor drainage of the sinuses. One confusing factor to consider is that many people with ?sinus headaches? are actually suffering from migraines. In fact, in large clinical studies, up to 90% of people who reported sinus headaches were diagnosed with migraines instead. Migraines can cause headaches in combination with facial pressure over the sinuses, a runny nose, and nasal congestion. If you have symptoms that involve the sinuses, it may be difficult to tell if you have sinusitis, a cold, nasal allergy, or even a migraine. This article will describe the symptoms, diagnosis, and treatment of sinusitis, and how to tell the difference between sinusitis, cold, migraines, and nasal allergy. What is sinusitis? Sinusitis is an inflammation, or swelling, of the tissue lining the sinuses. There are two types of sinusitis: ? Acute bacterial sinusitis: a sudden onset of cold symptoms such as runny nose, stuffy nose, and facial pain that does not go away after 10 days, or symptoms that seem to begin improving but return worse than the initial symptoms. It responds well to antibiotics and decongestants. ? Chronic sinusitis: a condition defined by nasal congestion, drainage, facial pain/pressure, and decreased sense of smell for at least 12 weeks. Who gets sinusitis? Every year, approximately 1 billion Americans have at least one episode of viral sinusitis. About 37 million will develop a bacterial sinusitis. People who have the following conditions have a higher risk of sinusitis: ? Nasal mucus membrane swelling, as from a common cold or allergies ? Blockage of drainage ducts, leading to trapping of mucus ? Structure differences that narrow the drainage ducts ? Conditions that result in an increased risk of infection ? Polyps (growths) In children, common factors in the environment that contribute to sinusitis include allergies, illness from other children at day care or school, and smoke in the environment. In adults, the contributing factors are most frequently viral infections, allergies, and smoking. What are the signs and symptoms of acute sinusitis? The primary symptoms of acute sinusitis include: ? Facial pain/pressure/tender ness ? Nasal stuffiness ? Nasal discharge (thick yellow or green discharge from nose), especially if it is long-lasting. These also may be present with viral illness. ? Loss of smell and taste ? Cough/congestion Additional symptoms may include: ? Fever of 102? or higher ? Ear pain ? Headache ? Bad breath ? Fatigue ? Ache in upper jaw and teeth How is sinusitis diagnosed? To diagnose sinusitis, your doctor will discuss your symptoms and examine your nose for swelling and drainage. Your personal history is most important in diagnosing sinusitis. A physical exam of the ears, nose, and throat is performed to look for signs of obstruction (blockage) or infection. Some patients may have conditions that may need to be referred to a specialist, such as an ear, nose, and throat (ENT) physician. How is sinusitis treated? Acute sinusitis. If you have a simple sinusitis infection, your health care provider may recommend treatment with xchr-ssl-rddwptm medications for cold and allergy, nasal saline irrigation, and drinking fluids (as most sinusitis is viral). Use of prescription intranasal steroid sprays might be added to help control symptoms. However, non-prescription drops or sprays should not be used beyond 5 days -- or they may actually increase congestion. If symptoms do not improve after at least 10 days, if the symptoms seem to be getting worse, or if medications for cold or allergy do not improve symptoms, a bacterial infection may be causing the sinusitis. In this case, antibiotics are given for 7 days in adults and 10 days in children. Antibiotics should improve symptoms within 48 hours. Chronic sinusitis. Treating chronic sinusitis begins with controlling the underlying condition, which is most often allergies. Standard treatments include intranasal steroid sprays, topical antihistamine sprays, or antihistamine pills, and leukotriene antagonists such as montelukast. Often you will be encouraged to rinse the nose with saline irrigations. Sometimes medications may be added to these irrigations. If sinusitis is not controlled, the next step is a visit with an Ear, Nose and Throat Specialist. Will I need to make lifestyle changes? If you have indoor allergies, avoiding triggers -- such as animal dander and dust mites ? is recommended in addition to medications. Smoking is never recommended, but if you do smoke, strongly consider a program to help you stop smoking, as this may be the main reason you have sinus infections. No special diet is required, but drinking extra fluids helps to thin nasal secretions. What are the symptoms of the common cold? An upper respiratory infection (the common cold) is usually caused by a virus that infects the nose and throat. Most upper respiratory infections are not bacterial and do not respond to antibiotics. A cold may cause swelling in the sinuses, preventing the outflow of mucus. Cold symptoms include nasal congestion, runny nose, post-nasal drip (hfhh-ei-teru release of nasal fluid into the back of the throat), headache, achiness, and fatigue. Cough and fever may also go along with these symptoms. Cold symptoms usually build, peak, and slowly disappear. No treatment is necessary for a cold, but some medications can ease symptoms. For example, decongestants may decrease drainage and open the nasal passages. Analgesics (pain relievers) may help with fever and headache. Cough medication may help, as well. Colds will typically last from a few days to about a week. What is the harm in getting an antibiotic for a common cold? Viral infections like the common cold are not cured by antibiotics. Taking an antibiotic for a viral infection unnecessarily puts you at risk for side effects related to the antibiotic. In addition, the overuse of antibiotics leads to antibiotic resistance, which may make future infections more difficult to treat. Finally, the use of inappropriate medication increases health care costs unnecessarily. What are the symptoms of nasal allergy? Symptoms of nasal allergy include: ? Sneezing ? Itchy nose ? Clear, watery nasal discharge ? Nasal blockage ? Feeling fatigued How is nasal allergy treated? Usually medications are prescribed to relieve symptoms. These may include antihistamines, with or without decongestants, or steroid nasal sprays. Other nasal sprays, which deliver antihistamines or cromolyn sodium, are sometimes helpful. If allergy symptoms are chronic (long-term), allergy testing and allergy shots (immunotherapy) may be helpful. How can I tell if I have a sinus infection, cold, or nasal allergy? Although the symptoms of sinusitis and nasal allergy may occur with a common cold, in general, cold-related symptoms disappear within 1 week. The point at which a normal cold ends and a sinus condition begins is not always easy to know. If you are fighting off a cold and develop symptoms of a sinus infection or nasal allergy, see your health care provider. You will be asked to describe your symptoms and medical history. ? How do I know if my sinus condition requires the care of an ear, nose, and throat specialist? Most routine sinus conditions are easily cared for by primary care physicians. If, however, you are bothered by ongoing abnormal symptoms, recurring infections, or have abnormal X-ray findings or complications, a referral to a specialist is appropriate. References ? Angela Ward. et al., IDSA Clinical Practice Guideline for Acute Bacterial Rhinosinusitis in Children and Adults. Clinical Infectious Diseases; 2012;54(8):6577-2241 . ? Chacorta Yates, Sinusitis: Allergies, antibiotics, aspirin, asthma. [facility] Journal of Medicine 2006; 73(7): 671-678 ? National [place] [employer]. Sinusitis (Sinus Infection) Accessed 03/21/2015. ? [employer], [employer]. Sinusitis Accessed 03/21/2015. ? [employer]. Sinus Information Accessed 03/21/2015. ? Jocelyne Ortega., Prevalence of migraine in patients with a history of self-reported or physician-diagnosed sinus headache. [employer], 2003. 164(16):1769-72. ? Copyright 5896-5856 [facility]. All rights reserved. Referring Provider: SELF [200] Allergies As of Date: 10/15/2018 Noted Allergy Reaction SEASONAL ALLERGIES 03/14/2015 14 - Other: See Comments Comments: Sinus issues Date Reviewed: 10/15/2018 Reviewed by: Selena ([facility]) Thomas - Fully Assessed Reason for Visit: Cough [28] Cmt: x 9 days Sinus Problem [99] Cmt: pressure/drainage/co ngestion x 9 days Primary Visit Diagnosis:Bacterial sinusitis [J32.9, B96.89] Other Visit Diagnosis:Streptococ cus group A exposure [Z20.818] Order(s):amoxicillin -clavulanic acid (AUGMENTIN) 875-125 mg per tabletTake 1 tablet by mouth twice daily for 10 days.Disp: 20 tabletRfl: 0 RAPID STREP TEST B/O [0177537] Order #: [id number] GROUP A STREPTOCOCCUS BY PCR [SQGASPCR] Order #: [id number] Prescriptions as of 10/15/2018 Sig: FLUTICASONE PROPIONATE 50 MCG* Use 2 Sprays in each nostril * MULTI-VITAMIN ORAL Take by mouth once daily. AMOXICILLIN 875 MG-POTASSIUM * Take 1 tablet by mouth twice * ZOLOFT ORAL Take by mouth. PHENOBARB-HYOSCYAMN- ATROPINE-* Take 1 tablet by mouth every * Patient not taking: Reported on 11/11/2017 VENLAFAXINE 75 MG TABLET Take 75 mg by mouth twice rosa* DICYCLOMINE ORAL Take by mouth as needed. JEROME ORAL Take by mouth as needed. Problem List As Of Date 10/15/2018 Noted Resolved Depression [F32.9] INVALID FOR* ADHD (attention deficit hyperactivity disorder)*INVALID FOR* Anxiety [F41.9] INVALID FOR* IBS (irritable bowel syndrome) [K58.9] INVALID FOR* Asthma [J45.909] INVALID FOR* Obesity [E66.9] INVALID FOR* Irritable bowel syndrome with diarrhea [K58.0] INVALID FOR*03/30/2015 Other instructions from your clinician: ASSESSMENT/PLAN: 1. Bacterial sinusitis - ICD9: 473.9, 041.9, ICD10: J32.9, B96.89 - Will begin treatment with Augmentin 875 mg PO BID for 10 days - Supportive care with plenty of fluids, rest, and analgesia prn. - AMOXICILLIN 875 MG-POTASSIUM CLAVULANATE 125 MG TABLET - Follow-up with your PCP in 3-5 days if symptoms have not improved or sooner if symptoms worsen - Discussed red flags and need for immediate medical evaluation if any occur. - Discussed supportive care treatment with fluids, rest and analgesia. - Discussed expected course of illness Selena Guzman APRN.MEASUREMENT OPERATOR Acute Sinusitis Each of us has four paired cavities (spaces) in our head that are connected to the nose by narrow channels. These cavities, known as sinuses, produce thin mucus that drains out of the channels of the nose. This drainage helps keep the nose clean and free of particles and bacteria. Normally, sinuses are filled with air. But when sinuses become blocked and filled with fluid, bacteria can grow and cause an infection (bacterial sinusitis). Conditions that cause sinus blockage include: ? the common cold ? allergic rhinitis (swelling of the lining of the nose due to allergies) ? nasal polyps (small growths in the lining of the nose), or ? a deviated septum (the wall between the left and right nostril is crooked). Allergies, such as hay fever, can also cause swelling and poor drainage of the sinuses. One confusing factor to consider is that many people with ?sinus headaches? are actually suffering from migraines. In fact, in large clinical studies, up to 90% of people who reported sinus headaches were diagnosed with migraines instead. Migraines can cause headaches in combination with facial pressure over the sinuses, a runny nose, and nasal congestion. If you have symptoms that involve the sinuses, it may be difficult to tell if you have sinusitis, a cold, nasal allergy, or even a migraine. This article will describe the symptoms, diagnosis, and treatment of sinusitis, and how to tell the difference between sinusitis, cold, migraines, and nasal allergy. What is sinusitis? Sinusitis is an inflammation, or swelling, of the tissue lining the sinuses. There are two types of sinusitis: ? Acute bacterial sinusitis: a sudden onset of cold symptoms such as runny nose, stuffy nose, and facial pain that does not go away after 10 days, or symptoms that seem to begin improving but return worse than the initial symptoms. It responds well to antibiotics and decongestants. ? Chronic sinusitis: a condition defined by nasal congestion, drainage, facial pain/pressure, and decreased sense of smell for at least 12 weeks. Who gets sinusitis? Every year, approximately 1 billion Americans have at least one episode of viral sinusitis. About 37 million will develop a bacterial sinusitis. People who have the following conditions have a higher risk of sinusitis: ? Nasal mucus membrane swelling, as from a common cold or allergies ? Blockage of drainage ducts, leading to trapping of mucus ? Structure differences that narrow the drainage ducts ? Conditions that result in an increased risk of infection ? Polyps (growths) In children, common factors in the environment that contribute to sinusitis include allergies, illness from other children at day care or school, and smoke in the environment. In adults, the contributing factors are most frequently viral infections, allergies, and smoking. What are the signs and symptoms of acute sinusitis? The primary symptoms of acute sinusitis include: ? Facial pain/pressure/tender ness ? Nasal stuffiness ? Nasal discharge (thick yellow or green discharge from nose), especially if it is long-lasting. These also may be present with viral illness. ? Loss of smell and taste ? Cough/congestion Additional symptoms may include: ? Fever of 102? or higher ? Ear pain ? Headache ? Bad breath ? Fatigue ? Ache in upper jaw and teeth How is sinusitis diagnosed? To diagnose sinusitis, your doctor will discuss your symptoms and examine your nose for swelling and drainage. Your personal history is most important in diagnosing sinusitis. A physical exam of the ears, nose, and throat is performed to look for signs of obstruction (blockage) or infection. Some patients may have conditions that may need to be referred to a specialist, such as an ear, nose, and throat (ENT) physician. How is sinusitis treated? Acute sinusitis. If you have a simple sinusitis infection, your health care provider may recommend treatment with zvcv-tgi-rmcjxli medications for cold and allergy, nasal saline irrigation, and drinking fluids (as most sinusitis is viral). Use of prescription intranasal steroid sprays might be added to help control symptoms. However, non-prescription drops or sprays should not be used beyond 5 days -- or they may actually increase congestion. If symptoms do not improve after at least 10 days, if the symptoms seem to be getting worse, or if medications for cold or allergy do not improve symptoms, a bacterial infection may be causing the sinusitis. In this case, antibiotics are given for 7 days in adults and 10 days in children. Antibiotics should improve symptoms within 48 hours. Chronic sinusitis. Treating chronic sinusitis begins with controlling the underlying condition, which is most often allergies. Standard treatments include intranasal steroid sprays, topical antihistamine sprays, or antihistamine pills, and leukotriene antagonists such as montelukast. Often you will be encouraged to rinse the nose with saline irrigations. Sometimes medications may be added to these irrigations. If sinusitis is not controlled, the next step is a visit with an Ear, Nose and Throat Specialist. Will I need to make lifestyle changes? If you have indoor allergies, avoiding triggers -- such as animal dander and dust mites ? is recommended in addition to medications. Smoking is never recommended, but if you do smoke, strongly consider a program to help you stop smoking, as this may be the main reason you have sinus infections. No special diet is required, but drinking extra fluids helps to thin nasal secretions. What are the symptoms of the common cold? An upper respiratory infection (the common cold) is usually caused by a virus that infects the nose and throat. Most upper respiratory infections are not bacterial and do not respond to antibiotics. A cold may cause swelling in the sinuses, preventing the outflow of mucus. Cold symptoms include nasal congestion, runny nose, post-nasal drip (fgcs-rr-awib release of nasal fluid into the back of the throat), headache, achiness, and fatigue. Cough and fever may also go along with these symptoms. Cold symptoms usually build, peak, and slowly disappear. No treatment is necessary for a cold, but some medications can ease symptoms. For example, decongestants may decrease drainage and open the nasal passages. Analgesics (pain relievers) may help with fever and headache. Cough medication may help, as well. Colds will typically last from a few days to about a week. What is the harm in getting an antibiotic for a common cold? Viral infections like the common cold are not cured by antibiotics. Taking an antibiotic for a viral infection unnecessarily puts you at risk for side effects related to the antibiotic. In addition, the overuse of antibiotics leads to antibiotic resistance, which may make future infections more difficult to treat. Finally, the use of inappropriate medication increases health care costs unnecessarily. What are the symptoms of nasal allergy? Symptoms of nasal allergy include: ? Sneezing ? Itchy nose ? Clear, watery nasal discharge ? Nasal blockage ? Feeling fatigued How is nasal allergy treated? Usually medications are prescribed to relieve symptoms. These may include antihistamines, with or without decongestants, or steroid nasal sprays. Other nasal sprays, which deliver antihistamines or cromolyn sodium, are sometimes helpful. If allergy symptoms are chronic (long-term), allergy testing and allergy shots (immunotherapy) may be helpful. How can I tell if I have a sinus infection, cold, or nasal allergy? Although the symptoms of sinusitis and nasal allergy may occur with a common cold, in general, cold-related symptoms disappear within 1 week. The point at which a normal cold ends and a sinus condition begins is not always easy to know. If you are fighting off a cold and develop symptoms of a sinus infection or nasal allergy, see your health care provider. You will be asked to describe your symptoms and medical history. ? How do I know if my sinus condition requires the care of an ear, nose, and throat specialist? Most routine sinus conditions are easily cared for by primary care physicians. If, however, you are bothered by ongoing abnormal symptoms, recurring infections, or have abnormal X-ray findings or complications, a referral to a specialist is appropriate. References ? Angela Ward. et al., IDSA Clinical Practice Guideline for Acute Bacterial Rhinosinusitis in Children and Adults. Clinical Infectious Diseases; 2012;54(8):4266-6274 . ? Chacorta Yates, Sinusitis: Allergies, antibiotics, aspirin, asthma. [facility] Journal of Medicine 2006; 73(7): 671-678 ? National [place] of Allergy and Infectious [employer]. Sinusitis (Sinus Infection) Accessed 03/21/2015. ? [employer], [employer]. Sinusitis Accessed 03/21/2015. ? [employer]. Sinus Information Accessed 03/21/2015. ? Jocelyne Ortega., Prevalence of migraine in patients with a history of self-reported or physician-diagnosed sinus headache. [employer], 2004. 164(16):1769-72. ? Copyright 5801-7469 [facility]. All rights reserved. Prescriptions ordered this encounter Disp Refills Start End AMOXICILLIN 875 MG-POTASSIUM CLAVULA* 20 t* 0 10/15/2018 10/25/2018 Route: ORAL Sig: Take 1 tablet by mouth twice daily for 10 days. Encounter Status:Closed by SELENA GUZMAN on 10/15/18 Normal [facility] Group A Strep by PCRon 10-15 GAS Specimen Source Throat Swab Normal [facility] Comment on above: Performed By: #### G ASPCR #### [facility] [address] [id number] Group A Strep PCR Negative Normal [facility] Comment on above: Result Comment: This test was developed and its performance characteristics determined by [facility]'s Tad Packer [facility] [place] [facility] It has not been cleared or approved by the FDA. [facility] is regulated under CLIA as qualified to perform high-complexity testing. This test is used for clinical purposes. It should not be regarded as investigational or for research. Performed By: #### G ASPCR #### [facility] [address] [id number] PROGRESSon 10-15-2018 PROGRESS HNO ID: [id number] Author: Selena (Apparel Pattern Maker) Thomas Service: ? Author Type: Nurse Practitioner Type: Progress Notes Filed: 10/15/2018 11:12 AM Note Text: Subjective HPI Inna Cano is a 33 year old female who presents with 10 days of congestion, cough, sinus pressure. She has taken sudafed without relief. PMH significant for exercise induced asthma. She is currently 4 months . Her son was diagnosed with strep throat today. Review of Systems Constitutional: Negative. Negative for fever. HENT: Positive for congestion and sinus pain. Respiratory: Positive for cough. Negative for shortness of breath. Cardiovascular: Negative. Gastrointestinal: Positive for nausea (due to sinus drainage). Negative for diarrhea and vomiting. Neurological: Positive for headaches (sinus). BP 100/62 Pulse 85 Temp 37.1 ?C (98.7 ?F) (Tympanic) Resp 16 Wt 91.2 kg (201 lb) LMP 11/09/2017 SpO2 96% BMI 35.61 kg/m? PAST MEDICAL HISTORY Diagnosis Date - Anxiety - Asthma - Depression - IBS (irritable bowel syndrome) 2008 PAST SURGICAL HISTORY Procedure Laterality Date - COLONOSCOP W/ OR W/O [facility] SPEC 03/30/15 Colonoscopy - CYSTOSCOPY 2011 - EYE SURGERY PROCEDURE Right 95,01,01 x3 (lazy eye) - PAST SURGICAL HISTORY OF 2013 lipoma removal left forearm. - TONSILLECTOMY AND ADENOIDECTOMY HX 1986 ALLERGIES Seasonal Allergies MEDICATIONS fluticasone (FLONASE) 50 mcg/actuation nasal spray Use 2 Sprays in each nostril once daily. Rinse mouth after use. MULTI-VITAMIN ORAL Take by mouth once daily. sertraline HCl (ZOLOFT ORAL) Take by mouth. iqlfjtozu-eysmsl-lnq opine-scop () 16.2-0.1037 -0.0194 mg per tablet Take 1 tablet by mouth every 6 hours as needed. venlafaxine (EFFEXOR) 75 mg tablet Take 75 mg by mouth twice daily. DICYCLOMINE HCL (DICYCLOMINE ORAL) Take by mouth as needed. FEXOFENADINE HCL (JEROME ORAL) Take by mouth as needed. FAMILY HISTORY Problem Relation Age of Onset - other (Diverticulitus [Other]) Father Social History Tobacco Use - Smoking status: Never Smoker - Smokeless tobacco: Never Used Substance Use Topics - Alcohol use: Yes Comment: Occassional - Drug use: No Objective Physical Exam Constitutional: She is well-developed, well-nourished, and in no distress. HENT: Right Ear: Tympanic membrane, external ear and ear canal normal. Left Ear: Tympanic membrane, external ear and ear canal normal. Nose: Mucosal edema, rhinorrhea and sinus tenderness present. Mouth/Throat: Uvula is midline, oropharynx is clear and moist and mucous membranes are normal. No posterior oropharyngeal edema or posterior oropharyngeal erythema. Neck: Neck supple. Cardiovascular: Normal rate and regular rhythm. Pulmonary/Chest: Effort normal and breath sounds normal. No respiratory distress. She has no wheezes. She has no rales. Lymphadenopathy: She has no cervical adenopathy. Neurological: She is alert. Skin: Skin is warm and dry. No rash noted. Nursing note and vitals reviewed. ASSESSMENT/PLAN: 1. Bacterial sinusitis - ICD9: 473.9, 041.9, ICD10: J32.9, B96.89 - Will begin treatment with Augmentin 875 mg PO BID for 10 days - Supportive care with plenty of fluids, rest, and analgesia prn. - AMOXICILLIN 875 MG-POTASSIUM CLAVULANATE 125 MG TABLET 2. Streptococcus group A exposure - ICD9: V01.89, ICD10: Z20.818 - RAPID STREP TEST B/O- Negative and throat culture pending. - GROUP A STREPTOCOCCUS BY PCR - Follow-up with your PCP in 3-5 days if symptoms have not improved or sooner if symptoms worsen - Discussed red flags and need for immediate medical evaluation if any occur. - Discussed supportive care treatment with fluids, rest and analgesia. - Discussed expected course of illness Selena Guzman APRN.MEASUREMENT OPERATOR Normal [facility] SURGICAL PATHOLOGY, [place] Don 03-04-2014 [facility] No Panel Information Group B Streptococcus Culture Group B Beta Streptococcus is not isolated. [facility] Work Phone: Vital Signs Date Time Vital Sign Value Performing Clinician Dawsoni ariel 12-07-2024 14:37-0400 Body temperature 98.4 [degF] Dr. Jermaine Mayer DO Work Phone: [facility] 12-07-2024 14:37-0400 Diastolic blood pressure 53 mm[Hg] Dr. Jermaine Mayer DO Work Phone: [facility] 12-07-2024 14:37-0400 Heart rate 63 /min Dr. Jermaine Mayer DO Work Phone: [facility] 12-07-2024 14:37-0400 Respiratory rate 18 /min Dr. Jermaine Mayer DO Work Phone: [facility] 12-07-2024 14:37-0400 SaO2% (BldA) [Mass fraction] 98 % Dr. Jermaine Mayer DO Work Phone: [facility] 12-07-2024 14:37-0400 Systolic blood pressure 106 mm[Hg] Dr. Jermaine Mayer DO Work Phone: [facility] 12-07-2024 10:07-0400 Body height 160.[address] Jermaine Mayer DO Work Phone: [facility] 12-07-2024 10:07-0400 Body mass index (BMI) [Ratio] 30 kg/m2 Dr. Jermaine Mayer DO Work Phone: [facility] 12-07-2024 10:07-0400 Body weight [address] Jermaine Mayer DO Work Phone: [facility] 11-24-2024 08:38-0400 Body height 160.[address] Jermaine Mayer DO Work Phone: [facility] 11-24-2024 08:38-0400 Body mass index (BMI) [Ratio] 30.8 kg/m2 Dr. Jermaine Mayer DO Work Phone: [facility] 11-24-2024 08:38-0400 Body weight 78.[address] Jermaine Mayer DO Work Phone: [facility] 11-24-2024 08:38-0400 Diastolic blood pressure 70 mm[Hg] Dr. Jermaine Mayer DO Work Phone: [facility] 11-24-2024 08:38-0400 Systolic blood pressure 104 mm[Hg] Dr. Jermaine Mayer DO Work Phone: [facility] 11-01-2024 09:44-0400 Body height 160.[address] Jermaine Mayer DO Work Phone: [facility] 11-01-2024 09:44-0400 Body mass index (BMI) [Ratio] 31.1 kg/m2 Dr. Jermaine Mayer DO Work Phone: [facility] 11-01-2024 09:44-0400 Body weight 79.[address] Jermaine Mayer DO Work Phone: [facility] 11-01-2024 09:44-0400 Diastolic blood pressure 50 mm[Hg] Dr. Jermaine Mayer DO Work Phone: [facility] 11-01-2024 09:44-0400 Systolic blood pressure 118 mm[Hg] Dr. Jermaine Mayer DO Work Phone: [facility] 09-09-2024 09:16-0400 Body height 160.[address] Jermaine Mayer DO Work Phone: [facility] 09-09-2024 09:16-0400 Body mass index (BMI) [Ratio] 32.9 kg/m2 Dr. Jermaine Mayer DO Work Phone: [facility] 09-09-2024 09:16-0400 Body weight 84.[address] Jermaine Mayer DO Work Phone: [facility] 09-09-2024 09:16-0400 Diastolic blood pressure 68 mm[Hg] Dr. Jermaine Mayer DO Work Phone: [facility] 09-09-2024 09:16-0400 Systolic blood pressure 114 mm[Hg] Dr. Jermaine Mayer DO Work Phone: [facility] 09-02-2024 09:30-0400 Body mass index (BMI) [Ratio] 33 kg/m2 Dr. Jermaine Mayer DO Work Phone: [facility] 09-02-2024 09:30-0400 Body weight 84.[address] Jermaine Mayer DO Work Phone: [facility] 09-02-2024 09:30-0400 Diastolic blood pressure 66 mm[Hg] Dr. Jermaine Mayer DO Work Phone: [facility] 09-02-2024 09:30-0400 Systolic blood pressure 100 mm[Hg] Dr. Jermaine Mayer DO Work Phone: [facility] 07-21-2024 14:15-0400 Body height 160.[address] Jermaine Mayer DO Work Phone: [facility] 07-21-2024 14:15-0400 Body mass index (BMI) [Ratio] 35.2 kg/m2 Dr. Jermaine Mayer DO Work Phone: [facility] 07-21-2024 14:15-0400 Body weight 90.[address] Jermaine Mayer DO Work Phone: [facility] 07-21-2024 14:15-0400 Diastolic blood pressure 70 mm[Hg] Dr. Jermaine Mayer DO Work Phone: [facility] 07-21-2024 14:15-0400 Systolic blood pressure 110 mm[Hg] Dr. Jermaine Mayer DO Work Phone: [facility] 07-09-2024 12:44-0500 Body temperature 97.2 [degF] Dr. Jermaine Mayer DO Work Phone: [facility] 07-09-2024 12:44-0500 Diastolic blood pressure 65 mm[Hg] Dr. Jermaine Mayer DO Work Phone: [facility] 07-09-2024 12:44-0500 Heart rate 63 /min Dr. Jermaine Mayer DO Work Phone: [facility] 07-09-2024 12:44-0500 Respiratory rate 14 /min Dr. Jermaine Mayer DO Work Phone: [facility] 07-09-2024 12:44-0500 SaO2% (BldA) [Mass fraction] 100 % Dr. Jermaine Mayer DO Work Phone: [facility] 07-09-2024 12:44-0500 Systolic blood pressure 108 mm[Hg] Dr. Jermaine Mayer DO Work Phone: [facility] 07-09-2024 10:54-0500 Body mass index (BMI) [Ratio] 35.4 kg/m2 Dr. Jermaine Mayer DO Work Phone: [facility] 07-09-2024 10:54-0500 Body weight 90.[address] Jermaine Mayer DO Work Phone: [facility] 05-25-2024 11:20-0500 Body mass index (BMI) [Ratio] 36.8 kg/m2 Dr. Jermaine Mayer DO Work Phone: [facility] 05-25-2024 11:20-0500 Body weight 94.[address] Jermaine Mayer DO Work Phone: [facility] 05-25-2024 11:20-0500 Diastolic blood pressure 54 mm[Hg] Dr. Jermaine Mayer DO Work Phone: [facility] 05-25-2024 11:20-0500 Heart rate 71 /min Dr. Jermaine Mayer DO Work Phone: [facility] 05-25-2024 11:20-0500 Respiratory rate 18 /min Dr. Jermaine Mayer DO Work Phone: [facility] 05-25-2024 11:20-0500 SaO2% (BldA) [Mass fraction] 96 % Dr. Jermaine Mayer DO Work Phone: [facility] 05-25-2024 11:20-0500 Systolic blood pressure 95 mm[Hg] Dr. Jermaine Mayer DO Work Phone: [facility] 04-27-2024 13:28-0500 Body mass index (BMI) [Ratio] 36.9 kg/m2 Dr. Jermaine Mayer DO Work Phone: [facility] 04-27-2024 13:28-0500 Body weight 94.[address] Jermaine Mayer DO Work Phone: [facility] 04-27-2024 13:28-0500 Diastolic blood pressure 72 mm[Hg] Dr. Jermaine Mayer DO Work Phone: [facility] 04-27-2024 13:28-0500 Systolic blood pressure 114 mm[Hg] Dr. Jermaine Mayer DO Work Phone: [facility] 07-23-2023 09:13-0400 Body height 160.[address] Jermaine Mayer Work Phone: [facility] 07-23-2023 09:11-0400 Body mass index (BMI) [Ratio] 36.1 kg/m2 Dr. Jermaine Mayer Work Phone: [facility] 07-23-2023 09:11-0400 Body weight 92.[address] Jermaine Mayer Work Phone: [facility] 07-23-2023 09:11-0400 Diastolic blood pressure 55 mm[Hg] Dr. Jermaine Mayer Work Phone: [facility] 07-23-2023 09:11-0400 Systolic blood pressure 103 mm[Hg] Dr. Jermaine Mayer Work Phone: [facility] 04-23-2023 13:22-0500 Body mass index (BMI) [Ratio] 35.6 kg/m2 Dr. Jermaine Mayer Work Phone: [facility] 04-23-2023 13:22-0500 Body weight 91.[address] Jermaine Mayer Work Phone: [facility] 04-23-2023 13:22-0500 Diastolic blood pressure 73 mm[Hg] Dr. Jermaine Mayer Work Phone: [facility] 04-23-2023 13:22-0500 Systolic blood pressure 125 mm[Hg] Dr. Jermaine Mayer Work Phone: [facility] 03-19-2023 13:33-0500 Body height 160.[address] Jermaine Mayer Work Phone: [facility] 03-19-2023 13:23-0500 Body mass index (BMI) [Ratio] 37.3 kg/m2 Dr. Jermaine Mayer Work Phone: [facility] 03-19-2023 13:23-0500 Body weight 95.[address] Jermaine Mayer Work Phone: [facility] 03-19-2023 13:23-0500 Diastolic blood pressure 82 mm[Hg] Dr. Jermaine Mayer Work Phone: [facility] 03-19-2023 13:23-0500 Systolic blood pressure 130 mm[Hg] Dr. Jermaine Mayer Work Phone: [facility] 03-14-2023 10:31-0400 Respiratory rate 16 /min Dr. Jermaine Mayer Work Phone: [facility] 03-14-2023 07:41-0400 Body temperature 97.9 [degF] Dr. Jermaine Mayer Work Phone: [facility] 03-14-2023 07:41-0400 Diastolic blood pressure 47 mm[Hg] Dr. Jermaine Myaer Work Phone: [facility] 03-14-2023 07:41-0400 Heart rate 85 /min Dr. Jermaine Mayer Work Phone: [facility] 03-14-2023 07:41-0400 SaO2% (BldA) [Mass fraction] 98 % Dr. Jermaine Mayer Work Phone: [facility] 03-14-2023 07:41-0400 Systolic blood pressure 100 mm[Hg] Dr. Jermaine Mayer Work Phone: [facility] 03-12-2023 05:54-0400 Body height 160.[address] Jermaine Mayer Work Phone: [facility] 03-12-2023 05:54-0400 Body mass index (BMI) [Ratio] 39.6 kg/m2 Dr. Jermaine Mayer Work Phone: [facility] 03-12-2023 05:54-0400 Body weight 101.[address] Jermaine Mayer Work Phone: [facility] 03-08-2023 14:12-0400 Diastolic blood pressure 60 mm[Hg] Dr. Jermaine Mayer Work Phone: [facility] 03-08-2023 14:12-0400 Heart rate 101 /min Dr. Jermaine Mayer Work Phone: [facility] 03-08-2023 14:12-0400 Systolic blood pressure 128 mm[Hg] Dr. Jermaine Mayer Work Phone: [facility] 03-08-2023 14:11-0400 Body temperature 99 [degF] Dr. Jermaine Mayer Work Phone: [facility] 03-08-2023 14:05-0400 Body height 160.[address] Jermaine Mayer Work Phone: [facility] 03-08-2023 14:05-0400 Body mass index (BMI) [Ratio] 39.8 kg/m2 Dr. Jermaine Mayer Work Phone: [facility] 03-08-2023 14:05-0400 Body weight 102.[address] Jermaine Mayer Work Phone: [facility] 03-05-2023 10:07-0400 Body mass index (BMI) [Ratio] 41.1 kg/m2 Dr. Jermaine Mayer Work Phone: [facility] 03-05-2023 10:07-0400 Body weight 102.[address] Jermaine Mayer Work Phone: [facility] 03-05-2023 10:07-0400 Diastolic blood pressure 60 mm[Hg] Dr. Jermaine Mayer Work Phone: [facility] 03-05-2023 10:07-0400 Systolic blood pressure 91 mm[Hg] Dr. Jermaine Mayer Work Phone: [facility] 02-26-2023 10:33-0400 Body height 157.[address] Jermaine Mayer Work Phone: [facility] 02-26-2023 10:32-0400 Body mass index (BMI) [Ratio] 40.4 kg/m2 Dr. Jermaine Mayer Work Phone: [facility] 02-26-2023 10:32-0400 Body weight 100.[address] Jermaine Mayer Work Phone: [facility] 02-26-2023 10:32-0400 Diastolic blood pressure 46 mm[Hg] Dr. Jermaine Mayer Work Phone: [facility] 02-26-2023 10:32-0400 Systolic blood pressure 107 mm[Hg] Dr. Jermaine Mayer Work Phone: [facility] 02-18-2023 09:15-0400 Body height 157.[address] Jermaine Mayer Work Phone: [facility] 02-18-2023 09:15-0400 Body mass index (BMI) [Ratio] 39.9 kg/m2 Dr. Jermaine Mayer Work Phone: [facility] 02-18-2023 09:15-0400 Body weight 98.[address] Jermaine Mayer Work Phone: [facility] 02-18-2023 09:15-0400 Diastolic blood pressure 60 mm[Hg] Dr. Jermaine Mayer Work Phone: [facility] 02-18-2023 09:15-0400 Systolic blood pressure 102 mm[Hg] Dr. Jermaine Mayer Work Phone: [facility] 02-04-2023 10:05-0400 Body mass index (BMI) [Ratio] 40.1 kg/m2 Dr. Jermaine Mayer Work Phone: [facility] 02-04-2023 10:05-0400 Body weight 99.[address] Jermaine Mayer Work Phone: [facility] 02-04-2023 10:05-0400 Diastolic blood pressure 64 mm[Hg] Dr. Jermaine Mayer Work Phone: [facility] 02-04-2023 10:05-0400 Systolic blood pressure 102 mm[Hg] Dr. Jermaine Mayer Work Phone: [facility] 01-23-2023 09:32-0400 Body mass index (BMI) [Ratio] 39.7 kg/m2 Dr. Jermaine Mayer Work Phone: [facility] 01-23-2023 09:32-0400 Body weight 98.[address] Jermaine Mayer Work Phone: [facility] 01-23-2023 09:32-0400 Diastolic blood pressure 62 mm[Hg] Dr. Jermaine Mayer Work Phone: [facility] 01-23-2023 09:32-0400 Heart rate 82 /min Dr. Jermaine Mayer Work Phone: [facility] 01-23-2023 09:32-0400 Respiratory rate 18 /min Dr. Jermaine Mayer Work Phone: [facility] 01-23-2023 09:32-0400 Systolic blood pressure 124 mm[Hg] Dr. Jermaine Mayer Work Phone: [facility] 01-07-2023 10:31-0400 Body mass index (BMI) [Ratio] 39.2 kg/m2 Dr. Jermaine Mayer Work Phone: [facility] 01-07-2023 10:31-0400 Body weight 97.[address] Jermaine Mayer Work Phone: [facility] 01-07-2023 10:31-0400 Diastolic blood pressure 63 mm[Hg] Dr. Jermaine Mayer Work Phone: [facility] 01-07-2023 10:31-0400 Systolic blood pressure 101 mm[Hg] Dr. Jermaine Mayer Work Phone: [facility] 12-24-2022 08:15-0400 Body height 157.[address] Jermaine Mayer Work Phone: [facility] 12-24-2022 08:15-0400 Body mass index (BMI) [Ratio] 38.6 kg/m2 Dr. Jermaine Mayer Work Phone: [facility] 12-24-2022 08:15-0400 Body weight 95.[address] Jermaine Mayer Work Phone: [facility] 12-24-2022 08:15-0400 Diastolic blood pressure 72 mm[Hg] Dr. Jermaine Mayer Work Phone: [facility] 12-24-2022 08:15-0400 Systolic blood pressure 124 mm[Hg] Dr. Jermaine Mayer Work Phone: [facility] 12-02-2022 11:17-0400 Body mass index (BMI) [Ratio] 38 kg/m2 Dr. Jermaine Mayer Work Phone: [facility] 12-02-2022 11:17-0400 Body temperature 98.2 [degF] Dr. Jermaine Mayer Work Phone: [facility] 12-02-2022 11:17-0400 Body weight 94.[address] Jermaine Mayer Work Phone: [facility] 12-02-2022 11:17-0400 Heart rate 83 /min Dr. Jermaine Mayer Work Phone: [facility] 12-02-2022 11:17-0400 Respiratory rate 16 /min Dr. Jermaine Mayer Work Phone: [facility] 12-02-2022 11:17-0400 SaO2% (BldA) [Mass fraction] 98 % Dr. Jermaine Mayer Work Phone: [facility] 11-26-2022 10:07-0400 Body mass index (BMI) [Ratio] 36.9 kg/m2 Dr. Jermaine Mayer Work Phone: [facility] 11-26-2022 10:07-0400 Body weight 94.[address] Jermaine Mayer Work Phone: [facility] 11-26-2022 10:07-0400 Diastolic blood pressure 53 mm[Hg] Dr. Jermaine Mayer Work Phone: [facility] 11-26-2022 10:07-0400 Systolic blood pressure 92 mm[Hg] Dr. Jermaine Mayer Work Phone: [facility] 10-28-2022 13:32-0400 Body mass index (BMI) [Ratio] 35.4 kg/m2 Dr. Jermaine Mayer Work Phone: [facility] 10-28-2022 13:32-0400 Body weight 90.[address] Jermaine Mayer Work Phone: [facility] [place] 10-28-2022 13:32-0400 Diastolic blood pressure 70 mm[Hg] Dr. Jermaine Mayer Work Phone: [facility] 10-28-2022 13:32-0400 Systolic blood pressure 128 mm[Hg] Dr. Jermaine Mayer Work Phone: [facility] [place] [facility] 09-25-2022 10:45-0400 Body temperature 98.2 [degF] Dr. Jermaine Mayer Work Phone: [facility] 09-25-2022 10:45-0400 Diastolic blood pressure 78 mm[Hg] Dr. Jermaine Mayer Work Phone: [facility] 09-25-2022 10:45-0400 Heart rate 88 /min Dr. Jermaine Mayer Work Phone: [facility] 09-25-2022 10:45-0400 Respiratory rate 14 /min Dr. Jermaine Mayer Work Phone: [facility] 09-25-2022 10:45-0400 SaO2% (BldA) [Mass fraction] 98 % Dr. Jermaine Mayer Work Phone: [facility] [place] [facility] 09-25-2022 10:45-0400 Systolic blood pressure 122 mm[Hg] Dr. Jermaine Mayer Work Phone: [facility] 09-19-2022 11:40-0400 Body height 160.[address] Jermaine Mayer Work Phone: [facility] 09-19-2022 11:40-0400 Body mass index (BMI) [Ratio] 34.5 kg/m2 Dr. Jermaine Mayer Work Phone: [facility] [place] [facility] 09-19-2022 11:40-0400 Body weight 88.[address] Jermaine Mayer Work Phone: [facility] 09-19-2022 11:40-0400 Diastolic blood pressure 57 mm[Hg] Dr. Jermaine Mayer Work Phone: [facility] 09-19-2022 11:40-0400 Systolic blood pressure 103 mm[Hg] Dr. Jermaine Mayer Work Phone: [facility] [place] [facility] 08-19-2022 13:44-0400 Body mass index (BMI) [Ratio] 34.4 kg/m2 Dr. Jermaine Mayer Work Phone: [facility] [place] [facility] 08-19-2022 13:44-0400 Body weight 88.[address] Jermaine Mayer Work Phone: [facility] 08-19-2022 13:44-0400 Diastolic blood pressure 60 mm[Hg] Dr. Jermaine Mayer Work Phone: [facility] [place] [facility] 08-19-2022 13:44-0400 Systolic blood pressure 91 mm[Hg] Dr. Jermaine Mayer Work Phone: [facility] 11-16-2021 08:41-0400 Body temperature 97.3 [degF] Dr. Jermaine Mayer Work Phone: [facility] [place] [facility] Work Phone: 11-16-2021 08:41-0400 Diastolic blood pressure 60 mm[Hg] Dr. Jermaine Mayer Work Phone: [facility] [place] [facility] Work Phone: 11-16-2021 08:41-0400 Heart rate 49 /min Dr. Jermaine Mayer Work Phone: [facility] [place] [facility] Work Phone: 11-16-2021 08:41-0400 Respiratory rate 16 /min Dr. Jermaine Mayer Work Phone: [facility] [place] [facility] Work Phone: 11-16-2021 08:41-0400 SaO2% (BldA) [Mass fraction] 100 % Dr. Jermaine Mayer Work Phone: [facility] [place] [facility] Work Phone: 11-16-2021 08:41-0400 Systolic blood pressure 95 mm[Hg] Dr. Jermaine Mayer Work Phone: [facility] [place] [facility] Work Phone: 11-16-2021 06:47-0400 Body height 160.[address] Jermaine Mayer Work Phone: [facility] [place] [facility] Work Phone: 11-16-2021 06:47-0400 Body mass index (BMI) [Ratio] 33 kg/m2 Dr. Jermaine Myaer Work Phone: [facility] [place] [facility] Work Phone: 11-16-2021 06:47-0400 Body weight 84.[address] Jermaine Mayer Work Phone: [facility] [place] [facility] Work Phone: 09-14-2021 08:20-0400 Body temperature 98.8 [degF] Dr. Jermaine Mayer Work Phone: [facility] [place] [facility] Work Phone: 09-14-2021 08:20-0400 Diastolic blood pressure 44 mm[Hg] Dr. Jermaine Mayer Work Phone: [facility] Work Phone: 09-14-2021 08:20-0400 Heart rate 18 /min Dr. Jermaine Mayer Work Phone: [facility] [place] [facility] Work Phone: 09-14-2021 08:20-0400 Respiratory rate 18 /min Dr. Jermaine Mayer Work Phone: [facility] [place] [facility] Work Phone: 09-14-2021 08:20-0400 SaO2% (BldA) [Mass fraction] 100 % Dr. Jermaine Mayer Work Phone: [facility] [place] [facility] Work Phone: 09-14-2021 08:20-0400 Systolic blood pressure 103 mm[Hg] Dr. Jermaine Mayer Work Phone: [facility] [place] [facility] Work Phone: 09-12-2021 05:24-0400 Body mass index (BMI) [Ratio] 38.1 kg/m2 Dr. Jermaine Mayer Work Phone: [facility] [place] [facility] Work Phone: 09-12-2021 05:24-0400 Body weight 97.[address] Jermaine Mayer Work Phone: [facility] [place] [facility] Work Phone: 07-30-2021 09:20-0400 Body temperature 98.2 [degF] Dr. Jermaine Mayer Work Phone: [facility] [place] [facility] Work Phone: 07-30-2021 09:20-0400 Diastolic blood pressure 72 mm[Hg] Dr. Jermaine Mayer Work Phone: [facility] Work Phone: 07-30-2021 09:20-0400 Heart rate 104 /min Dr. Jermaine Mayer Work Phone: [facility] [place] [facility] Work Phone: 07-30-2021 09:20-0400 Respiratory rate 16 /min Dr. Jermaine Mayer Work Phone: [facility] [place] [facility] Work Phone: 07-30-2021 09:20-0400 SaO2% (BldA) [Mass fraction] 98 % Dr. Jermaine Mayer Work Phone: [facility] [place] [facility] Work Phone: 07-30-2021 09:20-0400 Systolic blood pressure 122 mm[Hg] Dr. Jermaine Mayer Work Phone: [facility] [place] [facility] Work Phone: 07-30-2021 09:20-0400 Body temperature 98.2 [degF] Dr. Jermaine Mayer Work Phone: [facility] [place] [facility] Work Phone: 07-30-2021 09:20-0400 Diastolic blood pressure 72 mm[Hg] Dr. Jermaine Mayer Work Phone: [facility] [place] [facility] Work Phone: 07-30-2021 09:20-0400 Heart rate 104 /min Dr. Jermaine Mayer Work Phone: [facility] [place] [facility] Work Phone: 07-30-2021 09:20-0400 Respiratory rate 16 /min Dr. Jermaine Mayer Work Phone: [facility] [place] [facility] Work Phone: 07-30-2021 09:20-0400 SaO2% (BldA) [Mass fraction] 98 % Dr. Jermaine Mayer Work Phone: [facility] [place] [facility] Work Phone: 07-30-2021 09:20-0400 Systolic blood pressure 122 mm[Hg] Dr. Jermaine Mayer Work Phone: [facility] [place] [facility] Work Phone: 05-28-2021 10:38-0500 Body temperature 97.6 [degF] Dr. Jermaine Mayer Work Phone: [facility] [place] [facility] Work Phone: 05-28-2021 10:38-0500 Diastolic blood pressure 66 mm[Hg] Dr. Jermaine Mayer Work Phone: [facility] Work Phone: 05-28-2021 10:38-0500 Heart rate 90 /min Dr. Jermaine Mayer Work Phone: [facility] Work Phone: 05-28-2021 10:38-0500 Respiratory rate 16 /min Dr. Jermaine Mayer Work Phone: [facility] Work Phone: 05-28-2021 10:38-0500 SaO2% (BldA) [Mass fraction] 97 % Dr. Jermaine Mayer Work Phone: [facility] Work Phone: 05-28-2021 10:38-0500 Systolic blood pressure 120 mm[Hg] Dr. Jermaine Mayer Work Phone: [facility] Work Phone: Encounters Encounter Date Encounter Type Care Provider Facility Start: 12-07-2024 Non-patient / Non-visit Dr. Marquita Mcclendon MD -[facility] Start: 12-07-2024 End: 12-07-2024 Admission to same day surgery center Dr. Marquita Mcclendon MD -[facility] Start: 12-07-2024 End: 12-07-2024 ambulatory Marquita Mcclendon Facility:[facility] Start: 12-06-2024 Encounter for other preprocedural examination Marquita Mcclendon [facility] Start: 12-03-[address] Jermaine Mayer DO -MRI - [facility] Work Phone: Start: 12-03-2024 ambulatory Jermaine Mayer Facility: [facility] Start: 11-24-[address] Jermaine duncan DO -Physical Therapy Work Phone: Start: 11-24-2024 ambulatory [facility] Facility: [facility] Start: 11-24-2024 End: 11-24-[address] Jermaine Mayer DO Work Phone: -Laboratory [facility] Start: 11-24-2024 End: 11-24-[address] Marquita Mcclendon MD -Laboratory [facility] Work Phone: Start: 11-24-2024 End: 11-24-[address] Marquita Mcclendon MD -[facility] Work Phone: Start: 11-24-2024 End: 11-24-[address] Jermaine Mayer DO Work Phone: -[facility] Start: 11-24-2024 End: 11-24-2024 ambulatory [facility] Facility:[facility] Start: 11-15-2024 End: 11-15-[address] Jermaine Mayer DO Work Phone: -Radiology [facility] Start: 11-15-2024 End: 11-15-[address] Marquita Mcclendon MD -Radiology [facility] Work Phone: Start: 11-15-2024 End: 11-15-2024 ambulatory Jermaine Moreno Facility:[facility] Start: 11-03-2024 End: 11-03-[address] Jermaine Mayer DO Work Phone: -Ultrasound [facility] Start: 11-03-2024 End: 11-03-[address] Marquita Mcclendon MD -Ultrasound [facility] Work Phone: Start: 11-03-2024 End: 11-03-2024 ambulatory [facility] Facility:[facility] Start: 11-01-2024 End: 11-01-[address] Marquita Mcclendon MD -[facility] Work Phone: Start: 11-01-2024 End: 11-01-[address] Jermaine Mayer DO Work Phone: [facility] Work Phone: Start: 09-25-2024 Encounter for genera l adult medical examination without abnormal findings Jermaine [facility] Start: 09-21-2024 End: 09-21-[address] Jermaine Mayer DO Work Phone: [facility] Work Phone: Start: 09-21-2024 End: 09-21-[address] Jermaine Mayer DO -Laboratory [place] Work Phone: Start: 09-21-2024 End: 09-21-2024 ambulatory Jermaine [facility] Facility:[facility] Start: 09-09-2024 End: 09-09-[address] Marquita Mcclendon MD -[facility] Work Phone: Start: 09-09-2024 End: 09-09-2024 ambulatory [facility] Facility:[facility] Start: 09-02-2024 End: 09-02-[address] Marquita Mcclendon MD -[facility] Work Phone: Start: 09-02-2024 End: 09-02-2024 ambulatory [facility] Facility:[facility] Start: 07-21-2024 End: 07-21-[address] Jermaine Mayer DO Work Phone: [facility] Work Phone: Start: 07-21-2024 End: 07-21-2024 Patient encounter procedure Lissette Lim GENERAL MAINTENANCE TECHNICIAN-C -Laboratory, Specimen Work Phone: Start: 07-21-2024 End: 07-21-2024 Patient encounter procedure Lissette Lim GENERAL MAINTENANCE TECHNICIAN-C -[facility] Work Phone: Start: 07-21-2024 End: 07-21-2024 ambulatory [facility] Facility:[facility] Start: 07-21-2024 End: 07-21-2024 ambulatory Lissette Lim Facility:[facility] Start: 07-09-2024 ambulatory Byron Ren Facility :[facility] Start: 07-09-2024 Non-patient / Non-visit Byron Ren DO -[facility] Start: 07-09-2024 End: 07-09-2024 Admission to same day surgery center Byorn Ren DO -Endoscopy Work Phone: Start: 07-09-2024 End: 07-09-2024 ambulatory Jermaine Mayer Facility:[facility] Start: 05-25-2024 End: 05-25-2024 Patient encounter procedure Cinthia Rivas GENERAL MAINTENANCE TECHNICIAN-C -[facility] Work Phone: Start: 05-25-2024 End: 05-25-2024 ambulatory Jermaine FitchMoreno Facility:[facility] Start: 04-27-2024 End: 04-27-2024 Patient encounter procedure Lissette Lim NP-C -[facility] Work Phone: Start: 04-27-2024 End: 04-27-2024 Patient encounter status Lissette Raphael GENERAL MAINTENANCE TECHNICIAN-C [facility] Start: 04-27-2024 End: 04-27-2024 ambulatory Jermaine Mayer Facility:[facility] Start: 12-15-2023 ambulatory Jermaine FitchMoreno Facility: [facility] Start: 08-06-2023 End: 08-06-[address] Jermaine Mayer Work Phone: [facility] Work Phone: Start: 08-06-2023 End: 08-06-[address] Jermaine Mayer Work Phone: [facility] Work Phone: Start: 07-23-2023 End: 07-23-[address] Jermaine Mayer Work Phone: [facility] Work Phone: Start: 07-23-2023 End: 07-23-[address] Jermaine Mayer Work Phone: [facility] Work Phone: Start: 04-23-2023 End: 04-23-[address] Jermaine Mayer Work Phone: [facility] Work Phone: Start: 03-19-2023 End: 03-19-[address] Jermaine Mayer Work Phone: [facility] Work Phone: Start: 03-19-2023 End: 03-19-[address] Jermaine Mayer Work Phone: [facility] Work Phone: Start: 03-14-2023 Non-patient / Non-visit Dr. Jermaine Mayer Work Phone: [facility] Start: 03-13-2023 Non-patient / Non-visit Dr. Jermaine Mayer Work Phone: [facility] Start: 03-12-2023 Non-patient / Non-visit Dr. Jermaine Mayer Work Phone: [facility] Start: 03-12-2023 End: 03-14-2023 Evaluation and management of inpatient Dr. Jermaine Mayer Work Phone: [facility] Work Phone: Start: 03-08-2023 Non-patient / Non-visit Dr. Jermaine Mayer Work Phone: [facility] Start: 03-08-2023 End: 03-08-[address] Jermaine Mayer Work Phone: [facility] Work Phone: Start: 03-08-2023 End: 03-08-[address] [facility] Work Phone: Start: 03-05-2023 End: 03-05-[address] Jermaine Mayer Work Phone: [facility] Work Phone: Start: 02-26-2023 End: 02-26-[address] Jermaine Mayer Work Phone: [facility] Work Phone: Start: 02-26-2023 End: 02-26-[address] Jermaine Mayer Work Phone: [facility] Work Phone: Start: 02-18-2023 End: 02-18-[address] Jermaine Mayer Work Phone: [facility] Work Phone: Start: 02-18-2023 End: 02-18-[address] Jermaine Mayer Work Phone: [facility]-Laboratory, Specimen Work Phone: Start: 02-18-2023 End: 02-18-[address] Jermaine Mayer Work Phone: [facility] Work Phone: Start: 02-04-2023 End: 02-04-[address] Jermaine Mayer Work Phone: [facility] Work Phone: Start: 01-23-2023 End: 01-23-[address] Jermaine Mayer Work Phone: [facility] Work Phone: Start: 01-07-2023 End: 01-07-[address] Jermaine Mayer Work Phone: [facility] Work Phone: Start: 12-24-2022 End: 12-24-[address] Jermaine Mayer Work Phone: [facility] Work Phone: Start: 12-24-2022 End: 12-24-[address] Jermaine Mayer Work Phone: [facility] Work Phone: Start: 12-02-2022 End: 12-02-[address] Jermaine Mayer Work Phone: [facility] Work Phone: Start: 11-26-2022 End: 11-26-[address] Jermaine Mayer Work Phone: [facility] Work Phone: Start: 10-28-2022 End: 10-28-[address] Jermaine Mayer Work Phone: [facility] Work Phone: Start: 10-22-2022 End: 10-22-[address] Jermaine Mayer Work Phone: [facility] Work Phone: Start: 10-22-2022 End: 10-22-[address] Jermaine Mayer Work Phone: [facility]-Outpatient Pav[facility] Ultrasound Start: 10-03-2022 End: 10-03-[address] Jermaine Mayer Work Phone: [facility] Work Phone: Start: 10-03-2022 End: 10-03-[address] [facility] Start: 09-25-2022 End: 09-25-[address] Jermaine Mayer Work Phone: [facility] Start: 09-19-2022 End: 09-19-[address] Jermaine Mayer Work Phone: [facility] Start: 08-19-2022 End: 08-19-[address] Jermaine Mayer Work Phone: [facility] Work Phone: Start: 08-19-2022 End: 08-19-[address] Jermaine Mayer Work Phone: [facility] OP Pavilion Start: 08-19-2022 End: 08-19-[address] Jermaine Mayer Work Phone: [facility] Start: 11-16-2021 End: 11-16-2021 Admission to same day surgery center [facility] Start: 09-16-2021 End: 09-16-[address] Jermaine Mayer Work Phone: [facility] Start: 09-12-2021 End: 09-14-2021 Evaluation and management of inpatient Dr. Jermaine Mayer Work Phone: [facility] Start: 08-20-2021 End: 08-20-[address] Jermaine Mayer Work Phone: [facility], Specimen Start: 07-30-2021 End: 07-30-[address] Jermaine Mayer Work Phone: [facility] Start: 06-22-2021 End: 06-22-[address] Jermaine Mayer Work Phone: [facility]-Laboratory, [employer] Start: 05-28-2021 End: 05-28-[address] Jermaine Mayer Work Phone: [facility] Start: 05-14-2021 End: 05-14-[address] Jermaine Mayer Work Phone: [facility]-Laboratory, Specimen Start: 03-07-2014 Documentation procedure Tad Benavidez MD Work Phone: [facility] Start: 03-07-2014 Historic EMR Tad hu MD Work Phone: [facility] Procedures Date Procedure Procedure Detail Performing Clinician Start: 12-07-[address] Jermaine cantor DO Work Phone: Start: 12-07-[address] Jermaine cantor DO Work Phone: Start: 12-03-2024 MRI of joint of lowe r extremity Dr. Jermaine Mayer DO Work Phone: Start: 11-24-[address] Jermaine Mayer DO Work Phone: Start: 11-15-2024 Plain X-ray abdomen Dr. Jermaine Mayer DO Work Phone: Start: 11-03-[address] Tish Mayer DO Work Phone: Start: 08-06-[address] Tish Mayer Work Phone: Start: 08-06-[address] Jermaine Mayer Work Phone: Start: 02-26-2023 Ultrasonography for biophysical profile without non-stress testing Dr. Jermaine Mayer Work Phone: Start: 02-18-2023 Group B Streptococcu s Culture Dr. Jermaine Mayer Work Phone: Start: 10-22-2022 Ultrasonography in f irst trimester Dr. Jermaine Mayer Work Phone: Start: 11-16-2021 Hysteroscopy,D&C Sym phion (Not Applicable) Dr. Jermaine Mayer Work Phone: Start: 08-20-2021 Group B Streptococcu s Culture Dr. Jermaine Mayer Work Phone: Start: 03-04-2014 SURGICAL PATHOLOGY, CONVERTED Tad Benavidez MD Work Phone: [facility] Streptococcu s Culture Dr. Jermaine Mayer Work Phone: H/O: section History of delivery Dr. Jermaine Mayer Work Phone: H/O: section History of delivery affecting Dr. Jermaine Mayer Work Phone: Comment on above: x3, desires repeat C /S plan 03/12 with JV, RLTCS scheduled for 03/12 @ 7:30 with JV H/O: surgery History of D&C Dr. Jermaine wong Work Phone: Urine culture Dr. Jermaine fisher Work Phone: Viral antigen assay Dr. Jermaine Mayer Work Phone: Plan of Treatment Date Care Activity Detail Author Start: 12-07-2024 Ambulation without limitation [facility] Start: 12-07-2024 Medical regimen orders management [facility] Start: 12-07-2024 Medication education [facility] Start: 12-07-2024 Patient discharge [facility] Start: 12-07-2024 Procedure discontinued [facility] Start: 12-07-2024 Taking patient vital signs [facility] Start: 12-07-2024 Vital signs measurements [facility] Start: 12-07-2024 [facility] Start: 07-09-2024 Colonoscopy w/biopsy single/multiple COLONOSCOPY AND BIOPSY [facility] Start: 07-09-2024 Patient discharge [facility] Start: 03-14-2023 Patient discharge [facility] Start: 03-14-2023 [facility] Start: 03-13-2023 Application of abdominal corset [facility] Start: 03-12-2023 End: 03-12-2023 Notification of physician [facility] Start: 03-12-2023 Vital signs measurements [facility] Start: 03-12-2023 End: 03-12-2023 [facility] Start: 03-12-2023 Administration of medication [facility] Start: 03-12-2023 Ambulation therapy management [facility] Start: 03-12-2023 Application of abdominal corset [facility] Start: 03-12-2023 Application of device [facility] Start: 03-12-2023 End: 03-12-2023 Application of intermittent pneumatic compression device [facility] Start: 03-12-2023 Assessment of risk of venous thromboembolism [facility] Start: 03-12-2023 Catheterization of vein [facility] Start: 03-12-2023 Deep breathing and coughing exercises [facility] Start: 03-12-2023 Exercises [facility] Start: 03-12-2023 Incentive spirometry [facility] Start: 03-12-2023 Measuring intake and output [facility] Start: 03-12-2023 Notification of physician [facility] Start: 03-12-2023 Procedure discontinued [facility] Start: 03-12-2023 Provision of activity privileges [facility] Start: 03-12-2023 Vital signs measurements [facility] Start: 03-12-2023 Wound care [facility] Start: 03-12-2023 [facility] Start: 03-12-2023 Admission procedure [facility] Start: 03-12-2023 Application of intermittent pneumatic compression device [facility] Start: 03-12-2023 External monitor surveillance [facility] Start: 03-12-2023 Preoperative care [facility] Start: 03-12-2023 [facility] Start: 03-08-2023 Nonstress test [facility] Start: 03-08-2023 Obstetric monitoring [facility] Start: 03-08-2023 Vital signs measurements [facility] Start: 03-08-2023 [facility] Start: 03-08-2023 Patient discharge [facility] Start: 01-10-2023 Influenza vaccination Influenza Vaccine (#1) [facility] Start: 05-12-2022 Depression Assessment Depression Assessment [facility] Start: 11-16-2021 Ambulation without limitation [facility] Work Phone: Start: 11-16-2021 Medical regimen orders management [facility] Work Phone: Start: 11-16-2021 Medication education [facility] Work Phone: Start: 11-16-2021 Patient discharge [facility] Work Phone: Start: 11-16-2021 Procedure discontinued [facility] Work Phone: Start: 11-16-2021 Taking patient vital signs [facility] Work Phone: Start: 11-16-2021 Vital signs measurements [facility] Work Phone: Start: 11-16-2021 End: 11-16-2021 [facility] Work Phone: Start: 09-14-2021 Patient discharge [facility] Work Phone: Start: 09-13-2021 Application of abdominal corset [facility] Work Phone: Start: 09-12-2021 Notification of physician [facility] Work Phone: Start: 09-12-2021 Post-anesthesia assessment [facility] Work Phone: Start: 09-12-2021 [facility] Work Phone: Start: 09-12-2021 Administration of medication [facility] Work Phone: Start: 09-12-2021 Ambulation therapy management [facility] Work Phone: Start: 09-12-2021 Application of device [facility] Work Phone: Start: 09-12-2021 Application of intermittent pneumatic compression device [facility] Work Phone: Start: 09-12-2021 Assessment of risk of venous thromboembolism [facility] Work Phone: Start: 09-12-2021 Catheterization of vein [facility] Work Phone: Start: 09-12-2021 Deep breathing and coughing exercises [facility] Work Phone: Start: 09-12-2021 Exercises [facility] Work Phone: Start: 09-12-2021 Incentive spirometry [facility] Work Phone: Start: 09-12-2021 Introduction of urinary catheter [facility] Work Phone: Start: 09-12-2021 Measuring intake and output [facility] Work Phone: Start: 09-12-2021 Notification of physician [facility] Work Phone: Start: 09-12-2021 Procedure discontinued [facility] Work Phone: Start: 09-12-2021 Provision of activity privileges [facility] Work Phone: Start: 09-12-2021 Vital signs measurements [facility] Work Phone: Start: 09-12-2021 Wound care [facility] Work Phone: Start: 09-12-2021 [facility] Work Phone: Start: 09-12-2021 Application of abdominal corset [facility] Work Phone: Start: 09-12-2021 section Repeat (Not Applicable) [facility] Work Phone: Start: 09-12-2021 Admission procedure [facility] Work Phone: Start: 10-15-2013 HPV Testing HPV Testing [facility] Start: 10-15-2004 Pap Testing Pap Testing [facility] Start: 10-15-2002 Urine microalbumin profile DTaP,Tdap,Td Vaccine (1 - Tdap) [facility] Start: 10-15-2001 Hepatitis C Screening Hepatitis C Screening [facility] Start: 10-15-2001 HIV Screening HIV Screening [facility] Start: 04-16-1984 Covid-19 Vaccine (#1) Covid-19 Vaccine (#1) [facility] Start: 1985 Hepatitis B Vaccine (1 of 3 - 3-dose series) Hepatitis B Vaccine (1 of 3 - 3-dose series) [facility] CBC W Auto Different ial panel - Blood [facility] Choriogonadotropin ( test) [Presence] in Serum or Plasma [facility] Hemoglobin A1c/Hemoglobin.total in Blood [facility] Patient Education [facility] Work Phone: Patient referral [facility] Work Phone: US Pelvis [facility] US Pelvis [facility] US Pelvis transvaginal [facility] Immunizations Immunization Date Immunization Notes Care Provider Fa [facility] 01-23-2023 tetanus toxoid, redu logan diphtheria toxoid, and acellular pertussis vaccine, adsorbed Dr. Jermaine Mayer Work Phone: [facility] 02-09-2019 influenza virus vaccine, unspecified formulation Tad Benavidez MD Work Phone: [facility] Payers Date Payer Category Payer Self-pay [id number] 2023 Private Health Insurance [id number] 2014 Unknown [id number] Unknown [id number] 2.16.8 [id number] Unknown [id number] 2.16.8 [id number] Unknown [id number] 2.16.8 [id number] Unknown [id number] 2.16.8 [id number] Unknown [id number] 2.16.8 [id number] Unknown [id number] 2.16.8 [id number] Unknown [id number] 2.16.8 [id number] Unknown [id number] 2.16.8 [id number] Unknown [id number] 2.16.8 [id number] Unknown [id number] 2.16.8 [id number] Unknown [id number] 2.16.8 [id number] Unknown [id number] 2.16.8 [id number] Unknown [id number] 2.16.8 [id number] Unknown [id number] 2.16.8 [id number] Unknown [id number] 2.16.8 [id number] Unknown [id number] 2.16.8 [id number] Unknown [id number] 2.16.8 [id number] Unknown [id number] 2.16.8 [id number] Social History Date Type Detail Facility Start: 07-30-2021 End: 07-23-2023 Tobacco smoking status NHIS Unknown if ever smoked [facility] Start: 03-25-2019 None [facility] Start: 1985 Sex Assigned At Female [facility] Start: 04-19-2020 End: 12-28-2021 History of Social function [facility] Start: 04-19-2020 End: 12-28-2021 Tobacco use panel [facility] National Score (1-100), lower number is lower risk Not on file [facility] Start: 1985 Sex Assigned At Not on file [facility] Start: 07-06-2024 End: 11-25-2024 Tobacco smoking status NHIS Never smoked tobacco (finding) [facility] Start: 07-31-2024 Sex Female (finding) [facility] NEGATED: Highlighted row [facility] Goals Date Patient Goal Desired Activity /State Mental Status Date Assessment Result Facility 12-07-2024 Cognitive function Level Of Consciousness Drowsy [facility] Work Phone: 12-07-2024 Cognitive function Voice/Name [facility] Work Phone: 07-09-2024 Cognitive function Voice/Name [facility] Work Phone: 07-09-2024 Cognitive function Patient Orien tation Person;Place;Time [facility] Work Phone: 11-16-2021 Cognitive function Voice/Name [facility] Work Phone: 09-12-2021 Cognitive function Level Of Cons ciousness Awake;Alert;Appropriate [facility] Work Phone: 09-12-2021 Cognitive function Arousable To Voice/Nam e [facility] Work Phone: Clinical Notes 03-30-2015 to 12-07-2024 Note Date & Type Note Facility 12-07-2024 Consult note Note Date/Time December 07, 2024 11:55am [facility] Medical Records Department [address] [place] [address] Pre-Anesthesia Evaluation 12/07/24 1031 MR#: [id number] Acct: [id number] Name: INNA CANO Rep #:[id number] : 1985 39 From: Larisa maxwell CRNA PCP: Dr. Jermaine Mayer, DO Status:REG SDC Y Race: C Location: [place] [address] ADDENDUM by ASHLIE Whitehead on 12/07/24 at 1155 Addendum General discussed with patient, MAC charted in error 12/07/24 1155 <Electronically signed by Larisa doll CRNA> Date _ Larisa Whitehead CRNA cc: ~* Signed ASA Classification* ASA Classification ASA Classification: 2 Assessment & Plan Anesthesia* Anesthesia Assessment Anesthesia Assessment: Discussed sedation and/or anesthesia options, risks, benefits, and alternatives with patient/parents/legal guardian/POA. Questions invited. The patient/parents/legal guardian/POA seems to understand and agrees to proceedwith anesthesia plan. Reviewed the physical assessment, medical history, allergy history and patient home medications list prior to surgery/procedure/anesthetic and documented any changes. Performed airway and anesthesia risk assessments. Anesthesia Type Anesthesia Type: MAC History Source History Obtained from:: Patient and Chart Anesthesia Focused Assessment* Temperature: 98.9 F Pulse Rate: 72 Blood Pressure: 103/55 Respiratory Rate: 16 Pulse Ox: 100 Oxygen Delivery Method: Room Air Airway Assessment Mouth opens: >3 cm Mallampati Score: I Teeth Condition: Intact Neck Range of motion (ROM): Full ROM Labs Anesthesia Preop lab: CBC WBC 7.2 K/mm3 (4.4-11.0) 09/21/24 13:09/21/24 RBC 4.47 M/mm3 (4.2-5.4) 09/21/24 13:09/21/24 Hgb 13.0 g/dL (12.0-15.0) 09/21/24 13:09/21/24 Hct 40.0 % (37-47) 09/21/24 13:22 09/21/24 Plt Count 290 K/mm3 (150-450) 09/21/24 13:22 09/21/24 CHEMISTRY Potassium 4.0 mmol/L (3.3-5.1) 09/21/24 13:09/21/24 Sodium 138 mmol/L (133-145) 09/21/24 13:22 09/21/24 BUN 12 mg/dL (4-19) 09/21/24 13:22 09/21/24 Creatinine 0.76 mg/dL (0.70-1.20) 09/21/24 13:22 09/21/24 Glucose 89 mg/dL (70-99) 09/21/24 13:22 09/21/24 TSH 1.160 uIU/mL (0.300-4.200) 09/21/24 13:22 09/09 08/03 COAG Urine Test Negative Negative 11/16/21 06:38 11/16/21 [facility] Clinic Negative 09/09/24 09:33 09/09/24 Pre-Assessment Diagnosis/Proposed Procedure Planned Operative Procedure(s): HYSTEROSCOPY D&C LAP IUD DEVICE REMOVAL Anesthesia History 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 When Was Last Pacemaker Check QUESTION #4 FULL TEXT: You/Your Family Experience fever (hyperthermia) with Anesthesia Last Oral Intake Last Oral intake: Last Oral Intake NPO since 09:00 12/07/24 10:07 Meds taken in AM with sips of No 12/07/24 10:07 water? 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 Female Yes 11/25/24 14:44 HX of Motion Sickness No 11/25/24 14:44 HX of N/V After Surgery No 11/25/24 14:44 Non-Smoker Yes 11/25/24 14:44 Duration of Surgery greater No 11/25/24 14:44 than 60 minutes Number of Risk Factors 2 11/25/24 14:44 PONV Score Moderate Risk 11/25/24 14:44 Height & Weight Height & Weight: Anesthesia: Height & Weight Height 5 ft 3 in 12/07/24 10:07 Weight: 77 kg 12/07/24 10:07 Body Mass Index (BMI) 30.0 12/07/24 10:07 Respiratory Assessment Respiratory Assessment - irrigation equipment installer: Respiratory Tract Infection Hx - irrigation equipment installer Hx Respiratory Tract Infection No 11/25/24 14:44 STOP Sleep Apnea STOP Sleep Apnea - irrigation equipment installer: STOP Sleep Apnea - irrigation equipment installer Hx Hypertension No 11/25/24 14:44 Hx Sleep Apnea No 11/25/24 14:44 CPAP No 11/25/24 14:44 BIPAP Do you snore loudly (louder No 11/25/24 14:44 than talking or can be heard Do you often feel tired/ Yes 11/25/24 14:44 fatigued/ sleepy during daytime? Has anyone observed you stop No 11/25/24 14:44 breathing during sleep? STOP Results Negative 11/25/24 14:44 QUESTION #5 FULL TEXT : Do you snore loudly (louder than talking or can be heard through closed doors)? 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 Specify any problems Hx of Preganancy in last 3 No 11/25/24 14:44 Months Nurse Filling Out Transfusion DSCHRIBER 11/25/24 14:44 & Questions: Date: 11/25/24 11/25/24 14:44 Time: 14:44 11/25/24 14:44 Patient unable to answer at this time (ie. 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 Hx Now No 11/25/24 14:44 Gestational Age (in weeks): EDC: Hx Hx Para Hx Section SAB No 11/25/24 14:44 Active Medications Active Medications: Current Medications Generic Name Dose Route Start Last Admin Trade Name Freq PRN Reason Stop Dose Admin Cefotetan Disodium 2 gm/ 100 mls @ 200 mls/hr 12/07/24 14:30 Sodium Chloride IV 12/07/24 14:59 INTRAOP ONE Lactated Ringer's 1,000 mls @ 15 mls/hr 12/07/24 10:00 IV .Q48H [facility] Medical History (Updated 11/25/24 @ 14:47 by Vero Tirado) Contraceptive management Vitamin D deficiency Prolonged rupture of membranes, delivered Depression Anxiety Cellulitis of suprapubic region Acute maxillary sinusitis, unspecified Abnormal uterine bleeding Retained products of conception after delivery without hemorrhage Wears contact lenses Low iron History of IBS Asthma Non-smoker delivery delivered Polyhydramnios hemorrhage Acute sinusitis, unspecified Anxiety Lactose intolerance Asthma Seasonal allergies Home Medications ?Medication ?Instructions ?Recorded ?Last Taken ?Type levonorgestrel 20.4 mcg/24 hr (up 1 device intrauterin e ONCE 11/01/24 Unknown History to 8 yrs) 52 mg intrauterine device (Liletta) Allergy/AdvReac Type Severity Reaction Status Date / Time COVID-19 vacc, bv (Orig, Allergy Intermediate Hives Verified 11/25/24 14:42 Omicron BA.4/5) (Moderna) (From Moderna COVID Bival(6m up)(PF)) grass pollen Allergy unknown Verified 11/25/24 14:42 house dust Allergy unknown Verified 11/25/24 14:42 mold Allergy unknown Verified 11/25/24 14:42 Family History Sister Asthma Grandmother Diabetes Heart disease Cancer Grandfather A-fib Cancer Surgical History (Updated 11/25/24 @ 14:47 by Vero Tirado) Hx of colonoscopy with polypectomy H/O hand surgery H/O eye surgery [place] teeth removed H/O bilateral salpingectomy History of colonoscopy fatty tumor removed History of bladder surgery History of delivery History of D&C History of eyelid surgery Social History adopted: No household members: spouse and children number of children: 4 current occupational status: unemployed current occupation: [employer] pets and animals: No history of recent travel: No sexually active: Yes Smoking Status: Never smoker alcohol intake: current alcohol intake frequency: holidays/special occasions only substance use type: does not use caffeine: Yes Type: coffee Number of servings: 4 seatbelt use: always do you feel safe at home: Yes additional social history: Leander Review of Systems (Anesthesia) ROS Narrative System reviewed and no additional complaints, except as documented. 12/07/24 1037 <Electronically signed by Larisa doll WIRE STITCHER OPERATOR> Date _ Larisa Whitehead WIRE STITCHER OPERATOR Cosigner Signature: Date CC: ~ Signed [facility] Work Phone: 1(458) 118-773507-29-2025 History and physical note Author Marquita Mcclendon [facility] Note Date/Time December 07, 2024 9:57 am [facility] Medical Records Department [address] [place] [address] History & Physical Exam 12/07/24 0955 MR#: [id number] Acct: [id number] Name: INNA CANO Rep #:[id number] : 1985 39 From: Marquita briscoe MD PCP: Dr. Jermaine Mayer, DO Status:[facility] Location: [place] [address] History and Physical Date of Admission: 12/07/24 Intake Vital Signs 11/01/2508:44 11/25/2507:36 11/25/2507:38 Height 5 ft 3 in 5 ft 3 in 5 ft 3 in Weight: 174 lb 2 oz 174 lb 2 oz BMI 30.8 30.8 BP 104/70 Intake Visit Reasons: Displaced IUD *$10 COPAY Research And Development Technician Required: No Is patient in pain?: Yes (lower back pain and pelvic cramping) Allergies COVID-19 vacc, bv (Orig, Omicron BA.4/5) (Moderna) (From Moderna COVID Bival(6m up)(PF)) Allergy (Intermediate, Verified 11/24/24 08:37) Hivesgrass pollen Allergy (Verified 11/24/24 08:37) unknownhouse dust Allergy (Verified 11/24/24 08:37) unknown mold Allergy (Verified 11/24/24 08:37) unknown Medications ?Medication ?Instructions ?Recorded ?Confirmed ?Type levonorgestrel 20.4 mcg/24 hr (up 1 device intrauterine ONCE 11/01/2411/09 History to 8 yrs) 52 mg intrauterine device (Liletta) levonorgestrel-ethinyl estradiol 1 tab PO QDAY #28 tabs 11/24/24 11/24/24 Rx 0.1 mg-20 mcg tablet (Aviane) Post menopausal: No Patient : No : No [facility] Medical History (Updated 11/24/24 @ 09:[address] Marquita Mcclendon MD) Contraceptive management Colonoscopy planned Vitamin D deficiency Prolonged rupture of membranes, delivered Depression Anxiety Cellulitis of suprapubic region Acute maxillary sinusitis, unspecified Abnormal uterine bleeding Retained products of conception after delivery without hemorrhage Wears contact lenses Low iron History of IBS Asthma Non-smoker delivery delivered Polyhydramnios hemorrhage depression Acute sinusitis, unspecified Anxiety Lactose intolerance Asthma 39 weeks gestation of Seasonal allergies Surgical History H/O hand surgery H/O eye surgery [place] teeth removed H/O bilateral salpingectomy History of colonoscopy fatty tumor removed History of bladder surgery History of delivery History of D&C History of eyelid surgery Family History Sister AsthmaGrandmother Diabetes Heart disease CancerGrandfather A-fib Cancer Social History adopted: No household members: spouse and children number of children: 4 current occupational status: unemployed current occupation: [employer] pets and animals: No history of recent travel: No sexually active: Yes Smoking Status: Never smoker alcohol intake: current alcohol intake frequency: holidays/special occasions only substance use type: does not use caffeine: Yes Type: coffee Number of servings: 4 seatbelt use: always do you feel safe at home: Yes additional social history: Leander GALVAN Displaced IUD *$10 COPAY Details: INNA CANO is a 39 year old who presents for follow up of iud displacement. she is having lower pelvic pain and pressure, dysuria. she has still had some irreuglar bleeding also on and off. she is still some but is ready to wean. Female Reproductive History Menopausal Symptoms: No night sweats History 5 Elective abortions Hx Para 4 Spontaneous abortions 1 Hx # Term Pregnancies 4 Ectopic pregnancies Hx # Pregnancies Multiple births # of living children 4 Past Pregnancies Del. Date Name GA/Weeks Outcome Route Bth Weight Gen Labor Lgth Anesthesia Del Locatn Provider FOB 09/27/16 Richy 39 live - full term 8.13 Male 03/25/19 Mechelle 39 live - full term 9.2 Female 09/12/21 Sai 39 live - full term 9.4 Male 03/12/23 Radha 39 live - full term 9lbs 5oz Female spinal [facility] Const Constitutional: Denies fatigue, night sweats, weight gain or weight loss ENT ENT: Reports system reviewed and no additional complaints, except as documented Cardio Card: Denies chest pain Resp Resp: Denies cough or dyspnea GI GI: Reports as per HPI; Denies abdominal pain, constipation, nausea or vomiting Musc Musc: Denies arthralgias, back pain or muscle weakness Skin Skin/Breast: Denies alopecia, change in hair, dry skin, breast mass, breast painor breast skin changes Neuro Neuro: Reports system reviewed and no additional complaints, except as documented Psych Psych: Reports system reviewed and no additional complaints, except as documented Endo Endo: Denies cold intolerance, excessive sweating, heat intolerance or polydipsia Mohsen/Lymph Hematologic/Lymphatic: Denies easy bleeding, Denies easy bruising and Denies lymphadenopathy Exam Const General: cooperative, healthy appearing, comfortable and no acute distress Orientation: alert HENMT Head: normal to inspection and normocephalic Ears: hearing grossly normal bilaterally and external ears normal Nose: external nose normal and nares normal Face and sinus: normal facial exam Neck Neck: normal visual inspection and no lymphadenopathy Thyroid: thyroid normal Chest Chest palpation & inspection: normal inspection of the chest Resp Effort & Inspection: normal respiratory effort Auscultation: clear to auscultation bilaterally Cardio Rate: regular rate Rhythm: regular rhythm Heart Sounds: S1 normal and S2 normal GI Inspection: normal to inspection and non-distended Palpation: soft and no hepatosplenomegaly Musc Other: gross motor intact no deficits, full bilateral strength Skin General: no rashes or lesions noted Neuro General: patient alert, patient awake, moves all extremities and no focal motor deficits Motor: muscle tone normal throughout Extrem General: normal to inspection and no pedal edema Psych Appearance: grossly normal Mental Status: mental status grossly normal Affect: normal affect Speech and Movement: speech and movement normal Results POC Urinalysis Dip (Clinic) Office Urine Color Yellow Last Edit by Lissette Tavares on 11/24/24 08:46 Office Urine Clarity Clear Last Edit by Lissette Tavares on 11/24/24 08:46 Office Urine Glucose Negative Last Edit by Lissette Tavares on 11/24/24 08:46 Office Urine Ketones Negative Last Edit by Lissette Tavares on 11/24/24 08:46 Off Ur Spec [place] ? Last Edit by Lissette Tavares on 11/24/24 08:46 Office Urine pH 6.0 Last Edit by Lissette Tavares on 11/24/24 08:46 Office Urine Bilirubin Negative Last Edit by Lissette Tavares on 11/24/24 08:46 Office Urine Urobilinogen 0.2 mg/dL Last Edit by Lissette Tavares on 11/24/24 08:46 Office Urine Blood Negative Last Edit by Lissette Tavares on 11/24/24 08:46 Office Urine Blood Hemolyzed NA Last Edit by Lissette Tavares on 11/24/24 08:46 Office Urine Protein Negative Last Edit by Lissette Tavares on 11/24/24 08:46 Office Urine Nitrate Negative Last Edit by Lissette Tavares on 11/24/24 08:46 Off Ur Leukocytes Negatve Last Edit by Lissette Tavares on 11/24/24 08:46 Coding Level of Care Code Off vis,est,level 4 Diagnoses Malpositioned IUD T83.32XA Abnormal uterine bleeding N93.9 Assessment and Plan Assessment and Plan (1) Malpositioned IUD: Status: Acute (2) Abnormal uterine bleeding: Status: Acute Comment: plan d and c hysteroscopy laparoscopic IUD removal then plan exp management possible aviane Orders: Orders POC Urinalysis Dip (Clinic) Today R39.15 - Urgency of urination Culture, Urine Today R39.15 - Urgency of urination Medications: New levonorgestrel-ethinyl estrad 0.1-20 mg-mcg (Aviane) 1 TAB PO QDAY 28 tabs 12RF Plan After discussing the patient's diagnosis and treatment plan options, patient wishes to proceed with surgical management. I have discussed with the patient the risks, benefits, and alternatives of the procedure which include but are notlimited to risks of anesthesia, bleeding, infection, possible damage to bowel, bladder, or surrounding vasculature which could lead to additional surgery to evaluate any complications. Patient agrees to procedure and wishes to proceed. ACOG/uptodate references given for additional information regarding procedure. UPDATE- I have seen the patient and performed any clinically relevant updates to the history and physical exam. Marquita Mcclendon MD 12/07/24 0957 <Electronically signed by Marquita Mcclendon MD> Cosigner Signature (if applicable): CC: Dr. Jermaine Mayer DO; Dr. Marquita Mcclendon MD~ Signed [facility] Work Phone: [phone] Consult note [facility] Medical Records Department [address] [place] [address] Pre-Anesthesia Evaluation 12/07/24 1031 MR#: [id number] Acct: [id number] Name: INNA CANO Rep #:[id number] : 1985 39 From: Larisa maxwell CRNA PCP: Dr. Jermaine Mayer DO Status:REG MSC Y Race: C Location: [facility]20- ADDENDUM by ASHLIE Whitehead on 12/07/24 at 1155 Addendum General discussed with patient, MAC charted in error 12/07/24 1155 nski WIRE STITCHER OPERATOR> Date _ Larisa Whitehead CRNA cc: ~* Signed ASA Classification* ASA Classification ASA Classification: 2 Assessment & Plan Anesthesia* Anesthesia Assessment Anesthesia Assessment: Discussed sedation and/or anesthesia options, risks, benefits, and alternatives with patient/parents/legal guardian/POA. Questions invited. The patient/parents/legal guardian/POA seems to understand and agrees to proceedwith anesthesia plan. Reviewed the physical assessment, medical history, allergy history and patient home medications list prior to surgery/procedure/anesthetic and documented any changes. Performed airway and anesthesia risk assessments. Anesthesia Type Anesthesia Type: MAC History Source History Obtained from:: Patient and Chart Anesthesia Focused Assessment* Temperature: 98.9 F Pulse Rate: 72 Blood Pressure: 103/55 Respiratory Rate: 16 Pulse Ox: 100 Oxygen Delivery Method: Room Air Airway Assessment Mouth opens: >3 cm Mallampati Score: I Teeth Condition: Intact Neck Range of motion (ROM): Full ROM Labs Anesthesia Preop lab: CBC WBC 7.2 K/mm3 (4.4-11.0) 09/21/24 13:09/21/24 RBC 4.47 M/mm3 (4.2-5.4) 09/21/24 13:09/21/24 Hgb 13.0 g/dL (12.0-15.0) 09/21/24 13:22 09/21/24 Hct 40.0 % (37-47) 09/21/24 13:09/21/24 Plt Count 290 K/mm3 (150-450) 09/21/24 13:22 09/21/24 CHEMISTRY Potassium 4.0 mmol/L (3.3-5.1) 09/21/24 13:09/21/24 Sodium 138 mmol/L (133-145) 09/21/24 13:22 09/21/24 BUN 12 mg/dL (4-19) 09/21/24 13:22 09/21/24 Creatinine 0.76 mg/dL (0.70-1.20) 09/21/24 13:22 09/21/24 Glucose 89 mg/dL (70-99) 09/21/24 13:22 09/21/24 TSH 1.160 uIU/mL (0.300-4.200) 09/21/24 13:22 09/09 08/03 COAG Urine Test Negative Negative 11/16/21 06:38 11/16/21 Tst Clinic Negative 09/09/24 09:33 09/09/24 Pre-Assessment Diagnosis/Proposed Procedure Planned Operative Procedure(s): HYSTEROSCOPY D&C LAP IUD DEVICE REMOVAL Anesthesia History 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 When Was Last Pacemaker Check QUESTION #4 FULL TEXT: You/Your Family Experience fever (hyperthermia) with Anesthesia Last Oral Intake Last Oral intake: Last Oral Intake NPO since 09:00 12/07/24 10:07 Meds taken in AM with sips of No 12/07/24 10:07 water? 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 Female Yes 11/25/24 14:44 HX of Motion Sickness No 11/25/24 14:44 HX of N/V After Surgery No 11/25/24 14:44 Non-Smoker Yes 11/25/24 14:44 Duration of Surgery greater No 11/25/24 14:44 than 60 minutes Number of Risk Factors 2 11/25/24 14:44 PONV Score Moderate Risk 11/25/24 14:44 Height & Weight Height & Weight: Anesthesia: Height & Weight Height 5 ft 3 in 12/07/24 10:07 Weight: 77 kg 12/07/24 10:07 Body Mass Index (BMI) 30.0 12/07/24 10:07 Respiratory Assessment Respiratory Assessment - irrigation equipment installer: Respiratory Tract Infection Hx - irrigation equipment installer Hx Respiratory Tract Infection No 11/25/24 14:44 STOP Sleep Apnea STOP Sleep Apnea - irrigation equipment installer: STOP Sleep Apnea - irrigation equipment installer Hx Hypertension No 11/25/24 14:44 Hx Sleep Apnea No 11/25/24 14:44 CPAP No 11/25/24 14:44 BIPAP Do you snore loudly (louder No 11/25/24 14:44 than talking or can be heard Do you often feel tired/ Yes 11/25/24 14:44 fatigued/ sleepy during daytime? Has anyone observed you stop No 11/25/24 14:44 breathing during sleep? STOP Results Negative 11/25/24 14:44 QUESTION #5 FULL TEXT : Do you snore loudly (louder than talking or can be heard through closeddoors)? 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 Specify any problems Hx of Preganancy in last 3 No 11/25/24 14:44 Months Nurse Filling Out Transfusion DSCHRIBER 11/25/24 14:44 & Questions: Date: 11/25/24 11/25/24 14:44 Time: 14:44 11/25/24 14:44 Patient unable to answer at this time (ie. 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 Hx Now No 11/25/24 14:44 Gestational Age (in weeks): EDC: Hx Hx Para Hx Section SAB No 11/25/24 14:44 Active Medications Active Medications: Current Medications Generic Name Dose Route Start Last Admin Trade Name Freq PRN Reason Stop Dose Admin Cefotetan Disodium 2 gm/ 100 mls @ 200 mls/hr 12/07/24 14:30 Sodium Chloride IV 12/07/24 14:59 INTRAOP ONE Lactated Ringer's 1,000 mls @ 15 mls/hr 12/07/24 10:00 IV .Q48H [facility] Medical History (Updated 11/25/24 @ 14:47 by Vero Tirado) Contraceptive management Vitamin D deficiency Prolonged rupture of membranes, delivered Depression Anxiety Cellulitis of suprapubic region Acute maxillary sinusitis, unspecified Abnormal uterine bleeding Retained products of conception after delivery without hemorrhage Wears contact lenses Low iron History of IBS Asthma Non-smoker delivery delivered Polyhydramnios hemorrhage Acute sinusitis, unspecified Anxiety Lactose intolerance Asthma Seasonal allergies Home Medications ?Medication ?Instructions ?Recorded ?Last Taken ?Type levonorgestrel 20.4 mcg/24 hr (up 1 device intrauterin e ONCE 11/01/24 Unknown History to 8 yrs) 52 mg intrauterine device (Liletta) Allergy/AdvReac Type Severity Reaction Status Date / Time COVID-19 vacc, bv (Orig, Allergy Intermediate Hives Verified 11/25/24 14:42 Omicron BA.4/5) (Moderna) (From Moderna COVID Bival(6m up)(PF)) grass pollen Allergy unknown Verified 11/25/24 14:42 house dust Allergy unknown Verified 11/25/24 14:42 mold Allergy unknown Verified 11/25/24 14:42 Family History Sister Asthma Grandmother Diabetes Heart disease Cancer Grandfather A-fib Cancer Surgical History (Updated 11/25/24 @ 14:47 by Vero Tirado) Hx of colonoscopy with polypectomy H/O hand surgery H/O eye surgery [place] teeth removed H/O bilateral salpingectomy History of colonoscopy fatty tumor removed History of bladder surgery History of delivery History of D&C History of eyelid surgery Social History adopted: No household members: spouse and children number of children: 4 current occupational status: unemployed current occupation: [employer] pets and animals: No history of recent travel: No sexually active: Yes Smoking Status: Never smoker alcohol intake: current alcohol intake frequency: holidays/special occasions only substance use type: does not use caffeine: Yes Type: coffee Number of servings: 4 seatbelt use: always do you feel safe at home: Yes additional social history: Leander Review of Systems (Anesthesia) ROS Narrative System reviewed and no additional complaints, except as documented. 12/07/24 Honey koryalissa WIRE STITCHER OPERATOR> Date _ Larisa Ventura WIRE STITCHER OPERATOR Cosigner Signature: Date CC: ~ Signed [facility]07-29-2025 History and physical note [facility] Medical Records Department [address] [place] [address] History & Physical Exam 12/07/24 0955 MR#: [id number] Acct: [id number] Name: INNA CANO Rep #:[id number] : 1985 39 From: Marquita briscoe MD PCP: Dr. Jermaine Mayer, DO Status:[facility] Location: [place] [address] History and Physical Date of Admission: 12/07/24 Intake Vital Signs 11/01/2508:44 11/25/2507:36 11/25/2507:38 Height 5 ft 3 in 5 ft 3 in 5 ft 3 in Weight: 174 lb 2 oz 174 lb 2 oz BMI 30.8 30.8 BP 104/70 Intake Visit Reasons: Displaced IUD *$10 COPAY Research And Development Technician Required: No Is patient in pain?: Yes (lower back pain and pelvic cramping) Allergies COVID-19 vacc, bv (Orig, Omicron BA.4/5) (Moderna) (From Moderna COVID Bival(6m up)(PF)) Allergy (Intermediate, Verified 11/24/24 08:37) Hivesgrass pollen Allergy (Verified 11/24/24 08:37) unknownhouse dust Allergy (Verified 11/24/24 08:37) unknown mold Allergy (Verified 11/24/24 08:37) unknown Medications ?Medication ?Instructions ?Recorded ?Confirmed ?Type levonorgestrel 20.4 mcg/24 hr (up 1 device intrauterine ONCE 11/01/24 07/11/03 History to 8 yrs) 52 mg intrauterine device (Liletta) levonorgestrel-ethinyl estradiol 1 tab PO QDAY #28 tabs 11/24/24 11/24/24 Rx 0.1 mg-20 mcg tablet (Aviane) Post menopausal: No Patient : No : No PFSH Medical History (Updated 11/24/24 @ 09:[address] Marquita Mcclendon MD) Contraceptive management Colonoscopy planned Vitamin D deficiency Prolonged rupture of membranes, delivered Depression Anxiety Cellulitis of suprapubic region Acute maxillary sinusitis, unspecified Abnormal uterine bleeding Retained products of conception after delivery without hemorrhage Wears contact lenses Low iron History of IBS Asthma Non-smoker delivery delivered Polyhydramnios hemorrhage depression Acute sinusitis, unspecified Anxiety Lactose intolerance Asthma 39 weeks gestation of Seasonal allergies Surgical History H/O hand surgery H/O eye surgery [place] teeth removed H/O bilateral salpingectomy History of colonoscopy fatty tumor removed History of bladder surgery History of delivery History of D&C History of eyelid surgery Family History Sister AsthmaGrandmother Diabetes Heart disease CancerGrandfather A-fib Cancer Social History adopted: No household members: spouse and children number of children: 4 current occupational status: unemployed current occupation: [employer] pets and animals: No history of recent travel: No sexually active: Yes Smoking Status: Never smoker alcohol intake: current alcohol intake frequency: holidays/special occasions only substance use type: does not use caffeine: Yes Type: coffee Number of servings: 4 seatbelt use: always do you feel safe at home: Yes additional social history: Leander GALVAN Displaced IUD *$10 COPAY Details: INNA CANO is a 39 year old who presents for follow up of iud displacement. she is having lower pelvic pain and pressure, dysuria. she has still had some irreuglar bleeding also on and off. she isstill some but is ready to wean. Female Reproductive History Menopausal Symptoms: No night sweats History 5 Elective abortions Hx Para 4 Spontaneous abortions 1 Hx # Term Pregnancies 4 Ectopic pregnancies Hx # Pregnancies Multiple births # of living children 4 Past Pregnancies Del. Date Name GA/Weeks Outcome Route Bth Weight Infant Gen Labor Lgth Anesthesia Del Locatn Provider FOB 09/27/16 Richy 39 live - full term 8.13 Male 03/25/19 Mechelle 39 live - full term 9.2 Female 09/12/21 Sai 39 live - full term 9.4 Male 03/12/23 Radha 39 live - full term 9lbs 5oz Female spinal [facility] [place] ROS Const Constitutional: Denies fatigue, night sweats, weight gain or weight loss ENT ENT: Reports system reviewed and no additional complaints, except as documented Cardio Card: Denies chest pain Resp Resp: Denies cough or dyspnea GI GI: Reports as per HPI; Denies abdominal pain, constipation, nausea or vomiting Musc Musc: Denies arthralgias, back pain or muscle weakness Skin Skin/Breast: Denies alopecia, change in hair, dry skin, breast mass, breast painor breast skin changes Neuro Neuro: Reports system reviewed and no additional complaints, except as documented Psych Psych: Reports system reviewed and no additional complaints, except as documented Endo Endo: Denies cold intolerance, excessive sweating, heat intolerance or polydipsia Mohsen/Lymph Hematologic/Lymphatic: Denies easy bleeding, Denies easy bruising and Denies lymphadenopathy Exam Const General: cooperative, healthy appearing, comfortable and no acute distress Orientation: alert HENPA Head: normal to inspection and normocephalic Ears: hearing grossly normal bilaterally and external ears normal Nose: external nose normal and nares normal Face and sinus: normal facial exam Neck Neck: normal visual inspection and no lymphadenopathy Thyroid: thyroid normal Chest Chest palpation & inspection: normal inspection of the chest Resp Effort & Inspection: normal respiratory effort Auscultation: clear to auscultation bilaterally Cardio Rate: regular rate Rhythm: regular rhythm Heart Sounds: S1 normal and S2 normal GI Inspection: normal to inspection and non-distended Palpation: soft and no hepatosplenomegaly Musc Other: gross motor intact no deficits, full bilateral strength Skin General: no rashes or lesions noted Neuro General: patient alert, patient awake, moves all extremities and no focal motor deficits Motor: muscle tone normal throughout Extrem General: normal to inspection and no pedal edema Psych Appearance: grossly normal Mental Status: mental status grossly normal Affect: normal affect Speech and Movement: speech and movement normal Results POC Urinalysis Dip (Clinic) Office Urine Color Yellow Last Edit by Lissette Tavares on 11/24/24 08:46 Office Urine Clarity Clear Last Edit by Lissette Tavares on 11/24/24 08:46 Office Urine Glucose Negative Last Edit by Lissette Tavares on 11/24/24 08:46 Office Urine Ketones Negative Last Edit by Lissette Tavares on 11/24/24 08:46 Off Ur Spec [place] ? Last Edit by Lissette Tavares on 11/24/24 08:46 Office Urine pH 6.0 Last Edit by Lissette Tavares on 11/24/24 08:46 Office Urine Bilirubin Negative Last Edit by Lissette Tavares on 11/24/24 08:46 Office Urine Urobilinogen 0.2 mg/dL Last Edit by Lissette Tavares on 11/24/24 08:46 Office Urine Blood Negative Last Edit by Lissette Tavares on 11/24/24 08:46 Office Urine Blood Hemolyzed NA Last Edit by Lissette Tavares on 11/24/24 08:46 Office Urine Protein Negative Last Edit by Lissette Tavares on 11/24/24 08:46 Office Urine Nitrate Negative Last Edit by Lissette Tavares on 11/24/24 08:46 Off Ur Leukocytes Negatve Last Edit by Lissette Tavares on 11/24/24 08:46 Coding Level of Care Code Off vis,est,level 4 Diagnoses Malpositioned IUD T83.32XA Abnormal uterine bleeding N93.9 Assessment and Plan Assessment and Plan (1) Malpositioned IUD: Status: Acute (2) Abnormal uterine bleeding: Status: Acute Comment: plan d and c hysteroscopy laparoscopic IUD removal then plan exp management possible aviane Orders: Orders POC Urinalysis Dip (Clinic) Today R39.15 - Urgency of urination Culture, Urine Today R39.15 - Urgency of urination Medications: New levonorgestrel-ethinyl estrad 0.1-20 mg-mcg (Aviane) 1 TAB PO QDAY 28 tabs 12RF Plan After discussing the patient's diagnosis and treatment plan options, patient wishes to proceed withsurgical management. I have discussed with the patient the risks, benefits, and alternatives of theprocedure which include but are notlimited to risks of anesthesia, bleeding, infection, possible damage to bowel, bladder, or surrounding vasculature which could lead to additional surgery to evaluate any complications. Patient agrees to procedure and wishes to proceed. ACOG/uptodate references given for additional information regarding procedure. UPDATE- I have seen the patient and performed any clinically relevant updates to the history and physical exam. Marquita Mcclendon MD 12/07/24 0957 Cosigner Signature (if applicable): CC: Dr. Jermaine Mayer DO; Dr. Marquita Mcclendon MD~ Signed [facility]07-08-2025 Radiology Diagnostic study note [facility] Imaging Services [address] [place] [address] Abdomen Single View MR#: [id number] Acct: [id number] Name: INNA CANO Rep #: [id number] : 1985 F 39 From: Concepcion Choe MD PCP: Dr. Jermaine Mayer DO Status: REG CLI Study:Abdomen Single View Date of Exam: 11/15/24 Exam# [id number] Ordering Dr: Marquita Holguin MD PROCEDURE: ABDOMEN SINGLE VIEW 11/15/2024 REASON FOR EXAM: IUD NOT FOUND ON US TECHNIQUE: ABDOMEN SINGLE VIEW COMPARISON: None FINDINGS: Normal gastrointestinal gas pattern seen. Mild stool noted in large bowel loops. No pneumoperitoneum. Visualized bones appear unremarkable. No pathological abdominal calcifications noted. IUD is seen within the pelvic cavity projected over the sacrum. RAD/Abdomen Single View IMPRESSION: Mild constipation. IUD is seen within the pelvic cavity projected over the sacrum. Reading [facility] CC: Dr. Jermaine Mayer DO; Dr. Marquita Mcclendon MD ~ Report Programmer: Signed [facility]06-25-2025 Radiology Diagnostic study note [facility] Imaging Services [address] [place], [place] [id number] Pelvic w/ Transvaginal MR#: [id number] Acct: [id number] Name: INNA CANO Rep #: [id number] : 1985 F 39 From: Zac Siddiqi MD PCP: Dr. Jermaine Mayer DO Status: REG CLI Study:Pelvic w/ Transvaginal Date of Exam: 11/03/24 Exam# [id number] Ordering Dr: Marquita Holguin MD PROCEDURE: PELVIC W/ TRANSVAGINAL 11/03/2024 REASON FOR EXAM: CHECK IUD PLACEMENT TECHNIQUE: PELVIC W/ TRANSVAGINAL COMPARISON: Prior study dated August 06, 2023. FINDINGS: LMP: October 10, 2024. Measurements: Uterus: 8.9 cm x 5.5 cm x 3.5 cm with a volume of 90.44 mL Endometrial Thickness: 7 mm hyperechoic. Fluid is seen within the endometrium. No IUD seen. Right Ovary: 4.6 cm x 2.9 cm x 2.8 cm with a volume of 9.41 mL. Left Ovary: 3.8 cm x 2.5 cm x 1.9 cm with a volume of 10.2 mL. Uterus: Normal size, myometrial echotexture, and contour. Endometrium: Unremarkable. Right ovary: Normal size and echotexture. Left ovary: Normal size and echotexture. Other: No large pelvic mass identified. US/Pelvic w/ Transvaginal IMPRESSION: IUD is not seen within the endometrium. Reading Location: [id number] CC: Dr. Jermaine Mayer DO; Dr. Marquita Mcclendon MD ~ Report Programmer: Signed [facility]04-24-2025 Evaluation note* Diagnosis Onset Date Resolution Status Admit Date Abnormal uterine bleeding acute September 02, 2024 9:26am Abnormal uterine bleeding acute September 09, 2024 9:13am Depression affecting acute September 09, 2024 9:13am Acute on chronic blood loss anemia chronic September 09, 2024 9: 13am Abnormal uterine bleeding acute November 01, 2024 9:38am IUD strings lost acute October 9:38am [facility] Work Phone: 1(454) 624-752104-24-2025 Evaluation note* Diagnosis Onset Date Resolution Status Admit Date Abnormal uterine bleeding acute September 02, 2024 9:26am Abnormal uterine bleeding acute September 09, 2024 9:13am Depression affecting acute September 09, 2024 9:13am Acute on chronic blood loss anemia chronic September 09, 2024 9: 13am Abnormal uterine bleeding acute November 01, 2024 9:38am IUD strings lost acute October 9:38am Abnormal uterine bleeding acute November 24, 2024 8:31am Malpositioned IUD acute November 242024 8:31am [facility] Work Phone: 1(157) 597-972804-24-2025 Evaluation note* Diagnosis Onset Date Resolution Status Admit Date Abnormal uterine bleeding acute September 02, 2024 9:26am Abnormal uterine bleeding acute September 09, 2024 9:13am Depression affecting acute September 09, 2024 9:13am Acute on chronic blood loss anemia chronic September 09, 2024 9: 13am Abnormal uterine bleeding acute November 01, 2024 9:38am IUD strings lost acute October 9:38am Abnormal uterine bleeding acute November 24, 2024 8:31am Malpositioned IUD acute November 242024 8:31am Abnormal uterine bleeding acute December 07, 2024 9:43am Malpositioned IUD acute December 072024 9:43am [facility] Work Phone: 1(952) 287-648003-12-2025 Evaluation note* Diagnosis Onset Date Resolution Status Admit Date Abnormal uterine bleeding acute July 21, 2024 2:09pm Abnormal uterine bleeding acute September 02, 2024 9:26am Abnormal uterine bleeding acute September 09, 2024 9:13am Depression affecting acute September 09, 2024 9:13am Acute on chronic blood loss anemia chronic September 09, 2024 9: 13am Abnormal uterine bleeding acute November 01, 2024 9:38am IUD strings lost acute October 9:38am [facility] Work Phone: [phone]) 891-143702-28-2025 Evaluation note* Diagnosis Onset Date Resolution Status Admit Date Mixed irritable bowel syndrome acute July 09, 2 025 10:33am Acute on chronic blood loss anemia chronic July 09, 025 10:33am Abnormal uterine bleeding acute July 21, 2024 2:09pm Abnormal uterine bleeding acute September 02, 2024 9:26am Abnormal uterine bleeding acute September 09, 2024 9:13am Depression affecting acute September 09, 2024 9: 13am Acute on chronic blood loss anemia chronic September 09, 2024 9: 13am [facility] Work Phone: 1(101) [phone] [facility] Medical Records Department [address] [place] [address] History Physical Exam 07/09/24 1156 MR#: [id number] Acct: [id number] Name: INNA CANO Rep #: [id number] : 1985 38 From: Byron Ren DO PCP: Dr. Jermaine Mayer DO Status:[facility] Location: [place] [address] HPI - General General Date of Admission: 07/09/24 Date of Service: 07/09/24 Chief Complaint: change in bowels HPI Narrative INNA CANO, is a 38 F with abdominal pain and constipation CBC, transaminases and TSH were unremarkable October 2023. She complains of a long history of constipation with occasional diarrhea. She has a BM 1-2x a day with c/o incomplete evacuation. She reports her dietary habits and water intake are poor. Colonoscopy 10 years ago because stools were dark - does not recall the findings - mostly constipated, occasional diarrhea - states she was diagnosed with IBS in her 20's - c/o incomplete evacuation - she reports fiber supplements in the past have worsened constipation - reports water intake is poor - dicyclomine did help in the past - discontinuing lactose did help with abdominal cramping - 4-6 cups a diet - denies any weight loss - denies any bleeding - she does experience occasional bloating and cramping - improvement with a BM - she will take a stool softener on occasion - she is seen in the office today with her three children under the age of 5 - [facility] Medical History Colonoscopy planned Vitamin D deficiency Prolonged rupture of membranes, delivered Depression Anxiety Cellulitis of suprapubic region Acute maxillary sinusitis, unspecified Abnormal uterine bleeding Retained products of conception after delivery without hemorrhage Wears contact lenses Low iron History of IBS Asthma Non-smoker delivery delivered Polyhydramnios hemorrhage depression Acute sinusitis, unspecified Anxiety Lactose intolerance Asthma 39 weeks gestation of Seasonal allergies Home Medications ???Medication ???Instructions ???Recorded ???Last Taken ???Type NK 07/06/24 Unknown History Allergy/AdvReac Type Severity Reaction Status Date / Time COVID-19 vacc, bv (Orig, Allergy Intermediate Hives Verified 07/09/24 10:53 Omicron BA.4/5) (Moderna) (From Moderna COVID Bival(6m up)(PF)) grass pollen Allergy unknown Verified 07/09/24 10:53 house dust Allergy unknown Verified 07/09/24 10:53 mold Allergy unknown Verified 07/09/24 10:53 Family History Sister Asthma Grandmother Diabetes Heart disease Cancer Grandfather A-fib Cancer Surgical History H/O hand surgery H/O eye surgery [place] teeth removed H/O bilateral salpingectomy History of colonoscopy fatty tumor removed History of bladder surgery History of delivery History of D C History of eyelid surgery Social History adopted: No household members: spouse and children number of children: 4 current occupational status: unemployed current occupation: [employer] pets and animals: No history of recent travel: No sexually active: Yes Smoking Status: Never smoker alcohol intake: current alcohol intake frequency: holidays/special occasions only substance use type: does not use caffeine: Yes Type: coffee Number of servings: 4 seatbelt use: always do you feel safe at home: Yes additional social history: Leander MARSH Constitutional Constitutional: Denies fatigue, fever(s), poor appetite, weight gain or weight loss Gastrointestinal Gastrointestinal: Denies belching, bloating, change in bowel habits, change in stool character, chewing difficulty, coffee ground emesis, constipation, cramping, diarrhea, dyspepsia, dysphagia, early satiety, excessive flatus, fecal incontinence, heartburn, hematemesis, hematochezia, hemorrhoids, loose stools, melena, nausea, odynophagia, rectal bleeding, tenesmus, vomiting or weight changes Vital Signs Vital Signs Vital Signs: 07/09/24 10:54 07/09/24 10:54 07/09/24 11:29 Temperature 97 F L 97 F L Temperature Source Temporal Pulse Rate 71 71 Respiratory Rate 16 16 Respiratory Pattern Normal Blood Pressure 111/76 111/76 Blood Pressure Mean 87 Blood Pressure Source Monitor Blood Pressure Position Semi-Fowlers Blood Pressure Location Left Arm Pulse Ox 99 99 Oxygen Delivery Method Room Air Room Air Weight Weight: 200 lb 6.403 oz Body Mass Index (BMI) 35.4 Physical Exam Const alert, oriented x3, no apparent distress and healthy appearing (more content not included)...[facility]12-17-2024 Evaluation note* Diagnosis Onset Date Resolution Status Admit Date Abnormal uterine bleeding acute April 27, 2024 1:25pm Encounter for routine gynecological examination noneactive Decemb er 2023 1:25pm Mixed irritable bowel syndrome acute May 25 11:04am Mixed irritable bowel syndrome acute July 09, 025 10:33am Acute on chronic blood loss anemia chronic July 09, 025 10:33am Abnormal uterine bleeding acute July 21, 2024 2:09pm [facility] Work Phone: 1(534) 465-407411-03-2023 Progress note Author Marquita Mcclendon [facility] March 14, 2023 6:58am Note Date/Time March 14, 2023 6 :58am [facility] Medical Records Department [address] [place] [address] Progress Note - OBGYN 03/14/23 0655 MR#: [id number] Acct: [id number] Name: INNA CANO Rep #:[id number] : 1985 37 From: Marquita briscoe MD PCP: Dr. Jermaine Mayer, DO Status:ADM IN [id number] Subjective Subjective Patient doing well without complaints. Tolerating PO. Ambulating and voiding without difficulty. feeding well. Denies chest pain, shortness of breath,calf pain/swelling, fevers, chills, lightheadedness. Objective Data Objective Data Vital Signs: Vital Signs Temp Pulse Resp BP Pulse Ox O2 Del Method 97.7 F L 72 16 98/46 L 100 Room Air 03/14/23 02:37 03/14/23 02:37 03/14/23 02:37 03/14/23 02:37 03/14/23 02:37 03/14/23 02:37 Oxygen Delivery Method Room Air Weight: 223 lb 8.78 oz Body Mass Index (BMI) 39.6 Intake & Output: Intake and Output for Last 24 Hours 03/12/23 03/13/23 03/14/23 23:59 23:59 23:59 Intake Total 4715.68 / 4715.68 1110 / 1110 Output Total 2845 / 2845 Balance 1870.68 / 1870.68 1110 / 1110 Lab / Micro Data 03/14/23 06:20 Labs: Laboratory Results - last 24 hr 03/13/23 20:36: WBC 8.7, RBC 2.85 L, Hgb 7.8 L, Hct 25.4 L, MCV 89.1, MCH 27.4, MCHC 30.7 L, RDW Std Deviation 47.0 H, RDW Coeff of Tia 14.8 H, Plt Count 160, MPV 10.4 03/14/23 06:20: WBC 7.5, RBC 2.91 L, Hgb 8.0 L, Hct 25.9 L, MCV 89.0, MCH 27.5, MCHC 30.9 L, RDW Std Deviation 48.1 H, RDW Coeff of Tia 14.8 H, Plt Count 150, MPV 10.0 ROS Constitutional Constitutional: Reports systems reviewed and no addt'l complaints, except as documented Cardiovascular Cardiovascular: Reports systems reviewed and no addt'l complaints, except as documented Respiratory/Chest Respiratory/Chest: Reports systems reviewed and no addt'l complaints, except as documented Gastrointestinal Gastrointestinal: Reports systems reviewed and no addt'l complaints, except as documented Physical Exam Const alert, oriented x3 and no apparent distress HEENT Head and Scalp: atraumatic Resp normal respiratory effort GI soft to palpation and non-tender Inspection: incision intact, healing well and drainage (none) Bimanual Exam - Vag & Uterus: uterus non-tender Uterus Palpation: uterus fundus firm (below Umbilicus) Assessment & Plan (1) Acute on chronic blood loss anemia: COMMENT: iv iron x 1 given, continue oral iron . orthostatics negative. lower bp but asymptomatic and blood counts stable (2) delivery delivered: (3) Depression affecting : COMMENT: stable not on medication PLAN: Plan s/p LTCS PPD #2 1. routine post care 2. breast feeding- support given 3. rh positive 4. rubella immune additional IVFs given, IV venofer. orthostatics negative. blood counts and bleedings table. continue to ambulate this am and stable to discharge if asymptomatic, reviewed precautions 03/14/23657 <Electronically signed by Marquita Mcclendon MD> Cosigner Signature (if applicable): CC: ~ Signed [facility] Work Phone: 1(640) 136-936211-02-2023 Progress note Author Marquita Monahanformerly [facility], [facility] March 13, 2023 9:37pm Note Date/Time March 13, 2023 9 :37pm [facility] Medical Records Department [address] [place] [address] Progress Note 03/13/232136 MR#: [id number] Acct: [id number] Name: INNA CANO Rep #:[id number] : 1985 37 From: Marquita briscoe MD PCP: Dr. Jermaine Mayer, DO Status:ADM IN Location: [place] [address] Progress Note reviewed low bps, repeat Hg 7.8. bleeding WNL. patient asymptomatic but hasn'tbeen ambulating much. recommend IVFs and IV venofer. orthostatics to be done after IVFs. 03/13/232136 <Electronically signed by Marquita Mcclendon MD> Marquita Mcclendon MD Cosigner Signature (if applicable): CC: ~ Signed [facility] Work Phone: 1(804) 318-289311-02-2023 Progress note Author Marquita Mcclendon [facility] March 13, 2023 3:06pm Note Date/Time March 13, 2023 3 :00pm [facility] Medical Records Department [address] [place] [address] Progress Note - OBGYN 03/13/23 1458 MR#: [id number] Acct: [id number] Name: INNA CANO Rep #:[id number] : 1985 37 From: Marquita briscoe MD PCP: Dr. Jermaine Mayer, DO Status:ADM IN Location: [place] [address] Subjective Subjective Patient doing well without complaints. Tolerating PO. Ambulating and voiding without difficulty. infant feeding well. Denies chest pain, shortness of breath,calf pain/swelling, fevers, chills, lightheadedness. Objective Data Objective Data Vital Signs: Vital Signs Temp Pulse Resp BP Pulse Ox O2 Del Method 97.8 F 96 18 106/37 L 97 Room Air 03/13/23 13:09 03/13/23 13:09 03/13/23 13:09 03/13/23 13:09 03/13/23 09:00 03/13/23 04:52 Oxygen Delivery Method Room Air Weight: 223 lb 8.78 oz Body Mass Index (BMI) 39.6 Intake & Output: Intake and Output for Last 24 Hours 03/11/23 03/12/23 03/13/23 23:59 23:59 23:59 Intake Total 4715.68 / 4715.68 Output Total 2845 / 2845 Balance 1870.68 / 1870.68 Lab / Micro Data 03/13/23 04:45 Labs: Laboratory Results - last 24 hr 03/13/23 04:45: WBC 10.3, RBC 3.06 L, Hgb 8.4 L, Hct 26.8 L, MCV 87.6, MCH 27.5,MCHC 31.3 L, RDW Std Deviation 46.6 H, RDW Coeff of Tia 14.7 H, Plt Count 141 L,MPV 10.5 ROS Constitutional Constitutional: Reports systems reviewed and no addt'l complaints, except as documented Cardiovascular Cardiovascular: Reports systems reviewed and no addt'l complaints, except as documented Respiratory/Chest Respiratory/Chest: Reports systems reviewed and no addt'l complaints, except as documented Gastrointestinal Gastrointestinal: Reports systems reviewed and no addt'l complaints, except as documented Physical Exam Const alert, oriented x3 and no apparent distress HEENT Head and Scalp: atraumatic Resp normal respiratory effort Bimanual Exam - Vag & Uterus: uterus non-tender Assessment & Plan (1) delivery delivered: PLAN: Plan s/p LTCS PPD # 1 1. routine post care 2. breast feeding- support given 3. rh positive 4. rubella immune 03/13/23 1506 <Electronically signed by Marquita Mcclendon MD> Cosigner Signature (if applicable): CC: ~ Signed [facility] Work Phone: 1([phone]) 220-766411-01-2023 Discharge summary Author Cinthia Abdullahi [facility] March 12, 2023 7:38am Note Date/Time March 12, 2023 7 :38am [facility] Medical Records Department [address] [place] [address] Instructions for Home/Discharge Instructions 03/12/23 0738 MR#: [id number] Acct: [id number] Name: INNA CANO Rep #:[id number] : 1985 37 From: Cinthia Frances DO PCP: Dr. Jermaine Mayer DO Status:ADM IN Discharge Instructions Diet Discharge Diet: No restrictions Activity Discharge Activity: May Not Drive (for 2 weeks or while taking narcotic pain medications.), May Shower and May Take a Tub Bath (in 7 days.) May resume sexual activity in: 4-6 weeks Weight Bearing Status: Full weight bearing Lifting Restrictions: 20 pounds Dressing / Incision Call your doctor if your incision/area has: Continuous Slow Oozing, Sudden Increased Bleeding, Increased Pain/ Swelling, Increased Redness and Foul Smelling Discharge Call your doctor if you observe: Fever of 101 or Higher and Using more than 1 pad per hour Suture Line Care: Avoid Pulling/Pushing and Avoid Pinching/Bending Cleanse incision/area with: Soap & Water and Keep Dressing Clean & Dry Follow Up Care Please Follow Up With: Cinthia Frances DO When: Call [phone] to make an appointment for an incision check in 1-2 weeks. Test Results: Test results from this visit will be discussed in further detail at your follow- up appointment, if applicable. Discharge Plan Admission Admit Date/Time: 03/12/23 05:40 Attending Provider: Marquita Mcclendon Primary Care Provider: Jermaine Mayer Discharge Orders/Prescriptions Prescriptions: No Action DHA 200 mg capsule 2 mg PO DAILY Referrals / Follow Up: Jermaine Mayer DO [Primary Care Provider] - 03/12/2338<Electronically signed by Cinthia Frances DO>Cinthia Frances DO CC: Dr. Jermaine Mayer, ~ Signed [facility] Work Phone: 1([phone]) [phone] History and physical note Author Cinthia Abdullahi [facility] March 12, 2023 7:38am Note Date/Time March 12, 2023 7 :38am [facility] Medical Records Department [address] [place] [address] H&P Exam - [employer] 03/12/23 0737 MR#: [id number] Acct: [id number] Name: INNA CANO Rep #:[id number] : 1985 37 From: Cinthia Frances DO PCP: Dr. Jermaine Mayer DO Status:ADM IN Location: [id number] HPI - General General Date of Admission: 03/12/23 HPI Narrative INNA CANO, is a 37 y/o @ 39 weeks 3 days who presents to L&D for a repeat section. She has a h/o 3 prior sections Maternal Data Information FRANKI Calculator Estimated Delivery Date Method Current WG Current Estimate 03/16/23 LMP (Certain) 39w 3d PFSH PFS Medical History (Updated 03/12/23 @ 06:02 by Josefa Rosenthal) 39 weeks gestation of Abnormal uterine bleeding Acute maxillary sinusitis, unspecified Acute sinusitis, unspecified Anxiety Anxiety Asthma Asthma Cellulitis of suprapubic region delivery delivered Depression History of IBS Lactose intolerance Low iron Non-smoker Polyhydramnios depression hemorrhage Prolonged rupture of membranes, delivered Retained products of conception after delivery without hemorrhage Seasonal allergies Wears contact lenses Home Medications docosahexaenoic acid 200 mg capsule ( DHA) 2 mg PO DAILY 12/02/22 [History Last Taken 03/11/23 08:00 200 mg] Allergy/AdvReac Type Severity Reaction Status Date / Time grass pollen Allergy unknown Verified 03/05/23 10:07 house dust Allergy unknown Verified 03/05/23 10:07 mold Allergy unknown Verified 03/05/23 10:07 Family History Sister Asthma Grandmother Diabetes Heart disease Cancer Grandfather A-fib Cancer Surgical History fatty tumor removed History of bladder surgery History of delivery History of colonoscopy History of D&C History of eyelid surgery Social History adopted: No household members: spouse and children number of children: 3 current occupational status: unemployed current occupation: [employer] pets and animals: No history of recent travel: No sexually active: Yes Smoking Status: Never smoker alcohol intake: current alcohol intake frequency: holidays/special occasions only substance use type: does not use caffeine: Yes Type: coffee Number of servings: 4 seatbelt use: always do you feel safe at home: Yes additional social history: [place] History 5 Elective abortions Hx Para 3 Spontaneous abortions 1 Hx # Term Pregnancies 3 Ectopic pregnancies Hx # Pregnancies Multiple births # of living children 3 Past Pregnancies Del. Date Name GA/Weeks Outcome Route Bth Weight Gen Labor Lgth Anesthesia Del Locatn Provider FOB 09/27/16 Richy 39 live - full term 8.13 Male 03/25/19 Mechelle 39 live - full term 9.2 Female 09/12/21 Sai 39 live - full term 9.4 Male Visit Details Expected Delivery Route/Plan RLTCS Plans Covid status: discussed Flu vaccine: discussed Tdap vaccine: considering Rhogam: NA LARC form signed: yes Problem list reviewed and updated with the most current plan of care details andappropriate orders placed. Relevant counseling for the gestational age provided. Continue routine care and follow up unless otherwise noted in visit notes/problem list details OB Flowsheet Initial Weight: Not Recorded Date -?-?-?-?-?-?-?-?-?-?-?-?- EGA Weight BP Urine Prot -?-?-?-?-?-?-?-?-?-?-?-?- Glucose FHR FuHt Pres Dilation -?-?-?-?-?-?-?-?-?-?-?-?- Effaced St Visit Note 08/19/22 -?-?-?-?-?-?-?-?-?-?-?--?- 10w 1d 194 lb 8 oz 91/60 -?-?-?-?-?-?-?-?-?-?-?-?- 168 -?-?-?-?-?-?-?-?-?-?-?-?- Sm- CRL cons wit h LMP Sm- CRL 2.5cm cons with LMP 09/19/22 -?-?-?-?-?-?-?-?-?-?-?-?- 14w 4d 195 lb 2 oz 103/57 Nega tive -?-?-?-?-?-?-?-?-?-?-?-?- Negative 156 -?-?-?-?-?-?-?-?-?-?-?-?- JV- CRL measurin g 14 weeks. no complaints. anatomy scan ordered. JV- CRL measuring 14 weeks. no complaints. will be traveling to [place] this month to see family. anatomy scan ordered. 10/28/22 -?-?-?-?-?-?-?-?-?-?-?-?- 20w 1d 200 lb 2 oz 128/70 Nega tive -?-?-?-?-?-?-?-?-?-?-?-?- Negative 154 20 -?-?-?-?-?-?-?-?-?-?-?-?- KW-+ Flutters. n o vb/cramping. no concerns 11/26/22 -?-?-?-?-?-?-?-?-?-?-?-?- 24w 2d 208 lb 6 oz 92/53 Nega tive -?-?-?-?-?-?-?-?-?-?-?-?- Negative 140 -?-?-?-?-?-?-?-?-?-?-?-?- SM- no vb lof go od fm no regular ctx 12/24/22 -?-?-?-?-?-?-?-?-?-?-?-?- 28w 2d 211 lb 6 oz 124/72 Nega tive -?-?-?-?-?-?-?-?-?-?-?-?- Negative 153 -?-?-?-?-?-?-?-?-?-?-?-?- -No VB LOF. G ood FM. Larc. 28 wk labs 01/07/23 -?-?-?-?-?-?-?-?-?-?-?-?- 30w 2d 214 lb 6 oz 101/63 Nega tive -?-?-?-?-?-?-?-?-?-?-?-?- Negative 151 31 -?-?-?-?-?-?-?-?-?-?-?-?- -No VB, LOF. G ood FM. Denies concerns 01/23/23 -?-?-?-?-?-?-?-?-?-?-?-?- 32w 4d 217 lb 4 oz 124/62 Nega tive -?-?-?-?-?-?-?-?-?-?-?-?- Negative 146 32 -?-?-?-?-?-?-?-?-?--?-?-?- -No VB, LOF. G ood FM. Tdap. 02/04/23 -?-?-?-?-?-?-?-?-?-?-?-?- 34w 2d 219 lb 6 oz 102/64 -?-?-?-?-?-?-?-?-?-?-?-?- 137 34 -?-?-?-?-?-?-?-?-?-?-?-?- KW- no vb/lof. g ood fm. recommended compression hose and hydration for swelling in feet. no concerns today. KW- no vb/lof. good fm. dianna mmended compression hose and hydration for swelling in feet. no concerns today. Aware NSTs to start at 36 weeks for AMA-would like to defer NSTs 02/18/23 -?-?-?-?-?-?-?-?-?-?-?-?- 36w 2d 218 lb 102/60 Trace -?-?-?-?-?-?-?-?-?-?-?-?- Negative 140 38 -?-?-?-?-?-?-?-?-?-?-?-?- SM- no vb lof go od fm no regular ctx 02/26/23 -?-?-?-?-?-?-?-?-?-?-?-?- 37w 3d 221 lb 6 oz 107/46 -?-?-?-?-?-?-?-?-?-?-?-?- 143 39 -?-?-?-?-?-?-?-?-?-?-?-?- JV- bpp today. n o cramping, no lof, vag bleeding 03/05/23 -?-?-?-?-?-?-?-?-?-?-?-?- 38w 3d 225 lb 2 oz 91/60 Nega tive -?-?-?-?-?-?-?-?-?-?-?-?- Negative 190 39 -?-?-?-?-?-?-?-?-?-?-?-?- JV- nst today fo r tachycardia ROS Constitutional Constitutional: Denies change in weight, fatigue, fever(s), headache(s), poor appetite or weakness Eyes Eyes: Denies blurry vision, change in vision, seeing flashes or spots in vision ENT HEENT: Denies dizziness, headache(s), loss taste/smell or sore throat Cardiovascular Cardiovascular: Denies chest pain, dizziness, dyspnea, irregular heart rhythm, leg edema, palpitations, rapid heart rate or vomiting Respiratory/Chest Respiratory/Chest: Denies chest tightness, cough, dyspnea or breast pain Gastrointestinal Gastrointestinal: Denies abdominal pain, anorexia, constipation, cramping, diarrhea, hemorrhoids, vomiting or weight changes Genitourinary Genitourinary: Denies dysuria, flank pain, genital lesions, genital pain, urinary frequency or urinary urgency Musculoskeletal Musculoskeletal: Denies back pain, difficulty walking, joint pain, limited rangeof motion, muscle cramps or numbness Integumentary Integumentary: Denies lesions or unusual bruising Neurologic Neurologic: Denies abnormal movements, abnormal speech, dizziness, numbness, seizure-like activity or syncope Psychiatric Psychiatric: Denies anxiety, behavioral changes, change in appetite, change in libido, cognitive impairment, confusion, depression, difficulty concentrating, hallucinations or suicidal thoughts Endocrine Endocrinology: Denies excessive sweating, polydipsia or polyuria Hematologic/Lymphatic Hematologic/Lymphatic: Denies easy bleeding, easy bruising or lymphadenopathy Allergic/Immunologic Allergic/Immunologic: Denies itchy eyes, lip swelling, seasonal rhinorrhea, rhinitis, throat swelling, tongue swelling, eczemia, wheezing or asthma Vital Signs Vital Signs Vital Signs: 03/12/23 06:33 Temperature 97.4 F L Temperature Source Temporal Pulse Rate 94 Respiratory Rate 16 Blood Pressure 127/68 H Blood Pressure Mean 87 Blood Pressure Source Monitor Blood Pressure Position Semi-Fowlers Blood Pressure Location Right Arm Pulse Ox 98 Oxygen Delivery Method Room Air Weight Weight: 223 lb 8.78 oz Body Mass Index (BMI) 39.6 Physical Exam Const alert, oriented x3, no apparent distress and healthy appearing General Appearance: cooperative; Negative for anxious HEENT normocephalic Face and Sinus: normal facial exam Eyes EOMs intact bilaterally and no scleral icterus General Eye: normal appearance of both eyes Neck full ROM and supple Lymph Lymphatic: no lymphadenopathy noted Chest Chest: abnormal inspection of the chest Resp normal respiratory effort Effort and Inspection: able to speak in complete sentences Cardio regular rate GI soft to palpation and non-tender Inspection: gravid Palpation: soft; Negative for tender Back/Spine no CVA tenderness Extremity normal to inspection, full ROM and no clubbing, cyanosis or edema General Extremity: Negative for calf tenderness or edema Skin Lesions: no lesions Rashes: no rashes Psych mental status grossly normal Labs Labs Labs: Blood Type O POSITIVE Antibody Screen NEGATIVE Hct 37.4 % (37-47) Hgb 11.9 g/dL (12.0-15.0) L Obstetrics Ultrasound Syphilis Total Ab Non-reactive Rubella IgG Antibody Reactive (Nonreactive) Hep Bs Antigen Non-Reactive (Nonreactive) Hepatitis C Antibody Non-Reactive (Nonreactive) Hepatitis C Ab (EIA) 0.1 s/co ratio (0.0-0.9) Chlamydia DNA (JENNA) Negative (Negative) N.gonorrhoeae DNA (JENNA) Negative (Negative) HIV 1&2 Antibody Non-Reactive (Nonreactive) Glucose 1 Hr 50 gm 123 mg/dL (70-140) Group B Strep DNA Negative (Negative) Rhogam given: No Miscellaneous Test Assessment & Plan (1) Decreased movement: (2) History of delivery affecting : COMMENT: x3, desires repeat C/S plan 03/12 with JV, RLTCS scheduled for 03/12 @ 7:30 with JV (3) Depression affecting : COMMENT: stable not on medication (4) AMA (advanced maternal age) multigravida 35+: QUALIFIERS: Trimester: second trimester Qualified Code(s): O09.522 - Supervision of elderly multigravida, second trimester COMMENT: NIPT low risk, growth us ordered 36 weeks (5) Supervision of high risk , antepartum: COMMENT: PRR FRANKI 03/16/23, girl, Rad[facility] Richy, Mechelle, Sai Leander (6) : QUALIFIERS: Weeks of gestation: 38 weeks Qualified Code(s): Z3A.38 - 38 weeks gestation of COMMENT: GBS negative, NIPT low risk, carrier neg. , nl anatomy & consistent FRANKI (7) Cellulitis of suprapubic region: PLAN: Plan plan for ERAS repeat section today After discussing the patient's diagnosis and treatment plan options, patient wishes to proceed with surgical management. I have discussed with the patient the risks, benefits, and alternatives of the procedure which include but are notlimited to risks of anesthesia, bleeding, infection, possible damage to bowel, bladder, or surrounding vasculature which could lead to additional surgery to evaluate any complications. Patient agrees to procedure and wishes to proceed. ACOG/uptodate references given for additional information regarding procedure. 03/12/23 0738 <Electronically signed by Cinthia Frances DO> Cosigner Signature (if applicable): CC: Dr. Cinthia Frances DO; Dr. Jermaine Mayer DO~ Signed [facility] Work Phone: 1(874) 579-374511-01-2023 Procedure [facility] 05-14-2021 SARS-CoV RNA JENNA+probe Ql (Unsp spec)Coronavirus 2019 (JENNA)May 14, 2021 12:51pmDetectedNot DetectedPatients who have a positive COVID-19 test result may nowhave treatment options. Treatment options are available forpatients with mild to moderate symptoms and forhospitalized patients. Visit our website [email or web address] for resources andinformation.This nucleic acid amplification test was developed and itsperformance characteristics determined by [employer]. Nucleic acid amplification tests include RT- PCR and TMA. This test has not been FDA cleared orapproved. This test has been authorized by FDA under anEmergency Use Authorization (EUA). This test is onlyauthorizedfor the duration of time the declaration thatcircumstances exist justifying the authorization of theemergency use of in vitro diagnostic tests for detection [id number] virus and/or diagnosis of COVID-19 infectionunder section 564(b)(1) of the Act, 21 U.S.C. 360bbb-3(b)(1), unless the authorization is terminated or revokedsooner.When diagnostic testing is negative, the possibility of afalse negative result should be considered in the contextof a patient's recent exposures and the presence ofclinical signs and symptoms consistent with COVID-19. Anindividual without symptoms of COVID-19 and who is notshedding SARS-CoV-2 virus would expect to have a negative(not detected) result in this assay.[facility] INTERFACED A#[id number] Work Phone: Comment on above:Patients who have a positive COVID-19 test result may nowhave treatment options. Treatment options are available forpatients with mild to moderate symptoms and forhospitalized patients. Visit our website [email or web address] for resources andinformation.This nucleic acid amplification test was developed and itsperformance characteristics determined by [employer]. Nucleic acid amplification tests include RT- PCR and TMA. This test has not been FDA cleared orapproved. This test has been authorized by FDA under anEmergency Use Authorization (EUA). This test is onlyauthorizedfor the duration of time the declaration thatcircumstances exist justifying the authorization of theemergency use of in vitro diagnostic tests for detection [id number] virus and/or diagnosis of COVID-19 infectionunder section 564(b)(1) of the Act, 21 U.S.C. 360bbb-3(b)(1), unless the authorization is terminated or revokedsooner.When diagnostic testing is negative, the possibility of afalse negative result should be considered in the contextof a patient's recent exposures and the presence ofclinical signs and symptoms consistent with COVID-19. Anindividual without symptoms of COVID-19 and who is notshedding SARS-CoV-2 virus would expect to have a negative(not detected) result in this assay.03-30-2015 History of Past illness Narrative* Problem Noted Date Diagnosed Date Resolved Date Irritable bowel syndrome with diarrhea 03/30/2015 03/30/2015 documented as of this encounter (statuses as of 01/31/2023) [facility] Diagnosis Onset Date Resolution Status Sinusitis acute Acute sinusitis, unspecified acute [facility] Work Phone: Evaluation note* Diagnosis Onset Date Resolution Status nipple pain nonea ctive Care and examination of lactating mother noneactive Engorgement of breast associ ated with childbirth, noneactive Abnormal uterine bleeding ac [place] Retained products of concept ion after delivery without hemorrhage acute [facility] Work Phone: Evaluation note* Diagnosis Onset Date Resolution Status AMA (advanced maternal age) multigravida 35+ acute Depression affecting acute History of delivery affecting acute acute Supervision of high risk , antepartum acute [facility] Work Phone: Evaluation note* Diagnosis Onset Date Resolution Status AMA (advanced maternal age) multigravida 35+ acute Depression affecting acute History of delivery affecting acute acute Supervision of high risk , antepartum acute AMA (advanced maternal age) multigravida 35+ acute Depression affecting acute History of delivery affecting acute acute Supervision of high risk , antepartum acute Acute maxillary sinusitis, unspecified acute [facility] Work Phone: Evaluation note* Diagnosis Onset Date Resolution Status AMA (advanced maternal age) multigravida 35+ acute Depression affecting acute History of delivery affecting acute acute Supervision of high risk , antepartum acute Acute maxillary sinusitis, unspecified resolved AMA (advanced maternal age) multigravida 35+ acute Depression affecting acute History of delivery affecting acute acute Supervision of high risk , antepartum acute Acute maxillary sinusitis, unspecified resolved AMA (advanced maternal age) multigravida 35+ acute Depression affecting acute History of delivery affecting acute acute Supervision of high risk , antepartum acute Cellulitis of suprapubic region acute AMA (advanced maternal age) multigravida 35+ acute Depression affecting acute History of delivery affecting acute acute Supervision of high risk , antepartum acute [facility] Work Phone: Evaluation note* Diagnosis Onset Date Resolution Status AMA (advanced maternal age) multigravida 35+ acute Depression affecting acute History of delivery affecting acute acute Supervision of high risk , antepartum acute Acute maxillary sinusitis, unspecified resolved AMA (advanced maternal age) multigravida 35+ acute Depression affecting acute History of delivery affecting acute acute Supervision of high risk , antepartum acute Cellulitis of suprapubic region acute AMA (advanced maternal age) multigravida 35+ acute Depression affecting acute History of delivery affecting acute acute Supervision of high risk , antepartum acute AMA (advanced maternal age) multigravida 35+ acute Depression affecting acute History of delivery affecting acute acute Supervision of high risk , antepartum acute AMA (advanced maternal age) multigravida 35+ acute Depression affecting acute History of delivery affecting acute acute Supervision of high risk , antepartum acute AMA (advanced maternal age) multigravida 35+ acute Cellulitis of suprapubic region acute Depression affecting acute History of delivery affecting acute acute Supervision of high risk , antepartum acute AMA (advanced maternal age) multigravida 35+ acute Cellulitis of suprapubic region acute Depression affecting acute History of delivery affecting acute acute Supervision of high risk , antepartum acute [facility] Work Phone: Evaluation note* Diagnosis Onset Date Resolution Status AMA (advanced maternal age) multigravida 35+ acute Depression affecting acute History of delivery affecting acute acute Supervision of high risk , antepartum acute Cellulitis of suprapubic region acute AMA (advanced maternal age) multigravida 35+ acute Depression affecting acute History of delivery affecting acute acute Supervision of high risk , antepartum acute AMA (advanced maternal age) multigravida 35+ acute Depression affecting acute History of delivery affecting acute acute Supervision of high risk , antepartum acute AMA (advanced maternal age) multigravida 35+ acute Depression affecting acute History of delivery affecting acute acute Supervision of high risk , antepartum acute AMA (advanced maternal age) multigravida 35+ acute Cellulitis of suprapubic region acute Depression affecting acute History of delivery affecting acute acute Supervision of high risk , antepartum acute AMA (advanced maternal age) multigravida 35+ acute Cellulitis of suprapubic region acute Depression affecting acute History of delivery affecting acute acute Supervision of high risk , antepartum acute AMA (advanced maternal age) multigravida 35+ acute Cellulitis of suprapubic region acute Depression affecting acute History of delivery affecting acute acute Supervision of high risk , antepartum acute [facility] Work Phone: Evaluation note* Diagnosis Onset Date Resolution Status AMA (advanced maternal age) multigravida 35+ acute Depression affecting acute History of delivery affecting acute acute Supervision of high risk , antepartum acute Cellulitis of suprapubic region acute AMA (advanced maternal age) multigravida 35+ acute Depression affecting acute History of delivery affecting acute acute Supervision of high risk , antepartum acute AMA (advanced maternal age) multigravida 35+ acute Depression affecting acute History of delivery affecting acute acute Supervision of high risk , antepartum acute AMA (advanced maternal age) multigravida 35+ acute Depression affecting acute History of delivery affecting acute acute Supervision of high risk , antepartum acute AMA (advanced maternal age) multigravida 35+ acute Cellulitis of suprapubic region acute Depression affecting acute History of delivery affecting acute acute Supervision of high risk , antepartum acute AMA (advanced maternal age) multigravida 35+ acute Cellulitis of suprapubic region acute Depression affecting acute History of delivery affecting acute acute Supervision of high risk , antepartum acute AMA (advanced maternal age) multigravida 35+ acute Cellulitis of suprapubic region acute Depression affecting acute History of delivery affecting acute acute Supervision of high risk , antepartum acute AMA (advanced maternal age) multigravida 35+ acute Cellulitis of suprapubic region acute Depression affecting acute History of delivery affecting acute acute Supervision of high risk , [facility] Work [facility]: Evaluation note* Diagnosis Onset Date Resolution Status Depression affecting acute AMA (advanced maternal age) multigravida 35+ resolved History of delivery affecting resolved resolved Supervision of high risk , antepartum resolved Cellulitis of suprapubic region resolved Depression affecting acute AMA (advanced maternal age) multigravida 35+ resolved History of delivery affecting resolved resolved Supervision of high risk , antepartum resolved Depression affecting acute AMA (advanced maternal age) multigravida 35+ resolved History of delivery affecting resolved resolved Supervision of high risk , antepartum resolved Depression affecting acute AMA (advanced maternal age) multigravida 35+ resolved History of delivery affecting resolved resolved Supervision of high risk , antepartum resolved Depression affecting acute AMA (advanced maternal age) multigravida 35+ resolved Cellulitis of suprapubic region resolved History of delivery affecting resolved resolved Supervision of high risk , antepartum resolved Depression affecting acute AMA (advanced maternal age) multigravida 35+ resolved Cellulitis of suprapubic region resolved History of delivery affecting resolved resolved Supervision of high risk , antepartum resolved Depression affecting acute AMA (advanced maternal age) multigravida 35+ resolved Cellulitis of suprapubic region resolved History of delivery affecting resolved resolved Supervision of high risk , antepartum resolved Depression affecting acute AMA (advanced maternal age) multigravida 35+ resolved Cellulitis of suprapubic region resolved History of delivery affecting resolved resolved Supervision of high risk , antepartum resolved Decreased movement res olved delivery delivered acute Depression affecting acute Acute on chronic blood loss anemia chronic AMA (advanced maternal age) multigravida 35+ resolved Cellulitis of suprapubic region resolved Decreased movement res olved History of delivery affecting resolved resolved Supervision of high risk , antepartum resolved [facility] Work Phone: Evaluation note* Diagnosis Onset Date Resolution Status Depression affecting acute AMA (advanced maternal age) multigravida 35+ resolved History of delivery affecting resolved resolved Supervision of high risk , antepartum resolved Cellulitis of suprapubic region resolved Depression affecting acute AMA (advanced maternal age) multigravida 35+ resolved History of delivery affecting resolved resolved Supervision of high risk , antepartum resolved Depression affecting acute AMA (advanced maternal age) multigravida 35+ resolved History of delivery affecting resolved resolved Supervision of high risk , antepartum resolved Depression affecting acute AMA (advanced maternal age) multigravida 35+ resolved History of delivery affecting resolved resolved Supervision of high risk , antepartum resolved Depression affecting acute AMA (advanced maternal age) multigravida 35+ resolved Cellulitis of suprapubic region resolved History of delivery affecting resolved resolved Supervision of high risk , antepartum resolved Depression affecting acute AMA (advanced maternal age) multigravida 35+ resolved Cellulitis of suprapubic region resolved History of delivery affecting resolved resolved Supervision of high risk , antepartum resolved Depression affecting acute AMA (advanced maternal age) multigravida 35+ resolved Cellulitis of suprapubic region resolved History of delivery affecting resolved resolved Supervision of high risk , antepartum resolved Depression affecting acute AMA (advanced maternal age) multigravida 35+ resolved Cellulitis of suprapubic region resolved History of delivery affecting resolved resolved Supervision of high risk , antepartum resolved Decreased movement res olved delivery delivered acute Depression affecting acute Acute on chronic blood loss anemia chronic AMA (advanced maternal age) multigravida 35+ resolved Cellulitis of suprapubic region resolved Decreased movement res olved History of delivery affecting resolved resolved Supervision of high risk , antepartum resolved delivery delivered acute Depression affecting acute Acute on chronic blood loss anemia chronic Postop check noneactive [facility] Work Phone: Evaluation note* Diagnosis Onset Date Resolution Status delivery delivered acute Routine Follow-Up noneactive Abnormal uterine bleeding ac [place] [facility] Work Phone: Reason for referral (narrative)No reason for referral information [facility] Work Phone: Summary Purpose Family History Relationship Condition Age at Onset Recorded Date/T [place] sister Asthma Unknown grandmother Diabetes mellitus Unknown Cardiac disease Unknown Malignant neoplasm Unknown grandfather Atrial fibrillation Unknown Advance Directives Advance Directive Response Recorded Date/ Time Advance Directives No August 05 10:19am Living Will No August 05, 2020 10:19am Power of Strap Setter No August 05 10:19am Advance Directive Response Recorded Date/ Time Advance Directives No August 05 10:19am Living Will No November 15, 2021 1 :37pm Power of Strap Setter No November 15, 2021 1:37pm Advance Directive Response Recorded Date/ Time Advance Directives No August 19 023 2:19pm Living Will No August 19, 2022 2:19pm Power of Strap Setter No August 19 2:19pm Advance Directive Response Recorded Date/ Time Advance Directives No November 26 10:28am Living Will No November 26, 2022 10:28am Power of Strap Setter No November 26 10:28am Advance Directive Response Recorded Date/ Time Advance Directives No November 26 10:28am Living Will No March 12 5:53am Power of Strap Setter No March 12, 2023 5:53am Advance Directive Response Recorded Date/ Time Advance Directives No November 26 9:28am Living Will No March 12 4:53am Power of Strap Setter No March 12, 2023 4:53am Advance Directive Response Recorded Date/ Time Living Will No March 12 5:53am Do you have a Healthcare Power of Strap Setter? No March 12, 2023 5:53am Living Will No July 06 12:48pm Do you have a Healthcare Power of Strap Setter? No July 06, 2024 12:48pm Advance Directives No November 26 10:28am Advance Directive Response Recorded Date/ Time Living Will No July 06, 12:48pm Do you have a Healthcare Power of Strap Setter? No July 06, 2024 12:48pm Advance Directives No November 26 10:28am Advance Directive Response Recorded Date/ Time Advance Directives No November 26 10:28am Advance Directive Response Recorded Date/ Time Do you have a Healthcare Power of Strap Setter? No November 25, 2024 2:44pm Advance Directives No November 26 10:28am Chief Complaint and Reason for Visit Chief Complaint COVID TEST COVID TEST COLD SX'S Reason for Visit Sinusitis Acute sinusitis, unspecified Chief Complaint COLD SX'S /CSECTION DELIVERY latch assistance needed and baby weight check Reason for Visit nipple pa in Care and examination of lactating mother Engorgement of breast associated with childbirth, Abnormal uterine bleeding Retained products of conception after delivery without hemorrhage Chief Complaint NOB LMP:06/09 Reason for Visit AMA (advanced matern al age) multigravida 35+ Depression affecting History of delivery affecting Supervision of high risk , antepartum Chief Complaint NOB LMP:06/09 14 WK OB CHEST CONGESTION/COUGH/SORE THROAT Reason for Visit AMA (advanced matern al age) multigravida 35+ Depression affecting History of delivery affecting Supervision of high risk , antepartum AMA (advanced maternal age) multigravida 35+ Depression affecting History of delivery affecting Supervision of high risk , antepartum Acute maxillary sinusitis, unspecified Chief Complaint NOB LMP:06/09 14 WK OB CHEST CONGESTION/COUGH/SORE THROAT SUPERVISION OF HIGH RISK Reason for Visit AMA (advanced matern al age) multigravida 35+ Depression affecting History of delivery affecting Supervision of high risk , antepartum AMA (advanced maternal age) multigravida 35+ Depression affecting History of delivery affecting Supervision of high risk , antepartum Acute maxillary sinusitis, unspecified Chief Complaint 14 WK OB CHEST CONGESTION/COUGH/SORE THROAT SUPERVISION OF HIGH RISK 20 WK OB 24 WK OB *JV pt CONCERN FOR INFECTION/POSS IN GROWN HAIR 1 28 WK OB/GLUCOSE *JV pt Reason for Visit AMA (advanced matern al age) multigravida 35+ Depression affecting History of delivery affecting Supervision of high risk , antepartum Acute maxillary sinusitis, unspecified AMA (advanced maternal age) multigravida 35+ Depression affecting History of delivery affecting Supervision of high risk , antepartum Acute maxillary sinusitis, unspecified AMA (advanced maternal age) multigravida 35+ Depression affecting History of delivery affecting Supervision of high risk , antepartum Cellulitis of suprapubic region AMA (advanced maternal age) multigravida 35+ Depression affecting History of delivery affecting Supervision of high risk , antepartum Chief Complaint 20 WK OB 24 WK OB *JV pt CONCERN FOR INFECTION/POSS IN GROWN HAIR 1 28 WK OB/GLUCOSE *JV pt 30 WK OB *JV pt 32 WK OB 34 WK OB 36 WK OB Reason for Visit AMA (advanced matern al age) multigravida 35+ Depression affecting History of delivery affecting Supervision of high risk , antepartum Acute maxillary sinusitis, unspecified AMA (advanced maternal age) multigravida 35+ Depression affecting History of delivery affecting Supervision of high risk , antepartum Cellulitis of suprapubic region AMA (advanced maternal age) multigravida 35+ Depression affecting History of delivery affecting Supervision of high risk , antepartum AMA (advanced maternal age) multigravida 35+ Depression affecting History of delivery affecting Supervision of high risk , antepartum AMA (advanced maternal age) multigravida 35+ Depression affecting History of delivery affecting Supervision of high risk , antepartum AMA (advanced maternal age) multigravida 35+ Cellulitis of suprapubic region Depression affecting History of delivery affecting Supervision of high risk , antepartum AMA (advanced maternal age) multigravida 35+ Cellulitis of suprapubic region Depression affecting History of delivery affecting Supervision of high risk , antepartum Chief Complaint 24 WK OB *JV pt CONCERN FOR INFECTION/POSS IN GROWN HAIR 1 28 WK OB/GLUCOSE *JV pt 30 WK OB *JV pt 32 WK OB 34 WK OB 36 WK OB 37 WK OB GROWTH Reason for Visit AMA (advanced matern al age) multigravida 35+ Depression affecting History of delivery affecting Supervision of high risk , antepartum Cellulitis of suprapubic region AMA (advanced maternal age) multigravida 35+ Depression affecting History of delivery affecting Supervision of high risk , antepartum AMA (advanced maternal age) multigravida 35+ Depression affecting History of delivery affecting Supervision of high risk , antepartum AMA (advanced maternal age) multigravida 35+ Depression affecting History of delivery affecting Supervision of high risk , antepartum AMA (advanced maternal age) multigravida 35+ Cellulitis of suprapubic region Depression affecting History of delivery affecting Supervision of high risk , antepartum AMA (advanced maternal age) multigravida 35+ Cellulitis of suprapubic region Depression affecting History of delivery affecting Supervision of high risk , antepartum AMA (advanced maternal age) multigravida 35+ Cellulitis of suprapubic region Depression affecting History of delivery affecting Supervision of high risk , antepartum Chief Complaint 24 WK OB *JV pt CONCERN FOR INFECTION/POSS IN GROWN HAIR 1 28 WK OB/GLUCOSE *JV pt 30 WK OB *JV pt 32 WK OB 34 WK OB 36 WK OB 37 WK OB GROWTH 38 WK OB DECREASED MOVEMENT Reason for Visit AMA (advanced matern al age) multigravida 35+ Depression affecting History of delivery affecting Supervision of high risk , antepartum Cellulitis of suprapubic region AMA (advanced maternal age) multigravida 35+ Depression affecting History of delivery affecting Supervision of high risk , antepartum AMA (advanced maternal age) multigravida 35+ Depression affecting History of delivery affecting Supervision of high risk , antepartum AMA (advanced maternal age) multigravida 35+ Depression affecting History of delivery affecting Supervision of high risk , antepartum AMA (advanced maternal age) multigravida 35+ Cellulitis of suprapubic region Depression affecting History of delivery affecting Supervision of high risk , antepartum AMA (advanced maternal age) multigravida 35+ Cellulitis of suprapubic region Depression affecting History of delivery affecting Supervision of high risk , antepartum AMA (advanced maternal age) multigravida 35+ Cellulitis of suprapubic region Depression affecting History of delivery affecting Supervision of high risk , antepartum AMA (advanced maternal age) multigravida 35+ Cellulitis of suprapubic region Depression affecting History of delivery affecting Supervision of high risk , antepartum Chief Complaint 24 WK OB *JV pt CONCERN FOR INFECTION/POSS IN GROWN HAIR 1 28 WK OB/GLUCOSE *JV pt 30 WK OB *JV pt 32 WK OB 34 WK OB 36 WK OB 37 WK OB GROWTH 38 WK OB DECREASED MOVEMENT DECREASED MOVEMENT REPEAT REPEAT REPEAT REPEAT Reason for Visit Depression affecting AMA (advanced maternal age) multigravida 35+ History of delivery affecting Supervision of high risk , antepartum Cellulitis of suprapubic region Depression affecting AMA (advanced maternal age) multigravida 35+ History of delivery affecting Supervision of high risk , antepartum Depression affecting AMA (advanced maternal age) multigravida 35+ History of delivery affecting Supervision of high risk , antepartum Depression affecting AMA (advanced maternal age) multigravida 35+ History of delivery affecting Supervision of high risk , antepartum Depression affecting AMA (advanced maternal age) multigravida 35+ Cellulitis of suprapubic region History of delivery affecting Supervision of high risk , antepartum Depression affecting AMA (advanced maternal age) multigravida 35+ Cellulitis of suprapubic region History of delivery affecting Supervision of high risk , antepartum Depression affecting AMA (advanced maternal age) multigravida 35+ Cellulitis of suprapubic region History of delivery affecting Supervision of high risk , antepartum Depression affecting AMA (advanced maternal age) multigravida 35+ Cellulitis of suprapubic region History of delivery affecting Supervision of high risk , antepartum Decreased movement delivery delivered Depression affecting Acute on chronic blood loss anemia AMA (advanced maternal age) multigravida 35+ Cellulitis of suprapubic region Decreased movement History of delivery affecting Supervision of high risk , antepartum Chief Complaint 24 WK OB *JV pt CONCERN FOR INFECTION/POSS IN GROWN HAIR 1 28 WK OB/GLUCOSE *JV pt 30 WK OB *JV pt 32 WK OB 34 WK OB 36 WK OB 37 WK OB GROWTH 38 WK OB DECREASED MOVEMENT DECREASED MOVEMENT REPEAT REPEAT REPEAT REPEAT 1 wk c/s check, pt request Reason for Visit Depression affecting AMA (advanced maternal age) multigravida 35+ History of delivery affecting Supervision of high risk , antepartum Cellulitis of suprapubic region Depression affecting AMA (advanced maternal age) multigravida 35+ History of delivery affecting Supervision of high risk , antepartum Depression affecting AMA (advanced maternal age) multigravida 35+ History of delivery affecting Supervision of high risk , antepartum Depression affecting AMA (advanced maternal age) multigravida 35+ History of delivery affecting Supervision of high risk , antepartum Depression affecting AMA (advanced maternal age) multigravida 35+ Cellulitis of suprapubic region History of delivery affecting Supervision of high risk , antepartum Depression affecting AMA (advanced maternal age) multigravida 35+ Cellulitis of suprapubic region History of delivery affecting Supervision of high risk , antepartum Depression affecting AMA (advanced maternal age) multigravida 35+ Cellulitis of suprapubic region History of delivery affecting Supervision of high risk , antepartum Depression affecting AMA (advanced maternal age) multigravida 35+ Cellulitis of suprapubic region History of delivery affecting Supervision of high risk , antepartum Decreased movement delivery delivered Depression affecting Acute on chronic blood loss anemia AMA (advanced maternal age) multigravida 35+ Cellulitis of suprapubic region Decreased movement History of delivery affecting Supervision of high risk , antepartum delivery delivered Depression affecting Acute on chronic blood loss anemia Postop check Chief Complaint visit (ob stetrics) AUB 4 months Reason for Visit delivery de livered Routine Follow-Up Abnormal uterine bleeding Chief Complaint visit (ob stetrics) AUB 4 months AUB Reason for Visit delivery de livered Routine Follow-Up Abnormal uterine bleeding Chief Complaint Admit Date Annual (PATIENT COORDINATOR FRONT DESK) April 27, 2024 1:25pm Irritable bowel syndrome May 25, 025 11:04am EMB July 21, 2024 2:0 9pm Reason for Visit Admit Date Abnormal uterine bleeding April 27, 2024 1:25pm Encounter for routine gynecological exam ination April 27, 2024 1:25pm Mixed irritable bowel syndrome May [id number] 11:04am Mixed irritable bowel syndrome July 09, 2024 10:33am Acute on chronic blood loss anemia Febru 2024 10:33am Abnormal uterine bleeding July 21 2:09pm Chief Complaint Admit Date July 21, 2024 2:0 9pm abnormal bleeding September 02, 2024 9:2 6am Liletta Insertion *Copay $September 09 9:13am Reason for Visit Admit Date Mixed irritable bowel syndrome July 09, 2024 10:33am Acute on chronic blood loss anemia Febru 2024 10:33am Abnormal uterine bleeding July 21 2:09pm Abnormal uterine bleeding September 02 9:26am Abnormal uterine bleeding September 09, 2024 9:13am Depression affecting September 09, 2024 9:13am Acute on chronic blood loss anemia September [id number] 9:13am Chief Complaint Admit Date July 21, 2024 2:0 9pm abnormal bleeding September 02, 2024 9:2 6am Liletta Insertion *Copay $10 September 09 9:13am 8 wk FU AUD/IUD *$Copay 10 November 01 9:38am Chief Complaint Admit Date July 21, 2024 2:0 9pm abnormal bleeding September 02, 2024 9:2 6am Liletta Insertion *Copay $10 September 09 9:13am 8 wk FU AUD/IUD *$Copay 10 November 01 9:38am CHECK IUD PLACEMENT November 03, 2024 2:35 pm Reason for Visit Admit Date Abnormal uterine bleeding July 21 2:09pm Abnormal uterine bleeding September 02 9:26am Abnormal uterine bleeding September 09, 2024 9:13am Depression affecting September 09, 2024 9:13am Acute on chronic blood loss anemia September [id number] 9:13am Abnormal uterine bleeding November 01 9:38am IUD strings lost November 01, 2024 9:38 am Chief Complaint Admit Date EMB July 21, 2024 2:0 9pm abnormal bleeding September 02, 2024 9:2 6am Liletta Insertion *Copay $10 September 09 9:13am 8 wk FU AUD/IUD *$Copay 10 November 01 9:38am CHECK IUD PLACEMENT November 03, 2024 2:35 pm EORDER November 15, 2024 4:58p m Chief Complaint Admit Date abnormal bleeding September 02, 2024 9:2 6am Liletta Insertion *Copay $10 September 09 9:13am 8 wk FU AUD/IUD *$Copay 10 November 01 9:38am CHECK IUD PLACEMENT November 03, 2024 2:35 pm EORDER November 15, 2024 4:58p m Displaced IUD *$10 COPAY November 24, 2024 8:31am Reason for Visit Admit Date Abnormal uterine bleeding September 02 9:26am Abnormal uterine bleeding September 09, 2024 9:13am Depression affecting September 09, 2024 9:13am Acute on chronic blood loss anemia September 092024 9:13am Abnormal uterine bleeding November 01 9:38am IUD strings lost November 01, 2024 9:38 am Chief Complaint Admit Date abnormal bleeding September 02, 2024 9:2 6am Liletta Insertion *Copay $10 September 09 9:13am 8 wk FU AUD/IUD *$Copay 10 November 01 9:38am CHECK IUD PLACEMENT November 03, 2024 2:35 pm EORDER November 15, 2024 4:58p m Displaced IUD *$10 COPAY November 24, 2024 8:31am LEFT KNEE PAIN. RX HERE November 24, 2024 6:04pm Reason for Visit Admit Date Abnormal uterine bleeding Clau 24th, 20 25 9:26am Abnormal uterine bleeding September 09, 2024 9:13am Depression affecting September 09, 2024 9:13am Acute on chronic blood loss anemia September [id number] 9:13am Abnormal uterine bleeding November 01 9:38am IUD strings lost November 01, 2024 9:38 am Abnormal uterine bleeding November 24 8:31am Malpositioned IUD November 24, 2024 8:31 am Chief Complaint Admit Date abnormal bleeding September 02, 2024 9:2 6am Liletta Insertion *Copay $10 September 09 9:13am 8 wk FU AUD/IUD *$Copay 10 November 01 9:38am CHECK IUD PLACEMENT November 03, 2024 2:35 pm EORDER November 15, 2024 4:58p m Displaced IUD *$10 COPAY November 24, 2024 8:31am LEFT KNEE PAIN. RX HERE November 24, 2024 6:04pm PERSISTENT LEFT KNEE PAIN December 03 3:32pm Hysteroscopy,Dilation and Curettage, Lap aroscopic December 07, 2024 9:43am Hysteroscopy,Dilation and Curettage, Lap aroscopic December 07, 2024 9:55am Reason for Visit Admit Date Abnormal uterine bleeding September 02 9:26am Abnormal uterine bleeding September 09, 2024 9:13am Depression affecting September 09, 2024 9:13am Acute on chronic blood loss anemia September [id number] 9:13am Abnormal uterine bleeding November 01 9:38am IUD strings lost November 01, 2024 9:38 am Abnormal uterine bleeding November 24 8:31am Malpositioned IUD November 24, 2024 8:31 am Abnormal uterine bleeding December 07 9:43am Malpositioned IUD December 07, 2024 9:43 am Additional Source Comments INFORMATION SOURCE (unrecogn ized section and content) DATE CREATED AUTHOR 07/07/2019 [facility] DATE CREATED AUTHOR AUTHOR'S COREY ZAMUDIO 12/07/2024 [facility] Goals (unrecognized section and content) Goals may be documented in a n alternate sectionGoals may be documented in an alternate sectionGoals may be documented in an alternate sectionGoals may be documented in an alternate sectionGoals may be documented in an alternate sectionGoals may be documented in an alternate sectionGoals may be documented in an alternate sectionGoals may be documented in an alternate sectionGoals may be documented in an alternate sectionGoals may be documented in an alternate sectionGoals may be documented in an alternate sectionGoals may be documented in an alternate sectionGoals may be documented in an alternate sectionGoals may be documented in an alternate section Care Teams (unrecognized sec tion and content) Team Status: Active Member Role Status Dates Dr. Jermaine Mayer DO Family Provider Active Dr. Jermaine Mayer DO Primary Care Provider Active Team Status: Inactive Member Role Status Dates Dr. Jermaine Mayer DO Primary Care Provider, Referrin g Provider Active Dr. Marquita Mcclendon MD Attending Provider Active Team Status: Inactive Member Role Status Dates Dr. Jermaine Mayer DO Primary Care Provider Active Dr. Marquita Mcclendon MD Attending Provider, Referr ing Provider Active Team Status: Inactive Member Role Status Dates Dr. Jermaine Mayre DO Primary Care Provider, Referrin g Provider Active Dr. Cinthia Frances DO Attending Provider Activ e Team Status: Inactive Member Role Status Dates Dr. Jermaine Mayer DO Primary Care Provider, Referrin g Provider Active Harvey Neumann PA, PA Attending Provider Active Team Status: Inactive Member Role Status Dates Dr. Jermaine Mayer DO Primary Care Prov ider, Attending Provider, Referring Provider Active Team Status: Inactive Member Role Status Dates Dr. Jermaine Mayer DO Primary Care Provider Active Dr. Cinthia Frances DO Attending Provider Activ e Team Status: Inactive Member Role Status Dates Dr. Jermaine Mayer DO Primary Care Provider, Referrin g Provider Active Celi Vargas CNM Attending Provider Active Team Status: Inactive Member Role Status Dates Dr. Jermaine Mayer DO Primary Care Provider, Referrin g Provider Active Lissette Lim GENERAL MAINTENANCE TECHNICIAN, GENERAL MAINTENANCE TECHNICIAN-C Attending Provider Active Computer Network Specialist Relationship Specialty Start Date End Date Tad Chan II, MD [address] [place] [address] [place] [address] PCP - General Family Medicine 07/05/14 03/12/15 Jermaine Mayer DO [facility] [address] [place] [address] PCP - General Family Medicine 03/13/15 Team Status: Active Member Role Status Dates Dr. Jermaine Mayer DO Family Provider Active Team Status: Inactive Member Role Status Dates Dr. Jermaine Myaer DO Referring Provider Active Lissette Lim GENERAL MAINTENANCE TECHNICIAN, GENERAL MAINTENANCE TECHNICIAN-C Attending Provider Active Team Status: Inactive Member Role Status Dates Dr. Jermaine Mayer DO Referring Provider Active Celi Vargas CNM Attending Provider Active Team Status: Inactive Member Role Status Dates Dr. Jermaine Mayer DO Referring Provider Active Dr. Marquita Mcclendon MD Attending Provider Active Team Status: Inactive Member Role Status Dates Dr. Marquita Mcclendon MD Attending Provider, Referr ing Provider Active Team Status: Inactive Member Role Status Dates Dr. Jermaine Mayer DO Referring Provider Active Dr. Cinthia Frances DO Attending Provider Activ e Team Status: Inactive Member Role Status Dates Dr. Marquita Mcclendon MD Other Provider Active Dr. Jermaine Mayer DO Primary Care Provider Active Dr. Cinthia Frances DO Attending Provider, Refe rring Provider Active Team Status: Inactive Member Role Status Dates Dr. Jermaine Mayer DO Primary Care Provider Active Dr. Cinthia Frances DO Attending Provider, Refe rring Provider Active Team Status: Active Member Role Status Dates Dr. Jermaine Mayer DO Primary Care Provider Active Dr. Cinthia Frances DO Attending Provider, Referring Provider, Other Provider Active Team Status: Active Member Role Status Dates Dr. Jermaine Mayer DO Primary Care Provider Active Dr. Marquita Mcclendon MD Admit Provid er, Referring Provider, Other Provider Active Dr. Cinthia Frances DO Attending Provider Activ e Team Status: Active Member Role Status Dates Dr. Jermaine Mayer DO Primary Care Provider Active Dr. Marquita Mcclendon MD Attending Provider, Referr ing Provider Active Dr. Cinthia Frances DO Admit Provider, Other Pr ovider Active Team Status: Inactive Member Role Status Dates Dr. Jermaine Mayer DO Primary Care Provider Active Dr. Marquita Mcclendon MD Referring Provider Active Dr. Cinthia Frances Admit Provider, Attendin g Provider Active Team Status: Inactive Member Role Status Dates Dr. Jermaine Mayer DO Primary Care Provider Active Lissette Lim GENERAL MAINTENANCE TECHNICIAN, GENERAL MAINTENANCE TECHNICIAN-C Attending Provider, Referring Provider Active Team Status: Inactive Member Role Status Dates Dr. Jermaine Mayer DO Primary Care Provider Active Start: April 27, 2024 End: April 27, 2024 Dr. Jermaine Mayer DO Referring Provider Active Start: April 27, 2024 End: April 27, 2024 Lissette Lim GENERAL MAINTENANCE TECHNICIAN, GENERAL MAINTENANCE TECHNICIAN-C Attending Provider Active Start: April 27, 2024 End: April 27, 2024 Team Status: Inactive Member Role Status Dates Dr. Jermaine Mayer DO Primary Care Provider Active Start: May 25, 2024 End: May 25, 2024 Dr. Jermaine Mayer DO Referring Provider Active Start: May 25, 2024 End: May 25, 2024 Cinthia Rivas NP-C Attending Provider Active Start: May 25, 2024 End: May 25, 2024 Team Status: Inactive Member Role Status Dates Dr. Jermaine Mayer DO Primary Care Provider Active Start: July 09, 2024 End: July 09, 2024 Dr. Jermaine Mayer DO Referring Provider Active Start: July 09, 2024 End: July 09, 2024 Dr. Byron Ren DO Attending Provider Active Start: July 09, 2024 End: July 09, 2024 Team Status: Active Member Role Status Dates Dr. Jermaine Mayer DO Primary Care Provider Active Start: July 09, 2024 Dr. Jermaine Mayer DO Referring Provider Active Start: July 09, 2024 Dr. Byron Ren DO Attending Provider Active Start: July 09, 2024 Dr. Byron Ren DO Other Provider Active St art: July 09, 2024 Team Status: Inactive Member Role Status Dates Dr. Jermaine Mayer DO Referring Provider Active Start: July 21, 2024 End: July 21, 2024 Lissette Lim GENERAL MAINTENANCE TECHNICIAN, GENERAL MAINTENANCE TECHNICIAN-C Attending Provider Active Start: July 21, 2024 End: July 21, 2024 Team Status: Inactive Member Role Status Dates Lissette Lim GENERAL MAINTENANCE TECHNICIAN, GENERAL MAINTENANCE TECHNICIAN-C Attending Provider Active Start: July 21, 2024 End: July 21, 2024 Lissette Lim GENERAL MAINTENANCE TECHNICIAN, GENERAL MAINTENANCE TECHNICIAN-C Referring Provider Active Start: July 21, 2024 End: July 21, 2024 Team Status: Active Member Role Status Dates Dr. Jermaine Mayer DO Primary Care Provider Active Team Status: Inactive Member Role Status Dates Dr. Marquita Mcclendon MD Attending Provider Active Start: September 02, 2024 End: September 02, 2024 Dr. Jermaine Mayer DO Primary Care Provider Active Start: September 02, 2024 End: September 02, 2024 Dr. Jermaine Mayer DO Referring Provider Active Start: September 02, 2024 End: September 02, 2024 Team Status: Inactive Member Role Status Dates Dr. Jermaine Mayer DO Primary Care Provider Active Start: September 09, 2024 End: September 09, 2024 Dr. Jermaine Mayer DO Referring Provider Active Start: September 09, 2024 End: September 09, 2024 Dr. Marquita Mcclendon MD Attending Provider Active Start: September 09, 2024 End: September 09, 2024 Team Status: Inactive Member Role Status Dates Dr. Jermaine Mayer DO Primary Care Provider Active Start: September 21, 2024 End: September 21, 2024 Dr. Jermaine Mayer DO Attending Provider Active Start: September 21, 2024 End: September 21, 2024 Dr. Jermaine Mayer DO Referring Provider Active Start: September 21, 2024 End: September 21, 2024 Team Status: Inactive Member Role Status Dates Dr. Jermaine Mayer DO Primary Care Provider Active Start: November 01, 2024 End: November 01, 2024 Dr. Jermaine Mayer DO Referring Provider Active Start: November 01, 2024 End: November 01, 2024 Dr. Marquita Mcclendon MD Attending Provider Active Start: November 01, 2024 End: November 01, 2024 Team Status: Active Member Role/Relationship Status Dates Dr. Jermaine Mayer DO Primary Care Provider Active Team Status: Inactive Member Role/Relationship Status Dates Dr. Jermaine Mayer DO Referring Provider Active Start: July 21, 2024 End: July 21, 2024 Lissette Lim GENERAL MAINTENANCE TECHNICIAN, GENERAL MAINTENANCE TECHNICIAN-C Attending Provider Active Start: July 21, 2024 End: July 21, 2024 Team Status: Inactive Member Role/Relationship Status Dates Lissette Lim GENERAL MAINTENANCE TECHNICIAN, GENERAL MAINTENANCE TECHNICIAN-C Attending Provider Active Start: July 21, 2024 End: July 21, 2024 Lissette Lim GENERAL MAINTENANCE TECHNICIAN, GENERAL MAINTENANCE TECHNICIAN-C Referring Provider Active Start: July 21, 2024 End: July 21, 2024 Team Status: Inactive Member Role/Relationship Status Dates Dr. Marquita Mcclendon MD Attending Provider Active Start: September 02, 2024 End: September 02, 2024 Dr. Jermaine Mayer DO Primary Care Provider Active Start: September 02, 2024 End: September 02, 2024 Dr. Jermaine Mayer DO Referring Provider Active Start: September 02, 2024 End: September 02, 2024 Team Status: Inactive Member Role/Relationship Status Dates Dr. Jermaine Mayer DO Primary Care Provider Active Start: September 09, 2024 End: September 09, 2024 Dr. Jermaine Mayer DO Referring Provider Active Start: September 09, 2024 End: September 09, 2024 Dr. Marquita Mcclendon MD Attending Provider Active Start: September 09, 2024 End: September 09, 2024 Team Status: Inactive Member Role/Relationship Status Dates Dr. Jermaine Mayer DO Primary Care Provider Active Start: September 21, 2024 End: September 21, 2024 Dr. Jermaine Mayer DO Attending Provider Active Start: September 21, 2024 End: September 21, 2024 Dr. Jermaine Mayer DO Referring Provider Active Start: September 21, 2024 End: September 21, 2024 Team Status: Inactive Member Role/Relationship Status Dates Dr. Jermaine Mayer DO Primary Care Provider Active Start: November 01, 2024 End: November 01, 2024 Dr. Jermaine Mayer DO Referring Provider Active Start: November 01, 2024 End: November 01, 2024 Dr. Marquita Mcclendon MD Attending Provider Active Start: November 01, 2024 End: November 01, 2024 Team Status: Inactive Member Role/Relationship Status Dates Dr. Jermaine Mayer DO Primary Care Provider Active Start: November 03, 2024 End: November 03, 2024 Dr. Marquita Mcclendon MD Attending Provider Active Start: November 03, 2024 End: November 03, 2024 Dr. Marquita Mcclendon MD Referring Provider Active Start: November 03, 2024 End: November 03, 2024 Team Status: Inactive Member Role/Relationship Status Dates Dr. Jermaine Mayer DO Primary Care Provider Active Start: November 15, 2024 End: November 15, 2024 Dr. Marquita Mcclendon MD Attending Provider Active Start: November 15, 2024 End: November 15, 2024 Dr. Marquita Mcclendon MD Referring Provider Active Start: November 15, 2024 End: November 15, 2024 Team Status: Inactive Member Role/Relationship Status Dates Dr. Marquita Mcclendon MD Attending Provider Active Start: September 02, 2024 End: September 02, 2024 Dr. Jermaine Mayer DO Primary Care Provider Active Start: September 02, 2024 End: September 02, 2024 Dr. Jermaine Mayer DO Referring Provider Active Start: September 02, 2024 End: September 02, 2024 Team Status: Inactive Member Role/Relationship Status Dates Dr. Jermaine Mayer DO Primary Care Provider Active Start: September 09, 2024 End: September 09, 2024 Dr. Jermaine Mayer DO Referring Provider Active Start: September 09, 2024 End: September 09, 2024 Dr. Marquita Mcclendon MD Attending Provider Active Start: September 09, 2024 End: September 09, 2024 Team Status: Inactive Member Role/Relationship Status Dates Dr. Jermaine Mayer DO Primary Care Provider Active Start: September 21, 2024 End: September 21, 2024 Dr. Jermaine Mayer DO Attending Provider Active Start: September 21, 2024 End: September 21, 2024 Dr. Jermaine Mayer DO Referring Provider Active Start: September 21, 2024 End: September 21, 2024 Team Status: Inactive Member Role/Relationship Status Dates Dr. Jermaine Mayer DO Primary Care Provider Active Start: November 01, 2024 End: November 01, 2024 Dr. Jermaine Mayer DO Referring Provider Active Start: November 01, 2024 End: November 01, 2024 Dr. Marquita Mcclendon MD Attending Provider Active Start: November 01, 2024 End: November 01, 2024 Team Status: Inactive Member Role/Relationship Status Dates Dr. Jermaine Mayer DO Primary Care Provider Active Start: November 03, 2024 End: November 03, 2024 Dr. Marquita Mcclendon MD Attending Provider Active Start: November 03, 2024 End: November 03, 2024 Dr. Marquita Mcclendon MD Referring Provider Active Start: November 03, 2024 End: November 03, 2024 Team Status: Inactive Member Role/Relationship Status Dates Dr. Jermaine Mayer DO Primary Care Provider Active Start: November 15, 2024 End: November 15, 2024 Dr. Marquita Mcclendon MD Attending Provider Active Start: November 15, 2024 End: November 15, 2024 Dr. Marquita Mcclendon MD Referring Provider Active Start: November 15, 2024 End: November 15, 2024 Team Status: Inactive Member Role/Relationship Status Dates Dr. Jermaine Mayer DO Primary Care Provider Active Start: November 24, 2024 End: November 24, 2024 Dr. Jermaine Mayer DO Referring Provider Active Start: November 24, 2024 End: November 24, 2024 Dr. Marquita Mcclendon MD Attending Provider Active Start: November 24, 2024 End: November 24, 2024 Team Status: Inactive Member Role/Relationship Status Dates Dr. Jermaine Mayer DO Primary Care Provider Active Start: November 24, 2024 End: November 24, 2024 Dr. Marquita Mcclendon MD Attending Provider Active Start: November 24, 2024 End: November 24, 2024 Dr. Marquita Mcclendon MD Referring Provider Active Start: November 24, 2024 End: November 24, 2024 Team Status: Active Member Role/Relationship Status Dates Dr. Jermaine Mayer DO Primary Care Provider Active Start: November 24, 2024 Dr. Jermaine Mayer DO Attending Provider Active Start: November 24, 2024 Team Status: Active Member Role/Relationship Status Dates Dr. Jermaine Mayer DO Primary Care Provider Active Start: December 03, 2024 Dr. Jermaine Mayer DO Attending Provider Active Start: December 03, 2024 Dr. Jermaine Mayer DO Referring Provider Active Start: December 03, 2024 Team Status: Inactive Member Role/Relationship Status Dates Dr. Jermaine Mayer DO Primary Care Provider Active Start: December 07, 2024 End: December 07, 2024 Dr. Marquita Mcclendon MD Attending Provider Active Start: December 07, 2024 End: December 07, 2024 Dr. Marquita Mcclendon MD Referring Provider Active Start: December 07, 2024 End: December 07, 2024 Team Status: Active Member Role/Relationship Status Dates Dr. Jermaine Mayer DO Primary Care Provider Active Start: December 07, 2024 Dr. Marquita Mcclendon MD Attending Provider Active Start: December 07, 2024 Dr. Marquita Mcclendon MD Referring Provider Active Start: December 07, 2024 Dr. Marquita Mcclendon MD Other Provider Active Start: December 07, 2024 Source Comments (unrecognize d section and content) In the event this informatio n is protected by the Federal Confidentiality of Alcohol and Drug Abuse Patient Records regulations: The Federal rules restrict any use of the information to criminally investigate or prosecute any alcohol or drug abuse patient.[facility] FOR RECORDS PERTAINING TO PATIENTS WHO ARE [...] BE BASED ON THE PRIMARY CLINICAL RECORDS. [facility]. provides no warranty or guarantee of the accuracy or completeness of information in this document.
--- NOTE | 2024-12-07 23:17 | PCM.POSTANE2 ---
Anesthesia Postop Eval I Sum Postop Eval Completion status Anesthesia document: Postop Eval 1 completed: Yes Anesthesia Postop Eval I Summary Anesthesia Postop Eval I Summary: Anesthesia Postop Eval I: Assessment Summary Airway patent Yes 12/07/24 23:17 Spontaneous unlabored Yes 12/07/24 23:17 respirations Mental status Awake,Calm 12/07/24 23:17 nausea No 12/07/24 23:17 Vomiting No 12/07/24 23:17 Anesthesia Postop Eval I: Fluid Summary Crystalloid volume administer 500 12/07/24 23:17 (ml) Colloids volume administered ( ml) Blood Product volume administered (ml) Total IV fluid infused 500 12/07/24 23:17 Anesthesia Postop Eval I: Summary Notes Anesthesia Complication No 12/07/24 23:17 Anesthesia Complication Comment: Post-operative progress note Anesthesia: Postop Eval II Evaluation Mental status: Awake and Calm Pain Level: 1 nausea: No Vomiting: No Complications Anesthesia Complication: No
== END 2024-12-07 15:10 | disposition home or self-care (01) ==
LOC: SDC 09:44 → AC 09:45
PROVIDERS: PCP Family Medicine; Referring Provider Obstetrics & Gynecology; Visit Provider Obstetrics & Gynecology
PROC: 0UDB8ZZ Extraction of Endometrium, Via Natural or Artificial Opening Endoscopic (ICD-10-PCS; CPT 58558; principal; 2024-12-07 11:00)
PROC: (CPT 49320; 2024-12-07 11:00)
DX: N93.9 Abnormal uterine and vaginal bleeding, unspecified (principal); N85.8 Other specified noninflammatory disorders of uterus; T83.32XA Displacement of intrauterine contraceptive device, initial encounter; X58.XXXA Exposure to other specified factors, initial encounter
CPT/HCPCS: 58558; 49329; 00952; 85027; 86850; 86900; 86901; 88300; 88305; J2405

== ENCOUNTER → 2025-01-11 | Outpatient (CLI) | payer OTHER, SELFPAY ==
--- NOTE | 2025-01-11 12:45 | BI_ITS ---
EXAM: SCRN MAMM (CAD)W/FRANK BILAT DATE: 01/11/2025 CLINICAL HISTORY: F, Age 39 y/o , SCREENING MAMMOGRAM Grandmother with breast cancer. TECHNIQUE: Procedure Code: [id number] Modality: MG Procedure: SCRN MAMM (CAD)W/FRANK BILAT COMPARISON: This is a baseline examination. FINDINGS: TISSUE DENSITY: The breasts are heterogeneously dense, which may obscure small masses. Bilateral Breast Mammographic Findings: No significant masses, calcifications or other abnormalities are identified. Small benign-appearing bilateral axillary lymph nodes. BI/SCRN MAMM (CAD)W/FRANK BILAT IMPRESSION: No suspicious abnormality is seen. OVERALL FINAL ASSESSMENT BI-RADS 2: BENIGN RECOMMENDATION: Routine annual follow-up in 1 Year A letter with findings and recommendations will be mailed to the patient. Reading Location: [place] [id number]
== END | disposition home or self-care (01) ==
PROVIDERS: PCP Obstetrics & Gynecology; Referring Provider Obstetrics & Gynecology; Visit Provider Obstetrics & Gynecology
DX: Z12.31 Encounter for screening mammogram for malignant neoplasm of breast (principal)
CPT/HCPCS: 77063; 77067

== ENCOUNTER 2025-03-28 17:30 | Outpatient (RCR) | payer OTHER, SELFPAY ==
--- NOTE | 2024-11-25 08:56 | HP.PTEVAL_ITS ---
Patient's Visit Information Visit Information Visit Information: SUSAN STEINBERG is a 39 year old F referred to Physical Therapy by Dr. Jermaine Mayer DO with a diagnosis of Left Knee Pain. Date of Evaluation: 11/24/24 Physical Therapist: Janee Tafoya DPT Visit Plan Frequency: 2x /Week Duration: 4 Weeks Subjective Subjective: Patient reports knee and ankle pain for months that resolved with stretching- she has been a quasi regular at the [facility]- wearing not so great shoes. July she started doing beach body at home 21 day- and she was making progress and the pain went from persistent dull annoyance to sharp and painful. The pain is aggravated by going down the stairs and stepping wrong. Worst: 3- 4/10 Its the worst if she does a workout at home. Best: 2-310. Its a dull and achy pain. The pain is located on the top of the knee and will move over onto the lateral side of the knee. She has an MRI which is set for Dec 15. She did have hip and ankle pain but that has subsided since she has subsided. She has had an injection in her knee which made it feel better. PMHx/Meds: see list in chart Objective Objective: Posture: forward head, rounded shoulders- can correct with verbal cues but does not maintain Gait: no deviation noted HR/TR: able without pain SLS: 15 sec with mild increase in sway with mild hip drop Squat: mild increase in weight shift ROM: 0-135 degrees with pain at end range Strength: Core: fair minus, Hip: 4/5 throughout, Knee: Flexion: 38 Extn: 65 Ankle: 5/5 Flex: HS: moderate, Gastroc: moderate Palpation: mild tenderness along medial and lateral joint line Special Tests L Knee Aleksandr - Meniscus: Negative L Knee Valgus - MCL: Positive L Knee Varus - LCL: Positive Balance/Special Test Scores Lower Extremity Functional Score: 55 Goals Goal 1:: Patient will be I with HEP and progression Goal Time Frame: 4-6 Weeks Goal 2:: Patient will squat with normal mechanics Goal Time Frame: 4-6 Weeks Goal 3:: Patient will report 80% improvement Goal Time Frame: 4-6 Weeks Rehabilitation Potential Physical Therapy Diagnosis: Patient presents with decreased LE and core strength/stabilization, flex and muscular endurance leading to increased pain with ADL's Rehabilitation Potential: Good Anticipated Interventions Patient/Client Instruction: Educate patient on: Benefits of Fitness Program Therapeutic Exercise to Include: Strength training, Endurance training, Balance training, Coordination, Agility training, Body mechanics, Postural training, Flexibilty training, Gait and locomotor training, Neuromotor development, Dynamic Lumbar Stabilization and Scapular Strength/Stabilization TENS: Yes Cryotherapy (ice pack, ice massage): Yes Thermo therapy (hot pack): Yes Ultrasound (thermal/non thermal): Yes Text: Thank you for the opportunity to evaluate your patient. For Medicare and Medicare HMO plans, please review the plan of care and approve it. It will need to be FAXED BACK to us at [phone] for Medicare purposes. For Medicare only, by signing this I certify the plan of care. Please let me know if there are questions or concerns regarding this plan of care. Physician Signature: Date:
--- NOTE | 2025-01-13 19:01 | HP.PTREVAL ---
Re-Evaluation Intro: Dr. Jermaine Mayer, DO, It has been my pleasure to treat SUSAN STEINBERG over the last 9 visits for Left Knee Pain. Please see the progress note below for an update on the physical therapy plan of care! Subjective Subjective: I am feeling a little better Objective Objective/Function: L knee pain is 0/10 Pt is I with HEP MMT: R knee flex= 23, ext= 36 #F; L knee flex= 23, ext= 37 #F Pt is progressing well at this time. Plan Plan Plan: Recheck or discharge in one month Balance/Gait/Functional tests Balance/Special Test Scores Lower Extremity Functional Score: 55 Goals Goals Goal 1:: Patient will be I with HEP and progression Goal Time Frame: 4-6 Weeks Goal Progress: Goal Met Goal 2:: Patient will squat with normal mechanics Goal Time Frame: 4-6 Weeks Goal Progress: Goal Met Goal 3:: Patient will report 80% improvement Goal Time Frame: 4-6 Weeks Goal Progress: Progressing Goal 4:: Pt will be able to return to full activity with working out and having no pain or limitations over the next 4 weeks Goal Time Frame: 4-6 Weeks Goal Progress: New goal Anticipated Interventions Anticipated Interventions Patient/Client Instruction: Educate patient on: Benefits of Fitness Program Therapeutic Exercise to Include: Strength training, Endurance training, Balance training, Coordination, Agility training, Body mechanics, Postural training, Flexibilty training, Gait and locomotor training, Neuromotor development, Dynamic Lumbar Stabilization and Scapular Strength/Stabilization TENS: Yes Cryotherapy (ice pack, ice massage): Yes Thermo therapy (hot pack): Yes Ultrasound (thermal/non thermal): Yes Re-Evaluation Ending Re-evaluation ending: Please do not hesitate to contact me at [phone] by phone or if you have questions or concerns regarding this new plan of care! Sincerely, Kingston Darnell, PT, ATC
--- NOTE | 2025-03-28 18:04 | HP.PTDCSUM_ITS ---
Discharge Summary D/C summary: It has been my pleasure to treat SUSAN STEINBERG referred by Dr. Jermaine Mayer DO, with the diagnosis of Left Knee Pain for a total of 17 visit(s). Discharge Date: Please see the following information for a summary of their discharge status. Subjective Subjective: I am doing much better now Pain Left Knee: Pain Intensity (Out of 10): 1 Overall Improvement % Improvement: 90 Objective Objective/Function: L knee pain 05/21 Pt is I with HEP Pt is able to return to ex's without limitation MMT: B LE's are equal and strong throughout Rx goals achieved Goals Goal 1:: Patient will be I with HEP and progression Goal Progress: Goal Met Goal 2:: Patient will squat with normal mechanics Goal Progress: Goal Met Goal 3:: Patient will report 80% improvement Goal Progress: Goal Met Goal 4:: Pt will be able to return to full activity with working out and having no pain or limitations over the next 4 weeks Goal Progress: Goal Met Plan Plan: Discharge to [facility] D/C Information d/c sentence: If there are questions or concerns regarding this patient's physical therapy, please feel free to call me at [phone]. Thank you for the referral of this patient. Sincerely, Kingston Darnell, PT, ATC Balance/Gait/Functional tests Balance/Special Test Scores Lower Extremity Functional Score: 77 Improvement % Improvement: 90
== END 2025-03-28 19:00 | disposition home or self-care (01) ==
LOC: PT 17:30
PROVIDERS: PCP Family Medicine; Visit Provider Family Medicine
DX: M25.562 Pain in left knee (principal)
CPT/HCPCS: 97110; 97162; 97530